=== PATIENT | male | born 1950 | race Caucasian/White ===

== ENCOUNTER → 2020-11-15 02:39 | Outpatient (CLI) | payer MEDICARE, SELFPAY ==
[2020-11-15 19:42] LABS: SARS-CoV-2 RNA PCR Negative
== END ==
PROVIDERS: PCP Internal Medicine; Visit Provider Internal Medicine Gastroenterology
DX: Z01.812 Encounter for preprocedural laboratory examination (principal); Z20.822 Contact with and (suspected) exposure to COVID-19
CPT/HCPCS: C9803; U0003; U0005

== ENCOUNTER 2020-11-18 01:07 | Day surgery (SDC) | payer MEDICARE, SELFPAY ==
[2020-11-09 10:29] VITALS: BMI 19.6
[2020-11-18 06:46] VITALS: BP 237/102; PULSE 68; RESP 20; TEMP 36.2; O2SAT 100
[2020-11-18] MEDS: LACTATED RINGERS 1,000 ML 150 ML IV CONT (06:56)
[2020-11-18 07:03] VITALS: BP 202/101
--- NOTE | 2020-11-18 07:29 | PM.HPGS ---
History of Present Illness History of Present Illness Consent: Risks, benefits, and alternatives have been discussed and questions answered. Patient agrees to proceed with procedure. Chief complaint: melena Narrative: Hank Montes is a 70 year old male referred for colon cancer screening. It has been 10 years since his last colonoscopy. Review of Systems Review of Systems: All systems reviewed & are unremarkable except as noted in HPI and below PMFSH Family History Family History Mother Hypertension Sibling Patient's sister is in good health Patient's brother is in good health Father Family history of cardiovascular disease Other Screening PSA (prostate specific antigen) Social History Social History Smoking packs per day: 1 Smoking cigarettes per day: 20.0 Smoking status: Former smoker Smoking end date: 08/06/90 Alcohol intake: former Alcohol use details: RARE OCCASSION Substance use: never Substance use type: does not use Living arrangements: alone Spiritual care concerns: No Meds Home Medications and Allergies Home Medications Medication Instructions Recorded Confirmed Type sildenafil 100 mg tablet 100 mg PO DAILY PRN #18 tablet 09/09/19 11/18/20 Rx atenolol 100 mg tablet 100 mg PO DAILY #90 tablet 08/30/20 11/18/20 Rx lisinopril 40 mg tablet 40 mg PO DAILY #90 tablet 08/30/20 11/18/20 Rx clonidine HCl 0.1 mg tablet 0.1 mg PO TID #270 tablet 10/04/20 11/18/20 Rx vardenafil 20 mg tablet 20 mg PO DAILY #7 tablet 10/04/20 11/18/20 Rx levothyroxine 125 mcg tablet 125 mcg PO DAILY #90 tablet 10/05/20 11/18/20 Rx Allergies Allergy/AdvReac Type Severity Reaction Status Date / Time Penicillins Allergy Unknown Rash Verified 11/18/20 06:44 Sulfa (Sulfonamide Allergy Unknown Rash Verified 11/18/20 06:44 Antibiotics) Vital Signs Vital Signs - 24 hr 11/18/20 06:46 11/18/20 07:03 Temperature 36.2 C L Pulse Rate 68 Respiratory Rate 20 Blood Pressure 237/102 H 202/101 H Pulse Oximetry 100 Exam Const: General: alert Orientation/consciousness: patient oriented x3 Resp: Auscultation: clear to auscultation bilaterally Cardio: Rhythm: regular rhythm GI: GI Palp: Yes Soft to palpation and No Tenderness to palpation present (GI) Neuro: General: patient oriented x3 Assessment and Plan Assessment and plan (1) Colon cancer screening: Code(s): Z12.11 - Encounter for screening for malignant neoplasm of colon Status: Acute Assessment and Plan: Colonoscopy with possible biopsy or polypectomy or cautery or injection of substances.
--- NOTE | 2020-11-18 07:55 | WPDANESEPPF ---
Anes - Initial Pre Proc Eval Procedure: Operation Date: 11/18/20 08:00 Proposed Procedures p Colonoscopy - Taco Colmenares MD Date/Time: 11/18/20 07:55 Surgeon: Taco Colmenares MD Pre Op Diagnosis: melena Patient Data Age: 70 Gender: M Height: 5 ft 11 in Weight: 58.4 kg Last Vital Signs Temp 97.1 F L 11/18/20 06:46 Pulse 68 11/18/20 06:46 Resp 20 11/18/20 06:46 BP 202/101 H 11/18/20 07:03 Pulse Ox 100 11/18/20 06:46 Allergies Allergy/AdvReac Type Severity Reaction Status Date / Time Penicillins Allergy Unknown Rash Verified 11/18/20 06:44 Sulfa (Sulfonamide Allergy Unknown Rash Verified 11/18/20 06:44 Antibiotics) Home Medications Medication Instructions Recorded Confirmed Type sildenafil 100 mg tablet 100 mg PO DAILY PRN #18 tablet 09/09/19 11/18/20 Rx atenolol 100 mg tablet 100 mg PO DAILY #90 tablet 08/30/20 11/18/20 Rx lisinopril 40 mg tablet 40 mg PO DAILY #90 tablet 08/30/20 11/18/20 Rx clonidine HCl 0.1 mg tablet 0.1 mg PO TID #270 tablet 10/04/20 11/18/20 Rx vardenafil 20 mg tablet 20 mg PO DAILY #7 tablet 10/04/20 11/18/20 Rx levothyroxine 125 mcg tablet 125 mcg PO DAILY #90 tablet 10/05/20 11/18/20 Rx Patient hx anesthesia problems: none Family hx anesthesia problems: none PMFSH Past Medical History Medical History (Updated 11/18/20 @ 07:55 by Eldon Zepeda MD) Essential (primary) hypertension H/O prostate cancer Hypothyroidism (acquired) Family History Family History Mother Hypertension Sibling Patient's sister is in good health Patient's brother is in good health Father Family history of cardiovascular disease Other Screening PSA (prostate specific antigen) Social History Social History Smoking packs per day: 1 Smoking cigarettes per day: 20.0 Smoking status: Former smoker Smoking end date: 08/06/90 Alcohol intake: former Alcohol use details: RARE OCCASSION Substance use: never Substance use type: does not use Living arrangements: alone Spiritual care concerns: No Anes - Eval Final PreProcedure Day of Procedure 11/18/20 07:55 Patient weight: normal Heart: regular rate and rhythm Lungs: clear to auscultation Airway: Mallampati scale class II Neurological: alert and oriented Last oral intake: >/= 8 hours ASA classification: III Emergent: no Anesthetic plan: proceed Anesthesia type and monitoring: general GIVS and standard monitoring Informed Consent: The patient's anesthetic plan and its attendant risks and benefits were discussed with the patient/family/POA. Questions were solicited and answers provided to the satisfaction of the patient/family/POA.
[2020-11-18 08:20] VITALS: BP 98/67; PULSE 57; RESP 17; O2SAT 99
[2020-11-18 08:30] VITALS: BP 113/68; PULSE 54; RESP 16; O2SAT 98
[2020-11-18 08:40] VITALS: BP 169/94; PULSE 57; RESP 17; O2SAT 100
== END 2020-11-18 08:50 | disposition home or self-care (01) ==
PROVIDERS: PCP Internal Medicine; Visit Provider Internal Medicine Gastroenterology
PROC: 0DJD8ZZ Inspection of Lower Intestinal Tract, Via Natural or Artificial Opening Endoscopic (ICD-10-PCS; CPT 45378; principal; 2020-11-18 08:00)
DX: Z12.11 Encounter for screening for malignant neoplasm of colon (principal); K62.1 Rectal polyp; E03.9 Hypothyroidism, unspecified; I10 Essential (primary) hypertension; Z85.46 Personal history of malignant neoplasm of prostate; Z87.891 Personal history of nicotine dependence
CPT/HCPCS: 45380; 88305; C9803; J2704; J7120; U0003; U0005

== ENCOUNTER 2022-06-09 16:34 | Inpatient (IN) | payer MEDICARE, SELFPAY ==
[2022-06-09] VITALS (31 sets, daily range): BP systolic 119–211; BP diastolic 55–137; PULSE 62–113; RESP 13–26; TEMP 36.2–38.1; O2SAT 90–100
--- NOTE | ~2022-06-09 | XR_ITS ---
XR chest ET placement DATE: 06/09/2022 17:00 INDICATION: ET tube placement TECHNIQUE: Portable AP chest on 06/2022 at 1656 hours COMPARISON: None FINDINGS: ET tube is approximately 2.6 cm above kale in satisfactory position. NG tube is noted pas sing into the stomach. No central lines are noted. Severe bilateral pulmonary patchy consolidation throughout both lungs, most prominent centrally. The findings suggest pulmonary edema or extensive bilateral pneumonia. Kade B-lines are noted, suggesti ng pulmonary interstitial edema. Heart size is not optimally evaluated on AP projection because of medication. There is thoracic aorti c arch calcification. Minimal if any pleural effusion is evident. No pneumothorax. There is mild apic al capping, primarily on the right. Osteopenia. IMPRESSION: ET tube in satisfactory position. NG tube in stomach Severe bilateral pulmonary infiltrate, particularly prominent centrally, suggesting pulmonary edema. Pneumonia is not excluded. Reviewed, dictated and finalized at [facility] Reviewed, dictated and finalized at [facility]. IMPRESSION: ET tube in satisfactory position. NG tube in stomach Severe bilateral pulmonary infiltrate, particularly prominent centrally, sugges ting pulmonary edema. Pneumonia is not excluded.
--- NOTE | ~2022-06-09 | XR_ITS ---
XR abdomen NG/feed tube insert DATE: 06/09/2022 17:00 INDICATION: Orogastric tube placement TECHNIQUE: Supine AP view COMPARISON: None FINDINGS: Orogastric tube extends 10 cm distal to the diaphragmatic hiatus into the upper body of the stomach. ET tube appears in satisfactory position. Diffuse severe bilateral patchy consolidating pulmonary infiltrates, most prominent centrally and Ker lexy B-lines, suggesting extensive pulmonary edema. Pneumonia or aspiration are not excluded. IMPRESSION: NG tube in stomach Reviewed, dictated and finalized at [facility]. Reviewed, dictated and finalized at [facility]. IMPRESSION: NG tube in stomach
--- NOTE | 2022-06-09 16:41 | PC.NURSE ---
1635 - Stemi [facility]/H 1636- [facility] [place] 1637 - Lizeth 1640 - [facility]
--- NOTE | 2022-06-09 16:49 | ECG_ITS ---
Measurements Intervals [place] Rate: 114 P: RI: 0 QRS: 6 QRSD: 90 T: 91 QT: 316 QTc: 436 Interpretive Statements SINUS TACHYCARDIA ANTERIOR ST ELEVATION MYOCARDIAL INJURY- ACUTE BASELINE WANDER- I, II, III, AVR, AVL, AVF, V1-V6 ABNORMAL ECG NO PREVIOUS ECG AVAILABLE FOR COMPARISON Electronically Signed On 06-09-2022 21:44:14 CDT by Raz Roy D.O.
--- NOTE | 2022-06-09 16:49 | PC.NURSE ---
PT. HAS BILAT. 18 g INTIATED BY EMS 20 g l FOREARM. 1650 PT. ng TUBE PLACED AT 59@ TEETH 1650 NITROPASTE PLACED ON L CHEST 1659 PT. GIVEN 180 MG BIRLENTA GIVEN VIA NG
[2022-06-09 16:57] LABS: Basophils Absolute Auto 0.2 K/mm3 (0.0-0.1); Basophils Percent Auto 1.2 % (0.2-1.2); Eosinophils Absolute Auto 0.2 K/mm3 (0-0.3); Hematocrit 55.5 % (42.0-52.0); Hemoglobin 17.5 g/dL (14.0-18.0); Immature Granulocyte Absolute 0.11 K/mm3 (0.00-0.031); Immature Granulocyte Percent A 0.6 % (0-0.5); Lymphocytes Absolute Auto 2.57 K/mm3 (0.9-3.2); Lymphocytes Percent Auto 14.3 % (18.3-44.2); Mean Corpuscular HGB Conc 31.5 g/dl (32-36); Mean Corpuscular Hemoglobin 29.3 pg (26-34); Mean Platelet Volume 9.5 fl (7.4-10.4); Monocytes Percent Auto 5.7 % (2.6-8.5); Neutrophils Absolute Auto 13.8 K/mm3 (1.3-6.7); Neutrophils Percent Auto 77.2 % (45.5-73.1); Platelet Count Result 330 k/mm3 (150-375); Red Blood Count 5.97 M/mm3 (4.6-6.20); Red Cell Distribution Width 13.8 % (11.5-14.5); White Blood Count 17.9 K/mm3 (4.5-10.0)
--- NOTE | 2022-06-09 17:01 | ED.SOB ---
HPI - SOB/Dyspnea General Chief Complaint: Shortness of Breath/Dyspnea Stated Complaint: STEMI Time Seen by Provider: 06/09/22 16:44 History of Present Illness HPI Narrative: HPI limited due to acuity of disease. This is a 71-year-old male with reported past medical history of hypertension, brought in by EMS for respiratory distress. EMS reports they were called for shortness of breath with productive sputum. On arrival the patient was hypoxic placed on supplemental oxygen. In route the patient became diaphoretic with worsening sats and was intubated. EMS reported patient's blood pressures were in the 200s systolic with heart rate in the 80s. EKG in the field was concerning for ST elevation in V3 and V4. Patient was given aspirin in route. Related Data Allergies Allergy/AdvReac Type Severity Reaction Status Date / Time Penicillins Allergy Unknown Rash Verified 12/01/21 09:55 Sulfa (Sulfonamide Allergy Unknown Rash Verified 12/01/21 09:55 Antibiotics) Review of Systems Review of Systems: Review of systems limited due to patient intubated. ations, or edema. RESPIRATORY: cough and dyspnea. [facility] Past Medical History Medical History Essential (primary) hypertension H/O prostate cancer Hypothyroidism (acquired) Family History Family History Mother Hypertension Sibling Patient's sister is in good health Patient's brother is in good health Father Family history of cardiovascular disease Other Screening PSA (prostate specific antigen) Social History Social History Smoking packs per day: 1 Smoking cigarettes per day: 20.0 Smoking end date: 08/06/90 Alcohol intake: former Alcohol use details: RARE OCCASSION Substance use: never Substance use type: does not use Spiritual care concerns: No Exam Narrative: GENERAL: Intubated HEAD: Normocephalic, atraumatic. EYES: PERRLA and EOMI. ENT: ET tube in place 24 at the teeth, pink frothy sputum noted coming from the tube NECK: JVD CHEST: Bilateral rales ventilated with bag valve HEART: Regular rate and rhythm. No murmur heard. Normal peripheral pulses. ABDOMEN: Soft, nondistended, normal active bowel sounds. EXTREMITIES: Normal range of motion. No edema. SKIN: Warm, dry, no rash. NEURO: Chemically sedated Course Course Emergency Course: 16:45 -EKG concerning for anterior STEMI with flash pulmonary edema. Discussed patient with dog groomer, Dr. Lay who accepts patient to the Plastic Surgeon. MDM - SOB/Dyspnea MDM Narrative Medical decision making narrative: Plan: STEMI activation, EKG, sedation, blood pressure control, admit to Plastic Surgeon Differential Diagnosis Differential diagnosis: Likely other (STEMI, flash pulmonary edema, hypertensive emergency, metabolic abnormality, other) Lab Data Result diagrams: 06/09/22 16:52 06/09/22 16:52 Labs: Lab Results 06/09/22 06/09/22 06/09/22 Range/Units 16:52 16:52 16:52 WBC 17.9 H (4.5-10.0) K/mm3 RBC 5.97 (4.6-6.20) M/mm3 Hgb 17.5 (14.0-18.0) g/dL Hct 55.5 H (42.0-52.0) % MCV 93.0 (80-100) fl MCH 29.3 (26-34) pg MCHC 31.5 L (32-36) g/dl RDW 13.8 (11.5-14.5) % Plt Count 330 (150-375) k/mm3 MPV 9.5 (7.4-10.4) fl Immature Gran % (Auto) 0.6 H (0-0.5) % Neut % (Auto) 77.2 H (45.5-73.1) % Lymph % (Auto) 14.3 L (18.3-44.2) % [place] % (Auto) 5.7 (2.6-8.5) % Eos % (Auto) 1.0 (0-4.4) % Baso % (Auto) 1.2 (0.2-1.2) % Lymph # (Auto) 2.57 (0.9-3.2) K/mm3 [place] # (Auto) 1.0 H (0.1-0.6) K/mm3 Eos # (Auto) 0.2 (0-0.3) K/mm3 Baso # (Auto) 0.2 H (0.0-0.1) K/mm3 Abs Immat Gran (auto) 0.11 H (0.00-0.031) K/mm3 Absolute Neuts (auto) 13.8 H (1.3-6.7) K/mm3 Absolute Nucleated RBC 0.0 (0.0-0
[2022-06-09] MEDS: fentaNYL CITRATE INJ (*CRX) 100 MCG/2 ML VIAL IV PUSH (17:03)
[2022-06-09] MEDS: MIDAZOLAM HCL (*CRX) 2 MG/2 ML VIAL 4 MG IV PUSH (17:03)
--- NOTE | 2022-06-09 17:04 | PC.NURSE ---
1700 PT GIVEN 40 MG LASIX IVP VORB
[2022-06-09 17:09] LABS: INR 1.1; Prothrombin Time 13.7 Seconds (11.1-14.7)
[2022-06-09 17:10] LABS: Alanine Aminotransferase 45 U/L (6-50); Albumin Level 4.5 g/dL (3.5-5.1); Alkaline Phosphatase 80 U/L (38-126); Anion Gap 15 mmol/L (8-16); Aspartate Amino Transferase 55 U/L (17-59); Bilirubin,Total 1.2 mg/dL (0.2-1.3); Blood Urea Nitrogen 37 mg/dL (9-20); Calcium 8.5 mg/dL (8.4-10.2); Carbon Dioxide 18 mmol/L (22-30); Chloride 101 mmol/L (98-107); Cholesterol 201 mg/dL (0-200); Estimated Glomerular Filt Rate 46; Glucose 136 mg/dL (65-110); HDL Direct 48 mg/dL; Partial Thromboplastin Time 21.3 SECONDS (22.3-36.8); Potassium 3.9 mmol/L (3.4-5.0); Sodium 134 mmol/L (137-145); Triglycerides 119 mg/dL (<150)
[2022-06-09 17:18] LABS: LDL Cholesterol Direct 119 mg/dL
[2022-06-09 17:28] LABS: Troponin I 0.052 ng/mL (0.000-0.034)
--- NOTE | 2022-06-09 18:05 | WPDHPUPDATE1 ---
History and Physical Update Update Date/Time: date of service:06/09/22 18:05 History and Physical has been reviewed, including an updated exam of the patient. There are NO changes in the patient's condition. Risks, benefits, and alternatives have been discussed and questions answered. Patient agrees to proceed with procedure.
--- NOTE | 2022-06-09 18:07 | PM.IMHP ---
H&P: HPI History of Present Illness Date/Time: Date of service:06/09/22 18:07 Chief Complaint: This is a 71-year-old man unknown to me prior to this emergency. He apparently has a history of hypertension and hypothyroidism in with presented to the hospital by ambulance with severe acute shortness of breath, respiratory extremis and severe pulmonary edema. He was intubated in the ambulance on route to the emergency room. Upon arrival his ECG shows sinus tachycardia with anterior ST elevation. STEMI was declared and we were summoned to bring him emergently to the phlebotomy lab assistant. Obviously he is intubated and on ventilator support and incapable of providing the any direct history. The ED physician did not indicate that he was having any chest pain. No previous cardiac history according to best information I have Review of Systems Review of Systems: ROS unobtainable: Yes unobtainable due to endotracheal tube PMFSH Past Medical History Medical History Essential (primary) hypertension H/O prostate cancer Hypothyroidism (acquired) Family History Family History Mother Hypertension Sibling Patient's sister is in good health Patient's brother is in good health Father Family history of cardiovascular disease Other Screening PSA (prostate specific antigen) Social History Social History Smoking packs per day: 1 Smoking cigarettes per day: 20.0 Smoking end date: 08/06/90 Alcohol intake: former Alcohol use details: RARE OCCASSION Substance use: never Substance use type: does not use Spiritual care concerns: No Meds Home Medications and Allergies Home Medications Medication Instructions Recorded Confirmed Type lisinopril 40 mg tablet 40 mg PO DAILY #90 tabs 08/29/21 12/01/21 Rx fluticasone propionate 50 2 spray intranasal DAILY #16 grams 10/17/21 12/01/21 Rx mcg/actuation nasal spray,suspension atenolol 100 mg tablet 100 mg PO DAILY #90 tabs 12/01/21 12/01/21 Rx clonidine HCl 0.1 mg tablet 0.1 mg PO TID #270 tabs 12/01/21 12/01/21 Rx levothyroxine 125 mcg tablet 125 mcg PO DAILY #90 tabs 03/20/22 Rx Allergies Allergy/AdvReac Type Severity Reaction Status Date / Time Penicillins Allergy Unknown Rash Verified 12/01/21 09:55 Sulfa (Sulfonamide Allergy Unknown Rash Verified 12/01/21 09:55 Antibiotics) Vital Signs Vital Signs - 24 hr 06/09/22 17:09 06/09/22 17:09 06/09/22 16:32 Temperature Pulse Rate 83 113 H Respiratory Rate 23 H 19 Blood Pressure 197/108 H 211/137 H Pulse Oximetry 90 91 98 Oxygen Delivery Bag Valve Mask 06/09/22 16:40 06/09/22 16:45 06/09/22 16:50 Temperature 36.2 C L Pulse Rate 104 H 88 89 Respiratory Rate 13 20 15 Blood Pressure 202/133 H 160/103 H 196/112 H Pulse Oximetry 92 95 95 Oxygen Delivery 06/09/22 16:55 06/09/22 17:00 Temperature 36.7 C 37.1 C Pulse Rate 84 82 Respiratory Rate 24 H 23 H Blood Pressure 187/109 H 197/108 H Pulse Oximetry 93 91 Oxygen Delivery Exam Const: Other: thin elderly man intubated sedated in the phlebotomy lab assistant being prepared for emergency angiography HENMT: Mouth: Yes moist mucous membranes Eyes: Sclera: sclerae normal Neck: Neck: supple Resp: Other: coarse rhonchi in both lung field Cardio: Rate: regular rate Rhythm: regular rhythm Other: S4 is evident no audible cardiac murmur GI: GI Palp: Yes Soft to palpation Auscultation: normal bowel sounds Skin: General skin exam: normal color Neuro: Other: sedated on ventilator Extrem: Other: no edema, adequate perfusion H&P: Results Labs Labs: Short CBC 06/09/22 Range/Units 16:52 WBC 17.9 H (4.5-10.0) K/mm3 Hgb 17.5 (14.0-18.0) g/dL Hct 55.5 H (42.0-52.0) % Plt Count 330 (150-375) k/mm3 [facility] 06/09/22 16:52 Sodium
--- NOTE | 2022-06-09 18:12 | WPDCARDPROC ---
Cardiac Cath Procedure Note Date of procedure:: 06/09/22 Performing physician:: Wilber Stanley MD Indication:: acute pulmonary edema with ST-elevation Brief clinical history:: this is a 71-year-old man being brought for emergent angiography he presented to the emergency room with severe shortness of breath the AH because of respiratory extremis was intubated on route to the hospital in the ambulance. He has no previous cardiac history he is hypertensive and following arrival in the emergency room his ECG shows some anterior ST segment elevation. Procedure Procedure performed:: Emergency coronary angiography left ventriculography placement of intra-aortic balloon pump Sedation/Medication given:: propofol 100 mg Access site:: right femoral artery Estimated blood loss:: 50 cc Procedure note:: patient was brought to the cardiac catheterization lab in the emergency setting described above the femoral triangles were prepped and draped in the normal fashion. Anesthesia was provided with 1% lidocaine locally. The right femoral artery was punctured using modified Seldinger technique and a 6 [place] vascular sheath was placed. After this I used a 5 [place] FL4 catheter to engage and inject the left coronary artery in multiple projections. Following this a 5 [place] JR4 catheter was used to engage and inject the right coronary artery in 3 projections. Following this the cineangiograms were reviewed. A 5 [place] angled pigtail catheter was used to document left-sided hemodynamics and to inject the left ventriculogram in the SCOTT projection. Lastly the patient had any intracardiac balloon pump placed exchanged the 6 [place] sheath for the 8 [place] balloon pump sheath over a guidewire and balloon pump was placed under fluoroscopic visualization into the descending thoracic aorta and one-to-one counterpulsation was initiated. The patient received 7000 of heparin bolus and received a 100 mg both bolus of propofol in the manager cardiac cath as the procedure was concluded because of agitation. He was taken to the ICU for post emergency catheterization management and plans are being made to attempt transfer for cardiothoracic surgery consultation for myocardial revascularization. Findings:: Hemodynamics: Central aortic pressure is 186 over 106 left ventricle 196 over 18 end-diastolic pressure 36. No gradient was seen across the aortic valve upon pullback. Left ventricle: The LV is modestly enlarged the mid to apical anterior wall is stunned and nearly akinetic to remainder of the LV contracts well the global ejection fraction is 40% by visual estimation the left main coronary artery is medium in caliber there is a eccentric stenosis of about 70% in the mid left main. The left anterior descending is a medium caliber artery extending down to the apex. The LAD has a critical 95% stenosis at the origin of the major relatively large diagonal branch. There was LISETTE 3 flow in the LAD and into the diagonal. Circumflex is a medium caliber artery giving rise to a 1st OM branch that takes off very high as a ramus intermedius. This large 1st OM has a 99% proximal stenosis. The remainder of the circumflex has mild diffuse disease. The right coronary artery is very large caliber dominant to the posterior circulation there are no significant lesions in the trunk of the right coronary artery. The proximal segment of the RPDA has a 70-80% stenosis. It is a large caliber vessel distal to that the PL branches have no significant disease. Conclusion:: 1. Acute ischemically mediated pulmonary edema due to ischemia in the distribution of the left anterior descending with high-grade stenosis as described above 2. patient has at least moderate mid left main disease, very high-grade stenosis in large OM/ramus intermedius and significant stenosis of the RPDA. 3. Ischemic LV systolic dysfunction with the high-grade LAD lesion being the culprit 4.
[2022-06-09] MEDS: FENTANYL 2,500MCG/NS250ML(*CRX 2,500 MCG/250 ML BAG IV CONT (18:28)
[2022-06-09] MEDS: MIDAZOLAM 100MG/NS 100ML(*CRX) 100 MG/100 ML BAG IV CONT (18:30)
[2022-06-09] MEDS: HEPARIN SOD/D5W 100 UNITS/ML 25,000 UNITS/250 ML BAG 8 UNITS IV CONT (18:35)
[2022-06-09] MEDS: SODIUM CHLORIDE 0.9% IV 1,000 ML 125 ML IV CONT (18:36)
--- NOTE | 2022-06-09 18:44 | ADMGEN ---
This patient, Hank Montes, was admitted to Intensive Care Unit-2 at 1825. Patient/family oriented to hospital policies and general routines including ID bracelet, bed and alarms, visiting hours, pain management, procedures, bathroom and other care routines, personal items, smoking policy, room service/diet, and visiting hours. Information on how to activate the Rapid Response Team has been discussed. Patient/Family are encouraged to report perceived risks to care and to ask questions if they do not understand what they are told or what they should do.
[2022-06-09] MEDS: PROPOFOL IV EMULSION 100 ML 2.07 MG IV CONT (19:18)
[2022-06-09 19:43] LABS: SARS-CoV-2 RNA PCR Negative
[2022-06-09] MEDS: METOPROLOL TARTRATE 25 MG TABLET PO (19:50)
[2022-06-09] MEDS: lisinopriL 20 MG TABLET PO (19:50)
[2022-06-09 20:26] LABS: Basophils Absolute Auto 0.1 K/mm3 (0.0-0.1); Basophils Percent Auto 0.3 % (0.2-1.2); Eosinophils Percent Auto 0.1 % (0-4.4); Hematocrit 47.9 % (42.0-52.0); Hemoglobin 16.2 g/dL (14.0-18.0); Immature Granulocyte Absolute 0.06 K/mm3 (0.00-0.031); Immature Granulocyte Percent A 0.4 % (0-0.5); Lymphocytes Percent Auto 7.5 % (18.3-44.2); Mean Corpuscular HGB Conc 33.8 g/dl (32-36); Mean Corpuscular Hemoglobin 29.5 pg (26-34); Mean Corpuscular Volume 87.1 fl (80-100); Mean Platelet Volume 9.9 fl (7.4-10.4); Monocytes Absolute Auto 0.9 K/mm3 (0.1-0.6); Monocytes Percent Auto 5.7 % (2.6-8.5); Neutrophils Absolute Auto 13.8 K/mm3 (1.3-6.7); Platelet Count Result 254 k/mm3 (150-375); Red Cell Distribution Width 13.7 % (11.5-14.5); White Blood Count 16.1 K/mm3 (4.5-10.0)
[2022-06-09 20:37] LABS: INR 1.2; Prothrombin Time 14.8 Seconds (11.1-14.7)
[2022-06-09 20:40] LABS: Partial Thromboplastin Time 117.9 SECONDS (22.3-36.8)
[2022-06-10] VITALS: PULSE 62
--- NOTE | 2022-06-10 00:26 | PC.NURSE ---
0026-This RN left with EMS to transfer patient on balloon pump to [facility] CV[facility] bed 1. Report called to Connie OCHOA. Family updated on transfer questions answered.
--- NOTE | 2022-06-28 12:26 | PM.TDS ---
Transfer Discharge Sum: Prov Provider Date of admission: 06/09/22 16:57 Primary care physician: eTo Ferrera DO Admitting clinician: Wilber Stanley MD Attending physician on admission: Wilber Stanley Consults: 06/09/22 Consult to Physician Routine Comment: Consulting Provider: Chris Mckeon teller supervisor/MD group to consult: icu vocational school teacher Reason for consultation: icu admission Has provider been notified: Yes Attending physician on discharge: Wilber Stanley Discharging clinician: Wilber Stanley Anticipated date of transfer: 06/09/22 Receiving physician/facility: [facility] DS: Admitting Diagnosis Discharge Date 06/10/22 Admitting Diagnosis acute coronary since DS: Discharge Diagnosis Discharge Diagnosis Plan acute coronary syndrome Transfer Discharge Sum: Med Medications Active and Home Medications: Home Medications lisinopril 40 mg tablet 40 mg PO DAILY #90 tabs 08/29/21 [Rx Confirmed 06/09/22] fluticasone propionate 50 mcg/actuation nasal spray,suspension 2 spray intranasal DAILY #16 grams 10/17/21 [Rx Confirmed 06/09/22] atenolol 100 mg tablet 100 mg PO DAILY #90 tabs 12/01/21 [Rx Confirmed 06/09/22] clonidine HCl 0.1 mg tablet 0.1 mg PO TID #270 tabs 12/01/21 [Rx Confirmed 06/09/22] levothyroxine 125 mcg tablet 125 mcg PO DAILY #90 tabs 03/20/22 [Rx Confirmed 06/09/22] Transfer Discharge Sum: Hosp Hospital Course Hospital course: Hank Montes is a 71 year old male admitted to the hospital with chest pain indicative of myocardial ischemia. Patient was brought for emergent cardiac catheterization demonstrating critical three-vessel coronary artery disease. The patient's anatomy was indicating the need for surgical myocardial revascularization because of his instability in intra-aortic balloon pump was placed and then he was transferred by ambulance to [facility] in anticipation of cardiothoracic surgery consultation and surgical myocardial revascularization. Time Spent with Patient Time attestation: Total time spent providing and/or coordinating transfer services: Total time spent: Greater than 30 minutes Exam Const: General: in distress Nutritional Appearance: average body habitus HENMT: Head: normal to inspection Mouth: Yes moist mucous membranes Teeth and gingiva: dentition normal Eyes: Sclera: sclerae normal Pupils: Equal, round and reactive pupils present Neck: Neck: JVD Thyroid: thyroid normal Carotids: normal carotid upstroke Resp: Effort & Inspection: normal respiratory effort Auscultation: clear to auscultation bilaterally Cardio: Jugular venous distension: no JVD Palpation: normal PMI Rate: regular rate Rhythm: regular rhythm Other: No murmur no gallop no rub GI: Inspection: normal to inspection Auscultation: normal bowel sounds Skin: General skin exam: normal color Neuro: General: oriented to person and patient oriented x3 Extrem: General: normal to inspection
== END 2022-06-10 00:26 | disposition short-term general hospital (02) | DRG 270 ==
LOC: ANHED 17:13 → ANHICU 17:53
PROVIDERS: Admitting Provider Specialist; Emergency Provider Preventive Medicine Aerospace Medicine; PCP Family Medicine; Visit Provider Specialist
PROC: 4A023N7 Measurement of Cardiac Sampling and Pressure, Left Heart, Percutaneous Approach (ICD-10-PCS; CPT 93452; principal; 2022-06-09 16:45)
PROC: 5A02210 Assistance with Cardiac Output using Balloon Pump, Continuous (ICD-10-PCS; 2022-06-09 16:45)
DX: I21.3 ST elevation (STEMI) myocardial infarction of unspecified site (principal); J81.0 Acute pulmonary edema; I16.1 Hypertensive emergency; I10 Essential (primary) hypertension; I25.10 Atherosclerotic heart disease of native coronary artery without angina pectoris; E03.9 Hypothyroidism, unspecified; Z20.822 Contact with and (suspected) exposure to COVID-19; Z79.899 Other long term (current) drug therapy; Z88.0 Allergy status to penicillin; Z88.2 Allergy status to sulfonamides; Z85.46 Personal history of malignant neoplasm of prostate; Z87.891 Personal history of nicotine dependence
CPT/HCPCS: 33967; 36415; 51702; 80053; 80061; 84484; 85025; 85610; 85730; 86850; 86900; 86901; 93005; 93458; 94002; 99285; A9270; C1887; J1644; J1940; J2250; J2704; J3010; J7030; J7040; U0003; U0005

== ENCOUNTER 2022-07-09 19:53 | Observation (INO) | payer MEDICARE, SELFPAY ==
--- NOTE | ~2022-07-09 | US_ITS ---
EXAMINATION: US renal BI DATE: 07/10/2022 14:41 INDICATION: Acute kidney injury TECHNIQUE: Multiple grayscale and Doppler ultrasound images of the kidneys were obtained. COMPARISON: None. FINDINGS: The right kidney measures 12.4 x 6.2 x 4.8 cm and contains a 1.6 cm cyst. The left kidney m easures 11.6 x 5.4 x 5.5 cm. The kidneys demonstrate increased parenchymal echogenicity. There is no hydronephrosis. The bladder is normal. IMPRESSION: 1. Medical renal disease. Reviewed, dictated and finalized at location A. ENGER SCREENER IMPRESSION: 1. Medical renal disease.
--- NOTE | ~2022-07-09 | XR_ITS ---
EXAMINATION: XR chest 1V portable Exam Date/Time: 07/09/2022 20:15 BUSINESS AREA MANAGER HISTORY: shortness of breath, BY PASS SURGERY, HTN Comparison: 06/09/2022. RESULT: Lines, tubes, and devices: Intact sternotomy wires. Mediastinal vascular clips. Abandoned epicardial pacing wire. Lungs and pleura: Linear opacity in the right lung base represent atelectasis or scar. Left basilar airspace opacity. Moderate blunting of the left lateral costophrenic angle. Cardiomediastinal silhouette: Stable. Other: No acute osseous or upper abdominal finding. IMPRESSION: Left basilar atelectasis/consolidation. Moderate left pleural effusion. Reviewed, dictated and finalized at location K. NESS AREA MANAGER
--- NOTE | ~2022-07-09 | US_ITS ---
EXAMINATION: US thoracentesis DATE: 07/10/2022 12:55 INDICATION: Left pleural effusion TECHNIQUE: The procedure and its risks and benefits were discussed with the patient. Potential risks discussed included bleeding, infection, and pneumothorax. The patient understood the risks and agreed to proceed. The skin was prepped and draped in sterile fashion. 1% lidocaine was used for local anes thesia. Under ultrasound guidance, a 5 Fr catheter with trochar was advanced into the moderate-sized left pleural effusion. Fluid was aspirated. The catheter was removed, and a dressing was applied. The re were no immediate complications. FINDINGS: Ultrasound images demonstrate a large sized left pleural effusion and the catheter within the fluid. IMPRESSION: 1. Successful ultrasound-guided thoracentesis yielding 1000 mL of reddish fluid. Reviewed, dictated and finalized at location A. VICE PRESIDENT IMPRESSION: 1. Successful ultrasound-guided thoracentesis yielding 1000 mL of reddish flui d.
--- NOTE | ~2022-07-09 | CT_ITS ---
EXAMINATION: CT diagnostic chest wo con DATE: 07/09/2022 23:16 INDICATION: Shortness of breath. Pleural effusion. Status post coronary bypass graft surgery. Hyperte nsion. TECHNIQUE: Computed tomography (CT) of the chest was performed without intravenous contrast. Automate d exposure control and iterative reconstruction technique were employed. Exam dose: 205.28 mGy-cm to margaret exam DLP. COMPARISON: 07/09/2022 portable AP chest FINDINGS: There is a moderately large left pleural effusion with compressive atelectasis/infiltrate o f the left lower lobe. No obstructing left endobronchial lesion is evident. There is minimal bilateral basilar middle lobe and dependent posterior right lower lobe atelectasis a nd/or infiltrate. No right pleural effusion. Status post sternotomy and coronary bypass graft surgery. Heart size is normal. No pericardial effusi on. Aortic, great vessel and coronary artery calcifications. Ascending aorta measures 3.7 cm diameter, po sterior aortic arch 3.2 cm diameter. Blood pool appears relatively low-density. Recommend clinical co rrelation for possible anemia. No hilar or mediastinal mass lesion or lymphadenopathy. Multiple hepatic cysts. Hyperdense approximately 1 cm upper pole right renal cyst. Severe degenerative disease of the lower cervical spine. There is degenerative change of the thoracic and lumbar spine. No suspicious osteolytic or osteoblastic lesions are noted. IMPRESSION: Large left pleural effusion Left lower lobe atelectasis/infiltrate Minimal atelectasis of the middle and right lower lobe Suspected anemia Status post coronary bypass graft surgery Mild aortic aneurysm Hepatic cysts and right renal cyst Reviewed, dictated and finalized at Location A. Reviewed, dictated and finalized at location B. ER STRIPPER
--- NOTE | ~2022-07-09 | XR_ITS ---
EXAMINATION: [id number] DATE: 07/10/2022 12:53 INDICATION: Status post left thoracentesis TECHNIQUE: frontal view of the chest was obtained. COMPARISON: Chest radiograph dated 07/09/2022 FINDINGS: Interval decrease in size of a now small left pleural effusion. There has however been no significant corresponding increased aeration of the left lung with new compensatory elevation of the left hemidi aphragm. Right lung remains clear with no airspace opacities, pulmonary edema or pleural effusion. No pneumothorax. Heart size is within normal limits for AP technique. Median sternotomy wires and media stinal surgical clips are seen, likely from prior coronary artery bypass grafting. IMPRESSION: 1. No pneumothorax and decreased now small left pleural effusion post left thoracentesis. 2. Left basilar opacities likely related to persistent partial left lower lobe collapse with no signi ficant change in volume loss in the left lung despite the thoracentesis which results in compensatory elevation of the left hemidiaphragm. Underlying malignancy or pneumonia not excludable. Reviewed, dictated and finalized at location A. ANNEALER IMPRESSION: 1. No pneumothorax and decreased now small left pleural effusion post left thor acentesis. 2. Left basilar opacities likely related to persistent partial left lower lobe collapse with no significant change in volume loss in the left lung despite the thoracentesis which results in compensatory elevation of the left hemidiaphrag m. Underlying malignancy or pneumonia not excludable.
[2022-07-09 19:49] VITALS: BP 160/78; PULSE 63; RESP 15; TEMP 36.7; O2SAT 98
[2022-07-09 20:04] VITALS: BP 133/72; PULSE 62; RESP 20
--- NOTE | 2022-07-09 20:04 | ECG_ITS ---
Measurements Intervals [place] Rate: 63 P: 21 FL: 177 QRS: -29 QRSD: 95 T: 140 QT: 423 QTc: 433 Interpretive Statements SINUS RHYTHM POSSIBLE LEFT ATRIAL ENLARGEMENT [-0.1mV P WAVE IN V1/V2] BORDERLINE LEFT AXIS DEVIATION [QRS AXIS < -20] ST DEVIATION AND MODERATE T-WAVE ABNORMALITY, CONSIDER LATERAL ISCHEMIA [-0.1+ mV T WAVE IN I/aVL/V5/V6] COMPARED TO ECG 06/09/2022 16:35:47 SINUS RHYTHM NOW PRESENT Electronically Signed On 07-10-2022 11:15:23 TOOL MAINTENANCE WORKER by Freddy Lira M.D.
--- NOTE | 2022-07-09 20:08 | ED.GENADULT ---
HPI - General Adult General Chief complaint: Shortness of Breath/Dyspnea Stated complaint: sob, tightness on right side Time Seen by Provider: 07/09/22 19:57 History of Present Illness HPI narrative: Patient 71-year-old gentleman who presents the emergency department with chief complaint of shortness of breath patient reports that approximately 1 month ago he had a coronary artery bypass graft done at [facility] after being admitted to our facility for a acute ST elevation OK and hypertensive crisis. Patient reports has been doing okay was discharged in the hospital approximately 1 week ago patient states that throughout the day he has noticed it has been getting a little bit more short of breath and is noticed the right side of his chest feels as though he is not getting enough air. Patient reports that he has had some peripheral edema that has gotten a little bit worse patient reports his blood pressures been doing much better since he was in the hospital. Patient reports he had no chest pain with this. Related Data Home Medications Medication Instructions Recorded Confirmed amiodarone 200 mg tablet mg 07/09/22 Allergies Allergy/AdvReac Type Severity Reaction Status Date / Time Penicillins Allergy Unknown Rash Verified 07/09/22 20:35 Sulfa (Sulfonamide Allergy Unknown Rash Verified 07/09/22 20:35 Antibiotics) Review of Systems Review of Systems: EKG sinus rhythm no ST elevation or ST depression [facility] Past Medical History Medical History Essential (primary) hypertension H/O prostate cancer Hypothyroidism (acquired) Family History Family History Mother Hypertension Sibling Patient's sister is in good health Patient's brother is in good health Father Family history of cardiovascular disease Other Screening PSA (prostate specific antigen) Social History Social History Smoking packs per day: 1 Smoking cigarettes per day: 20.0 Smoking status: Unknown if ever smoked Smoking end date: 08/06/90 Alcohol intake: unknown Alcohol use details: RARE OCCASSION Substance use: unknown Substance use type: unknown Spiritual care concerns: No Course Vital Signs Vital signs: Vital Signs Temperature 36.7 C 07/09/22 19:49 Pulse Rate 63 07/09/22 19:49 Respiratory Rate 15 07/09/22 19:49 Blood Pressure 160/78 H 07/09/22 19:49 Pulse Oximetry 98 07/09/22 19:49 Temperature 36.7 C 07/09/22 19:49 Pulse Rate 59 L 07/09/22 20:56 Respiratory Rate 20 07/09/22 20:56 Blood Pressure 133/72 07/09/22 20:04 Pulse Oximetry 98 07/09/22 19:49 Oxygen Delivery Room Air 07/09/22 20:01 Medical Decision Making Vital Signs Vital Signs: Vital Signs Temperature 36.7 C 07/09/22 19:49 Pulse Rate 63 07/09/22 19:49 Respiratory Rate 15 07/09/22 19:49 Blood Pressure 160/78 H 07/09/22 19:49 Pulse Oximetry 98 07/09/22 19:49 Temperature 36.7 C 07/09/22 19:49 Pulse Rate 59 L 07/09/22 20:56 Respiratory Rate 20 07/09/22 20:56 Blood Pressure 133/72 07/09/22 20:04 Pulse Oximetry 98 07/09/22 19:49 Oxygen Delivery Room Air 07/09/22 20:01 Lab Data 07/09/22 20:12 07/09/22 20:12 Labs: Lab Results 07/09/22 07/09/22 07/09/22 Range/Units 20:12 20:12 20:12 WBC 7.2 (4.5-10.0) K/mm3 RBC 3.24 L (4.6-6.20) M/mm3 Hgb 8.9 L D (14.0-18.0) g/dL Hct 28.2 L (42.0-52.0) % MCV 87.0 (80-100) fl MCH 27.5 (26-34) pg MCHC 31.6 L (32-36) g/dl RDW 13.6 (11.5-14.5) % Plt Count 263 (150-375) k/mm3 MPV 9.0 (7.4-10.4) fl Immature Gran % (Auto) 0.3 (0-0.5) % Neut % (Auto) 64.8 (45.5-73.1) % Lymph % (Auto) 16.7 L (18.3-44.2) % [place] % (Auto) 9.3 H (2.6-8.5) % Eos % (Auto) 7.9 H (0-4.
[2022-07-09 20:26] LABS: Basophils Absolute Auto 0.1 K/mm3 (0.0-0.1); Eosinophils Absolute Auto 0.6 K/mm3 (0-0.3); Eosinophils Percent Auto 7.9 % (0-4.4); Hematocrit 28.2 % (42.0-52.0); Hemoglobin 8.9 g/dL (14.0-18.0); Immature Granulocyte Absolute 0.02 K/mm3 (0.00-0.031); Immature Granulocyte Percent A 0.3 % (0-0.5); Lymphocytes Percent Auto 16.7 % (18.3-44.2); Mean Corpuscular HGB Conc 31.6 g/dl (32-36); Mean Corpuscular Hemoglobin 27.5 pg (26-34); Monocytes Absolute Auto 0.7 K/mm3 (0.1-0.6); Monocytes Percent Auto 9.3 % (2.6-8.5); Neutrophils Absolute Auto 4.7 K/mm3 (1.3-6.7); Neutrophils Percent Auto 64.8 % (45.5-73.1); Platelet Count Result 263 k/mm3 (150-375); Red Blood Count 3.24 M/mm3 (4.6-6.20); Red Cell Distribution Width 13.6 % (11.5-14.5); White Blood Count 7.2 K/mm3 (4.5-10.0)
[2022-07-09 20:37] LABS: INR 1.2; Prothrombin Time 14.9 Seconds (11.1-14.7)
[2022-07-09 20:38] LABS: Alanine Aminotransferase 28 U/L (6-50); Albumin Level 3.8 g/dL (3.5-5.1); Alkaline Phosphatase 96 U/L (38-126); Anion Gap 7 mmol/L (8-16); Aspartate Amino Transferase 42 U/L (17-59); Bilirubin,Total 0.4 mg/dL (0.2-1.3); Blood Urea Nitrogen 33 mg/dL (9-20); Calcium 8.3 mg/dL (8.4-10.2); Carbon Dioxide 30 mmol/L (22-30); Chloride 100 mmol/L (98-107); Estimated CRCL calculation 21 ml/min; Estimated Glomerular Filt Rate 24; Glucose 117 mg/dL (65-110); Lactic Acid Reflex 0.8 mmol/L (0.7-2.0); Magnesium 2.2 mg/dL (1.6-2.3); Partial Thromboplastin Time 30.4 SECONDS (22.3-36.8); Potassium 3.1 mmol/L (3.4-5.0); Sodium 137 mmol/L (137-145)
[2022-07-09] MEDS: ALBUTEROL SULFATE NEB 2.5 MG/3 ML INH 5 MG INHALATION (20:39)
[2022-07-09] MEDS: IPRATROPIUM BR 0.02% INH SOLN 0.5 MG/2.5 ML VIAL INHALATION (20:40)
[2022-07-09 20:43] VITALS: PULSE 60; RESP 22
[2022-07-09 20:51] LABS: NT Pro B Type Natriuretic Pept 2250 pg/mL (5-100); Troponin I 0.022 ng/mL (0.000-0.034)
[2022-07-09 20:56] VITALS: PULSE 59; RESP 20
[2022-07-09 20:57] LABS: Procalcitonin 0.1 ng/mL
[2022-07-09 21:00] LABS: Influenza A QL RT-PCR Negative (Negative); Influenza B QL RT-PCR Negative (Negative); SARS-CoV-2 RNA PCR Negative
--- NOTE | 2022-07-09 22:06 | PM.IMHP ---
H&P: HPI History of Present Illness Date/Time: 07/09/22 22:06 Chief Complaint: shortness of breath Narrative: This is a 71-year-old male with past medical history significant for coronary artery disease status post bypass grafting 2 weeks ago, atrial fibrillation, emphysema, hypothyroidism, hypertension, dyslipidemia. Patient presents to the emergency room due to shortness of breath and dry cough denies any fevers, rigors, chills, nausea, vomiting, abdominal pain, diarrhea, chest pain, dizziness, lightheadedness, syncope, near syncope. preliminary workup was significant for chest x-ray with left lower lobe pleural effusion. a CT high-resolution of the chest showed consolidation. A creatinine was 2.5. Patient has been admitted for further evaluation management and treatment. Review of Systems Review of Systems: Shortness of breath, cough. Constitutional: Constitutional: Denies chills, Denies fatigue, Denies fever(s), Denies malaise, Denies night sweats, Denies poor appetite and Denies weakness Eyes: Eyes: Denies change in vision ENT: Denies dysphagia, Denies vertigo, Denies dizziness and Denies odynophagia Cardiovascular: Cardiovascular: Denies chest pain, Denies syncope, Reports leg edema, Denies lightheadedness, Denies radiating jaw, neck or arm pain and Denies palpitations Respiratory: Respiratory: Reports cough and Reports dyspnea Gastrointestinal: Gastrointestinal: Denies abdominal pain, Denies dyspepsia, Denies heartburn, Denies diarrhea, Denies nausea and Denies vomiting Genitourinary: Genitourinary: Denies dysuria Musculoskeletal: Musculoskeletal: Reports no additional musculoskeletal complaints and Reports as per HPI Integumentary/Breasts: Skin/Breast: Reports system reviewed and no additional complaints, except as docu, Reports as per HPI and Denies rash Neurologic: Denies focal weakness and Denies Sensory deficit (Neuro) Psychiatric: Psychiatric: Reports no additional psychiatric complaints and Reports as per HPI Endocrine: Endocrine: Denies cold intolerance, Denies flushing, Denies heat intolerance, Denies polyphagia, Denies polydipsia and Denies palpitations Hematologic/Lymphatic: Hematologic/Lymphatic: Reports no additional hematologic/lymphatic complaints and Reports as per HPI Allergic/Immunologic: Allergic/Immunologic: Reports no additional allergic/immunologic complaints and Reports as per HPI [facility] Past Medical History Medical History Essential (primary) hypertension H/O prostate cancer Hypothyroidism (acquired) Family History Family History Mother Hypertension Sibling Patient's sister is in good health Patient's brother is in good health Father Family history of cardiovascular disease Other Screening PSA (prostate specific antigen) Social History Social History Smoking packs per day: 1 Smoking cigarettes per day: 20.0 Smoking status: Former smoker Smoking end date: 08/06/90 Alcohol intake: never Alcohol use details: RARE OCCASSION Substance use: current Substance use type: does not use Lack of Transportation: No Lack of Food: Never True Current Housing: I Have Housing Concerned About Future Housing: No Difficulty Paying Gas/Electric Bills: No Difficulty Paying for Meds: No Currently Unemployed: No Education: Bachelor's Degree Difficulty w/ Childcare or Family Care: No Spiritual care concerns: No Meds Home Medications and Allergies Home Medications Medication Instructions Recorded Confirmed Type fluticasone propionate 50 2 spray intranasal DAILY #16 grams 10/17/21 06/09/22 Rx mcg/actuation nasal spray,suspension clonidine HCl 0.1 mg tablet 0.1 mg PO TID #270 tabs 12/01/21 06/09/22 Rx levothyroxine 125 mcg tablet 125 mcg PO DAILY #90 tabs 03/20/22 06/09/22 R
[2022-07-09 23:05] LABS: Appearance Urine Clear (Clear); Bilirubin Urine Negative (Negative); Blood Urine 2+ (Negative); Color Urine Yellow (Yellow); Glucose Urine UA Negative (Negative); Ketones Urine Negative (Negative); Leukocyte Esterase Ur Negative LEU/UL (Negative); Nitrate Urine Negative (Negative); Protein Urine 2+ mg/dL (Negative); Specific Grav Ur 1.015 (1.001-1.035); Urobilinogen Urine 0.2 mg/dL (<2.0)
[2022-07-09 23:10] LABS: Mucus Urine Rare /lpf; RBC Urine 0-2 /hpf (0-2); Squamous Epithelial Cell Urine Rare /hpf (Few); WBC Urine 0-3 /hpf
[2022-07-09 23:11] LABS: Add Urine Microscopic? YES
[2022-07-09 23:30] VITALS: BP 156/61; PULSE 65; RESP 18; TEMP 36.6; O2SAT 95; BMI 20.8
[2022-07-09 23:32] VITALS: PULSE 65
--- NOTE | 2022-07-09 23:34 | ADMGEN ---
This patient, Hank Montes, was admitted to IMU Room 205-01. Patient/family oriented to hospital policies and general routines including ID bracelet, bed and alarms, visiting hours, pain management, procedures, bathroom and other care routines, personal items, smoking policy, room service/diet, and visiting hours. Information on how to activate the Rapid Response Team has been discussed. Patient/Family are encouraged to report perceived risks to care and to ask questions if they do not understand what they are told or what they should do.
[2022-07-10] VITALS (27 sets, daily range): BP systolic 110–159; BP diastolic 59–73; PULSE 20–65; RESP 14–20; TEMP 36.5–36.9; O2SAT 95–100
[2022-07-10 00:01] LABS: Troponin I 0.029 ng/mL (0.000-0.034)
[2022-07-10] MEDS: IPRATROPIUM BR 0.02% INH SOLN 0.5 MG/2.5 ML VIAL INHALATION ×3 (02:41→22:34)
[2022-07-10] MEDS: ALBUTEROL SULFATE NEB 2.5 MG/3 ML INH INHALATION ×3 (02:41→22:34)
--- NOTE | 2022-07-10 06:00 | ECHO_ITS ---
Patient Info Name: Hank Montes Age: 71 years : 1950 Gender: Male Ht: 71 in Wt: 149 lbs BSA: 1.83 m2 HR: 58 bpm BP: 152 / 72 mmHg Heart Rhythm: Sinus Rhythm Technical Quality: Fair Exam Date: 07/10/2022 7:49 AM Exam Location: [facility] Pulmonary Patient Status: Outpatient Admit Date: 07/09/2022 Staff Ordering Physician: Ben Bearden MD Public Works Director: Stefania Correa RDCS Attending Provider: Claudio Grey MD Referring Physician: Monisha PALENCIA; Exam Type: CA echo doppler color flow Study Info Indications - elevated bnp, pleural effusion R06.00 - Dyspnea, unspecified Complete two-dimensional, color flow and Doppler transthoracic echocardiogram is performed. Summary 1. Complete two-dimensional, color flow and Doppler transthoracic echocardiogram is performed. 2. Left ventricular systolic function is normal, estimated at 50-55%. 3. There is mildly increased left ventricular wall thickness. 4. Left ventricular septal wall motion is abnormal with septal motion related to a post-operative state (patient with known history of CABG).. 5. The left ventricular diastolic function is grade I diastolic dysfunction. 6. Right ventricular systolic function is normal. 7. There is mild aortic valve calcification. 8. There is mild aortic valve regurgitation. 9. There is moderate mitral valve regurgitation. 10. There is mild tricuspid valve regurgitation. 11. The aortic root size at the sinus of Valsalva is dilated. 12. Dilated inferior vena cava with <50% collapse upon inspiration consistent with elevated right atrial pressure, 15 mmHg. 13. There is a large left pleural effusion. Left Ventricle Left ventricular chamber dimension is normal. Left ventricular systolic function is normal, estimated at 50-55%. There is mildly increased left ventricular wall thickness. Left ventricular septal wall motion is abnormal with septal motion related to a post-operative state (patient with known history of CABG).. The left ventricular diastolic function is grade I diastolic dysfunction. Right Ventricle Right ventricular chamber dimension is normal. Right ventricular systolic function is normal. Left Atria Left atrial chamber dimension is normal. Right Atria Right atrial chamber dimension is normal. Atrial Septum Intact interatrial septum visualized by color flow imaging. Aortic Valve The aortic valve is probable trileaflet. There is no aortic valve stenosis. There is mild aortic valve regurgitation. There is mild aortic valve calcification. Pulmonic Valve The pulmonic valve is not well visualized. Mitral Valve The mitral valve has thickened leaflets. There is no mitral valve stenosis. There is moderate mitral valve regurgitation. Tricuspid Valve The tricuspid valve leaflets are normal. There is mild tricuspid valve regurgitation. Pericardium/Pleural There is a large left pleural effusion. There is no pericardial effusion. Inferior Vena Cava Dilated inferior vena cava with <50% collapse upon inspiration consistent with elevated right atrial pressure, 15 mmHg. Aorta The aortic root size at the sinus of Valsalva is dilated. Left Ventricular Outflow Tract Name Value Normal LVOT 2D
--- NOTE | 2022-07-10 08:33 | PM.IMPN ---
Progress Note: A&P Assessment and Plan (1) Pleural effusion on left: Code(s): J90 - Pleural effusion, not elsewhere classified Status: Acute Assessment and Plan: CT high-resolution show consolidation thoracentesis ultrasound-guided in the morning pleural fluid for analysis (2) Acute dyspnea: Code(s): R06.00 - Dyspnea, unspecified Status: Acute Assessment and Plan: likely secondary to moderate-sized pleural effusion supportive care diagnostic and therapeutic thoracentesis (3) Essential (primary) hypertension: Code(s): I10 - Essential (primary) hypertension Status: Acute Assessment and Plan: resume home meds (4) Status post coronary artery bypass graft: Code(s): Z95.1 - Presence of aortocoronary bypass graft Status: Acute Assessment and Plan: resume home meds continue to monitor (5) Left lower lobe pneumonia: Code(s): J18.9 - Pneumonia, unspecified organism Status: Acute Assessment and Plan: cultures in progress patient started on vancomycin cefepime and Zithromax Plan Shortness of status post CABG month ago after acute ST-elevation and hypertensive crisis facility. Discharge 1 week ago LIZABETH creatinine up to 2.6. Baseline creatinine 1.4 CKD stage 3. Creatinine slightly better today. Renal ultrasound with medical renal disease. Creatinine at discharge was 1.8 Left pleural effusion with underlying consolidation/atelectasis. WBC count is normal. Lactate is normal procalcitonin came back at 0.1 flu and COVID swab negative plan for thoracentesis today. Will await pleural fluid analysis. BNP is elevated. At 2250. upon review of medical records a chest x-ray on 06/22/2022 showed left pleural fluid and small right pleural fluid. CT chest done on 06/21/2022 showed left-sided pleural effusion with compressive atelectasis of the left lower lobe subtle ground-glass opacity adjusted the atelectasis within the left lower lobe uncertain to be secondary to underlying infectious process. Small stable right pleural effusion with compressive atelectasis of the right lower lobe. Hypokalemia replace and monitor Anemia 8.9. Will review hemoglobin at discharge. remains stable today hemoglobin at discharge was 8.3 Hypertension Coronary artery disease currently on aspirin and Plavix. Coreg rosuvastatin History of prostate cancer Hypothyroidism DVT prophylaxis: Heparin subQ after thoracentesis Code status full code Subjective Date/time seen: 07/10/22 08:33 Interval history: feels better. Denies any chest pain. Shortness of breath on exertion. His leg has been swollen. Has mild cough. No fever chills. Review of Systems Review of Systems: All systems reviewed & are unremarkable except as noted in HPI and below Exam Narrative: GENERAL: The patient is well developed, not in acute distress HEENT: Nonicteric sclerae, PERRLA, EOMI. Oropharynx clear. Moist mucous membranes. Conjunctivae appear well perfused. CHEST: Chest wall is nontender. HEART: Regular rate and rhythm without murmur, rubs, or gallops LUNGS: depressed breath sounds on left side, otherwise clear to auscultation bilaterally. no respiratory distress ABDOMEN: Soft, positive bowel sounds, non-tender, no organomegaly. SKIN: No rash, no excessive bruising, petechiae, or purpura. NEUROLOGIC: Cranial nerves II-XII intact, alert and oriented x 3, no gross motor deficits EXTREMITIES: Bilateral lower extremity pitting edema, no cyanosis or clubbing Objective Data Vital Signs Vital Signs: Vital Signs - 24 hr 07/09/22 19:49 07/09/22 20:01 07/09/22 20:04 Temperature 98.1 F Pulse Rate 63 62 Respiratory Rate 15 20 Blood Pressure 160/78 H 133/72 Pulse Oximetry 98 Oxygen Delivery Room Air 07/09/22 20:43 07/09/22 20:56 07/09/22 23:30 Temperature 97.8 F Pulse Rate 60 59 L 65 Respiratory Rate 22 H 20 18 Blood Pressure 156/61 H Pulse Oximetry 95
[2022-07-10 09:01] LABS: Basophils Absolute Auto 0.1 K/mm3 (0.0-0.1); Eosinophils Absolute Auto 0.5 K/mm3 (0-0.3); Eosinophils Percent Auto 7.8 % (0-4.4); Hematocrit 27.3 % (42.0-52.0); Hemoglobin 8.6 g/dL (14.0-18.0); Immature Granulocyte Absolute 0.02 K/mm3 (0.00-0.031); Immature Granulocyte Percent A 0.3 % (0-0.5); Lymphocytes Absolute Auto 1.07 K/mm3 (0.9-3.2); Lymphocytes Percent Auto 18.5 % (18.3-44.2); Mean Corpuscular HGB Conc 31.5 g/dl (32-36); Mean Corpuscular Hemoglobin 26.9 pg (26-34); Mean Corpuscular Volume 85.3 fl (80-100); Mean Platelet Volume 9.2 fl (7.4-10.4); Monocytes Absolute Auto 0.6 K/mm3 (0.1-0.6); Monocytes Percent Auto 10.7 % (2.6-8.5); Neutrophils Absolute Auto 3.6 K/mm3 (1.3-6.7); Neutrophils Percent Auto 61.7 % (45.5-73.1); Platelet Count Result 242 k/mm3 (150-375); Red Cell Distribution Width 13.7 % (11.5-14.5); White Blood Count 5.8 K/mm3 (4.5-10.0)
[2022-07-10 09:43] LABS: Alanine Aminotransferase 25 U/L (6-50); Albumin Level 3.3 g/dL (3.5-5.1); Alkaline Phosphatase 88 U/L (38-126); Anion Gap 7 mmol/L (8-16); Aspartate Amino Transferase 29 U/L (17-59); Bilirubin,Total 0.4 mg/dL (0.2-1.3); Blood Urea Nitrogen 27 mg/dL (9-20); Carbon Dioxide 27 mmol/L (22-30); Chloride 102 mmol/L (98-107); Estimated CRCL calculation 26 ml/min; Estimated Glomerular Filt Rate 28; Glucose 93 mg/dL (65-110); Lactate Dehydrogenase 222 U/L (120-246); Magnesium 2.2 mg/dL (1.6-2.3); Potassium 2.8 mmol/L (3.4-5.0); Sodium 136 mmol/L (137-145)
[2022-07-10] MEDS: POTASSIUM CHLORIDE 10 MEQ TABLET.ER PO (10:54)
[2022-07-10] MEDS: LEVOTHYROXINE SODIUM 125 MCG TABLET PO (10:54)
[2022-07-10] MEDS: cloNIDine HCL 0.1 MG TABLET PO ×3 (10:54→18:29)
[2022-07-10] MEDS: amLODIPine BESYLATE 5 MG TABLET PO (10:54)
[2022-07-10] MEDS: AMIODARONE HCL 200 MG TABLET PO ×2 (10:55→18:28)
[2022-07-10] MEDS: ASPIRIN 81 MG ENTERIC TABLET PO (10:55)
[2022-07-10] MEDS: FUROSEMIDE 40 MG TABLET PO (10:55)
[2022-07-10] MEDS: carvediloL 12.5 MG TABLET PO ×2 (10:55→21:01)
[2022-07-10] MEDS: CLOPIDOGREL BISULFATE 75 MG TABLET PO (10:55)
[2022-07-10] MEDS: FLUTICASONE PROPIONATE 0.05% NA SPR 16 GM BTL (*BKC) 2 SPRAY NASAL (10:55)
[2022-07-10] MEDS: POTASSIUM CHLORIDE 20 MEQ TABLET 40 MEQ PO (11:00)
[2022-07-10 14:21] LABS: Color Pleural Fluid Red (Colorless); Pleural fluid source Pleural fluid
[2022-07-10 14:22] LABS: Appearance Pleural Fluid Turbid (Clear)
[2022-07-10 14:23] LABS: Lymphocytes Pleural Fluid 88 %; Macrophages Pleural Fluid 2 %; Monocytes Pleural Fluid 4 %; Neutrophils Pleural Fluid 6 % (0-25)
[2022-07-10] MEDS: DOCUSATE SODIUM 100 MG CAPSULE PO (18:32)
[2022-07-10] MEDS: ROSUVASTATIN 10 MG TABLET 20 MG PO (21:01)
[2022-07-10] MEDS: HEPARIN SODIUM 5,000 UNITS/ML VIAL 5000 UNITS SUB-Q (21:01)
[2022-07-11] VITALS (18 sets, daily range): BP systolic 99–132; BP diastolic 53–67; PULSE 54–67; RESP 16–20; TEMP 36.4–37.1; O2SAT 97–100
--- NOTE | 2022-07-11 04:53 | PCRCNOTE ---
Patient wanted to sleep overnight, 0200 updraft treatment was not given. Treatment to resume at 0800.
[2022-07-11 05:15] LABS: Alanine Aminotransferase 20 U/L (6-50); Albumin Level 2.9 g/dL (3.5-5.1); Alkaline Phosphatase 75 U/L (38-126); Anion Gap 5 mmol/L (8-16); Aspartate Amino Transferase 24 U/L (17-59); Bilirubin,Total 0.5 mg/dL (0.2-1.3); Blood Urea Nitrogen 26 mg/dL (9-20); Calcium 7.9 mg/dL (8.4-10.2); Carbon Dioxide 28 mmol/L (22-30); Chloride 99 mmol/L (98-107); Estimated CRCL calculation 27 ml/min; Estimated Glomerular Filt Rate 30; Glucose 96 mg/dL (65-110); Magnesium 2.1 mg/dL (1.6-2.3); Potassium 3.2 mmol/L (3.4-5.0); Sodium 132 mmol/L (137-145)
[2022-07-11 05:30] LABS: Basophils Absolute Auto 0.1 K/mm3 (0.0-0.1); Eosinophils Absolute Auto 0.3 K/mm3 (0-0.3); Eosinophils Percent Auto 4.3 % (0-4.4); Hematocrit 27.6 % (42.0-52.0); Hemoglobin 8.6 g/dL (14.0-18.0); Immature Granulocyte Absolute 0.02 K/mm3 (0.00-0.031); Immature Granulocyte Percent A 0.3 % (0-0.5); Lymphocytes Absolute Auto 1.23 K/mm3 (0.9-3.2); Lymphocytes Percent Auto 19.5 % (18.3-44.2); Mean Corpuscular HGB Conc 31.2 g/dl (32-36); Mean Corpuscular Hemoglobin 27.2 pg (26-34); Mean Corpuscular Volume 87.3 fl (80-100); Mean Platelet Volume 9.8 fl (7.4-10.4); Monocytes Absolute Auto 0.8 K/mm3 (0.1-0.6); Monocytes Percent Auto 12.8 % (2.6-8.5); Neutrophils Absolute Auto 3.9 K/mm3 (1.3-6.7); Neutrophils Percent Auto 62.1 % (45.5-73.1); Platelet Count Result 240 k/mm3 (150-375); Red Blood Count 3.16 M/mm3 (4.6-6.20); Red Cell Distribution Width 13.9 % (11.5-14.5); White Blood Count 6.3 K/mm3 (4.5-10.0)
[2022-07-11] MEDS: LEVOTHYROXINE SODIUM 125 MCG TABLET PO (05:44)
[2022-07-11] MEDS: IPRATROPIUM BR 0.02% INH SOLN 0.5 MG/2.5 ML VIAL INHALATION ×3 (08:54→21:20)
[2022-07-11] MEDS: ALBUTEROL SULFATE NEB 2.5 MG/3 ML INH INHALATION ×3 (08:54→21:20)
[2022-07-11] MEDS: FLUTICASONE PROPIONATE 0.05% NA SPR 16 GM BTL (*BKC) 2 SPRAY NASAL (09:25)
[2022-07-11] MEDS: POTASSIUM CHLORIDE 20 MEQ TABLET 40 MEQ PO (09:27)
[2022-07-11] MEDS: POTASSIUM CHLORIDE 10 MEQ TABLET.ER PO (09:27)
[2022-07-11] MEDS: CLOPIDOGREL BISULFATE 75 MG TABLET PO (09:28)
[2022-07-11] MEDS: FUROSEMIDE INJ 40 MG/4 ML VIAL IV PUSH (09:28)
[2022-07-11] MEDS: carvediloL 12.5 MG TABLET PO ×2 (09:28→20:58)
[2022-07-11] MEDS: ASPIRIN 81 MG ENTERIC TABLET PO (09:28)
[2022-07-11] MEDS: AMIODARONE HCL 200 MG TABLET PO ×2 (09:29→17:26)
[2022-07-11] MEDS: cloNIDine HCL 0.1 MG TABLET PO ×2 (09:30→17:27)
[2022-07-11] MEDS: HEPARIN SODIUM 5,000 UNITS/ML VIAL 5000 UNITS SUB-Q ×2 (09:34→20:57)
[2022-07-11] MEDS: amLODIPine BESYLATE 5 MG TABLET PO (09:43)
[2022-07-11] MEDS: DOCUSATE SODIUM 100 MG CAPSULE PO (14:33)
--- NOTE | 2022-07-11 14:37 | PM.IMPN ---
Progress Note: A&P Assessment and Plan (1) Pleural effusion on left: Code(s): J90 - Pleural effusion, not elsewhere classified Status: Acute Assessment and Plan: CT high-resolution show consolidation thoracentesis ultrasound-guided which is ngative for infection. pleural fluid analysis pending. (2) Acute dyspnea: Code(s): R06.00 - Dyspnea, unspecified Status: Acute Assessment and Plan: likely secondary to moderate-sized pleural effusion supportive care diagnostic and therapeutic thoracentesis performed 07/10/2022: await finalization of pleural fluid analysis (3) Essential (primary) hypertension: Code(s): I10 - Essential (primary) hypertension Status: Acute Assessment and Plan: resume home meds (4) Status post coronary artery bypass graft: Code(s): Z95.1 - Presence of aortocoronary bypass graft Status: Acute Assessment and Plan: resume home meds continue to monitor fu with CTS as already scheduled. (5) Left lower lobe pneumonia: Code(s): J18.9 - Pneumonia, unspecified organism Status: Acute Assessment and Plan: cultures in progress patient started on vancomycin cefepime and Zithromax Plan # Shortness of status post CABG month ago after acute ST-elevation and hypertensive crisis facility. Discharged 2 weeks ago # LIZABETH creatinine up to 2.6. Baseline creatinine 1.4 CKD stage 3. Creatinine slightly better today. Renal ultrasound with medical renal disease. Creatinine at discharge was 1.8. currenlty stable. monitor renal function with stable renal function. # Left pleural effusion with underlying consolidation/atelectasis. WBC count is normal. Lactate is normal procalcitonin came back at 0.1 flu and COVID swab negative. BNP is elevated. At 2250. upon review of medical records a chest x-ray on 06/22/2022 showed left pleural fluid and small right pleural fluid. CT chest done on 06/21/2022 showed left-sided pleural effusion with compressive atelectasis of the left lower lobe subtle ground-glass opacity adjusted the atelectasis within the left lower lobe uncertain to be secondary to underlying infectious process. Small stable right pleural effusion with compressive atelectasis of the right lower lobe. status post left thoracentesis: clear fluid removed. await pleural fluid analysis. negative for infection so far. continue antibiotics. start iv lasix. monitor renal function. # Hypokalemia replace and monitor # Anemia 8.9. Will review hemoglobin at discharge. remains stable today hemoglobin at discharge was 8.3 # Hypertension # Coronary artery disease currently on aspirin and Plavix. Coreg rosuvastatin # History of prostate cancer # Hypothyroidism # DVT prophylaxis: Heparin subQ after thoracentesis # Code status full code PT/OT to see. labs in am. if stable, may home with diuretics and fu with CTS ad cardioloogy as previoulsy scheduled Subjective Date/time seen: 07/11/22 14:37 Interval history: feels well. no new complaints. leg swelling has improved. breathing has improved. no cough. no fever, chills. Review of Systems Review of Systems: All systems reviewed & are unremarkable except as noted in HPI and below Exam Narrative: GENERAL: The patient is well developed, not in acute distress HEENT: Nonicteric sclerae, PERRLA, EOMI. Oropharynx clear. Moist mucous membranes. Conjunctivae appear well perfused. CHEST: Chest wall is nontender. HEART: Regular rate and rhythm without murmur, rubs, or gallops LUNGS: depressed breath sounds on left side, otherwise clear to auscultation bilaterally. no respiratory distress ABDOMEN: Soft, positive bowel sounds, non-tender, no organomegaly. SKIN: No rash, no excessive bruising, petechiae, or purpura. NEUROLOGIC: Cranial nerves II-XII intact, alert and oriented x 3, no gross motor deficits EXTREMITIES: Bilateral lower extremity pitting edema 1+ improved today, no cyanosis or cl
[2022-07-11] MEDS: ROSUVASTATIN 10 MG TABLET 20 MG PO (20:58)
[2022-07-11] MEDS: MELATONIN 3 MG TABLET PO (20:58)
--- NOTE | 2022-07-11 22:42 | PC.NURSE ---
This patient, Hank Montes, was transferred to [330-1 ] on 07/11/22 at 2242. Personal belongings sent with patient. Report given to [Jolly liang ]. Appropriate documentation sent with patient.
[2022-07-12] VITALS (7 sets, daily range): BP systolic 146–153; BP diastolic 66–75; PULSE 53–63; RESP 16–18; TEMP 36.3–36.7; O2SAT 97–100
[2022-07-12] MEDS: LEVOTHYROXINE SODIUM 125 MCG TABLET PO (05:46)
[2022-07-12 06:59] LABS: Basophils Absolute Auto 0.1 K/mm3 (0.0-0.1); Basophils Percent Auto 1.3 % (0.2-1.2); Eosinophils Absolute Auto 0.5 K/mm3 (0-0.3); Hematocrit 26.2 % (42.0-52.0); Hemoglobin 8.3 g/dL (14.0-18.0); Immature Granulocyte Absolute 0.01 K/mm3 (0.00-0.031); Immature Granulocyte Percent A 0.2 % (0-0.5); Lymphocytes Absolute Auto 1.15 K/mm3 (0.9-3.2); Lymphocytes Percent Auto 21.6 % (18.3-44.2); Mean Corpuscular HGB Conc 31.7 g/dl (32-36); Mean Corpuscular Hemoglobin 27.6 pg (26-34); Mean Platelet Volume 9.6 fl (7.4-10.4); Monocytes Absolute Auto 0.7 K/mm3 (0.1-0.6); Monocytes Percent Auto 13.1 % (2.6-8.5); Neutrophils Absolute Auto 2.9 K/mm3 (1.3-6.7); Neutrophils Percent Auto 54.8 % (45.5-73.1); Platelet Count Result 207 k/mm3 (150-375); Red Blood Count 3.01 M/mm3 (4.6-6.20); White Blood Count 5.3 K/mm3 (4.5-10.0)
[2022-07-12 07:12] LABS: Alanine Aminotransferase 23 U/L (6-50); Albumin Level 3.1 g/dL (3.5-5.1); Alkaline Phosphatase 77 U/L (38-126); Anion Gap 7 mmol/L (8-16); Aspartate Amino Transferase 26 U/L (17-59); Bilirubin,Total 0.5 mg/dL (0.2-1.3); Blood Urea Nitrogen 24 mg/dL (9-20); Calcium 7.7 mg/dL (8.4-10.2); Carbon Dioxide 27 mmol/L (22-30); Chloride 99 mmol/L (98-107); Estimated CRCL calculation 27 ml/min; Estimated Glomerular Filt Rate 30; Glucose 89 mg/dL (65-110); Magnesium 2.1 mg/dL (1.6-2.3); Potassium 3.1 mmol/L (3.4-5.0); Sodium 133 mmol/L (137-145)
[2022-07-12] MEDS: FLUTICASONE PROPIONATE 0.05% NA SPR 16 GM BTL (*BKC) 2 SPRAY NASAL (08:15)
[2022-07-12] MEDS: amLODIPine BESYLATE 5 MG TABLET PO (08:18)
[2022-07-12] MEDS: AMIODARONE HCL 200 MG TABLET PO (08:18)
[2022-07-12] MEDS: ASPIRIN 81 MG ENTERIC TABLET PO (08:18)
[2022-07-12] MEDS: cloNIDine HCL 0.1 MG TABLET PO ×2 (08:20→12:12)
[2022-07-12] MEDS: CLOPIDOGREL BISULFATE 75 MG TABLET PO (08:20)
[2022-07-12] MEDS: POTASSIUM CHLORIDE 10 MEQ TABLET.ER PO (08:20)
[2022-07-12] MEDS: FUROSEMIDE INJ 40 MG/4 ML VIAL IV PUSH (08:22)
[2022-07-12] MEDS: HEPARIN SODIUM 5,000 UNITS/ML VIAL 5000 UNITS SUB-Q (08:29)
[2022-07-12] MEDS: DOCUSATE SODIUM 100 MG CAPSULE PO (08:29)
[2022-07-12] MEDS: carvediloL 12.5 MG TABLET PO (09:01)
[2022-07-12] MEDS: ALBUTEROL SULFATE NEB 2.5 MG/3 ML INH INHALATION ×2 (09:44→14:25)
[2022-07-12] MEDS: IPRATROPIUM BR 0.02% INH SOLN 0.5 MG/2.5 ML VIAL INHALATION ×2 (09:44→14:25)
--- NOTE | 2022-07-12 12:35 | PM.IMPN ---
Progress Note: A&P Assessment and Plan (1) Pleural effusion on left: Code(s): J90 - Pleural effusion, not elsewhere classified Status: Acute Assessment and Plan: Left pleural effusion with underlying consolidation/atelectasis.? Upon review of medical records a chest x-ray on 06/22/2022 showed left pleural fluid and small right pleural fluid.? CT chest done on 06/21/2022 showed left-sided pleural effusion with compressive atelectasis of the left lower lobe subtle ground-glass opacity adjusted the atelectasis within the left lower lobe uncertain to be secondary to underlying infectious process.? Small stable right pleural effusion with compressive atelectasis of the right lower lobe. status post left thoracentesis: clear fluid removed. await pleural fluid analysis. negative for infection so far. continue antibiotics. (2) Acute dyspnea: Code(s): R06.00 - Dyspnea, unspecified Status: Acute Assessment and Plan: likely secondary to moderate-sized pleural effusion supportive care diagnostic and therapeutic thoracentesis performed 07/10/2022: await finalization of pleural fluid analysis (3) Essential (primary) hypertension: Code(s): I10 - Essential (primary) hypertension Status: Acute Assessment and Plan: resume home meds (4) Status post coronary artery bypass graft: Code(s): Z95.1 - Presence of aortocoronary bypass graft Status: Acute Assessment and Plan: resume home meds continue to monitor fu with CTS as already scheduled. (5) Left lower lobe pneumonia: Code(s): J18.9 - Pneumonia, unspecified organism Status: Acute Assessment and Plan: cultures in progress patient started on vancomycin cefepime and Zithromax blc cx NGTD (6) Acute kidney injury: Code(s): N17.9 - Acute kidney failure, unspecified Status: Acute Assessment and Plan: LIZABETH creatinine up to 2.6.? Baseline creatinine 1.4 CKD stage 3.? Creatinine slightly better today.? Renal ultrasound with medical renal disease.? Creatinine at discharge was 1.8. currenlty stable. monitor renal function with stable renal function. (7) Hypokalemia: Code(s): E87.6 - Hypokalemia Status: Acute Assessment and Plan: Replace and recheck (8) Coronary artery disease: Code(s): I25.10 - Atherosclerotic heart disease of [place] coronary artery without angina pectoris Status: Acute Assessment and Plan: Shortness of status post CABG month ago after acute ST-elevation and hypertensive crisis facility.? Discharged 2 weeks ago (9) Hypothyroidism (acquired): Code(s): E03.9 - Hypothyroidism, unspecified Status: Acute (10) Anemia: Code(s): D64.9 - Anemia, unspecified Status: Acute Assessment and Plan: Chronic, stable, appears to be at baseline Plan Discharge soon, follow-up PT/OT DVT prophylaxis with SCDs GI prophylaxis not indicated Code status full code Subjective Date/time seen: 07/12/22 12:35 Interval history: No overnight events noted. No chest pain or shortness of breath. No nausea, vomiting or diarrhea. No fevers or chills. Stable on room air Review of Systems Review of Systems: 12 point review of systems was assessed and was negative except as noted in the HPI Exam Narrative: General: No acute distress, alert and oriented per baseline HEENT: Atraumatic, normocephalic, mucous membranes moist CV: Regular rate and rhythm, S1, S2 Lungs: Clear to auscultation bilaterally, no rales or crackles noted, no wheezes, good air entry Abdomen: Soft, nontender, nondistended Extremities: Normal to inspection Skin: No rashes noted, no lesions or wounds seen Psych: Euthymic, normal affect Objective Data Vital Signs Vital Signs: Vital Signs - 24 hr 07/11/22 13:09 07/11/22 14:47 07/11/22 15:18 Temperature 98.7 F Pulse Rate 54 L 65 Respiratory Rate 16 20 Blood Pressure 99/53 L
--- NOTE | 2022-07-12 15:06 | PM.DS ---
DS: Admitting Diagnosis Discharge Date July 12, 2022 Admitting Diagnosis Shortness of breath DS: Discharge Diagnosis Discharge Diagnosis (1) Pleural effusion on left: Code(s): J90 - Pleural effusion, not elsewhere classified Status: Acute Assessment and Plan: Left pleural effusion with underlying consolidation/atelectasis.? Upon review of medical records a chest x-ray on 06/22/2022 showed left pleural fluid and small right pleural fluid.? CT chest done on 06/21/2022 showed left-sided pleural effusion with compressive atelectasis of the left lower lobe subtle ground-glass opacity adjusted the atelectasis within the left lower lobe uncertain to be secondary to underlying infectious process.? Small stable right pleural effusion with compressive atelectasis of the right lower lobe. status post left thoracentesis: clear fluid removed. await pleural fluid analysis. negative for infection so far. continue antibiotics. (2) Acute dyspnea: Code(s): R06.00 - Dyspnea, unspecified Status: Acute Assessment and Plan: likely secondary to moderate-sized pleural effusion supportive care diagnostic and therapeutic thoracentesis performed 07/10/2022: await finalization of pleural fluid analysis (3) Essential (primary) hypertension: Code(s): I10 - Essential (primary) hypertension Status: Acute Assessment and Plan: resume home meds (4) Status post coronary artery bypass graft: Code(s): Z95.1 - Presence of aortocoronary bypass graft Status: Acute Assessment and Plan: resume home meds continue to monitor fu with CTS as already scheduled. (5) Left lower lobe pneumonia: Code(s): J18.9 - Pneumonia, unspecified organism Status: Acute Assessment and Plan: cultures in progress patient started on vancomycin cefepime and Zithromax [facility] [place] cx NGTD (6) Acute kidney injury: Code(s): N17.9 - Acute kidney failure, unspecified Status: Acute Assessment and Plan: LIZABETH creatinine up to 2.6.? Baseline creatinine 1.4 CKD stage 3.? Creatinine slightly better today.? Renal ultrasound with medical renal disease.? Creatinine at discharge was 1.8. currenlty stable. monitor renal function with stable renal function. (7) Hypokalemia: Code(s): E87.6 - Hypokalemia Status: Acute Assessment and Plan: Replace and recheck (8) Coronary artery disease: Code(s): I25.10 - Atherosclerotic heart disease of [place] coronary artery without angina pectoris Status: Acute Assessment and Plan: Shortness of status post CABG month ago after acute ST-elevation and hypertensive crisis facility.? Discharged 2 weeks ago (9) Hypothyroidism (acquired): Code(s): E03.9 - Hypothyroidism, unspecified Status: Acute (10) Anemia: Code(s): D64.9 - Anemia, unspecified Status: Acute Assessment and Plan: Chronic, stable, appears to be at baseline Plan Discharge soon, follow-up PT/OT DVT prophylaxis with SCDs GI prophylaxis not indicated Code status full code DS: Summary Hospital Course Hospital Course: 71-year-old male presented to the ER with shortness of breath and cough found to have pleural effusion and consolidation as well as acute kidney injury with a creatinine of 2.5. A thoracentesis for diagnostic and therapeutic purposes was ordered, cytology was pending at discharge. Pleural culture and Gram stain were negative. Patient was started on vancomycin, cefepime and azithromycin for suspected underlying pneumonia. An echo was ordered showing an EF of 50-55% with grade 1 diastolic dysfunction and no significant valvular abnormalities. Flu and COVID were negative. CT chest showed pleural effusion with compressive atelectasis concerning for infectious process versus malignancy. Creatinine slowly improved. Patient was noted to have anemia with a stable hemoglobin between 8 and 9. Renal ultrasound done showin
[2022-07-14 06:22] LABS: Total Protein Pleural Fluid 3.7 g/dL
== END 2022-07-12 16:20 | disposition home health service (06) ==
LOC: ANHED 22:20 → ANHIMU 07-10 07:39 → ANH3MEDSUR 07-12 10:17 → ANHIMU 07-13 10:43
PROVIDERS: Admitting Provider Internal Medicine; Emergency Provider Emergency Medicine; PCP Family Medicine; Visit Provider Internal Medicine
DX: J90 Pleural effusion, not elsewhere classified (principal); R06.00 Dyspnea, unspecified; I12.9 Hypertensive chronic kidney disease with stage 1 through stage 4 chronic kidney disease, or unspecified chronic kidney disease; N18.30 Chronic kidney disease, stage 3 unspecified; N17.9 Acute kidney failure, unspecified; I25.10 Atherosclerotic heart disease of native coronary artery without angina pectoris; Z95.1 Presence of aortocoronary bypass graft; J18.9 Pneumonia, unspecified organism; J43.9 Emphysema, unspecified; I80.3 Phlebitis and thrombophlebitis of lower extremities, unspecified; I71.9 Aortic aneurysm of unspecified site, without rupture; N28.1 Cyst of kidney, acquired; K76.89 Other specified diseases of liver; Z20.822 Contact with and (suspected) exposure to COVID-19; E78.5 Hyperlipidemia, unspecified; I48.91 Unspecified atrial fibrillation; R94.4 Abnormal results of kidney function studies; I25.2 Old myocardial infarction; R60.0 Localized edema; R94.31 Abnormal electrocardiogram [ECG] [EKG]; E87.6 Hypokalemia; E03.9 Hypothyroidism, unspecified; Z87.891 Personal history of nicotine dependence; Z79.1 Long term (current) use of non-steroidal anti-inflammatories (NSAID); Z79.02 Long term (current) use of antithrombotics/antiplatelets; Z79.82 Long term (current) use of aspirin; Z79.899 Other long term (current) drug therapy; Z82.49 Family history of ischemic heart disease and other diseases of the circulatory system; Z85.46 Personal history of malignant neoplasm of prostate
CPT/HCPCS: 32555; 36415; 71045; 71250; 76775; 80053; 81001; 82945; 83605; 83615; 83735; 83880; 84145; 84157; 84484; 85025; 85610; 85730; 87015; 87040; 87070; 87075; 87081; 87102; 87116; 87205; 87206; 87502; 88108; 88184; 88305; 89051; 93005; 93306; 94640; 96365; 96366; 96368; 96372; 96375; 96376; 97161; 99285; A9270; G0378; J0456; J0692; J1644; J1940; J3370; U0003; U0005

== ENCOUNTER 2022-07-16 17:24 | Emergency (ER) | payer MEDICARE, SELFPAY ==
[2022-07-16] VITALS (9 sets, daily range): BP systolic 121–143; BP diastolic 65–69; PULSE 54–67; RESP 15–22; TEMP 36.8; O2SAT 95–100
--- NOTE | ~2022-07-16 | XR_ITS ---
EXAMINATION: XR chest 2V Exam Date/Time: 07/16/2022 18:10 MARKET INVESTIGATOR HISTORY: sob, recent cabg Comparison: 07/09/2022, CT chest 07/09/2022. RESULT: Lines, tubes, and devices: Intact sternotomy wires. Mediastinal surgical clips. Lungs and pleura: Moderate left costophrenic angle blunting. Left basilar opacities. Left basilar sc ar. Cardiomediastinal silhouette: Stable. Other: No acute osseous or upper abdominal finding. IMPRESSION: Moderate left pleural effusion with adjacent compressive atelectasis. Infection is not excluded. Reviewed, dictated and finalized at location K. ET INVESTIGATOR
--- NOTE | 2022-07-16 17:44 | ECG_ITS ---
Measurements Intervals [place] Rate: 55 P: -3 VA: 167 QRS: -33 QRSD: 101 T: 128 QT: 433 QTc: 417 Interpretive Statements SINUS BRADYCARDIA LEFT AXIS DEVIATION [QRS AXIS < -30] NONSPECIFIC ST & T-WAVE ABNORMALITY COMPARED TO ECG 07/09/2022 19:59:53 NO SIGNIFICANT CHANGE Electronically Signed On 07-17-2022 6:20:14 SWEEPER CLEANER INDUSTRIAL by Wilber Stanley M.D.
--- NOTE | 2022-07-16 17:45 | ED.SOB ---
HPI - SOB/Dyspnea General Chief Complaint: Shortness of Breath/Dyspnea Stated Complaint: trouble breathing Time Seen by Provider: 07/16/22 17:37 History of Present Illness HPI Narrative: Patient is a 71-year-old male with a history of recent STEMI status post CABG 1 month ago, A. fib, hypertension, hypothyroidism, hyperlipidemia presenting with shortness of breath. Patient states that he was discharged several days ago after being admitted for a left-sided pleural effusion that was drained. States that he was doing well until today when he became more short of breath and states that it feels like the right side of his chest is tight. He denies any chest pain or lightheadedness. No cough or, nasal congestion, fevers or chills, sore throat. No abdominal pain, nausea or vomiting, diarrhea, dysuria. States that he has had ongoing leg swelling since being discharged but it has not gotten worse. States he has been compliant with all of his medications including his Lasix. Related Data Home Medications Medication Instructions Recorded Confirmed amiodarone 200 mg tablet 200 mg PO BID 07/09/22 07/10/22 acetaminophen 650 mg tablet 650 mg PO Q6H PRN Mild Pain (Scale 07/10/22 07/10/22 Score 1-4) amlodipine 5 mg tablet 5 mg PO DAILY 07/10/22 07/10/22 aspirin 81 mg tablet,delayed 81 mg PO DAILY 07/10/22 07/10/22 release carvedilol 12.5 mg tablet 12.5 mg PO BID 07/10/22 07/10/22 clopidogrel 75 mg tablet 75 mg PO DAILY 07/10/22 07/10/22 docusate sodium 100 mg capsule 100 mg PO BID PRN Constipation 07/10/22 07/10/22 furosemide 40 mg tablet 40 mg PO DAILY 07/10/22 07/10/22 oxycodone 5 mg tablet 5 mg PO Q4H PRN Moderate Pain 07/10/22 07/10/22 (Scale Score 5-6) potassium chloride 10 mEq 10 meq PO DAILY 07/10/22 07/10/22 tablet,extended release rosuvastatin 20 mg tablet 20 mg PO QHS 07/10/22 07/10/22 Allergies Allergy/AdvReac Type Severity Reaction Status Date / Time Penicillins Allergy Unknown Rash Verified 07/16/22 17:41 Sulfa (Sulfonamide Allergy Unknown Rash Verified 07/16/22 17:41 Antibiotics) Review of Systems Review of Systems: All systems reviewed & are unremarkable except as noted in HPI and below PMFSH Past Medical History Medical History Anemia Coronary artery disease Essential (primary) hypertension H/O prostate cancer Hypothyroidism (acquired) Family History Family History Mother Hypertension Sibling Patient's sister is in good health Patient's brother is in good health Father Family history of cardiovascular disease Other Screening PSA (prostate specific antigen) Social History Social History Smoking packs per day: 1 Smoking cigarettes per day: 20.0 Smoking status: Former smoker Smoking end date: 08/06/90 Alcohol intake: never Alcohol use details: RARE OCCASSION Substance use: current Substance use type: does not use Lack of Transportation: No Lack of Food: Never True Current Housing: I Have Housing Concerned About Future Housing: No Difficulty Paying Gas/Electric Bills: No Difficulty Paying for Meds: No Currently Unemployed: No Education: Bachelor's Degree Difficulty w/ Childcare or Family Care: No Spiritual care concerns: No Exam Narrative: GENERAL: Well-appearing, well-nourished, and in no acute distress. HEAD: Normocephalic, atraumatic. EYES: PERRLA and EOMI. ENT: Nares clear, no rhinorrhea or epistaxis. Mucous membranes moist. NECK: Supple. CHEST: Clear to auscultation. No respiratory distress. HEART: Regular rate and rhythm. No murmur heard. Normal peripheral pulses. ABDOMEN: Soft, nontender, nondistended, normal active bowel sounds. EXTREMITIES: Normal range of motion. No edema. SKIN: Well-healing incisions midline chest and left anterior forearm NEURO: No focal defi
[2022-07-16 18:10] LABS: Basophils Absolute Auto 0.1 K/mm3 (0.0-0.1); Basophils Percent Auto 2.3 % (0.2-1.2); Eosinophils Absolute Auto 0.3 K/mm3 (0-0.3); Eosinophils Percent Auto 7.1 % (0-4.4); Hematocrit 28.4 % (42.0-52.0); Hemoglobin 8.8 g/dL (14.0-18.0); Immature Granulocyte Absolute 0.03 K/mm3 (0.00-0.031); Immature Granulocyte Percent A 0.9 % (0-0.5); Lymphocytes Absolute Auto 1.22 K/mm3 (0.9-3.2); Lymphocytes Percent Auto 34.7 % (18.3-44.2); Mean Corpuscular Hemoglobin 27.2 pg (26-34); Mean Corpuscular Volume 87.7 fl (80-100); Mean Platelet Volume 9.4 fl (7.4-10.4); Monocytes Absolute Auto 0.7 K/mm3 (0.1-0.6); Monocytes Percent Auto 18.5 % (2.6-8.5); Neutrophils Absolute Auto 1.3 K/mm3 (1.3-6.7); Neutrophils Percent Auto 36.5 % (45.5-73.1); Platelet Count Result 259 k/mm3 (150-375); Red Blood Count 3.24 M/mm3 (4.6-6.20); Red Cell Distribution Width 13.9 % (11.5-14.5); White Blood Count 3.5 K/mm3 (4.5-10.0)
[2022-07-16 18:20] LABS: Alanine Aminotransferase 32 U/L (6-50); Albumin Level 3.7 g/dL (3.5-5.1); Alkaline Phosphatase 82 U/L (38-126); Anion Gap 8 mmol/L (8-16); Aspartate Amino Transferase 38 U/L (17-59); Bilirubin,Total 0.4 mg/dL (0.2-1.3); Blood Urea Nitrogen 33 mg/dL (9-20); Calcium 8.3 mg/dL (8.4-10.2); Carbon Dioxide 28 mmol/L (22-30); Chloride 96 mmol/L (98-107); Estimated CRCL calculation 24 ml/min; Estimated Glomerular Filt Rate 26; Glucose 102 mg/dL (65-110); Potassium 3.5 mmol/L (3.4-5.0); Sodium 132 mmol/L (137-145)
[2022-07-16 18:22] LABS: INR 1.1; Prothrombin Time 13.9 Seconds (11.1-14.7)
[2022-07-16 18:23] LABS: Partial Thromboplastin Time 27.6 SECONDS (22.3-36.8)
[2022-07-16 18:32] LABS: NT Pro B Type Natriuretic Pept 2760 pg/mL (5-100); Troponin I 0.013 ng/mL (0.000-0.034)
[2022-07-16 18:46] LABS: Influenza A QL RT-PCR Negative (Negative); Influenza B QL RT-PCR Negative (Negative); SARS-CoV-2 RNA PCR Negative
[2022-07-16 21:32] LABS: Troponin I < 0.012 ng/mL (0.000-0.034)
== END 2022-07-16 22:06 | disposition home or self-care (01) ==
PROVIDERS: Emergency Provider Emergency Medicine; PCP Family Medicine
DX: J90 Pleural effusion, not elsewhere classified (principal); I48.91 Unspecified atrial fibrillation; E03.9 Hypothyroidism, unspecified; E78.5 Hyperlipidemia, unspecified; I25.2 Old myocardial infarction; I10 Essential (primary) hypertension; I25.10 Atherosclerotic heart disease of native coronary artery without angina pectoris; Z95.1 Presence of aortocoronary bypass graft; Z87.891 Personal history of nicotine dependence; Z20.822 Contact with and (suspected) exposure to COVID-19
CPT/HCPCS: 36415; 71046; 80053; 83880; 84484; 85025; 85610; 85730; 87636; 93005; 99284

== ENCOUNTER 2022-07-18 10:28 | Outpatient (CLI) | payer MEDICARE, SELFPAY ==
[2022-07-18 12:01] LABS: Anion Gap 7 mmol/L (8-16); Blood Urea Nitrogen 30 mg/dL (9-20); Calcium 8.2 mg/dL (8.4-10.2); Carbon Dioxide 29 mmol/L (22-30); Chloride 99 mmol/L (98-107); Estimated Glomerular Filt Rate 27; Glucose 84 mg/dL (65-110); Potassium 3.7 mmol/L (3.4-5.0); Sodium 135 mmol/L (137-145)
== END 2022-07-18 10:29 | disposition home or self-care (01) ==
LOC: ANHLAB 10:30
PROVIDERS: PCP Family Medicine; Visit Provider Student in an Organized Health Care Education/Training Program
DX: N17.9 Acute kidney failure, unspecified (principal); E87.6 Hypokalemia; E87.1 Hypo-osmolality and hyponatremia
CPT/HCPCS: 36415; 80048

== ENCOUNTER 2022-09-01 10:48 | Outpatient (CLI) | payer MEDICARE, SELFPAY ==
--- NOTE | ~2022-09-01 | XR_ITS ---
Clinical Indication: Shortness of breath PA and lateral views of the chest: Comparison: 07/16/2022 Findings: Linear left basilar scarring noted. The lungs are otherwise clear, without evidence of foca l consolidation or pleural effusion. Cardiomediastinal silhouette is stable, status post CABG. Bones and soft tissues are unremarkable. Impression: Linear left basilar scarring, otherwise clear lungs. Status post CABG. Reviewed, dictated and finalized at location M. PHONE SALES AGENT Impression: Linear left basilar scarring, otherwise clear lungs. Status post CABG.
== END 2022-09-01 10:49 | disposition home or self-care (01) ==
PROVIDERS: PCP Family Medicine; Visit Provider Internal Medicine Pulmonary Disease
DX: J90 Pleural effusion, not elsewhere classified (principal); J98.4 Other disorders of lung; Z95.1 Presence of aortocoronary bypass graft
CPT/HCPCS: 71046

== ENCOUNTER 2022-12-12 09:15 | Outpatient (CLI) | payer MEDICARE, SELFPAY ==
[2022-12-12 14:03] LABS: Basophils Absolute Auto 0.1 K/mm3 (0.0-0.1); Basophils Percent Auto 1.5 % (0.2-1.2); Eosinophils Absolute Auto 0.2 K/mm3 (0-0.3); Eosinophils Percent Auto 3.3 % (0-4.4); Hematocrit 37.3 % (42.0-52.0); Hemoglobin 11.8 g/dL (14.0-18.0); Immature Granulocyte Absolute 0.01 K/mm3 (0.00-0.031); Immature Granulocyte Percent A 0.2 % (0-0.5); Lymphocytes Absolute Auto 1.39 K/mm3 (0.9-3.2); Lymphocytes Percent Auto 20.9 % (18.3-44.2); Mean Corpuscular HGB Conc 31.6 g/dl (32-36); Mean Corpuscular Volume 82.3 fl (80-100); Monocytes Absolute Auto 0.6 K/mm3 (0.1-0.6); Monocytes Percent Auto 8.6 % (2.6-8.5); Neutrophils Absolute Auto 4.4 K/mm3 (1.3-6.7); Neutrophils Percent Auto 65.5 % (45.5-73.1); Platelet Count Result 232 k/mm3 (150-375); Red Blood Count 4.53 M/mm3 (4.6-6.20); Red Cell Distribution Width 18.1 % (11.5-14.5); White Blood Count 6.6 K/mm3 (4.5-10.0)
[2022-12-12 14:12] LABS: Alanine Aminotransferase 27 U/L (6-50); Albumin Level 4.5 g/dL (3.5-5.1); Alkaline Phosphatase 78 U/L (38-126); Anion Gap 4 mmol/L (8-16); Aspartate Amino Transferase 98 U/L (17-59); Bilirubin,Total 0.9 mg/dL (0.2-1.3); Blood Urea Nitrogen 24 mg/dL (9-20); Calcium 9.3 mg/dL (8.4-10.2); Carbon Dioxide 35 mmol/L (22-30); Chloride 100 mmol/L (98-107); Cholesterol 78 mg/dL (0-200); Estimated Glomerular Filt Rate 50; Glucose 89 mg/dL (65-110); HDL Direct 35 mg/dL; Sodium 139 mmol/L (137-145); Triglycerides 52 mg/dL (<150)
[2022-12-12 14:40] LABS: Prostate Specific Antigen < 0.1 ng/mL (< OR = 4.0)
[2022-12-12 19:48] LABS: Thyroid Stimulating Hormone Reflex 0.417 uIU/mL (0.465-4.68)
[2022-12-12 21:19] LABS: LDL Cholesterol Direct < 30 mg/dL
[2022-12-12 21:45] LABS: Free T4 Free Thyroxine Reflex 2.48 ng/dL (0.78-2.19)
== END 2022-12-12 09:16 | disposition home or self-care (01) ==
LOC: ANHGOSHLAB 09:16
PROVIDERS: PCP Family Medicine; Visit Provider Family Medicine
DX: R53.83 Other fatigue (principal); Z13.228 Encounter for screening for other metabolic disorders; Z13.220 Encounter for screening for lipoid disorders; Z12.5 Encounter for screening for malignant neoplasm of prostate; E03.9 Hypothyroidism, unspecified
CPT/HCPCS: 36415; 80053; 80061; 84153; 84439; 84443; 85025; G0103

== ENCOUNTER 2023-01-23 10:29 | Outpatient (CLI) | payer MEDICARE, SELFPAY ==
[2023-01-23 18:24] LABS: Thyroid Stimulating Hormone Reflex 0.488 uIU/mL (0.465-4.68)
== END 2023-01-23 10:30 | disposition home or self-care (01) ==
LOC: ANHGOSHLAB 10:31
PROVIDERS: PCP Family Medicine; Visit Provider Family Medicine
DX: E03.9 Hypothyroidism, unspecified (principal)
CPT/HCPCS: 36415; 84443

== ENCOUNTER 2023-12-17 08:02 | Outpatient (CLI) | payer MEDICARE, SELFPAY ==
[2023-12-17 14:10] LABS: Basophils Absolute Auto 0.1 K/mm3 (0.0-0.1); Basophils Percent Auto 0.7 % (0.2-1.2); Eosinophils Absolute Auto 0.2 K/mm3 (0-0.3); Eosinophils Percent Auto 1.6 % (0-4.4); Hematocrit 40.1 % (42.0-52.0); Hemoglobin 12.6 g/dL (14.0-18.0); Immature Granulocyte Absolute 0.03 K/mm3 (0.00-0.031); Immature Granulocyte Percent A 0.3 % (0-0.5); Lymphocytes Absolute Auto 1.52 K/mm3 (0.9-3.2); Lymphocytes Percent Auto 14.2 % (18.3-44.2); Mean Corpuscular HGB Conc 31.4 g/dl (32-36); Mean Corpuscular Hemoglobin 26.5 pg (26-34); Mean Corpuscular Volume 84.2 fl (80-100); Mean Platelet Volume 9.6 fl (7.4-10.4); Monocytes Absolute Auto 0.9 K/mm3 (0.1-0.6); Monocytes Percent Auto 8.4 % (2.6-8.5); Neutrophils Percent Auto 74.8 % (45.5-73.1); Platelet Count Result 353 k/mm3 (150-375); Red Blood Count 4.76 M/mm3 (4.6-6.20); Red Cell Distribution Width 13.9 % (11.5-14.5); White Blood Count 10.7 K/mm3 (4.5-10.0)
[2023-12-17 14:33] LABS: Alanine Aminotransferase 34 U/L (6-50); Albumin Level 4.3 g/dL (3.5-5.1); Alkaline Phosphatase 81 U/L (38-126); Anion Gap 8 mmol/L (4-12); Aspartate Amino Transferase 127 U/L (17-59); Bilirubin,Total 0.8 mg/dL (0.2-1.3); Blood Urea Nitrogen 25 mg/dL (9-20); Calcium 9.8 mg/dL (8.4-10.2); Carbon Dioxide 31 mmol/L (22-30); Chloride 99 mmol/L (98-107); Cholesterol 81 mg/dL (0-200); Estimated Glomerular Filt Rate 59; Glucose 81 mg/dL (65-110); HDL Direct 37 mg/dL; Potassium 4.5 mmol/L (3.4-5.0); Sodium 138 mmol/L (137-145); Triglycerides 42 mg/dL (<150)
[2023-12-17 14:44] LABS: LDL Cholesterol Direct 37 mg/dL
[2023-12-17 15:00] LABS: Prostate Specific Antigen < 0.1 ng/mL (< OR = 4.0)
== END 2023-12-17 08:03 | disposition home or self-care (01) ==
PROVIDERS: PCP Family Medicine; Visit Provider Family Medicine
DX: R53.83 Other fatigue (principal); Z12.5 Encounter for screening for malignant neoplasm of prostate; E03.9 Hypothyroidism, unspecified; Z13.220 Encounter for screening for lipoid disorders; Z95.1 Presence of aortocoronary bypass graft; Z13.29 Encounter for screening for other suspected endocrine disorder; Z13.228 Encounter for screening for other metabolic disorders
CPT/HCPCS: 36415; 80053; 80061; 84153; 84443; 85025; G0103

== ENCOUNTER 2025-04-13 16:18 | Emergency (ER) | payer MEDICARE, SELFPAY ==
[2025-04-13] VITALS (12 sets, daily range): BP systolic 163–267; BP diastolic 69–126; PULSE 58–85; RESP 12–22; TEMP 37.2; O2SAT 88–100
--- NOTE | ~2025-04-13 | XR_ITS ---
Examination: XR chest 1V portable Clinical History: CHEST TUBE PLACEMENT Comparison: 2 hours prior Technique: Portable AP Findings: ET tube, NG tube, right chest tube. Heart size normal. Large right pleural effusion persists with significant associated airspace opacity. No pneumothorax identified. Right rib fractures 4 and 5. IMPRESSION: 1. ET tube, NG tube, right chest tube placed. 2. No cardiopulmonary change. Reviewed, dictated and finalized at location R.
--- NOTE | ~2025-04-13 | XR_ITS ---
EXAMINATION: XR chest port-a-cath/central, 04/14/2025 3:24 CDT HISTORY: central line placement COMPARISON: No comparisons available. Technique: Single view. Findings: Large right basilar infiltrate and effusion. No pneumothorax. Heart is normal size. Mediastinal and hilar contours are within normal limits. Bony thorax no acute abnormality. ET tube 3 cm above the kale, nasogastric tube below the diaphragm, right central line is seen. Impression: Central line placement detailed above. Right-sided probable pneumonia. Reviewed, dictated and finalized at location A. Impression: Central line placement detailed above. Right-sided probable pneumonia.
--- NOTE | ~2025-04-13 | CT_ITS ---
CT HEAD NON-CONTRAST Clinical History: fall Comparison: None Technique: Unenhanced axial images skull base to vertex Coronal, sagittal reformats CT images acquired with automatic exposure control for dose reduction DLP: 681 mGy-cm Findings: Left parietal encephalomalacia. White matter changes, typically chronic microvascular ischemic disease. Sulci, ventricles: Unremarkable. No intracerebral hemorrhage. No evidence acute territorial infarct. No mass effect, midline shift. Bony calvarium intact. Visualized paranasal sinuses: Clear. Mastoid air cells: Clear. IMPRESSION: 1. No acute intracranial findings. Reviewed, dictated and finalized at location R.
--- NOTE | ~2025-04-13 | CT_ITS ---
Hank Montes EXAMINATION: CT abdomen pelvis w con COMPARISON: Comparison 04/13/2025. HISTORY: fall TECHNIQUE: Axial images were obtained through the abdomen, pelvis post administration of IV contrast. Oral contrast was also administered. Coronal reconstruction images were obtained from the axial views. CT scan performed using dose optimization techniques including the following automated exposure control; adjustment of mA and/or kV; use of iterative reconstruction technique. Automatic exposure control was used to reduce radiation dose. Permanent radiation dose record is archived to PACS. FINDINGS: CT abdomen: LUNG BASES: The lung bases demonstrate chronic changes with a large area of abnormal density in the right lower lobe incompletely evaluated. There is a small right basilar infiltrate identified. LIVER: Multiple simple and complex appearing liver cysts the largest right lobe liver 2 x 2 centimeters. Portal vein patent. No intrahepatic biliary duct dilatation. SPLEEN: Mild atrophy of the spleen.. KIDNEYS: Right Kidney: Right kidney multiple simple appearing renal cysts the largest midpole 2 x 2 centimeters. Left Kidney: Left kidney there is a solid-appearing lesion within the midpole anteriorly measuring 2.3 x 2.4 cm. Left kidney there is a large amount of abnormal density in the perinephric space concerning for perinephric hemorrhage. ADRENAL GLANDS: Unremarkable. PANCREAS: Unremarkable. GALLBLADDER/BILIARY: Gallbladder contracted. STOMACH AND ESOPHAGUS: Visualized stomach and esophagus within normal limits. BOWEL/MESENTERY: No colitis or diverticulitis. Appendix not clearly identified. Mesentery is normal. ADENOPATHY/RETROPERITONEUM: No lymphadenopathy. AORTA/VASCULATURE: Atherosclerotic changes of the aorta. FREE FLUID OR FREE AIR: Minimal free fluid in the pelvis.. CT pelvis: SOLID ORGANS/REPRODUCTIVE: Post prostatectomy. BLADDER: Within normal limits. OSSEOUS STRUCTURES: No acute osseous abnormality.No suspicious lesions. OVERLYING SOFT TISSUES: Unremarkable. IMPRESSION: 1. Left-sided perinephric hemorrhage which is increased slightly in size compared to the previous study. Left renal mass redemonstrated concerning for neoplasm. 2. Abnormal density in the right lower lobe concerning for hemothorax incompletely evaluated. Chest CT is recommended Reviewed, dictated and finalized at location A. IMPRESSION: 1. Left-sided perinephric hemorrhage which is increased slightly in size compar ed to the previous study. Left renal mass redemonstrated concerning for neoplas m. 2. Abnormal density in the right lower lobe concerning for hemothorax incomplet juan evaluated. Chest CT is recommended
--- NOTE | ~2025-04-13 | CT_ITS ---
CTA CHEST ABDOMEN PELVIS CLINICAL HISTORY: fall, hemothorax . COMPARISON: CT abdomen and pelvis one day prior Chest x-ray same day TECHNIQUE: Helical CT performed from thoracic inlet to symphysis pubis 100 mL Omnipaque 350 Coronal, sagittal reformats. Multiplanar MIPS CT images acquired with automatic exposure control for dose reduction DLP: 562 mGy-cm FINDINGS: CHEST- Thoracic Aorta: No dissection. No aneurysm. Pulmonary arteries: Normal caliber. Lungs/Pleura: Large right hemothorax enlarging, with significant lobar volume loss and atelectasis. Heart: Unremarkable. Tracheobronchial tree: Patent. Nodes: No enlarged nodes. Bones: Fractures right ribs 2-6. Soft tissues: Unremarkable. ABDOMEN/PELVIS- CTA Abdominal aorta: No aneurysm or dissection. Atherosclerotic disease. Common iliac arteries: Patent. External iliac arteries: Patent. Hypogastric arteries: Patent. CFAs: Patent. Proximal visualized SFAs and profundas: Patent. Celiac: Patent. SMA: Patent. ARTI: Patent. Renal arteries: Patent. NON-CTA Liver: Multiple cysts. Gallbladder: Unremarkable. Spleen: Unremarkable. Pancreas: Unremarkable. Adrenal glands: Unremarkable. Kidneys: Right kidney- No hydronephrosis. No renal stones. Cysts. Left kidney- No hydronephrosis. No renal stones. Cysts. Anterior interpolar heterogeneous lesion. Extensive perinephric hemorrhage as before. No active extravasation noted. Filling defects distal ureter likely clot. Distal esophagus/stomach: Unremarkable. Small bowel loops: Normal caliber and wall thickness. Colon: Normal caliber and wall thickness. Normal RLQ appendix. Nodes: No enlarged nodes. Peritoneum: No ascites. No free air. Urinary bladder: Vizcarra catheter. Prostate: Removed. Bones: No acute bony abnormality. Soft tissues: Unremarkable. IMPRESSION: CHEST- 1. Large hemothorax right lung. Enlarging. Consider CTA chest PE protocol. 2. Right lung atelectasis, airspace disease, and/or contusion. 3. Fractures right ribs 2-6. ABDOMEN/PELVIS- 1. No evidence of active bleed. 2. Large perinephric hemorrhage as before. 3. Left renal mass as before, malignancy not excluded. Reviewed, dictated and finalized at location R.
--- NOTE | ~2025-04-13 | CT_ITS ---
EXAMINATION: CT abdomen pelvis w con DATE: 04/13/2025 20:15 INDICATION: Abdomen pain and dysuria TECHNIQUE: Computed tomography (CT) of the abdomen and pelvis was performed without intravenous contrast. The dose-length product was 328.51 mGy-cm. Automated exposure control and iterative reconstruction technique were employed. COMPARISON: None. FINDINGS: There is dependent atelectasis. Heart size normal. No significant pleural or pericardial effusion.Fatty infiltration of the liver. There are multiple liver cysts. There is left perinephric fluid. There is a left renal mass measuring 2.5 cm, consistent with renal cell carcinoma. The perinephric fluid may represent hemorrhage. Nonobstructive bowel pattern. There is mild diffuse subcutaneous edema. No significant vascular abnormality. There is osteoarthritis of the hips. There is extensive surgical changes in the pelvis, possibly from prior hysterectomy. The spleen, pancreas, adrenal glands are unremarkable. There is a right renal cysts. Moderate lower thoracic and lumbar spondylosis. IMPRESSION: 1. Left renal mass measuring 2.5 cm, consistent with renal cell carcinoma. Moderate left perinephric fluid is present which may represent hemorrhage. Reviewed, dictated and finalized at location O. IMPRESSION: 1. Left renal mass measuring 2.5 cm, consistent with renal cell carcinoma. Mode rate left perinephric fluid is present which may represent hemorrhage.
--- NOTE | ~2025-04-13 | XR_ITS ---
Examination: XR chest 1V portable Clinical History: CPR INITIATED Comparison: X-rays 09/01/2022 Technique: Portable AP Findings: Heart size normal. Large right pleural effusion with significant associated atelectasis. Fractures right ribs 4 and 5. IMPRESSION: 1. Large right pleural effusion with significant associated atelectasis and/or airspace disease. 2. Fractures right ribs 4 and 5. Reviewed, dictated and finalized at location R.
--- NOTE | ~2025-04-13 | XR_ITS ---
EXAMINATION: XR abdomen/kub 1V DATE: 04/14/2025 01:36 INDICATION: Lower chest imaging TECHNIQUE: A single portable AP supine image of the abdomen was obtained. COMPARISON: CT abdomen and pelvis 04/13/2025 FINDINGS: Lines and leads project over the abdomen and pelvis which limits evaluation. Contrast is noted within the kidneys, pelvicalyceal systems and ureters. Clips project over the pelvis. Small amount of air and stool in nondilated large bowel. IMPRESSION: 1. Nonspecific abdomen as detailed above. If continued concern, consider a short-term follow-up study or additional imaging for further assessment Reviewed, dictated and finalized at location Q. IMPRESSION: 1. Nonspecific abdomen as detailed above. If continued concern, consider a short-term follow-up study or additional imagi ng for further assessment
--- OUTSIDE RECORDS SUMMARY | 2025-04-13 16:20 | XMS_ITS | Clinical Summary ---
Author Organization [facility] Address [address] [place] [address] Care Team Providers Care Dental Biller Name Role Phone Rock Matthew MD Unavailable [phone] Wilber Stanley MD Unavailable [phone] Teo Ferrera DO Primary Care Provider [phone] Allergies Active Allergy Reactions Criticality Noted Date Comments Penicillins Sulfa (Sulfonamide Antibiotics) Medications levothyroxine sodium (TIROSINT) 112 mcg capsuleIndication s:hypothyroidism Take 125 mcg by mouth daily 03/20/2022 Active clopidogreL (PLAVIX) 75 mg tabletIndications :Myocardial Reinfarction Prevention Take 1 tablet (75 mg total) by mouth daily 30 tablet 1 06/22/2022 08/05/20 25 Active aspirin 81 mg enteric coated tablet TAKE 1 TABLET BY MOUTH EVERY DAY 30 tablet 1 11/20/2022 Active rosuvastatin (CRESTOR) 20 mg tablet TAKE 1 TABLET(20 MG) BY MOUTH EVERY NIGHT 90 tablet 3 01/08/2024 Active olmesartan (BENICAR) 40 mg tablet Take 1 tablet (40 mg total) by mouth daily 04/14/2024 Active atenoloL-chlortha lidone (TENORETIC) 100-25 mg per tablet Take 1 tablet by mouth daily 05/05/2024 Active cloNIDine (CATAPRES) 0.1 mg tablet TAKE 1 TABLET(0.1 MG) BY MOUTH THREE TIMES DAILY 90 tablet 01/01/2025 Active Active Problems Problem Noted Date Diagnosed Date Primary hypertension 08/05/2024 Hx of CABG 08/10/2022 STEMI (ST elevation myocardial infarction) 06/10 Coronary artery disease of n ative heart with stable angina pectoris 06/09/2022 Overview (06/12/2022): Added automatically from request for surgery [id number] Rupture of anterior cruciate ligament of knee Osteoarthritis of knee 06/11/2014 Immunizations Immunization Administration Dates Next Due Influenza, Quad, Adjuvantated, Intramuscular 07/2021 Influenza, Quadrivalent, Hig h Dose, Preservative Free, Intrr 05/17/2022,05/04/2020 Influenza, Trivalent, Adjuvanted, Intramuscular 05/15/2018 Influenza, Trivalent, High D ose, Split, Preservative Free, Intramuscular 06/09/2019,06/19/2017 Pneumococcal Conjugate PCV 13 04/29/2019 Surgical History Surgery Date Site/Laterality Comments CORONARY ARTERY BYPASS GRAFT Family History Medical History Relation Name Comments Hypertension Father Family history of hypertension - (Added by TW Conv) Arthritis Mother Family history of arthritis - (Added by TW Conv) Hypertension Mother Family history of hypertension - (Added by TW Conv) Relation Name Status Comments Father Mother Social History Tobacco Use Types Packs/Day Years Used Date Smoking Tobacco: Former Smokeless Tobacco: Never Tobacco Cessation:Counseling Given: Not Answered PHQ-2 Answer Date Recorded PHQ-2 Total Score (If total score is 3 or more points, staff should administer the PHQ-9) 3 06/10/2022 Sex and Gender Information Value Date Recorded Sex Assigned at Not on file Legal 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 Gender Identity Not on file Sexual Orientation Not on file Obstetrics History Last Filed Vital Signs Vital Sign Reading Time Taken Comments Blood Pressure 170/100 08/05/2024 1:12 PM LOAN INSPECTOR Pulse 65 08/05/2024 1:12 PM LOAN INSPECTOR Temperature 36.7 C (98 F) 07/04/2022 1:30 PM LOAN INSPECTOR Respiratory Rate 14 10/26/2022 11:00 AM CDT Oxygen Saturation 99% 08/05/2024 1:12 PM LOAN INSPECTOR Inhaled Oxygen Concentration - - Weight 62.6 kg (138 lb) 08/05/2024 1:12 PM LOAN INSPECTOR Height 177.8 cm (5' 10) 08/05/2024 1:12 PM LOAN INSPECTOR Body Mass Index 19.8 08/05/2024 1:12 PM LOAN INSPECTOR Plan of Treatment Health Maintenance Due Date Last Done Comments Colon Cancer Screening-Colonoscopy 1950 Hepatitis C Screening 1950 DTaP/Tdap/Td Vaccine (1 - Tdap) 1961 Hepatitis B Screening 1968 Zoster Vaccine (1 of 2) 2000 Abdominal Aortic Aneurysm (A AA) Screen 2015 Well Visit 65+ 2015 Pneumococcal vaccine 65+ (2 of 2 - PPSV23, PCV20, or PCV21) 06/24/2019 04/29/2019 Depression Screening 06/09/2023 06/09/2022 Fall Risk Assessment 06/22/2023 06/22/2022 Covid-19 Vaccine (2023-2 5 season) 2024 05/04/2022, 11/25/2021, 05/23/2021, Additional history exists Influenza Vaccine (#1) 2025 , 05/17/2021, 05/04/2020, Additional history exists Insurance [facility] MEDICARE ADVANTAGE [facility] MEDICARE ADVANTAGE [facility] HMO REF Member Subscriber Plan / Payer (Ef fective 2022-Present) Name:Hank Montes Relation to Subscriber:Self Name:Hank Montes Payer ID:[id number] (NAIC) Type:[facility] MEDICARE Address: [place] [id number] MEDICARE ADVANTAGE [facility] HMO REF Advance Directives For more information, please contact: [phone] * Full Code (Latest Code Status on File) Date Activated Date Inactivated Comments 06/10/2022 2:25 AM 06/22/2022 9:08 PM Care Teams Dental Biller Relationship Specialty Start Date End Date Teo Ferrera DO [address] [place] [id number] PCP - General Family Medicine 10/26/22 Rock Matthew MD Surgeon Cardiothoracic Surgery 06/22/22 Wilber Stanley MD [address] [place] [address] [phone] Consulting Physician Cardiology 06/22/22
[2025-04-13 17:36] LABS: Hematocrit 38.4 % (42.0-52.0); Hemoglobin 13.1 g/dL (14.0-18.0); Immature Granulocyte Percent A 0.4 % (0-0.5); Lymphocytes Absolute Auto 1.38 K/mm3 (0.9-3.2); Mean Corpuscular HGB Conc 34.1 g/dl (32-36); Mean Corpuscular Hemoglobin 29.4 pg (26-34); Mean Corpuscular Volume 86.1 fl (80-100); Nucleated Red Blood Cells Absolute Auto 0.000 K/mm3 (0.0-0.012); Nucleated Red Blood Cells Perc 0.0 % (0.0-0.2); Platelet Count Result 230 k/mm3 (150-375); Red Blood Count 4.46 M/mm3 (4.6-6.20); White Blood Count 13.9 K/mm3 (4.5-10.0)
[2025-04-13 17:42] LABS: Add Urine Microscopic? YES; Appearance Urine Clear (Clear); Glucose Urine UA Negative (Negative); Leukocyte Esterase Ur Negative LEU/UL (Negative); Nitrate Urine Negative (Negative); Non Pathogenic Casts 0-2; Specific Grav Ur 1.010 (1.001-1.035)
[2025-04-13 17:47] LABS: Alanine Aminotransferase 46 U/L (6-50); Albumin Level 4.8 g/dL (3.5-5.1); Alkaline Phosphatase 84 U/L (38-126); Anion Gap 11 mmol/L (4-12); Aspartate Amino Transferase 59 U/L (17-59); Bilirubin,Total 1.9 mg/dL (0.2-1.3); Blood Urea Nitrogen 22 mg/dL (9-20); Calcium 9.0 mg/dL (8.4-10.2); Carbon Dioxide 26 mmol/L (22-30); Chloride 84 mmol/L (98-107); Estimated CRCL calculation 39 ml/min; Estimated Glomerular Filt Rate 53; Glucose 98 mg/dL (65-110); Lipase 302 U/L (23-300); Sodium 121 mmol/L (137-145); Total Protein 7.6 g/dL (6.3-8.2)
--- OUTSIDE RECORDS SUMMARY | 2025-04-13 17:51 | XMS_ITS | Clinical Summary ---
Author Organization [facility] Address [address] [place] [address] Care Team Providers Care Medical Genetics Director Name Role Phone Rock Matthew MD Unavailable [phone] Wilber Stanley MD Unavailable [phone] Teo Ferrera DO Primary Care Provider [phone] Allergies Active Allergy Reactions Criticality Noted Date [...] (06/12/2022): Added automatically from request for surgery [id number] Rupture of anterior cruciate ligament of knee [...] on file Legal Sex Male 2:30 AM [employer] Gender Identity Not on file Sexual Orientation Not on file Obstetrics History Last Filed Vital Signs Vital Sign Reading Time Taken Comments Blood Pressure 170/100 08/05/2024 1:12 PM [employer] Pulse 65 08/05/2024 1:12 PM [employer] Temperature 36.7 C (98 F) 07/04/2022 1:30 PM [employer] Respiratory Rate 14 10/26/2022 11:00 AM CDT Oxygen Saturation 99% 08/05/2024 1:12 PM [employer] Inhaled Oxygen Concentration - - Weight 62.6 kg (138 lb) 08/05/2024 1:12 PM [employer] Height 177.8 cm (5' 10) 08/05/2024 1:12 PM [employer] Body Mass Index 19.8 08/05/2024 1:12 PM [employer] Plan of Treatment Health Maintenance Due Date [...] , 05/17/2021, 05/04/2020, Additional history exists Insurance [facility] MEDICARE ADVANTAGE [facility] MEDICARE ADVANTAGE [facility] H[facility] REF Member Subscriber Plan / Payer (Ef fective 2022-Present) Name:Hank Montes Relation to Subscriber:Self Name:Hank Montes Payer ID:[id number] (NAIC) Type:[facility] MEDICARE Address: [place] [id number] MEDICARE ADVANTAGE [facility] H[facility] REF Advance Directives For more information, please contact: [phone] * Full Code (Latest Code Status on File) Date Activated Date Inactivated Comments 06/10/2022 2:25 AM 06/22/2022 9:08 PM Care Teams Medical Genetics Director Relationship Specialty Start Date End Date Teo Ferrera DO [address] [place] [id number] PCP - General Family Medicine 10/26/22 Rock Matthew MD Surgeon Cardiothoracic Surgery 06/22/22 Wilber Stanley MD [address] [place] [address] [phone] Consulting Physician Cardiology 06/22/22
[2025-04-13 17:54] LABS: Potassium 3.7 mmol/L (3.4-5.0)
--- NOTE | 2025-04-13 18:10 | ED.ABDPAIN ---
HPI - Abdominal Pain General Chief Complaint: Abdominal Pain <LEVAR Genao Last Filed: 04/14/25 18:39> Stated Complaint: abd pain, N/V <LEVAR Genao Last Filed: 04/14/25 18:39> Time Seen by Provider: 04/13/25 17:18 <LEVAR Genao Last Filed: 04/14/25 18:39> Source: patient <LEVAR Genao Last Filed: 04/14/25 18:39> Mode of arrival: ambulatory <LEVAR Genao Last Filed: 04/14/25 18:39> Limitations: no limitations <LEVAR Genao Last Filed: 04/14/25 18:39> History of Present Illness HPI narrative: This is a 74 year old male that presents to the ER for abdominal pain. Reports associated nausea, vomiting, dysuria, hematuria. Ongoing since this morning. Reports he has been having blood in the urine intermittently for a couple of months. Is scheduled to see urology and have a CT scan of his abdomen soon. Denies fevers, chest pain, shortness of breath. <LEVAR Genao Last Filed: 04/14/25 18:39> Related Data Home Medications: Home Medications ?Medication ?Instructions ?Recorded ?Confirmed ?Last Taken ?Type aspirin 81 mg tablet,delayed 81 mg PO DAILY 07/10/22 03/13/25 Unknown History release vardenafil 20 mg tablet 20 mg PO DAILY PRN 10/27/24 03/13/25 Unknown History <LEVAR Genao Last Filed: 04/14/25 18:39> Allergies/Adverse Reactions: Allergies Allergy/AdvReac Type Severity Reaction Status Date / Time Penicillins Allergy Unknown Rash Verified 04/13/25 17:25 Sulfa (Sulfonamide Allergy Unknown Rash Verified 04/13/25 17:25 Antibiotics) <LEVAR Genao Last Filed: 04/14/25 18:39> Review of Systems Review of Systems: All systems reviewed & are unremarkable except as noted in HPI and below <LEVAR Genao Last Filed: 04/14/25 18:39> [facility] Past Medical History Medical History: Medical History (Updated 04/14/25 @ 03:40 by Rissa Acosta PA-C) H/O prostate cancer ST elevation [place] (STEMI) Anemia Coronary artery disease Essential (primary) hypertension Hypothyroidism (acquired) <Rissa Acosta PA-C - Last Filed: 04/14/25 18:39> Surgical History Surgical History: Surgical History Status post coronary artery bypass graft <Rissa Acosta PA-C - Last Filed: 04/14/25 18:39> Family History Family History: Family History Mother Hypertension Sibling Patient's sister is in good health Patient's brother is in good health Father Family history of cardiovascular disease Other Screening PSA (prostate specific antigen) <Rissa Acosta PA-C - Last Filed: 04/14/25 18:39> Social History Social History: Social History (Updated 03/13/25 @ 09:47 by Layla Pearce MA) Smoking packs per day: 1 Smoking cigarettes per day: 20.0 Smoking status: Former smoker Smoking end date: 08/06/90 Alcohol intake: unknown Alcohol use details: RARE OCCASSION Substance use: never Substance use type: does not use Do You Feel Safe in your Home?: Yes Lack of Transportation: No Lack of Food: Never True Current Housing: I Have Housing Concerned About Future Housing: No Difficulty Paying Gas/Electric Bills: No Difficulty Paying for Meds: No Currently Unemployed: No Education: Bachelor's Degree Difficulty w/ Childcare or Family Care: No Living arrangements: alone Spiritual care concerns: No <Rissa Acosta PA-C - Last Filed: 04/14/25 18:39> Exam Narrative: GENERAL: Uncomfortable, well-nourished, and in no acute distress. HEAD: Normocephalic, atraumatic. EYES: EOMI. ENT: Nares clear, no rhinorrhea or epistaxis. Mucous membranes moist. Oropharynx without tonsillar hypertrophy exudate or other lesions. CHEST: Clear to auscultation. No respiratory distress. No wheezes rales or rhonchi HEART: Regular rate and rhythm. No murmur heard. Normal peripheral pulses. ABDOMEN: Soft, nontender, nondistended, normal active bowel sounds. EXTREMITIES: Normal range of motion. No edema. SKIN: Warm, dry, no rash. NEURO: No focal deficits. Alert and oriented x3. PSYCH: Normal mood and affect <Rissa Acosta PA-C - Last Filed: 04/14/25 18:39> Procedures Central Line Placement Right IJ: Central Line Date: 04/14/25 <Nick Elaine MD - Last Filed: 04/14/25 04:31> Performed Emergently - Given emergent patient condition, temporal constraints may have precluded informed consent.: Yes <Nick Elaine MD - Last Filed: 04/14/25 04:31> Time Out Performed: Yes <Nick Elaine MD - Last Filed: 04/14/25 04:31> Patient Placed on Monitor/Pulse Ox: Yes <Nick Elaine MD - Last Filed: 04/14/25 04:31> Max. Sterile Barrier Technique: Caps and large sterile sheet <Nick Elaine MD - Last Filed: 04/14/25 04:31> Central Line Prep: 2% chlorhexidine scrub and sterile drapes applied <Nick Elaine MD - Last Filed: 04/14/25 04:31> Technique: US-Guided <Nick Elaine MD - Last Filed: 04/14/25 04:31> Ultrasound Used for Placement: Yes <Nick Elaine MD - Last Filed: 04/14/25 04:31> Central Line Lumen Inserted: triple <Nick Elaine MD - Last Filed: 04/14/25 04:31> Post Procedure: sutured in place, good blood return, all ports aspirated, flushed, capped and sterile dressing applied <Nick Elaine MD - Last Filed: 04/14/25 04:31> Post Procedure X-Ray: tip of catheter in good position <Nick Elaine MD - Last Filed: 04/14/25 04:31> Patient Tolerated Procedure: well <Nick Elaine MD - Last Filed: 04/14/25 04:31> Complications: none <Nick Elaine MD - Last Filed: 04/14/25 04:31> Chest Tube Chest Tube 1: Chest Tube Date: 04/14/25 <Nick Elaine MD - Last Filed: 04/14/25 04:31> Chest Tube Location: mid axillary line <Nick Elaine MD - Last Filed: 04/14/25 04:31> Tube Type: quik thal <Nick Elaine MD - Last Filed: 04/14/25 04:31> Size of Tube (cm): 20 <Nick Elaine MD - Last Filed: 04/14/25 04:31> Chest Tube Prep: Yes betadine prep and sterile drapes applied <Nick Elaine MD - Last Filed: 04/14/25 04:31> Incision Made With: #11 blade <Nick Elaine MD - Last Filed: 04/14/25 04:31> Procedure: seldinger technique <Nick Elaine MD - Last Filed: 04/14/25 04:31> Post Procedure: sutured to skin, sterile dressing applied and connected to Pluero Vac <Nick Elaine MD - Last Filed: 04/14/25 04:31> Tube Drainage: blood <Nick Elaine MD - Last Filed: 04/14/25 04:31> Amount of initial drainage (mL): 1,000 <Nick Elaine MD - Last Filed: 04/14/25 04:31> Post Procedure CXR?: Yes <Nick Elaine MD - Last Filed: 04/14/25 04:31> Post Procedure: post CXR reviewed and placement appropriate <Nick Elaine MD - Last Filed: 04/14/25 04:31> Patient Tolerated Procedure: Yes <Nick Elaine MD - Last Filed: 04/14/25 04:31> Intubation Intubation #1: Intubation Date: 04/14/25 <Nick Elaine MD - Last Filed: 04/14/25 04:31> Time out performed: Yes <Nick Elaine MD - Last Filed: 04/14/25 04:31> sedative: Etomidate <Nick Elaine MD - Last Filed: 04/14/25 04:31> Mg Given: 20 <Nick Elaine MD - Last Filed: 04/14/25 04:31> paralytic: Rocuronium <Nick Elaine MD - Last Filed: 04/14/25 04:31> Mg Given: 100 <Nick Elaine MD - Last Filed: 04/14/25 04:31> Laryngoscope: Florina <Nick Elaine MD - Last Filed: 04/14/25 04:31> Tube Size (cm): 7.5 <Nick Elaine MD - Last Filed: 04/14/25 04:31> Method of Intubation: orotracheal <Nick Elaine MD - Last Filed: 04/14/25 04:31> Number of Attempts: 1 <MD Iker Gomez Last Filed: 04/14/25 04:31> Tube Secured Depth (cm): 25 <Nick Elaine MD - Last Filed: 04/14/25 04:31> Tube Secured Location: lips <MD Iker Gomez Last Filed: 04/14/25 04:31> Tube Placement Confirmation: visualized tube passing through cords, no breath sounds over epigastrium and confirmation by capnometry <Nick Elaine MD - Last Filed: 04/14/25 04:31> Patient Tolerated Procedure: well <Nick Elaine MD - Last Filed: 04/14/25 04:31> Intubation Complications: none <MD Iker Gomez Last Filed: 04/14/25 04:31> Course Consultations Consultation #1: Interventional cardiology was consulted. 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 <Rissa Acosta PA-C - Last Filed: 04/14/25 18:39> Date: 04/13/25 <Rissa Acosta PA-C - Last Filed: 04/14/25 18:39> Consultation #2: Spoke with [facility] Dr. Carroll who accepts patient as transfer for higher level of care <Rissa Acosta PA-C - Last Filed: 04/14/25 18:39> Date: 04/14/25 <Rissa Acosta PA-C - Last Filed: 04/14/25 18:39> Vital Signs Vital signs: Vital Signs Temperature 98.9 F 04/13/25 16:27 Pulse Rate 61 04/13/25 16:27 Respiratory Rate 17 04/13/25 16:27 Blood Pressure 216/86 H 04/13/25 16:27 Pulse Oximetry 100 04/13/25 16:27 Oxygen Delivery Room Air 04/13/25 16:27 Temperature 94.8 F L 04/14/25 04:34 Pulse Rate 88 04/14/25 04:34 Respiratory Rate 16 04/14/25 04:34 Blood Pressure 87/64 L 04/14/25 04:34 Pulse Oximetry 97 04/14/25 04:34 Oxygen Delivery Mechanical Ventilation 04/14/25 01:41 Oxygen Flow Rate 2 04/13/25 23:21 Fraction of Inspired Oxygen 60 04/14/25 01:25 <Rissa Acosta PA-C - Last Filed: 04/14/25 18:39> Vital Signs Temperature 98.9 F 04/13/25 16:27 Pulse Rate 61 04/13/25 16:27 Respiratory Rate 17 04/13/25 16:27 Blood Pressure 216/86 H 04/13/25 16:27 Pulse Oximetry 100 04/13/25 16:27 Oxygen Delivery Room Air 04/13/25 16:27 Temperature 94.8 F L 04/14/25 04:34 Pulse Rate 88 04/14/25 04:34 Respiratory Rate 16 04/14/25 04:34 Blood Pressure 87/64 L 04/14/25 04:34 Pulse Oximetry 97 04/14/25 04:34 Oxygen Delivery Mechanical Ventilation 04/14/25 01:41 Oxygen Flow Rate 2 04/13/25 23:21 Fraction of Inspired Oxygen 60 04/14/25 01:25 <Nick Elaine MD - Last Filed: 04/14/25 04:31> MDM - Abdominal Pain MDM Narrative Medical decision making narrative: Patient presents to the emergency department for abdominal pain, nausea and vomiting. Patient is afebrile. Hypertensive upon arrival, although patient was in pain and had not taken his blood pressure medication today. He was given his home blood pressure medication once nausea was under control with improvement. CBC with leukocytosis to 13.9. Hemoglobin of 13.1. Metabolic panel with kidney function that appears around baseline, hyponatremia noted. Patient was lightly hydrated in the ER. Sodium was slightly lower than previous blood work. Urine without evidence of infection, does show red blood cells. CT abdomen and pelvis shows findings concerning for a left renal cell mass. Moderate left perinephric fluid which may represent hemorrhage. EKG without any acute ST changes, baseline troponin negative. Patient then sustained a fall while trying to get up and use the restroom. He reported not seeing his nurse button, although it was in his bed. He was seated on the floor at the bottom of the bed. He did not report any certain injury, but a CT brain was ordered and repeat CT abdomen pelvis was obtained to rule out any injuries/change in the bleeding around his kidney. Awaiting CT scan results patient was found in his room unresponsive. Pulse was thready. CPR was started. Patient did have a strong pulse after about 2 minutes of CPR. Patient was intubated. Repeat EKG showing signs of a STEMI. Interventional cardiology was consulted. 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 Repeat CT abdomen and pelvis showing slight increase in size of perinephric hematoma as well as new moderate size fluid collection in the right pleural space concerning for hemothorax. CTA chest/abdomen/pelvis obtained for further evaluation. Showing large right hemothorax causing severe compressive atelectasis of the right lung. Fractures of the right 3rd and 5th ribs. Endotracheal tube and feeding tube in position. No pulmonary embolism. Left perinephric hematoma fairly similar to previous study. Chest tube placed by Dr. Elaine. 2 units packed RBCs given. He is also on Levophed, central line was placed. Spoke with [facility] Dr. Carroll who accepts patient as transfer for higher level of care <Rissa Acosta PA-C - Last Filed: 04/14/25 18:39> Differential Diagnosis Differential diagnosis: Likely abdominal pain, calculus of kidney, gastroenteritis and other (renal cell carcinoma, pyelonephritis) <Rissa Acosta PA-C - Last Filed: 04/14/25 18:39> Lab Data Attestation: I reviewed the patient's lab results. <Rissa Acosta PA-C - Last Filed: 04/14/25 18:39> Result diagrams: 04/13/25 21:24 04/13/25 17:27 <Rissa Acosta PA-C - Last Filed: 04/14/25 18:39> Labs: Lab Results 04/13/25 04/13/25 Range/Units 17:27 21:24 WBC 13.9 H (4.5-10.0) K/mm3 RBC 4.46 L (4.6-6.20) M/mm3 Hgb 13.1 L 14.2 (14.0-18.0) g/dL Hct 38.4 L 41.5 L (42.0-52.0) % MCV 86.1 (80-100) fl MCH 29.4 (26-34) pg MCHC 34.1 (32-36) g/dl RDW 13.8 (11.5-14.5) % Plt Count 230 (150-375) k/mm3 MPV 9.5 (7.4-10.4) fl Immature Gran % (Auto) 0.4 (0-0.5) % Neut % (Auto) 80.6 H (45.5-73.1) % Lymph % (Auto) 9.9 L (18.3-44.2) % [place] % (Auto) 8.1 (2.6-8.5) % Eos % (Auto) 0.4 (0-4.4) % Baso % (Auto) 0.6 (0.2-1.2) % Lymph # (Auto) 1.38 (0.9-3.2) K/mm3 [place] # (Auto) 1.1 H (0.1-0.6) K/mm3 Eos # (Auto) 0.1 (0-0.3) K/mm3 Baso # (Auto) 0.1 (0.0-0.1) K/mm3 Abs Immat Gran (auto) 0.06 H (0.00-0.031) K/mm3 Absolute Neuts (auto) 11.2 H (1.3-6.7) K/mm3 Absolute Nucleated RBC 0.000 (0.0-0.012) K/mm3 Nucleated RBC % 0.0 (0.0-0.2) % Sodium 121 L (137-145) mmol/L Potassium 3.7 (3.4-5.0) mmol/L Chloride 84 L (98-107) mmol/L Carbon Dioxide 26 (22-30) mmol/L Anion Gap 11 (4-12) mmol/L BUN 22 H (9-20) mg/dL Creatinine 1.32 H (0.7-1.3) mg/dL Estim Creat Clear Calc 39 ml/min Estimated GFR 53 L (59 - ) Glucose 98 (65-110) mg/dL Calcium 9.0 (8.4-10.2) mg/dL Total Bilirubin 1.9 H (0.2-1.3) mg/dL AST 59 (17-59) U/L ALT 46 (6-50) U/L Alkaline Phosphatase 84 (38-126) U/L Troponin I < 0.012 (0.000-0.034) ng/mL Total Protein 7.6 (6.3-8.2) g/dL Albumin 4.8 (3.5-5.1) g/dL Lipase 302 H (23-300) U/L Urine Color Yellow (Yellow) Urine Appearance Clear (Clear) Urine pH 7.5 (5.0-9.0) Ur Specific [place] 1.010 (1.001-1.035) Urine Protein 1+ H (Negative) mg/dL Urine Glucose (UA) Negative (Negative) mg/dL Urine Ketones Trace H (Negative) mg/dL Ur Blood (Man) 2+ H (Negative) Urine Nitrate Negative (Negative) Urine Bilirubin Negative (Negative) Urine Urobilinogen 0.2 (<2.0) mg/dL Leukocyte Esterase Rfl Negative (Negative) RAMIREZ/UL Urine RBC >100 H (0-2) /hpf Urine WBC 0-5 (0-3) /hpf Ur Squamous Epith Cells None seen (Few) /hpf Urine Bacteria None seen /hpf Urine Casts 0-2 Blood Type A Positive Antibody Screen Negative Crossmatch See Detail <Rissa Acosta PA-C - Last Filed: 04/14/25 18:39> Lab Results 04/13/25 04/13/25 Range/Units 17:27 21:24 WBC 13.9 H (4.5-10.0) K/mm3 RBC 4.46 L (4.6-6.20) M/mm3 Hgb 13.1 L 14.2 (14.0-18.0) g/dL Hct 38.4 L 41.5 L (42.0-52.0) % MCV 86.1 (80-100) fl MCH 29.4 (26-34) pg MCHC 34.1 (32-36) g/dl RDW 13.8 (11.5-14.5) % Plt Count 230 (150-375) k/mm3 MPV 9.5 (7.4-10.4) fl Immature Gran % (Auto) 0.4 (0-0.5) % Neut % (Auto) 80.6 H (45.5-73.1) % Lymph % (Auto) 9.9 L (18.3-44.2) % [place] % (Auto) 8.1 (2.6-8.5) % Eos % (Auto) 0.4 (0-4.4) % Baso % (Auto) 0.6 (0.2-1.2) % Lymph # (Auto) 1.38 (0.9-3.2) K/mm3 [place] # (Auto) 1.1 H (0.1-0.6) K/mm3 Eos # (Auto) 0.1 (0-0.3) K/mm3 Baso # (Auto) 0.1 (0.0-0.1) K/mm3 Abs Immat Gran (auto) 0.06 H (0.00-0.031) K/mm3 Absolute Neuts (auto) 11.2 H (1.3-6.7) K/mm3 Absolute Nucleated RBC 0.000 (0.0-0.012) K/mm3 Nucleated RBC % 0.0 (0.0-0.2) % Sodium 121 L (137-145) mmol/L Potassium 3.7 (3.4-5.0) mmol/L Chloride 84 L (98-107) mmol/L Carbon Dioxide 26 (22-30) mmol/L Anion Gap 11 (4-12) mmol/L BUN 22 H (9-20) mg/dL Creatinine 1.32 H (0.7-1.3) mg/dL Estim Creat Clear Calc 39 ml/min Estimated GFR 53 L (59 - ) Glucose 98 (65-110) mg/dL Calcium 9.0 (8.4-10.2) mg/dL Total Bilirubin 1.9 H (0.2-1.3) mg/dL AST 59 (17-59) U/L ALT 46 (6-50) U/L Alkaline Phosphatase 84 (38-126) U/L Troponin I < 0.012 (0.000-0.034) ng/mL Total Protein 7.6 (6.3-8.2) g/dL Albumin 4.8 (3.5-5.1) g/dL Lipase 302 H (23-300) U/L Urine Color Yellow (Yellow) Urine Appearance Clear (Clear) Urine pH 7.5 (5.0-9.0) Ur Specific [place] 1.010 (1.001-1.035) Urine Protein 1+ H (Negative) mg/dL Urine Glucose (UA) Negative (Negative) mg/dL Urine Ketones Trace H (Negative) mg/dL Ur Blood (Man) 2+ H (Negative) Urine Nitrate Negative (Negative) Urine Bilirubin Negative (Negative) Urine Urobilinogen 0.2 (<2.0) mg/dL Leukocyte Esterase Rfl Negative (Negative) RAMIREZ/UL Urine RBC >100 H (0-2) /hpf Urine WBC 0-5 (0-3) /hpf Ur Squamous Epith Cells None seen (Few) /hpf Urine Bacteria None seen /hpf Urine Casts 0-2 Blood Type A Positive Antibody Screen Negative Crossmatch See Detail <Nick Elaine MD - Last Filed: 04/14/25 04:31> Imaging Data Radiologist's impression: ITS Impressions Head CT 04/14/25 06:36 IMPRESSION: 1. No acute intracranial findings. Abdomen/Pelvis CT 04/14/25 08:36 IMPRESSION: 1. Left-sided perinephric hemorrhage which is increased slightly in size compared to the previous study. Left renal mass redemonstrated concerning for neoplasm. 2. Abnormal density in the right lower lobe concerning for hemothorax incompletely evaluated. Chest CT is recommended Abdomen X-Ray 04/14/25 09:17 IMPRESSION: 1. Nonspecific abdomen as detailed above. If continued concern, consider a short-term follow-up study or additional imaging for further assessment Chest X-Ray 04/14/25 09:18 Impression: Central line placement detailed above. Right-sided probable pneumonia. Chest/Abdomen/Pelvis CTA 04/14/25 09:32 IMPRESSION: CHEST- 1. Large hemothorax right lung. Enlarging. Consider CTA chest PE protocol. 2. Right lung atelectasis, airspace disease, and/or contusion. 3. Fractures right ribs 2-6. ABDOMEN/PELVIS- 1. No evidence of active bleed. 2. Large perinephric hemorrhage as before. 3. Left renal mass as before, malignancy not excluded. CT brain: No acute intracranial pathology CT abdomen/pelvis: 2.5 cm left renal mass consistent with neoplasm is re-identified. Moderate left perinephric hematoma shows slight increased since the previous exam. New moderate-sized fluid collection in the right pleural space concerning for hemothorax. Chest x-ray: Acute fractures of the right 3rd and 4th ribs. Large right effusion causing compressive atelectasis and volume loss of the right lung KUB: Feeding tube in the tip of the stomach CTA chest/abdomen/pelvis: Large right hemothorax causing severe compressive atelectasis of the right lung. Fractures of the right 3rd and 5th ribs. No pneumothorax. Endotracheal tube and feeding tube position. No pulmonary embolism. Left perinephric hematoma is fairly similar to previous study. <Rissa Acosta PA-C - Last Filed: 04/14/25 18:39> ITS Impressions Head CT 04/14/25 06:36 IMPRESSION: 1. No acute intracranial findings. Abdomen/Pelvis CT 04/14/25 08:36 IMPRESSION: 1. Left-sided perinephric hemorrhage which is increased slightly in size compared to the previous study. Left renal mass redemonstrated concerning for neoplasm. 2. Abnormal density in the right lower lobe concerning for hemothorax incompletely evaluated. Chest CT is recommended Abdomen X-Ray 04/14/25 09:17 IMPRESSION: 1. Nonspecific abdomen as detailed above. If continued concern, consider a short-term follow-up study or additional imaging for further assessment Chest X-Ray 04/14/25 09:18 Impression: Central line placement detailed above. Right-sided probable pneumonia. Chest/Abdomen/Pelvis CTA 04/14/25 09:32 IMPRESSION: CHEST- 1. Large hemothorax right lung. Enlarging. Consider CTA chest PE protocol. 2. Right lung atelectasis, airspace disease, and/or contusion. 3. Fractures right ribs 2-6. ABDOMEN/PELVIS- 1. No evidence of active bleed. 2. Large perinephric hemorrhage as before. 3. Left renal mass as before, malignancy not excluded. <Nick Elaine MD - Last Filed: 04/14/25 04:31> ECG Data EKG #1: ECG completion date: 04/13/25 <Rissa Acosta PA-C - Last Filed: 04/14/25 18:39> normal rate, sinus rhythm, no ST changes and normal QT <Rissa Acosta PA-C - Last Filed: 04/14/25 18:39> EKG #2: ECG completion date: 04/14/25 <Rissa Acosta PA-C - Last Filed: 04/14/25 18:39> normal rate, sinus rhythm, ST depression (V2-V5) and ST elevation (II, III, aVf) <Rissa Acosta PA-C - Last Filed: 04/14/25 18:39> Critical Care Time Critical Care Time Critical Care Time: Yes <Rissa Acosta PA-C - Last Filed: 04/14/25 18:39> Total Critical Care Time: 90 <Rissa Acosta PA-C - Last Filed: 04/14/25 18:39> Discharge Plan Discharge Clinical Impression: Renal hemorrhage, left, Hemothorax on right, Hyponatremia Renal cell carcinoma Qualifiers: Laterality: left Qualified Code(s): C64.2 - Malignant neoplasm of left kidney, except renal pelvis Fracture of rib Qualifiers: Encounter type: initial encounter Rib fracture type: multiple ribs Fracture type: closed Laterality: right Qualified Code(s): S22.41XA - Multiple fractures of ribs, right side, initial encounter for closed fracture <Rissa Acosta PA-C - Last Filed: 04/14/25 18:39> Patient Disposition: Acute Care Hospital <Rissa Acosta PA-C - Last Filed: 04/14/25 18:39> Condition: Critical <Rissa Acosta PA-C - Last Filed: 04/14/25 18:39> Instructions: Antibiotic Form <Rissa Acosta PA-C - Last Filed: 04/14/25 18:39> Patient Language: [place] <Rissa Acosta PA-C - Last Filed: 04/14/25 18:39> Prescriptions: No Action vardenafil 20 mg tablet 20 mg PO DAILY PRN clonidine HCl 0.1 mg tablet 0.1 mg PO TID Qty: 270 3RF atenolol 100 mg tablet 100 mg PO DAILY Qty: 90 3RF clopidogrel 75 mg tablet 75 mg PO DAILY Qty: 90 3RF rosuvastatin 20 mg tablet 20 mg PO QHS Qty: 90 3RF olmesartan 40 mg tablet 40 mg PO DAILY Qty: 90 3RF aspirin 81 mg tablet,delayed release (DR/EC) 81 mg PO DAILY fluticasone propionate 50 mcg/actuation spray,suspension 2 spray intranasal DAILY Qty: 16 2RF Rx Instructions: administer into each nostril levothyroxine [Synthroid] 100 mcg tablet 100 mcg PO DAILY Qty: 90 0RF <Rissa Acosta PA-C - Last Filed: 04/14/25 18:39> Follow-up/Referrals: Erica De León, TAILINGS WORKER [Primary Care Provider, Family Practice] <Rissa Acosta PA-C - Last Filed: 04/14/25 18:39>
[2025-04-13] MEDS: SODIUM CHLORIDE 0.9% IV 500 ML 999 ML IV CONT (18:51)
[2025-04-13] MEDS: MORPHINE SULFATE (*CRX) 4 MG/ML INJ IV PUSH (18:52)
[2025-04-13] MEDS: ONDANSETRON INJ 4 MG/2 ML VIAL IV PUSH (18:52)
[2025-04-13] MEDS: HYDROmorphone HCL INJ (*CRX) 1 MG/ML SYR 0.5 MG IV PUSH (19:15)
[2025-04-13] MEDS: METOCLOPRAMIDE HCL INJ 10 MG/2 ML VIAL IV PUSH (19:30)
[2025-04-13] MEDS: HYDROmorphone HCL INJ (*CRX) 1 MG/ML SYR IV PUSH (20:46)
[2025-04-13 21:04] LABS: Troponin I < 0.012 ng/mL (0.000-0.034)
--- NOTE | 2025-04-13 21:16 | ECG_ITS ---
Test Date: 2025-04-13 21:16:16 Measurements Intervals [place] Rate: 73 P: 58 MT: 171 QRS: -35 QRSD: 93 T: 68 QT: 398 QTc: 440 Interpretive Statements SINUS RHYTHM LEFT ATRIAL ENLARGEMENT [-0.15mV P WAVE IN V1/V2] MARKED LEFT AXIS DEVIATION [QRS AXIS < -30] ABNORMAL ECG No previous ECG available for comparison Electronically Signed On 04-15-2025 15:27:51 CDT by Wilber Stanley M.D.
[2025-04-13 21:29] LABS: Hematocrit 41.5 % (42.0-52.0); Hemoglobin 14.2 g/dL (14.0-18.0)
--- NOTE | 2025-04-13 23:55 | PC.NURSE ---
Refer to incident report for fall details
[2025-04-14] VITALS (21 sets, daily range): BP systolic 62–122; BP diastolic 48–80; PULSE 81–118; RESP 12–24; TEMP 34.6–34.9; O2SAT 93–100
--- NOTE | 2025-04-14 00:58 | ECG_ITS ---
Test Date: 2025-04-14 00:58:30 Measurements Intervals [place] Rate: 57 P: 0 DE: 0 QRS: 71 QRSD: 113 T: 83 QT: 375 QTc: 365 Interpretive Statements SINUS RHYTHM WITH COMPLETE HEART BLOCK ACUTE INFERIOR WALL MYOCARDIAL INFARCTION ABNORMAL ECG Compared to ECG 04/13/2025 21:16:[address] SEGMENT ELEVATION MD IS NOW DEMONSTRATED ATRIAL-SENSED VENTRICULAR-PACED COMPLEXESWELL ATRIAL-SENSED VENTRICULAR-PACED COMPLEXESCOMPLETE HEART BLOCK Electronically Signed On 04-15-2025 15:32:18 CDT by Wilber Stanley M.D.
[2025-04-14] MEDS: NOREPINEPHRINE 8 MG/D5W 250 ML 8 MG/250 ML BAG 9.38 MG IV CONT (01:13)
--- NOTE | 2025-04-14 01:13 | ECG_ITS ---
Test Date: 2025-04-14 01:13:49 Measurements Intervals [place] Rate: 114 P: 87 W[place]: 188 QRS: 76 QRSD: 101 T: 86 QT: 327 QTc: 451 Interpretive Statements SINUS TACHYCARDIA LEFT ATRIAL ENLARGEMENT [-0.15mV P WAVE IN V1/V2] ACUTE INFERIOR WALL MYOCARDIAL INFARCTION ABNORMAL ECG Compared to ECG 04/14/2025 00:58:30 COMPLETE HEART BLOCK HAS RESOLVED, ACUTE INFERIOR CURRENT OF INJURY IS STILL DEMONSTRATED Electronically Signed On 04-15-2025 15:33:04 CDT by Wilber Stanley M.D.
[2025-04-14] MEDS: HYDROmorphone HCL INJ (*CRX) 1 MG/ML SYR IV PUSH (01:19)
[2025-04-14] MEDS: MIDAZOLAM 100MG/NS 100ML(*CRX) 100 MG/100 ML BAG IV CONT (01:38)
[2025-04-14] MEDS: FENTANYL 2,500MCG/NS250ML(*CRX 2,500 MCG/250 ML BAG 10 MCG IV CONT (01:38)
[2025-04-14] MEDS: ETOMIDATE 20 MG/10 ML AMPUL IV PUSH (02:29)
[2025-04-14] MEDS: ROCURONIUM BROMIDE 50 MG/5 ML VIAL 100 MG IV PUSH (02:29)
[2025-04-14] MEDS: MIDAZOLAM HCL (*CRX) 2 MG/2 ML VIAL 10 MG IV PUSH (02:32)
--- NOTE | 2025-04-14 02:36 | PC.NURSE ---
0054 - This fiction and nonfiction prose writer entered pt room to find pt unresponsive with thready pulse. CPR initiated. EDP Dr. Elaine and LUIS Kwok at bedside. 0056 - pulse check at 2 mins of CPR - pulse present. Repeat EKG performed which read acute VA. 1000mL NS bolus initiated per VOR[facility] Dr. Elaine. 0058 - bedside xray and US performed. R hemothorax present. 0109 - Pt intubated with 20mg IVP etomidate and 100mg IVP Rocuronium. 0110 - Pt successfully intubated by EDP Dr. Elaine. Confirmed with bilateral breath sounds, positive color change, and xray. 26 @ lip. 0113 - norepinephrine started at 5mcg/min per [facility] Dr. Elaine. OG tube placed 65 @ lip confirmed with chest xray.
[2025-04-14] MEDS: SODIUM CHLORIDE 0.9% IV 250 ML 30 ML IV CONT (03:22)
--- NOTE | 2025-04-14 04:30 | PCRCNOTE ---
Patient arrived to ED Coded with ROSC, easy BVM with 15 L/min; 0111: intubated with 7.5 ETT @ 26 to Lip and secured; CXR and Ultrasound suggestive of Hemothorax, good ETT position, no BS's on Right side 0125: placed on ventilator with settings RR: 16, Vt: 400, PEEP: +5, FIO2: 60%; Ppress: 18, Ve: 6.6, Vt: 437; moved to ED-2 0150: transported on vent to CT and back to ED-2 with no issue; Right side chest tube placed 0405: transitioned to Air Transport vent for transfer
--- NOTE | 2025-04-14 04:40 | PC.NURSE ---
Ralph, contact of patient, notified of patient belongings that did not get transferred with patient. Belonging bag labeled with patient sticker and secured in locked belonging area in ED.
== END 2025-04-14 04:36 | disposition short-term general hospital (02) ==
PROVIDERS: Emergency Provider Physician Assistant; PCP Nurse Practitioner Family
DX: N28.89 Other specified disorders of kidney and ureter (principal); I21.3 ST elevation (STEMI) myocardial infarction of unspecified site; C64.2 Malignant neoplasm of left kidney, except renal pelvis; S27.1XXA Traumatic hemothorax, initial encounter; M96.A3 Multiple fractures of ribs associated with chest compression and cardiopulmonary resuscitation; E87.1 Hypo-osmolality and hyponatremia; I25.10 Atherosclerotic heart disease of native coronary artery without angina pectoris; I25.2 Old myocardial infarction; E03.9 Hypothyroidism, unspecified; D64.9 Anemia, unspecified; Z95.1 Presence of aortocoronary bypass graft; Z85.46 Personal history of malignant neoplasm of prostate; Z87.891 Personal history of nicotine dependence; R94.31 Abnormal electrocardiogram [ECG] [EKG]; R00.0 Tachycardia, unspecified; I44.2 Atrioventricular block, complete; W06.XXXA Fall from bed, initial encounter
CPT/HCPCS: 31500; 32551; 36415; 36430; 36556; 51702; 70450; 71045; 71275; 74018; 74174; 74177; 80053; 81001; 83690; 84484; 85014; 85018; 85025; 86850; 86900; 86901; 86920; 92950; 93005; 94002; 96361; 96365; 96375; 96376; 99291; A9270; C1751; J0168; J1171; J1200; J2250; J2270; J2405; J2765; J3010; J7030; J7040; J7050; P9016; Q9967

== ENCOUNTER 2025-04-23 02:26 | Emergency (ER) | payer MEDICARE, SELFPAY ==
--- NOTE | ~2025-04-23 | CT_ITS ---
EXAMINATION: CT abdomen pelvis w con DATE: 04/23/2025 03:37 INDICATION: Constipation. TECHNIQUE: Computed tomography (CT) of the abdomen and pelvis was performed with 100 mL Omnipaque 350 intravenous contrast. Automated exposure control and iterative reconstruction technique were employed. The dose-length product was 203.03 mGy-cm. COMPARISON: CT abdomen and pelvis 04/14/25, 04/13/2025 FINDINGS: The visualized portions of the lung bases demonstrate mild atelectasis. There is a small loculated right pleural effusion. The heart size is normal. There are coronary artery calcifications. No pericardial effusion. There are cysts in the liver measuring up to 19 mm . There is contrast in the gallbladder, which is normal in size. The spleen, pancreas, and adrenal glands are normal. There are cysts in the kidneys measuring up to 13 mm on the right. There is a suprasellar 3 mm in 5 mm calcifications in the left kidney are likely parenchymal. There is a 2.3 cm enhancing mass in left kidney. There are no dilated loops of bowel. The appendix is normal. There is a small hematoma superficial to right common femoral artery. There are no pathologically enlarged lymph nodes. There is no free intraperitoneal fluid. There are changes of pelvic lymph node dissection. There are changes of coronary embolization and right posterior chest wall. There is gas in right lateral chest wall. Again seen are f ractures of right 10th and 11th ribs. There is mild chronic anterior wedging of multiple vertebral bodies. There is moderate lumbar spondylosis. IMPRESSION: 1. Small loculated right pleural effusion. 2. Subacute fractures of right 10th and 11th ribs. 3. 2.3 cm enhancing left kidney mass, consistent with renal cell carcinoma. 4. Small hematoma superficial to the right common femoral artery. Reviewed, dictated and finalized at location E.
[2025-04-23 02:24] VITALS: BP 213/96; PULSE 82; RESP 18; TEMP 36.8; O2SAT 100
[2025-04-23 02:30] VITALS: BP 213/96; PULSE 77; PULSE 82; RESP 20; TEMP 36.8; O2SAT 96
--- NOTE | 2025-04-23 02:32 | ED_ITS ---
HPI - General Adult General Chief complaint: Abdominal Pain <Kimberlyn Cotto MD - Last Filed: 04/23/25 08:11> Stated complaint: CONSTIPATED <Kimberlyn Cotto MD - Last Filed: 04/23/25 08:11> Time Seen by Provider: 04/23/25 02:29 <Kimberlyn Cotto MD - Last Filed: 04/23/25 08:11> Source: patient <Kimberlyn Cotto MD - Last Filed: 04/23/25 08:11> Mode of arrival: EMS <Kmiberlyn Cotto MD - Last Filed: 04/23/25 08:11> Limitations: no limitations <Kimberlyn Cotto MD - Last Filed: 04/23/25 08:11> History of Present Illness HPI narrative: Patient presents with report of being constipated. He states his last bowel movement was 2 days ago. Was released from [place] [facility] this week although cannot recall which date. Was reported initially that he was there for heart issues.Patient does not know if he is on anticoagulation. He resides at home. EMS had reported an initial blood pressure of 206/94. He has a history of hypertension but states he has been taking his medications. He states he is passing a little bit of flatus. Denies any abdominal pain. No nausea, vomiting, fevers, or chills. He denies being chronically on opiate/narcotic medications though states he might have received a few while in the hospital. He did try taking a suppository. He has been eating and drinking okay but denies having an appetite currently. He reports that he was caught off guard by the pain that he was experiencing while at [facility] from the constipation and that they tried a suppository which produced some loose stool but otherwise he did not feel was effective. When he was discharged, he went home and took Colace. < Kimberlyn Cotto MD - Last Filed: 04/23/25 08:11> Related Data Home medications: Home Medications ?Medication ?Instructions ?Recorded ?Confirmed ?Last Taken ?Type aspirin 81 mg tablet,delayed 81 mg PO DAILY 07/10/22 0 03/13/25 Unknown History release vardenafil 20 mg tablet 20 mg PO DAILY PRN 10/27/24 03/13/25 Unknown History <Kimberlyn Cotto MD - Last Filed: 04/23/25 08:11> Allergies/adverse reactions: Allergies Allergy/AdvReac Type Severity Reaction Status Date / Time Penicillins Allergy Unknown Rash Verified 04/13/25 17:25 Sulfa (Sulfonamide Allergy Unknown Rash Verified 04/13/25 17:25 Antibiotics) <Kimberlyn Cotto MD - Last Filed: 04/23/25 08:11> [facility] Past Medical History Medical History: Medical History (Updated 04/23/25 @ 08:02 by Kimberlyn Cotto MD) Traumatic hemothorax 04/13/25 H/O prostate cancer ST elevation DE (STEMI) Anemia Coronary artery disease Essential (primary) hypertension Hypothyroidism (acquired) <Kimberlyn Cotto MD - Last Filed: 04/23/25 08:11> Surgical History Surgical History: Surgical History Hx of chest tube placement 04/14/25 Status post coronary artery bypass graft <Kimberlyn Cotto MD - Last Filed: 04/23/25 08:11> Family History Family History: Family History Mother Hypertension Sibling Patient's sister is in good health Patient's brother is in good health Father Family history of cardiovascular disease Other Screening PSA (prostate specific antigen) <Kimberlyn Cotto MD - Last Filed: 04/23/25 08:11> Social History Social History: Social History Smoking packs per day: 1 Smoking cigarettes per day: 20.0 Smoking status: Former smoker Smoking end date: 08/06/90 Alcohol intake: unknown Alcohol use details: RARE OCCASSION Substance use: never Substance use type: does not use Do You Feel Safe in your Home?: Yes Lack of Transportation: No Lack of Food: Never True Current Housing: I Have Housing Concerned About Future Housing: No Difficulty Paying Gas/Electric Bills: No Difficulty Paying for Meds: No Currently Unemployed: No Education: Bachelor's Degree Difficulty w/ Childcare or Family Care: No Living arrangements: alone Spiritual care concerns: No <Kimberlyn Cotto MD - Last Filed: 04/23/25 08:11> Exam 2 Narrative: GENERAL: Well-appearing, well-nourished, and in no acute distress. HEAD: Normocephalic, atraumatic. EYES: Non injected, non icteric ENT: Nares clear, no rhinorrhea or epistaxis. Gross auditory acuity intact. NECK: Supple. No meningismus. CHEST: Speaking in full sentences. No respiratory distress. Well healing scar from chest tube incision, no drainage, induration, purulent discharge, cellulitic changes , not fully healed but no marked wound dehiscenc HEART: Regular rate and rhythm. . ABDOMEN: Soft, nondistended. No rigidity or guarding. Not peritoneal. No palpable masses. EXTREMITIES: Normal range of motion. No lower extremity edema. SKIN: Warm, dry. Ecchymosis along right lower back, not appreciated on the left. NEURO: No focal deficits. Alert and oriented. Answering questions. Following commands. Normal speech without aphasia or dysarthria. PSYCH: Congruentl mood and affect. <Kimberlyn Cotto MD - Last Filed: 04/23/25 08:11> Course Reevaluation(s) Reevaluation #1: patient care was signed out to me with disposition as disposition pending transport but patient did have a the over read his x-ray that was different than the overnight read. This CT does show evidence of a right inguinal hematoma and possible loculated small effusion. No active extravasation was noted. Patient denies any chest pain or shortness breath. Patient's primary complaint is with his bowels. Patient does have soft nontender abdomen. Patient does have a hematoma of the right groin which he states has been decreasing in size. patient states he does have follow-up with his nurse practitioner. Patient is very concerned about getting back into his home since he is currently locked out of it. Patient denies any pain complaints and patient is eager to be discharged home. Patient was encouraged of close follow-up with his physicians regarding his CT findings. <Juan Arroyo MD - Last Filed: 04/23/25 12:42> Vital Signs Vital signs: Vital Signs Temperature 98.2 F 04/23/25 02:24 Pulse Rate 82 04/23/25 02:24 Respiratory Rate 18 04/23/25 02:24 Blood Pressure 213/96 H 04/23/25 02:24 Pulse Oximetry 100 04/23/25 02:24 Oxygen Delivery Room Air 04/23/25 02:24 Temperature 98.2 F 04/23/25 02:30 Pulse Rate 78 04/23/25 07:01 Respiratory Rate 20 04/23/25 07:01 Blood Pressure 182/87 H 04/23/25 07:01 Pulse Oximetry 99 04/23/25 07:01 Oxygen Delivery Room Air 04/23/25 02:24 <Kimberlyn Cotto MD - Last Filed: 04/23/25 08:11> Vital Signs Temperature 98.2 F 04/23/25 02:24 Pulse Rate 82 04/23/25 02:24 Respiratory Rate 18 04/23/25 02:24 Blood Pressure 213/96 H 04/23/25 02:24 Pulse Oximetry 100 04/23/25 02:24 Oxygen Delivery Room Air 04/23/25 02:24 Temperature 98.2 F 04/23/25 02:30 Pulse Rate 78 04/23/25 07:01 Respiratory Rate 20 04/23/25 07:01 Blood Pressure 182/87 H 04/23/25 07:01 Pulse Oximetry 99 04/23/25 07:01 Oxygen Delivery Room Air 04/23/25 02:24 <Juan Arroyo MD - Last Filed: 04/23/25 12:42> Medical Decision Making MDM Narrative Medical decision making narrative: Patient presents with concern for constipated. LBM days ago. In the emergency department he is afebrile with vital signs notable for hypertension. He has a leukocytosis, normocytic anemia, and thrombocytosis. On his most recent labs he had had a leukocytosis. The anemia at represents a significant drop from the most recent hemoglobin obtained however it does appear in line with where he had chronically been before. Patient's creatinine is markedly improved from previous , even per review of historical values. Hyponatremia is actually also improved from previous. He has hypokalemia. Repletion ordered. Mildly elevated AST, ALT, and Tbili. Lactic acid normal. Magnesium normal. Lipase only mildly elevated, not to a degree to suggest acute pancreatitis. Patient had initially denied abdominal pain. He is now reporting abdominal pain approximately 4:00 a.m. according to the nurse. 2 mg morphine ordered. Patient reassessed at 5:50; feeling better. Otherwise stable for discharge home with bowel regimen. Discussed this with patient after he was given suppository and Miralax. He is now stating he doesn't understand why he is being discharged. Discussed the medicines again. To be given a dose of Bentyl and discharged with Rx for the same. === Informed that patient believes he locked himself out of his house. Care coordination working with police. --- While finishing note, radiologist at [place] with interpretation as below. I called these findings to personal fitness trainer ED physician to follow up on given the discrepancy. <Kimberlyn Cotto MD - Last Filed: 04/23/25 08:11> Differential Diagnosis Differential Diagnosis: constipation, bowel obstruction; slowed transit; preoccupation with bowel movements; considered opiate effect <Kimberlyn Cotto MD - Last Filed: 04/23/25 08:11> Medical Records Medical records reviewed: Yes I reviewed the external patient's medical records. <Kimberlyn Cotto MD - Last Filed: 04/23/25 08:11> Medical records narrative: Reviewed patient's most recent emergency department visit in which he had presented for the same though while in the emergency department had sustained a fall resulting in a hemo thorax and had brief cardiac arrest requiring CPR. Chest tube had been placed and this was the reason for transfer to [place]. < Kimberlyn Cotto MD - Last Filed: 04/23/25 08:11> Vital Signs Vital Signs: Vital Signs Temperature 98.2 F 04/23/25 02:24 Pulse Rate 82 04/23/25 02:24 Respiratory Rate 18 04/23/25 02:24 Blood Pressure 213/96 H 04/23/25 02:24 Pulse Oximetry 100 04/23/25 02:24 Oxygen Delivery Room Air 04/23/25 02:24 Temperature 98.2 F 04/23/25 02:30 Pulse Rate 78 04/23/25 07:01 Respiratory Rate 20 04/23/25 07:01 Blood Pressure 182/87 H 04/23/25 07:01 Pulse Oximetry 99 04/23/25 07:01 Oxygen Delivery Room Air 04/23/25 02:24 <Kimberlyn Cotto MD - Last Filed: 04/23/25 08:11> Vital Signs Temperature 98.2 F 04/23/25 02:24 Pulse Rate 82 04/23/25 02:24 Respiratory Rate 18 04/23/25 02:24 Blood Pressure 213/96 H 04/23/25 02:24 Pulse Oximetry 100 04/23/25 02:24 Oxygen Delivery Room Air 04/23/25 02:24 Temperature 98.2 F 04/23/25 02:30 Pulse Rate 78 04/23/25 07:01 Respiratory Rate 20 04/23/25 07:01 Blood Pressure 182/87 H 04/23/25 07:01 Pulse Oximetry 99 04/23/25 07:01 Oxygen Delivery Room Air 04/23/25 02:24 <Juan Arroyo MD - Last Filed: 04/23/25 12:42> Lab Data Lab results reviewed: Yes I reviewed the patient's lab results. <Kimberlyn Cotto MD - Last Filed: 04/23/25 08:11> Result diagrams: 04/23/25 02:52 04/23/25 02:52 <Kimberlyn Cotto MD - Last Filed: 04/23/25 08:11> Labs: Lab Results 04/23/25 04/23/25 Range/Units 02:52 03:01 WBC 12.3 H (4.5-10.0) K/mm3 RBC 3.29 L (4.6-6.20) M/mm3 Hgb 9.5 L D (14.0-18.0) g/dL Hct 29.7 L (42.0-52.0) % MCV 90.3 (80-100) fl MCH 28.9 (26-34) pg MCHC 32.0 (32-36) g/dl RDW 15.2 H (11.5-14.5) % Plt Count 446 H D (150-375) k/mm3 MPV 9.0 (7.4-10.4) fl Immature Gran % (Auto) 0.8 H (0-0.5) % Neut % (Auto) 74.8 H (45.5-73.1) % Lymph % (Auto) 11.8 L (18.3-44.2) % [place] % (Auto) 10.9 H (2.6-8.5) % Eos % (Auto) 1.2 (0-4.4) % Baso % (Auto) 0.5 (0.2-1.2) % Lymph # (Auto) 1.46 (0.9-3.2) K/mm3 [place] # (Auto) 1.3 H (0.1-0.6) K/mm3 Eos # (Auto) 0.2 (0-0.3) K/mm3 Baso # (Auto) 0.1 (0.0-0.1) K/mm3 Abs Immat Gran (auto) 0.10 H (0.00-0.031) K/mm3 Absolute Neuts (auto) 9.2 H (1.3-6.7) K/mm3 Absolute Nucleated RBC 0.000 (0.0-0.012) K/mm3 Nucleated RBC % 0.0 (0.0-0.2) % Sodium 132 L (137-145) mmol/L Potassium 3.2 L (3.4-5.0) mmol/L Chloride 98 (98-107) mmol/L Carbon Dioxide 27 (22-30) mmol/L Anion Gap 7 (4-12) mmol/L BUN 27 H (9-20) mg/dL Creatinine 1.24 (0.7-1.3) mg/dL Estim Creat Clear Calc 38 ml/min Estimated GFR 57 L (59 - ) Glucose 101 (65-110) mg/dL Lactic Acid 1.0 (0.7-2.0) mmol/L Calcium 9.0 (8.4-10.2) mg/dL Magnesium 2.1 (1.6-2.3) mg/dL Total Bilirubin 1.5 H (0.2-1.3) mg/dL AST 68 H (17-59) U/L ALT 52 H (6-50) U/L Alkaline Phosphatase 97 (38-126) U/L Total Protein 6.8 (6.3-8.2) g/dL Albumin 4.0 (3.5-5.1) g/dL Lipase 496 H (23-300) U/L Urine Color Yellow (Yellow) Urine Appearance Clear (Clear) Urine pH 7.0 (5.0-9.0) Ur Specific [place] 1.011 (1.001-1.035) Urine Protein Trace (Negative) mg/dL Urine Glucose (UA) Negative (Negative) mg/dL Urine Ketones Trace H (Negative) mg/dL Ur Blood (Man) Trace (Negative) Urine Nitrate Negative (Negative) Urine Bilirubin Negative (Negative) Urine Urobilinogen 1.0 (<2.0) mg/dL Leukocyte Esterase Rfl Negative (Negative) RAMIREZ/UL Urine RBC 3-5 H (0-2) /hpf Urine WBC 0-5 (0-3) /hpf Ur Squamous Epith Cells None seen (Few) /hpf Urine Bacteria None seen /hpf Urine Casts 0-2 <Kimberlyn Cotto MD - Last Filed: 04/23/25 08:11> Lab Results 04/23/25 04/23/25 Range/Units 02:52 03:01 WBC 12.3 H (4.5-10.0) K/mm3 RBC 3.29 L (4.6-6.20) M/mm3 Hgb 9.5 L D (14.0-18.0) g/dL Hct 29.7 L (42.0-52.0) % MCV 90.3 (80-100) fl MCH 28.9 (26-34) pg MCHC 32.0 (32-36) g/dl RDW 15.2 H (11.5-14.5) % Plt Count 446 H D (150-375) k/mm3 MPV 9.0 (7.4-10.4) fl Immature Gran % (Auto) 0.8 H (0-0.5) % Neut % (Auto) 74.8 H (45.5-73.1) % Lymph % (Auto) 11.8 L (18.3-44.2) % [place] % (Auto) 10.9 H (2.6-8.5) % Eos % (Auto) 1.2 (0-4.4) % Baso % (Auto) 0.5 (0.2-1.2) % Lymph # (Auto) 1.46 (0.9-3.2) K/mm3 [place] # (Auto) 1.3 H (0.1-0.6) K/mm3 Eos # (Auto) 0.2 (0-0.3) K/mm3 Baso # (Auto) 0.1 (0.0-0.1) K/mm3 Abs Immat Gran (auto) 0.10 H (0.00-0.031) K/mm3 Absolute Neuts (auto) 9.2 H (1.3-6.7) K/mm3 Absolute Nucleated RBC 0.000 (0.0-0.012) K/mm3 Nucleated RBC % 0.0 (0.0-0.2) % Sodium 132 L (137-145) mmol/L Potassium 3.2 L (3.4-5.0) mmol/L Chloride 98 (98-107) mmol/L Carbon Dioxide 27 (22-30) mmol/L Anion Gap 7 (4-12) mmol/L BUN 27 H (9-20) mg/dL Creatinine 1.24 (0.7-1.3) mg/dL Estim Creat Clear Calc 38 ml/min Estimated GFR 57 L (59 - ) Glucose 101 (65-110) mg/dL Lactic Acid 1.0 (0.7-2.0) mmol/L Calcium 9.0 (8.4-10.2) mg/dL Magnesium 2.1 (1.6-2.3) mg/dL Total Bilirubin 1.5 H (0.2-1.3) mg/dL AST 68 H (17-59) U/L ALT 52 H (6-50) U/L Alkaline Phosphatase 97 (38-126) U/L Total Protein 6.8 (6.3-8.2) g/dL Albumin 4.0 (3.5-5.1) g/dL Lipase 496 H (23-300) U/L Urine Color Yellow (Yellow) Urine Appearance Clear (Clear) Urine pH 7.0 (5.0-9.0) Ur Specific [place] 1.011 (1.001-1.035) Urine Protein Trace (Negative) mg/dL Urine Glucose (UA) Negative (Negative) mg/dL Urine Ketones Trace H (Negative) mg/dL Ur Blood (Man) Trace (Negative) Urine Nitrate Negative (Negative) Urine Bilirubin Negative (Negative) Urine Urobilinogen 1.0 (<2.0) mg/dL Leukocyte Esterase Rfl Negative (Negative) RAMIREZ/UL Urine RBC 3-5 H (0-2) /hpf Urine WBC 0-5 (0-3) /hpf Ur Squamous Epith Cells None seen (Few) /hpf Urine Bacteria None seen /hpf Urine Casts 0-2 <Juan Arroyo MD - Last Filed: 04/23/25 12:42> Imaging Data Attestation: I personally reviewed and interpreted this imaging study as follows: < Kimberlyn Cotto MD - Last Filed: 04/23/25 08:11> My impression: Patient does has significant stool burden in the right hemipelvis. Lingering hemothorax on the right. <Kimberlyn Cotto MD - Last Filed: 04/23/25 08:11> Radiologist's impression: CT abd & pelvis w/ contrast Stat Rad: There is transit of ingested contrast throughout the small and large intestine. No intestinal, biliary or urinary obstruction. No free air or free fluid. Incidental findings: Interval embolization of 9-11th posterior intercostal arteries and decreased size of heterogenous intermediate density right hemothorax. No active extravasation is appreciated. == Impressions Abdomen/Pelvis CT 04/23/25 07:51 IMPRESSION: 1. Small loculated right pleural effusion. 2. Subacute fractures of right 10th and 11th ribs. 3. 2.3 cm enhancing left kidney mass, consistent with renal cell carcinoma. 4. Small hematoma superficial to the right common femoral artery. <Kimberlyn Cotto MD - Last Filed: 04/23/25 08:11> ECG Data EKG #1: Attestation: I personally reviewed and interpreted this ECG as follows: < Kimberlyn Cotto MD - Last Filed: 04/23/25 08:11> ECG completion date: 04/23/25 <Kimberlyn Cotto MD - Last Filed: 04/23/25 08:11> ECG completion time: 02:29 <Kimberlyn Cotto MD - Last Filed: 04/23/25 08:11> Interpretation: Normal sinus rhythm at a rate of 79 beats per minute. [place] interval 189. QRS 89. QT/QTC 387/421. Good R-wave progression across the precordial leads. No T-wave inversion. <Kimberlyn Cotto MD - Last Filed: 04/23/25 08:11> Discharge Plan Discharge Clinical Impression: Infrequent bowel movements, Leukocytosis, Anemia, Thrombocytosis, Hyponatremia, Hypokalemia, Elevated AST (SGOT), ALT (SGPT) level raised <Kimberlyn Cotto MD - Last Filed: 04/23/25 08:11> Patient Disposition: Home <Kimberlyn Cotto MD - Last Filed: 04/23/25 08:11> Condition: Stable <Kimberlyn Cotto MD - Last Filed: 04/23/25 08:11> Instructions: Antibiotic Form, Constipation (ED), High Fiber Diet (ED), Hyponatremia (ED), Hypokalemia (ED), Anemia (ED), Transaminitis (ED) <Kimberlyn Cotto MD - Last Filed: 04/23/25 08:11> Additional Instructions: You can continue to use the Colace , suppository. Can supplement with the prescribed laxative. Follow up with your primary care provider. Return to the Emergency Department immediately if the pain worsens, develops fever, persistent and uncontrolled vomiting, or for any new symptoms or concerns. Maintain your hydration by drinking plenty of water and work to incorporate more fiber into your diet. <Kimberlyn Cotto MD - Last Filed: 04/23/25 08:11> Patient Language: Albanian <Kimberlyn Cotto MD - Last Filed: 04/23/25 08:11> Prescriptions: New magnesium citrate Solution 150 ml PO DAILY PRN (Reason: constipation) Qty: 296 0RF dicyclomine 10 mg capsule 10 mg PO BID PRN (Reason: abdominal pain) Qty: 10 0RF No Action vardenafil 20 mg tablet 20 mg PO DAILY PRN clonidine HCl 0.1 mg tablet 0.1 mg PO TID Qty: 270 3RF atenolol 100 mg tablet 100 mg PO DAILY Qty: 90 3RF clopidogrel 75 mg tablet 75 mg PO DAILY Qty: 90 3RF rosuvastatin 20 mg tablet 20 mg PO QHS Qty: 90 3RF olmesartan 40 mg tablet 40 mg PO DAILY Qty: 90 3RF aspirin 81 mg tablet,delayed release (DR/EC) 81 mg PO DAILY fluticasone propionate 50 mcg/actuation spray,suspension 2 spray intranasal DAILY Qty: 16 2RF Rx Instructions: administer into each nostril levothyroxine [Synthroid] 100 mcg tablet 100 mcg PO DAILY Qty: 90 0RF <Kimberlyn Cotto MD - Last Filed: 04/23/25 08:11> Follow-up/Referrals: Erica De León APRN [Primary Care Provider, [facility]] <Kimberlyn Cotto MD - Last Filed: 04/23/25 08:11> Time of Disposition: 06:49 <Kimberlyn Cotto MD - Last Filed: 04/23/25 08:11> 06:49 <Juan Arroyo MD - Last Filed: 04/23/25 12:42>
--- NOTE | 2025-04-23 02:41 | ECG_ITS ---
Test Date: 2025-04-23 02:29:21 Measurements Intervals [place] Rate: 79 P: 81 GA: 189 QRS: -9 QRSD: 89 T: 79 QT: 387 QTc: 444 Interpretive Statements SINUS RHYTHM POSSIBLE LEFT ATRIAL ENLARGEMENT [-0.1mV P WAVE IN V1/V2] NONSPECIFIC ST ABNORMALITY ABNORMAL ECG Electronically Signed On 04-23-2025 08:00:15 CDT by Curly Rico M.D.
[2025-04-23 02:57] LABS: Hematocrit 29.7 % (42.0-52.0); Hemoglobin 9.5 g/dL (14.0-18.0); Immature Granulocyte Percent A 0.8 % (0-0.5); Lymphocytes Absolute Auto 1.46 K/mm3 (0.9-3.2); Mean Corpuscular HGB Conc 32.0 g/dl (32-36); Mean Corpuscular Hemoglobin 28.9 pg (26-34); Mean Corpuscular Volume 90.3 fl (80-100); Nucleated Red Blood Cells Absolute Auto 0.000 K/mm3 (0.0-0.012); Nucleated Red Blood Cells Perc 0.0 % (0.0-0.2); Platelet Count Result 446 k/mm3 (150-375); Red Blood Count 3.29 M/mm3 (4.6-6.20); White Blood Count 12.3 K/mm3 (4.5-10.0)
[2025-04-23 03:10] LABS: Alanine Aminotransferase 52 U/L (6-50); Albumin Level 4.0 g/dL (3.5-5.1); Alkaline Phosphatase 97 U/L (38-126); Anion Gap 7 mmol/L (4-12); Aspartate Amino Transferase 68 U/L (17-59); Bilirubin,Total 1.5 mg/dL (0.2-1.3); Blood Urea Nitrogen 27 mg/dL (9-20); Calcium 9.0 mg/dL (8.4-10.2); Carbon Dioxide 27 mmol/L (22-30); Chloride 98 mmol/L (98-107); Estimated CRCL calculation 38 ml/min; Estimated Glomerular Filt Rate 57; Glucose 101 mg/dL (65-110); Magnesium 2.1 mg/dL (1.6-2.3); Potassium 3.2 mmol/L (3.4-5.0); Sodium 132 mmol/L (137-145); Total Protein 6.8 g/dL (6.3-8.2)
[2025-04-23 03:12] LABS: Add Urine Microscopic? YES; Appearance Urine Clear (Clear); Glucose Urine UA Negative (Negative); Leukocyte Esterase Ur Negative LEU/UL (Negative); Nitrate Urine Negative (Negative); Non Pathogenic Casts 0-2; Specific Grav Ur 1.011 (1.001-1.035)
[2025-04-23 03:30] LABS: Lipase 496 U/L (23-300)
[2025-04-23] MEDS: MORPHINE SULFATE (*CRX) 2 MG/ML INJ IV PUSH (04:08)
[2025-04-23 04:42] VITALS: BP 187/87; PULSE 78; RESP 20; O2SAT 99
[2025-04-23] MEDS: BISACODYL 10 MG SUPPOSITORY RECTAL (06:00)
[2025-04-23 07:01] VITALS: BP 182/87; PULSE 78; RESP 20; O2SAT 99
[2025-04-23] MEDS: DICYCLOMINE HCL INJ 20 MG/2 ML VIAL IM (07:29)
== END 2025-04-23 08:30 | disposition home or self-care (01) ==
PROVIDERS: Emergency Provider Student in an Organized Health Care Education/Training Program; PCP Nurse Practitioner Family
DX: K59.00 Constipation, unspecified (principal); D72.829 Elevated white blood cell count, unspecified; D64.9 Anemia, unspecified; D75.839 Thrombocytosis, unspecified; E87.1 Hypo-osmolality and hyponatremia; E87.6 Hypokalemia; R74.01 Elevation of levels of liver transaminase levels; I10 Essential (primary) hypertension; I25.2 Old myocardial infarction; I25.10 Atherosclerotic heart disease of native coronary artery without angina pectoris; E03.9 Hypothyroidism, unspecified; Z95.1 Presence of aortocoronary bypass graft; Z87.891 Personal history of nicotine dependence; R94.31 Abnormal electrocardiogram [ECG] [EKG]; N28.89 Other specified disorders of kidney and ureter; J90 Pleural effusion, not elsewhere classified
CPT/HCPCS: 36415; 74177; 80053; 81001; 83605; 83690; 83735; 85025; 93005; 96374; 99284; A9270; J0500; J2270; Q9967

== ENCOUNTER → 2025-04-30 10:36 | Outpatient (CLI) | payer MEDICARE, SELFPAY ==
--- NOTE | ~2025-04-30 | XR_ITS ---
Examination: XR chest 2V Clinical History: S22.41XA - Multiple fractures of ribs, right side follow up Comparison: X-ray 04/14/2025 Technique: PA and Lateral Findings: Cardiomediastinal silhouette normal size and configuration. Large right pleural effusion persists. Right rib fractures as before. IMPRESSION: 1. Large right hemothorax persists. 2. Consider consultation for drainage to mitigate risk for fibrothorax. Reviewed, dictated and finalized at location R.
== END ==
PROVIDERS: PCP Nurse Practitioner Family; Visit Provider Nurse Practitioner Family
DX: S22.41XA Multiple fractures of ribs, right side, initial encounter for closed fracture (principal); X58.XXXA Exposure to other specified factors, initial encounter; J94.2 Hemothorax
CPT/HCPCS: 71046

== ENCOUNTER 2025-05-07 05:30 | Outpatient (CLI) | payer MEDICARE, SELFPAY ==
--- NOTE | 2025-05-06 13:27 | PC.NURSE ---
[facility] has started construction of its new state of the art ER which will open Spring 2026. With this, we anticipate parking may be a challenge for some our surgical patients and families. Parking spaces are limited but are available for all Surgical, obstetrics, and ER patients sharing this lot. If you arrive and find you are having a hard time finding a parking space, please note that we understand the challenges, please drive around the hospital and park near Hospital Entrance 1. When you enter this entrance, you can ask a volunteer to direct or take you back to the surgical waiting area to check in. We appreciate everyone?s understanding of these expected challenges while we build for your future. Report to the outpatient green pavilion on date __05/07/25___ at time 11 AM for procedure Time: _1 PM___ YOU MAY BE MONITORED AT HOSPITAL FOR UP TO 4 HOURS AFTER YOUR PROCEDURE. A visitor will be allowed to accompany the patient into the hospital. You and your visitor will be asked to self-screen and do not enter if you have any COVID symptoms. A mask is OPTIONAL within the hospital. Patients are to have no food or drink 6 hours prior to procedure time Driving will be restricted after the procedure, you must have a person to drive you home. Labs will be drawn in preop area and once reviewed, you will be taken to radiology area for procedure. When the procedure is completed, you will be taken to outpatient where you will be monitored for several hours. You may have one visitor in this area. Other than holding anti-coagulants, patient may take other medication(s) as scheduled. Prior to your appointment date patients are instructed to hold anti-coagulants after discussing with ordering provider to stop. If unable to discontinue anti-coagulants please notify radiologist. ? No aspirin or warfarin (Coumadin) for 7 days prior to the procedure. ? No clopidogrel (Plavix), ticagrelor (Brilinta), prasugrel (Effient) or dabigatran (Pradaxa) for 5 days prior to the procedure. ? No rivaroxaban (Xarelto), apixaban (Eliquis), dipyridamole (Aggrenox or Persantine) or cilostazol (Pletal) for 2 days prior to the procedure. Medications to discontinue per physician: ASPIRIN 7 DAYS PRE OP LAST DOSE 04/29/25 PLAVIX 5 DAYS PRE OP_LAST DOSE05/01/25 Date to take last dose: Please leave all valuables, including medications, at home the day of procedure. The hospital will not accept responsibility for valuables. Wear comfortable, loose fitting clothing.? Follow any additional instructions given to you from ordering provider. Telephone instructions given to _PATIENT and asked if any additional questions and then verbalized understanding. Patient advised to call scheduling provider office or registration scheduling [phone] if any additional questions.
[2025-05-06 13:31] VITALS: BMI 19.3
--- NOTE | ~2025-05-07 | US_ITS ---
EXAMINATION: US thoracentesis DATE: 05/07/2025 13:50 INDICATION: Right hemothorax TECHNIQUE: The procedure and its risks and benefits were discussed with the patient. Potential risks discussed included bleeding, infection, and pneumothorax. The patient understood the risks and agreed to proceed. The skin was prepped and draped in sterile fashion. 1% lidocaine was used for local anes thesia. Under ultrasound guidance, a 5 Fr catheter with trochar was advanced into the right pleural effusion. Fluid was aspirated. The catheter was removed, and a dressing was applied. There were no immediate complications. FINDINGS: Ultrasound images demonstrate a complex right pleural effusion and the catheter within the fluid. IMPRESSION: 1. Successful ultrasound-guided thoracentesis yielding 450 mL of cloudy dark maroon-colored fluid. Reviewed, dictated and finalized at location A. IMPRESSION: 1. Successful ultrasound-guided thoracentesis yielding 450 mL of cloudy dark m aroon-colored fluid.
--- NOTE | ~2025-05-07 | XR_ITS ---
Examination: [id number] Clinical History: POST THORA RT Comparison: 04/30/2025 Technique: Portable AP Findings: Heart size normal. Right pleural effusion decreased in size. No pneumothorax identified. Right rib fractures as before. IMPRESSION: 1. No pneumothorax identified. 2. Right pleural effusion, with loculations, persists. Reviewed, dictated and finalized at location R.
--- OUTSIDE RECORDS SUMMARY | 2025-05-07 05:34 | XMS_ITS | Encounter Summary ---
Author Organization [facility] Address [address] [place] [address] Phone Care Team Providers Care Social Worker Delinquency Prevention Name Role Phone Rock Matthew MD Unavailable [phone] Wilber Stanley MD Unavailable [phone] Teo Ferrera DO Primary Care Provider [phone] Encounter Details Date Type Department Care Team (Late st Contact Info) Description 04/22/2025 Telephone [facility] [address] [facility] Advanced Medicine 6th [place] [address] [place] [address] Remedios Puentes PA [address] [place] [address] Social History Tobacco Use Types Packs/Day Years Used Date Smoking Tobacco: Former Smokeless Tobacco: Never PHQ-2 Answer Date Recorded PHQ-2 Total Score (If total score is 3 or more points, staff should administer the PHQ-9) 3 06/10/2022 Sex and Gender Information Value Date Recorded Sex Assigned at Not on file Legal Sex Male 2:30 AM [employer] Gender Identity Not on file Sexual Orientation Not on file documented as of this encounter Miscellaneous Notes * Telephone Encounter - Jessi Aldana RMA - 04/22/2025 1:19 PM CDT Called and spoke with patient regarding his hospital follow up with CT prior Patient is wanting to complete the scan at [facility], called and spoke with [facility] and they are not scheduling patients at the moment and they have no timeline on when they will be scheduling patients Called patient and informed him that [place] is not scheduling patients at this time, patient stated that he was discharged and felt confused about what he needed to do Patient was informed that I would let him rest today and he will receive a call tomorrow to discussthe hospital follow up Scheduling the patient with [facility] * Telephone Encounter - Jessi Aldana RMA - 04/22/2025 1:18 PM CDT ----- Message from Wilber Gallegos MD sent at 04/20/2025 1:28 PM CDT ----- Regardin wk [facility] Please schedule a follow-up appointment for Hank Montes (: 1950) to be seen by Nurse Practitioner in 4-[address] scan of the brain without contrast. 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 Their disposition is yet to be determined. Thank you Wilber Gallegos MD documented in this encounter Plan of Treatment Not on file documented as of this encounter Visit Diagnoses Not on filedocumented in this encounter Care Teams Social Worker Delinquency Prevention Relationship Specialty Start Date End Date Teo Ferrera DO [address] [address] PCP - General Family Medicine 10/26/22 Rock Matthew MD Surgeon Cardiothoracic Surgery 06/22/22 Wilber Stanley MD [address] [address] Consulting Physician Cardiology 06/22/22 documented as of this encounter
[2025-05-07 11:00] VITALS: BP 166/87; PULSE 68; RESP 16; TEMP 36.9; O2SAT 100
[2025-05-07 11:57] LABS: Platelet Count Result 344 k/mm3 (150-375)
[2025-05-07 12:12] LABS: INR 1.0; Prothrombin Time 13.5 Seconds (11.1-14.7)
[2025-05-07 13:38] VITALS: BP 180/93; PULSE 68; RESP 16; O2SAT 100
[2025-05-07 13:53] VITALS: BP 149/76; PULSE 62; RESP 16; O2SAT 100
[2025-05-07 14:08] VITALS: BP 159/82; PULSE 65; RESP 14; O2SAT 100
[2025-05-07 14:23] VITALS: BP 163/75; PULSE 62; RESP 16; O2SAT 100
[2025-05-07 14:53] VITALS: BP 165/76; PULSE 62; RESP 16; O2SAT 100
--- NOTE | 2025-05-07 15:14 | SUR.PHASEII ---
PER DR LEROY PATIENT IS OKAY FOR DISCHARGE.
== END 2025-05-07 15:16 | disposition home or self-care (01) ==
PROVIDERS: PCP Nurse Practitioner Family; Visit Provider Radiology Diagnostic Radiology
DX: Z01.818 Encounter for other preprocedural examination (principal); J94.2 Hemothorax
CPT/HCPCS: 32555; 36415; 85049; 85610

== ENCOUNTER 2025-05-29 09:37 | Outpatient (CLI) | payer MEDICARE, SELFPAY ==
--- NOTE | ~2025-05-29 | CT_ITS ---
CT abdomen pelvis wo/w con INDICATION: Gross hematuria COMPARISON: None. TECHNIQUE: Axial images of the abdomen and pelvis were obtained following without and with infusion of 100 mL Isovue 300. Dose optimization technique was utilized. FINDINGS: Small loculated right pleural effusion is noted. The liver parenchyma is unremarkable. Hepatic cysts are noted measuring up to 1.7 cm. The gallbladder is unremarkable. The pancreas and spleen are normal in appearance. The adrenal glands are symmetric in size. The kidneys demonstrate symmetric uptake and excretion of contrast. No cystic mass is evident. There is a 2.5 cm solid mass within the left kidney suggestive of a renal cell carcinoma. There is no hydronephrosis. Evaluation of the stomach and bowel loops are limited due to lack of oral contrast. 19 The bladder and rectum are normal. No free intraperitoneal fluid or air is evident. There is no significant retroperitoneal lymphadenopathy. The aorta, visceral vessels and renal arteries demonstrate normal caliber and patency. The lower thoracic and lumbar vertebrae are in normal alignment. IMPRESSION: 2.5 cm mass in the left kidney concerning for renal cell carcinoma. Surgical consult is recommended. All CT scans at this facility are performed using low dose modulation techniques as appropriate to perform exam including the following: automated exposure control; adjustment of the mA and/or kV according to patient size (this includes techniques or standardized protocols for targeted exams where does is matched to indication/reason for exam; i.e. extremities or head); use of iterative reconstruction technique). Reviewed, dictated and finalized at location S. IMPRESSION: 2.5 cm mass in the left kidney concerning for renal cell carcinoma. Surgical co nsult is recommended. All CT scans at this facility are performed using low dose modulation techniqu es as appropriate to perform exam including the following: automated exposure c ontrol; adjustment of the mA and/or kV according to patient size (this includes techniques or standardized protocols for targeted exams where does is matched to indication/reason for exam; i.e. extremities or head); use of iterative rukhsana nstruction technique).
--- OUTSIDE RECORDS SUMMARY | 2025-05-29 09:53 | XMS_ITS | Clinical Summary ---
Author Organization [facility] Address [address] [place] [id number] Care Team Providers Care Semiconductor Equipment Technician Name Role Phone Rock Matthew MD Unavailable [phone] Wilber Stanley MD Unavailable [phone] Teo Ferrera DO Primary Care Provider [phone] Allergies Active Allergy Reactions Criticality Noted Date Comments Penicillins Sulfa (Sulfonamide Antibiotics) Medications levothyroxine sodium (TIROSINT) 112 mcg capsuleIndication s:hypothyroidism Take 125 mcg by mouth daily 2 Active clopidogreL (PLAVIX) 75 mg tabletIndications :Myocardial Reinfarction Prevention Take 1 tablet (75 mg total) by mouth daily 30 tablet 1 2 08/05/20 25 Active aspirin 81 mg enteric coated tablet TAKE 1 TABLET BY MOUTH EVERY DAY 30 tablet 1 3 Active rosuvastatin (CRESTOR) 20 mg tablet TAKE 1 TABLET(20 MG) BY MOUTH EVERY NIGHT 90 tablet 3 4 Active cloNIDine (CATAPRES) 0.1 mg tablet TAKE 1 TABLET(0.1 MG) BY MOUTH THREE TIMES DAILY 90 tablet 5 Active acetaminophen (TYLENOL) 325 mg tablet Take 2 tablets (650 mg total) by mouth every 6 (six) hours 30 tablet 5 Active amLODIPine (NORVASC) 5 mg tablet Take 1 tablet (5 mg total) by mouth daily 30 tablet 11 5 04/22/20 26 Active carvediloL (COREG) 25 mg tablet Take 1 tablet (25 mg total) by mouth 2 (two) times a day with meals 60 tablet 11 5 04/21/20 26 Active tamsulosin (FLOMAX) 0.4 mg extended release capsule Take 1 capsule (0.4 mg total) by mouth daily with dinner 30 capsule 5 Active senna-docusate (PERICOLACE) 8.6-50 mg Take 1 tablet by mouth 2 (two) times a day 60 tablet 5 Active polyethylene glycol (MIRALAX) 17 gram/dose bulk powderIndications :constipation Take 17 g by mouth daily 510 g 5 Active oxyCODONE (ROXICODONE) 5 mg immediate release tabletIndications :Pain Take 1 tablet (5 mg total) by mouth every 4 (four) hours as needed for pain 10 tablet 5 Active methocarbamoL (ROBAXIN) 500 mg tablet Take 1 tablet (500 mg total) by mouth 3 (three) times a day 90 tablet 5 05/21/20 25 Active Problems Problem Noted Date Diagnosed Date Discharge planning issues 04/20/2025 Assessment & Plan (04/21/2025 8:46 AM CDT): - PT/OT recommending IPR, haven't seen him in several days. - Pt is walking around the halls without issue and adamantly does not want to go to [facility] 04/20 MRI Urogram 04/21 Patient is medically stable for discharge, SW/CM updated. Discharge pending to home Gross hematuria 04/16/2025 Intracranial hemorrhage 04/15/2025 Assessment & Plan (04/21/2025 8:55 AM CDT): #L SDH #SAH - NSGY consult: Q4 Cameron Plunkett x7d (04/14-04/21), SBP <160, MAP <110 - Ok for DVT ppx Follow up with Neurosurgery in 3 weeks with a repeat head CT, No DAPT for 4 weeks ~ 05/14, Cameron completed 04/21, please call [phone] to schedule an appointment Hemothorax on right 04/14/2025 Assessment & Plan (04/21/2025 12:57 PM CDT): S/p Rt pigtail at OSH S/p 32Fr CT, bedside irrigation 04/14 Chest tube placed in ED ([facility]), CTA with coil embolization of 9- 11th rib arteries 04/15 CT (placed at OSH)- removed 04/16: CT chest with persistent hemothorax, evening s/p tPA via CT, did not tolerate well due to pain, but improvement on CXR 04/18: CT placed on water seal @ 930, plan for CXR at 1330. Will obtain CXR again tomorrow prior to pulling the tube. 04/19: CXR stable. Radiology read as pneumothorax but based on CT scan, hematoma is in this same position, likely pushing the pleura away from the chest wall. CT pulled @ 0930, plan for post-pull CXR followed by a CXR tomorrow morning. 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 PLAN: Follow up with Urology outpatient Dr. Dobbs or renal cell carcinoma in 3 months please call [phone] Multiple fractures of ribs, bilateral, init for clos fx 04/14/2025 Assessment & Plan (04/21/2025 8:56 AM CDT): #Rt 5-11 rib fx #L 1-5 rib fx Pulm hygiene, pain control, IS Pain recommendations Follow up in ACCS clinic 04/30 at 1pm, please arrive at 12 to obtain a CXR prior to appointment Primary hypertension 08/05/2024 Assessment & Plan (04/20/2025 3:40 AM CDT): - Consider starting Losartan in place of home Olmesartan Hx of CABG 08/10/2022 STEMI (ST elevation myocardial infarction) 06/10 Assessment & Plan (04/20/2025 1:26 PM CDT): - Trops downtrended, TTE EF 68%, Grade 1 diastolic dysfunction - Cardiology c/s - Will need repeat LHC when able to receive DAPT again (4 weeks per NSGY) - Increase Carvedilol PLAN: Follow up with Cardiology for a left heart cath, per neurosurgery the patient can not receive DAPT for 4 weeks ~05/14 Coronary artery disease of n ative heart with stable angina pectoris 06/09/2022 Overview (06/12/2022): Added automatically from request for surgery [id number] Rupture of anterior cruciate ligament of knee Osteoarthritis of knee 06/11/2014 Encounters Date Type Department Care Team Description 04/22/2025 Telephone [facility] Medicine Neurosurgery [address] 6th [place] [address] [place] [address] Remedios Puentes PA 04/15/2025 9:25 AM CDT Ancillary Procedure [facility] Medicine Vascular Lab IP [address] [place] [address] 04/14/2025 8:08 AM CDT Anesthesia Event [facility] [address] [place] [address] Justino Mejia MD 04/14/2025 4:42 AM CDT - 04/21/2025 2:10 PM CDT Hospital Encounter [facility] [address] [place] [address] HolthEmili ochoa MD Kranker, MD Hakan Dyer, Marcell Thrasher III, MD Hemothorax on right (Primary Dx); Left renal mass; Hypotension, unspecified hypotension type; Hypothermia, initial encounter; Closed fracture of multiple ribs of right side, initial encounter; Tricuspid valve disorder; Hx of CABG; Coronary artery disease of [place] artery of [place] heart with stable angina pectoris; Multiple fractures of ribs, bilateral, init for clos fx; Renal mass; ST elevation myocardial infarction involving left anterior descending (LAD) coronary artery (HCC); Intracranial hemorrhage (HCC); Acute pain due to trauma [G89.11]; Closed fracture of multiple ribs of both sides, initial encounter [S22.43XA]; Painful respiration [R07.1] Discharge Disposition: Discharge to home or self care 04/14/2025 Orders Only [facility] [address] [place] [address] Lucia Sawyer RN from Last 3 Months Immunizations Immunization Administration Dates Next Due Influenza, Quad, Adjuvantated, Intramuscular 07/2021 Influenza, Quadrivalent, Hig h Dose, Preservative Free, Intrr 05/17/2022,05/04/2020 Influenza, Trivalent, Adjuvanted, Intramuscular 05/15/2018 Influenza, Trivalent, High D ose, Split, Preservative Free, Intramuscular 06/09/2019,06/19/2017 Pneumococcal Conjugate PCV 13 04/29/2019 Tdap 04/14/2025 Surgical History Surgery Date Site/Laterality Comments CORONARY ARTERY BYPASS GRAFT EMBOLIZATION VASCULAR EXTRAV ASATION ARTERIAL VENOUS OR LYMPHATIC 04/14/2025 N/A Family History Medical History Relation Name Comments [...] on file Legal Sex 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 Gender Identity Not on file Sexual Orientation Not on file Obstetrics History Last Filed Vital Signs Vital Sign Reading Time Taken Comments Blood Pressure 148/80 04/21/2025 5:00 AM CDT Pulse 70 04/21/2025 8:05 AM CDT Temperature 36.9 C (98.5 F) 04/21/2025 5:00 AM CDT Respiratory Rate 16 04/21/2025 5:00 AM CDT Oxygen Saturation 100% 04/21/2025 5:00 AM CDT Inhaled Oxygen Concentration - - Weight 62.6 kg (138 lb 0.1 oz) 04/18/2025 4:54 P M CDT Height 177.8 cm (5' 10) 04/18/2025 4:54 PM CDT Body Mass Index 19.8 04/18/2025 4:54 PM CDT Plan of Treatment Health Maintenance Due Date Last Done Comments Colon Cancer Screening-Colonoscopy 1950 Hepatitis C Screening 1950 Hepatitis B Screening 1968 Zoster Vaccine (1 of 2) 2000 Well Visit 65+ 2015 Pneumococcal vaccine 65+ (2 of 2 - PPSV23, PCV20, or PCV21) 06/24/2019 04/29/2019 Depression Screening 06/09/2023 06/09/2022 Covid-19 Vaccine (6 - 2024-2 6 season) 2025 05/04/2022, 11/25/2021, 05/23/2021, Additional history exists Influenza Vaccine (#1) 2025 , 05/17/2021, 05/04/2020, Additional history exists Fall Risk Assessment 04/21/2026 04/21/2025 DTaP/Tdap/Td Vaccine (2 - Td or Tdap) 04/14/2035 04/14/2025 Abdominal Aortic Aneurysm (A AA) Screen Completed 04/14/2025 Medical Devices Implanted Type Area Timber Treating Tank Operator Device Identifier Shelf Expiration Date Model / Serial / Lot SFOX Coil Embolization Coated Pushable Ann [id number] Chitimacha [id number] - [id number] Implanted:Qty: 1 on 04/14/2025 at [facility] SFOX 07/01/2029 [id number] / / [id number] Digital Marketing Intelligence Scientific Nguyễn Coil Emolization Coated Detachable Embold [id number] Chitimacha Tungsten [id number] - [id number] Implanted:Qty: 1 on 04/14/2025 by Barrett Luke MD PhD at [facility] [employer] Nguyễn 01/19/2028 [id number] / / [id number] TerJobber Nguyễn Angio-Seal Vip 6fr Closere Device [id number] - [id number] Implanted:Qty: 1 on 04/14/2025 by Barrett Luke MD PhD at [facility] in[employer] 09/29/2025 [id number] / / [id number] SFOX Coil Embolization Coated Pushable Ann [id number] Chitimacha [id number] - [id number] Implanted:Qty: 1 on 04/14/2025 at [facility] SFOX 10/13/2026 [id number] / / [id number] SFOX Coil Embolization Coated Pushable Ann [id number] Chitimacha [id number] - [id number] Implanted:Qty: 1 on 04/14/2025 by Barrett Luke MD PhD at [facility] SFOX 10/13/2026 [id number] / / [id number] SFOX Coil Embolization Coated Pushable Ann [id number] Chitimacha [id number] - [id number] Implanted:Qty: 1 on 04/14/2025 by Barrett Luke MD PhD at [facility] SFOX 02/02/2030 [id number] / / [id number] SFOX Coil Embolization Coated Pushable Ann [id number] Chitimacha [id number] - [id number] Implanted:Qty: 1 on 04/14/2025 by Barrett Luke MD PhD at [facility] SFOX 10/13/2026 [id number] / / [id number] BearTail Coil Emolization Coated Detachable Embold [id number] [place]itimacha Tungsten [id number] - [id number] Implanted:Qty: 1 on 04/14/2025 by Barrett Luke MD PhD at [facility] [employer] Nguyễn 02/13/2028 [id number] / / [id number] BearTail Coil Emolization Coated Detachable Embold [id number] Chitimacha Tungsten [id number] - [id number] Implanted:Qty: 1 on 04/14/2025 by Barrett Luke MD PhD at [facility] [employer] Nguyễn 02/13/2028 [id number] / / [id number] SFOX Coil Embolization Coated Pushable Ann [id number] Chitimacha [id number] - [id number] Implanted:Qty: 1 on 04/14/2025 by Barrett Luke MD PhD at [facility] SFOX 10/13/2026 [id number] / / [id number] SFOX Coil Embolization Coated Pushable Ann [id number] Chitimacha [id number] - [id number] Implanted:Qty: 1 on 04/14/2025 by Barrett Luke MD PhD at [facility] SFOX 10/13/2026 [id number] / / [id number] Procedures Procedure Name Priority Date/Time Associated Diagnosis Comments XR CHEST PA LATERAL 2 VIEWS Timed 04/20/2025 2:58 PM CDT XR ABDOMEN AP 1 VIEW IP Routine 04/20/2025 7:03 AM CDT MRI ABDOMEN KIDNEY W WO CONTRAST IP Routine 04/20/2025 2:57 AM CDT EGFR Routine 04/19/2025 9:32 PM CDT BASIC METABOLIC PANEL Routine 04/19/2025 9:32 PM CDT CBC WITHOUT DIFFERENTIAL Routine 025 9:32 PM CDT PHOSPHORUS Routine 04/19/2025 9:32 PM CDT MAGNESIUM Routine 04/19/2025 9:32 PM CDT XR CHEST 1 VIEW Timed 04/19/2025 10:51 AM CDT EGFR Routine 04/18/2025 11:29 PM CDT COMPREHENSIVE METABOLIC PANEL Routine 04/18/2025 11:29 PM CDT CBC WITHOUT DIFFERENTIAL Routine 025 11:29 PM CDT PHOSPHORUS Routine 04/18/2025 11:29 PM CDT MAGNESIUM Routine 04/18/2025 11:29 PM CDT XR CHEST PA LATERAL 2 VIEWS Timed 04/18/2025 2:34 PM CDT XR CHEST 1 VIEW IP Routine 04/17/2025 6:39 PM CDT EGFR Routine 04/17/2025 4:22 PM CDT MAGNESIUM Routine 04/17/2025 4:22 PM CDT TYPE AND SCREEN Timed 04/17/2025 4:22 PM CDT COMPREHENSIVE METABOLIC PANEL Routine 04/17/2025 4:22 PM CDT CBC WITHOUT DIFFERENTIAL Routine 025 4:22 PM CDT POCT GLUCOSE DEVICE Routine 04/17/2025 7 :07 AM CDT XR CHEST 1 VIEW Timed 04/17/2025 2:25 AM CDT CRITICAL CARE Routine 04/16/2025 11:59 PM CDT Hemothorax on right Painful respiration [R07.1] XR CHEST 1 VIEW ED Urgent/IP Urgent 04/16/2025 10:05 PM CDT EGFR Timed 04/16/2025 9:02 PM CDT MAGNESIUM Timed 04/16/2025 9:02 PM CDT PHOSPHORUS Timed 04/16/2025 9:02 PM CDT CBC WITHOUT DIFFERENTIAL Timed 025 9:02 PM CDT COMPREHENSIVE METABOLIC PANEL Timed 04/16/2025 9:02 PM CDT XR CHEST 1 VIEW IP Routine 04/16/2025 6:[address] CHEST W CONTRAST IP Routine 04/16/2025 2 :37 PM CDT CBC WITHOUT DIFFERENTIAL Timed 025 1:31 PM CDT POCT GLUCOSE DEVICE Routine 04/16/2025 11:28 AM CDT CRITICAL CARE Routine 04/16/2025 10:31 AM CDT Hemothorax on right Closed fracture of multiple ribs of right side, initial encounter Tricuspid valve disorder Hx of CABG Coronary artery disease of [place] artery of [place] heart with stable angina pectoris Multiple fractures of ribs, bilateral, init for clos fx Renal mass Intracranial hemorrhage (HCC) EGFR Timed 04/16/2025 8:37 AM CDT COMPREHENSIVE METABOLIC PANEL Timed 04/16/2025 8:37 AM CDT POCT GLUCOSE DEVICE Routine 04/16/2025 7 :28 AM CDT CRITICAL CARE Routine 04/16/2025 6:30 AM CDT Intracranial hemorrhage (HCC) DIFFERENTIAL AUTO Timed 04/16/2025 4:1 1 AM CDT CBC WITH AUTO DIFFERENTIAL Timed 04/16/2025 4:11 AM CDT POCT GLUCOSE DEVICE Routine 04/16/2025 3 :52 AM CDT POCT GLUCOSE DEVICE Routine 04/16/2025 12:10 AM CDT TRANSFUSE RED BLOOD CELLS Timed 04/16/2025 12:01 AM CDT CRITICAL CARE Routine 04/15/2025 11:59 PM CDT Multiple fractures of ribs, bilateral, init for clos fx PREPARE RBC Timed 04/15/2025 11:04 PM CDT COMPREHENSIVE METABOLIC PANEL Routine 04/15/2025 7:56 PM CDT EGFR Routine 04/15/2025 7:56 PM CDT DIFFERENTIAL AUTO Timed 04/15/2025 7:5 6 PM CDT CBC WITH AUTO DIFFERENTIAL Timed 04/15/2025 7:56 PM CDT PHOSPHORUS Routine 04/15/2025 7:56 PM CDT MAGNESIUM Routine 04/15/2025 7:56 PM CDT POCT GLUCOSE DEVICE Routine 04/15/2025 7 :51 PM CDT XR CHEST 1 VIEW IP Routine 04/15/2025 6:27 PM CDT POCT GLUCOSE DEVICE Routine 04/15/2025 5 :05 PM CDT EGFR Timed 04/15/2025 3:01 PM CDT COMPREHENSIVE METABOLIC PANEL Timed 04/15/2025 3:01 PM CDT CBC WITHOUT DIFFERENTIAL STAT 025 3:01 PM CDT US VEIN DUPLEX LOWER EXTREMITY BILATERAL COMPLETE IP Routine 04/15/2025 12:13 PM CDT POCT GLUCOSE DEVICE Routine 04/15/2025 11:46 AM CDT CRITICAL CARE Routine 04/15/2025 10:22 AM CDT Hemothorax on right Left renal mass Closed fracture of multiple ribs of right side, initial encounter Tricuspid valve disorder Hx of CABG Coronary artery disease of [place] artery of [place] heart with stable angina pectoris Multiple fractures of ribs, bilateral, init for clos fx Renal mass ST elevation myocardial infarction involving left anterior descending (LAD) coronary artery (HCC) TRANSTHORACIC ECHO (TTE) COMPLETE W DOPPLER/CF W CONTRAST STAT 04/15/2025 10:06 AM CDT POCT GLUCOSE DEVICE Routine 04/15/2025 7 :46 AM CDT EGFR Timed 04/15/2025 5:44 AM CDT TROPONIN I HIGH-SENSITIVITY 6-HOUR Timed 04/15/2025 5:44 AM CDT BASIC METABOLIC PANEL Timed 04/15/2025 5:44 AM CDT TROPONIN I HIGH-SENSITIVITY 4-HOUR Timed 04/15/2025 4:00 AM CDT EXTUBATION Routine 04/15/2025 3:59 AM CDT POCT GLUCOSE DEVICE Routine 04/15/2025 3 :58 AM CDT TROPONIN I HIGH-SENSITIVITY 2-HOUR Timed 04/15/2025 1:58 AM CDT EGFR Timed 04/15/2025 12:04 AM CDT BASIC METABOLIC PANEL Timed 04/15/2025 12:04 AM CDT TROPONIN I HIGH-SENSITIVITY SERIES (BASELINE, 2HR, 4HR, 6HR) Routine 04/15/2025 12:04 AM CDT POCT GLUCOSE DEVICE Routine 04/14/2025 11:56 PM CDT POCT GLUCOSE DEVICE Routine 04/14/2025 11:08 PM CDT CRITICAL CARE Routine 04/14/2025 11:00 PM CDT Hemothorax on right POCT GLUCOSE DEVICE Routine 04/14/2025 10:03 PM CDT POCT GLUCOSE DEVICE Routine 04/14/2025 9 :10 PM CDT XR ABDOMEN AP 1 VIEW ED Urgent/IP Urgent 04/14/2025 8:51 PM CDT COMPREHENSIVE METABOLIC PANEL Routine 04/14/2025 8:14 PM CDT EGFR Routine 04/14/2025 8:14 PM CDT DIFFERENTIAL AUTO Routine 04/14/2025 8:1 4 PM CDT PHOSPHORUS Routine 04/14/2025 8:14 PM CDT MAGNESIUM Routine 04/14/2025 8:14 PM CDT CBC WITH AUTO DIFFERENTIAL Routine 04/14/2025 8:14 PM CDT POCT GLUCOSE DEVICE Routine 04/14/2025 8 :04 PM CDT POCT GLUCOSE DEVICE Routine 04/14/2025 8 :03 PM CDT CTA HEAD NECK W WO CONTRAST Timed 04/14/2025 7:57 PM CDT CRITICAL CARE Routine 04/14/2025 5:15 PM CDT Hemothorax on right Left renal mass Closed fracture of multiple ribs of right side, initial encounter Hx of CABG Coronary artery disease of [place] artery of [place] heart with stable angina pectoris Multiple fractures of ribs, bilateral, init for clos fx Renal mass POCT GLUCOSE DEVICE Routine 04/14/2025 4 :44 PM CDT EGFR Timed 04/14/2025 4:39 PM CDT OSMOLALITY, BLOOD Timed 04/14/2025 4:3 9 PM CDT VERIFY NOW CLOPIDOGREL Routine 4:39 PM CDT VERIFY NOW ASPIRIN Routine 04/14/2025 4: 39 PM CDT BASIC METABOLIC PANEL Timed 04/14/2025 4:39 PM CDT LACTATE, WHOLE BLOOD STAT 04/14/2025 4:39 PM CDT POCT GLUCOSE DEVICE Routine 04/14/2025 3 :27 PM CDT POCT GLUCOSE DEVICE Routine 04/14/2025 3 :12 PM CDT XR CHEST 1 VIEW ED Urgent/IP Urgent 04/14/2025 2:[address] HEAD AND CERVICAL SPINE WO CONTRAST ED Urgent/IP Urgent 04/14/2025 1:10 PM CDT POCT GLUCOSE DEVICE Routine 04/14/2025 12:05 PM CDT TRIGLYCERIDES STAT 04/14/2025 11:58 AM CDT EGFR STAT 04/14/2025 11:58 AM CDT DIFFERENTIAL AUTO STAT 04/14/2025 11:58 AM CDT CBC WITH AUTO DIFFERENTIAL STAT 04/14/2025 11:58 AM CDT COMPREHENSIVE METABOLIC PANEL STAT 04/14/2025 11:58 AM CDT TROPONIN I HIGH-SENSITIVITY 6-HOUR Timed 04/14/2025 11:58 AM CDT EMBOLIZATION VASCULAR EXTRAVASATION ARTERIAL VENOUS OR LYMPHATIC IP Routine 04/14/2025 10:55 AM CDT POC BLOOD GAS AND CHEMISTRIES, ARTERIAL Routine 04/14/2025 10:27 AM CDT TRANSFUSE PLATELETS Timed 04/14/2025 8 :47 AM CDT TRANSFUSE PLATELETS Timed 04/14/2025 8 :35 AM CDT POC BLOOD GAS AND CHEMISTRIES, ARTERIAL Routine 04/14/2025 8:26 AM CDT RI ARTL CATHJ/CANNULJ MNTR/TRANSFUSION SPX PRQ Routine 04/14/2025 7:50 AM CDT PREPARE PLATELETS STAT 04/14/2025 7:4 7 AM CDT FENTANYL CONFIRMATION, MS URINE Routine 04/14/2025 7:31 AM CDT BENZODIAZEPINE CONFIRMATION BY MS Routine 04/14/2025 7:31 AM CDT TROPONIN I HIGH-SENSITIVITY 2-HOUR Timed 04/14/2025 7:31 AM CDT DRUGS OF ABUSE SCREEN, URINE WITH REFLEX CONFIRMATION Routine 04/14/2025 7:31 AM CDT PREPARE PLASMA Routine 04/14/2025 6:42 AM CDT PREPARE RBC Routine 04/14/2025 6:42 AM CDT CHEST TUBE INSERTION Routine 04/14/2025 6:33 AM CDT Hemothorax on right CTA CHEST ABDOMEN PELVIS ED Urgent/IP Urgent 04/14/2025 6:30 AM CDT RI CRITICAL CARE ILL/INJURED PATIENT INIT 30-74 MIN Routine 04/14/2025 6:25 AM CDT URINALYSIS, MICROSCOPIC ONLY STAT 04/14/2025 6:01 AM CDT URINE CULTURE STAT 04/14/2025 6:01 AM CDT URINALYSIS AND REFLEX TO MICROSCOPIC AND CULTURE STAT 04/14/2025 6:01 AM CDT XR CHEST 1 VIEW ED 04/14/2025 5:55 AM CDT POC BLOOD GAS AND CHEMISTRIES, ARTERIAL Routine 04/14/2025 5:53 AM CDT CRITICAL RESULT CALLBACK CARDIO CHEM STAT 04/14/2025 5:53 AM CDT TROPONIN I HIGH-SENSITIVITY SERIES (BASELINE, 2HR, 4HR, 6HR) STAT 04/14/2025 5:53 AM CDT B CHECK SAMPLE STAT 04/14/2025 5:53 AM CDT POCUS CARDIAC 04/14/2025 5:03 AM CDT POCUS FAST 04/14/2025 5:02 AM CDT XR CHEST 1 VIEW ED 04/14/2025 5:02 AM CDT POC BLOOD GAS AND CHEMISTRIES, VENOUS Routine 04/14/2025 4:58 AM CDT THROMBOELASTOMETRY PANEL - INTRINSIC Routine 04/14/2025 4:48 AM CDT THROMBOELASTOMETRY PANEL - HEPARIN Routine 04/14/2025 4:48 AM CDT THROMBOELASTOMETRY PANEL - EXTRINSIC Routine 04/14/2025 4:48 AM CDT THROMBOELASTOMETRY PANEL - FIBRINOGEN Routine 04/14/2025 4:48 AM CDT DIFFERENTIAL AUTO Routine 04/14/2025 4:4 8 AM CDT THROMBOELASTOMETRY PANEL Routine 025 4:48 AM CDT PROTIME-INR Routine 04/14/2025 4:48 AM CDT APTT Routine 04/14/2025 4:48 AM CDT ETHANOL Routine 04/14/2025 4:48 AM CDT CBC WITH AUTO DIFFERENTIAL Routine 04/14/2025 4:48 AM CDT TYPE AND SCREEN Timed 04/14/2025 4:48 AM CDT from Last 3 Months Results * XR Chest PA Lateral 2 Views (04/20/2025 2:58 PM CDT) Anatomical Region Laterality Modality Body, Chest N/A Computed Radiogr aphy 04/20/2025 3:13 PM CDT Impressions 04/20/2025 3:13 PM CDT Median sternotomy wires are aligned and intact. Moderate size loculated right pleural effusion again seen. No pneumothorax is seen on the current study. Tiny left basilar pleural effusion again noted. Embolization coils again seen. Heart size remains within normal limits. Electronically signed by: Wilber Inman M.D. Narrative 04/20/2025 3:13 PM CDT EXAMINATION: 2 view chest radiograph Procedure Note Wilber Inman MD - 04/20/2025 EXAMINATION: 2 view chest radiograph IMPRESSION: Median sternotomy wires are aligned and intact. Moderate size loculated right pleural effusion again seen. No pneumothorax is seen on the current study. Tiny left basilar pleural effusion again noted. Embolization coils again seen. Heart size remains within normal limits. Electronically signed by: Wilber Inman M.D. us Kayleigh Herrera MD IMG XR PROCEDURES Nicolette l Result * XR Abdomen Ap 1 Vw (04/20/2025 7:03 AM CDT) Anatomical Region Laterality Modality Body, Abdomen N/A Computed Radiogr aphy 04/20/2025 9:48 AM CDT Impressions 04/20/2025 11:43 AM CDT Partially imaged median sternotomy wires and embolization coils projecting over right lower hemithorax. Interval removal of an endogastric tube. There are surgical clips throughout the pelvis. There is contrast material throughout the colon. Normal bowel gas pattern. Partially imaged bilateral moderate hip osteoarthritis. Dictated by: Dori Marshall M.D. The radiology attending physician has personally reviewed this study, and had reviewed and/or edited this written report and agrees with it. Electronically signed by: Sarah Aquino M.D. Narrative 04/20/2025 11:43 AM CDT EXAMINATION: Abdomen, one view. HISTORY: 74-year-old, status post cardiac arrest. Abdominal pain. COMPARISON: 04/14/2025. Procedure Note Sarah Aquino MD - 04/20/2025 EXAMINATION: Abdomen, one view. HISTORY: 74-year-old, status post cardiac arrest. Abdominal pain. COMPARISON: 04/14/2025. IMPRESSION: Partially imaged median sternotomy wires and embolization coils projecting over right lower hemithorax. Interval removal of an endogastric tube. There are surgical clips throughout the pelvis. There is contrast material throughout the colon. Normal bowel gas pattern. Partially imaged bilateral moderate hip osteoarthritis. Dictated by: Dori Marshall M.D. The radiology attending physician has personally reviewed this study, and had reviewed and/or edited this written report and agrees with it. Electronically signed by: Sarah Aquino M.D. us Kayleigh Herrera MD IMG XR PROCEDURES Nicolette l Result * MRI Abdomen Kidney W WO Contrast (04/20/2025 2:57 AM CDT) Anatomical Region Laterality Modality Body N/A Magnetic Resonan ce 04/20/2025 8:17 AM CDT Impressions 04/20/2025 1:59 PM CDT 1. 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 2. Multiple right-sided rib fractures with large right subpleural hematoma and bilateral pleural effusions better evaluated on prior CT. Dictated by: Mireille Santana MD The radiology attending physician has personally reviewed this study, and had reviewed and/or edited this written report and agrees with it. Electronically signed by: Dusty Cartwright M.D. Narrative 04/20/2025 1:59 PM CDT EXAMINATION: MAGNETIC RESONANCE IMAGING OF THE ABDOMEN WITH AND WITHOUT CONTRAST HISTORY: 74-year-old man with left renal mass. TECHNIQUE: Magnetic resonance imaging of the abdomen was performed prior to and following the administration of intravenous contrast. Protocol: Kidney Contrast: Dotarem (gadoterate) 12 mL COMPARISON: CTA chest abdomen pelvis dated 12/12/2024 FINDINGS: Liver and Bile Ducts: No significant fat or iron deposition. Noncirrhotic liver morphology. Scattered hepatic cysts. No suspicious hepatic lesion. Gallbladder: Sludge within the gallbladder. Pancreas: Normal Spleen: Normal Adrenals: Normal Kidneys: There is a 2.7 x 2.2 cm T2 isointense intensely enhancing mass with microscopic fat and without macroscopic fat in the lower pole of the left kidney (CCLS 5). There are bilateral renal cysts, some of which are hemorrhagic/proteinaceous. No hydronephrosis. Other Findings: Partially imaged large right subpleural hematoma. Small bilateral pleural effusions with small volume blood products layering on the right. Partially imaged changes of median sternotomy. Small volume abdominal free fluid. Imaged bowel loops are normal in caliber without evidence of obstruction. Mild abdominal aortic ectasia. Multiple right-sided rib fractures better evaluated on prior CT. Procedure Note Dusty Cartwright MD - 04/20/2025 EXAMINATION: MAGNETIC RESONANCE IMAGING OF THE ABDOMEN WITH AND WITHOUT CONTRAST HISTORY: 74-year-old man with left renal mass. TECHNIQUE: Magnetic resonance imaging of the abdomen was performed prior to and following the administration of intravenous contrast. Protocol: Kidney Contrast: Dotarem (gadoterate) 12 mL COMPARISON: CTA chest abdomen pelvis dated 12/12/2024 FINDINGS: Liver and Bile Ducts: No significant fat or iron deposition. Noncirrhotic liver morphology. Scattered hepatic cysts. No suspicious hepatic lesion. Gallbladder: Sludge within the gallbladder. Pancreas: Normal Spleen: Normal Adrenals: Normal Kidneys: There is a 2.7 x 2.2 cm T2 isointense intensely enhancing mass with microscopic fat and without macroscopic fat in the lower pole of the left kidney (CCLS 5). There are bilateral renal cysts, some of which are hemorrhagic/proteinaceous. No hydronephrosis. Other Findings: Partially imaged large right subpleural hematoma. Small bilateral pleural effusions with small volume blood products layering on the right. Partially imaged changes of median sternotomy. Small volume abdominal free fluid. Imaged bowel loops are normal in caliber without evidence of obstruction. Mild abdominal aortic ectasia. Multiple right-sided rib fractures better evaluated on prior CT. IMPRESSION: 1. 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 2. Multiple right-sided rib fractures with large right subpleural hematoma and bilateral pleural effusions better evaluated on prior CT. Dictated by: Mireille Santana MD The radiology attending physician has personally reviewed this study, and had reviewed and/or edited this written report and agrees with it. Electronically signed by: Dusty Cartwright M.D. Kayleigh Herrera MD IMG MRI PROCEDURES Fin al Result * eGFR (04/19/2025 9:32 PM CDT) eGFR 60 >=60 mL/min/1. 73 m2 Comment: Interpretive Data Reference Interval Normal >/= 90 mL/min/1.73m2 Mildly decreased* 60 - 89 mL/min/1.73m2 Mildly to moderately decreased 45 - 59 mL/min/1.73m2 Moderately to severely decreased 30 - 44 mL/min/1.73m2 Severely decreased 15 - 29 mL/min/1.73m2 Kidney Failure < 15 mL/min/1.73m2 *Relative to young adult level Estimated glomerular filtration rate is determined by the 2020 CKD-EPI equation recommended by the National Kidney Foundation (A Unifying Approach to GFR Estimation: Recommendations of the NKF-ASK Task Force on Reassessing the Inclusion of Race in Diagnosing Kidney Disease, NICHOLASSJosias 2020). The CKD-EPI equation should not be used for patients with unstable renal function and has not been validated in children and those over 70. Current interpretive data was last reviewed 2021. Blood 04/19/2025 9:32 PM CDT 04/19/2025 9:52 PM CDT Kayleigh Herrera MD LAB BLOOD ORDERABLES F inal Result Performing Organization Address City/[facility]/ZIP Co de Phone Number [facility] [place] [address] * (ABNORMAL) CBC without differential (04/19/2025 9:32 PM CDT) WBC 10.81(H) 3.80 - 9.90 K/cumm Hgb 8.7(L) 13.0 - 17.5 g/dL [facility] Hct 25.3(L) 38.9 - 50.3 % [facility] Plt 215 150 - 400 K/cumm [facility] MPV 10.1 9.1 - 12.3 fL [facility] RBC 2.92(L) 4.30 - 5.80 M/cumm [facility] MCV 86.6 81.3 - 96.4 fL [facility] MCH 29.8 27.1 - 33.3 pg [facility] MCHC 34.4 32.3 - 35.7 g/dL [facility] RDW CV 14.7 11.1 - 14.9 % [facility] RDW SD 45.9 35.7 - 48.1 fL [facility] NRBC abs 0.00 0.00 - 0.01 K/cumm [facility] Blood 04/19/2025 9:32 PM CDT 04/19/2025 9:52 PM CDT Kayleigh Herrera MD LAB BLOOD ORDERABLES F inal Result Performing Organization Address City/[facility]/ZIP Co de Phone Number [facility] [place] [address] * (ABNORMAL) Phosphorus (04/19/2025 9:32 PM CDT) [facility] Phosphorus, pl 2.2(L) 2.3 - 4.5 mg/dL Blood 04/19/2025 9:32 PM CDT 04/19/2025 9:52 PM CDT us Yes Juana العلي ADVANCED QUALITY ENGINEER LAB BLOOD ORDERABLES Final Result Performing Organization Address City/[facility]/ZIP Co de Phone Number [facility] [place] [address] * Magnesium (04/19/2025 9:32 PM CDT) [facility] Magnesium 2.0 1.4 - 2.5 mg/dL Blood 04/19/2025 9:32 PM CDT 04/19/2025 9:52 PM CDT us Yes Juana العلي ADVANCED QUALITY ENGINEER LAB BLOOD ORDERABLES Final Result Performing Organization Address City/[facility]/[place] Co de Phone Number [facility] [place] [address] * Basic metabolic panel (04/19/2025 9:32 PM CDT) [facility] Sodium 136 135 - 145 mmol/L Potassium, pl 3.8 3.3 - 4.9 mmol/L [facility] Chloride 101 97 - 110 mmol/L [facility] CO2 26 22 - 32 mmol/L [facility] Anion gap 9 2 - 15 mmol/L [facility] BUN 24 6 - 25 mg/dL [facility] Creatinine 1.26 0.80 - 1.30 mg/dL [facility] Glucose 92 70 - 199 mg/dL [facility] Comment: Interpretive Data Fasting glucose >/= 126 mg/dl is diagnostic for diabetes. Fasting is defined as no caloric intake for at least 8 hours. Fasting glucose between 100 mg/dl to 125 mg/dl is diagnostic of prediabetes. In a patient with classic symptoms of hyperglycemia or hyperglycemic crisis, a random glucose >/= 200 mg/dl is diagnostic for diabetes. In the absence of unequivocal hyperglycemia, results should be confirmed by repeat testing. The classification and Diagnosis of Diabetes Diabetes Care 2021; 46: S19-S40. Current interpretive data was last revised 2022. Calcium 8.6 8.5 - 10.3 mg/dL [facility] Blood 04/19/2025 9:32 PM CDT 04/19/2025 9:52 PM CDT us Kayleigh Herrera MD LAB BLOOD ORDERABLES F inal Result [facility] [place] [address] * XR Chest 1 View (04/19/2025 10:51 AM CDT) Anatomical Region Laterality Modality Body, Chest N/A Digital Radiogra phy 04/19/2025 12:4 6 PM CDT Impressions 04/19/2025 12:46 PM CDT Comparison 04/18/2025 2:20 PM. Median sternotomy wires are aligned and intact. Moderate size loculated right pleural effusion again seen. Small right apical pneumothorax seen, decreased. Tiny left basilar pleural effusion again noted. No left pneumothorax seen. Embolization coils again seen. Heart size remains within normal limits. Electronically signed by: Joseph Mercedes M.D. Narrative 04/19/2025 12:46 PM CDT EXAMINATION: 1 view chest radiograph Procedure Note Joseph Mercedes MD - 04/19/2025 EXAMINATION: 1 view chest radiograph IMPRESSION: Comparison 04/18/2025 2:20 PM. Median sternotomy wires are aligned and intact. Moderate size loculated right pleural effusion again seen. Small right apical pneumothorax seen, decreased. Tiny left basilar pleural effusion again noted. No left pneumothorax seen. Embolization coils again seen. Heart size remains within normal limits. Electronically signed by: Joseph Mercedes M.D. us Kayleigh Herrera MD IMG XR PROCEDURES Nicolette l Result * eGFR (04/18/2025 11:29 PM CDT) eGFR 61 >=60 mL/min/1. 73 m2 Comment: Interpretive Data Reference Interval Normal >/= 90 mL/min/1.73m2 Mildly decreased* 60 - 89 mL/min/1.73m2 Mildly to moderately decreased 45 - 59 mL/min/1.73m2 Moderately to severely decreased 30 - 44 mL/min/1.73m2 Severely decreased 15 - 29 mL/min/1.73m2 Kidney Failure < 15 mL/min/1.73m2 *Relative to young adult level Estimated glomerular filtration rate is determined by the 2020 CKD-EPI equation recommended by the National Kidney Foundation (A Unifying Approach to GFR Estimation: Recommendations of the NKF-ASK Task Force on Reassessing the Inclusion of Race in Diagnosing Kidney Disease, JASN 2020). The CKD-EPI equation should not be used for patients with unstable renal function and has not been validated in children and those over 70. Current interpretive data was last reviewed 2021. Blood 04/18/2025 11:2 9 PM CDT 04/19/2025 12:37 AM CDT us Irene Santana NP LAB BLOOD ORDERABLES Final Re sult [facility] Department [place] [address] * (ABNORMAL) CBC without differential (04/18/2025 11:29 PM CDT) Pathologist [facility] WBC 11.16(H) 3.80 - 9.90 K/cumm Hgb 7.9(L) 13.0 - 17.5 g/dL [facility] Hct 23.6(L) 38.9 - 50.3 % [facility] Plt 157 150 - 400 K/cumm [facility] MPV 9.9 9.1 - 12.3 fL [facility] RBC 2.70(L) 4.30 - 5.80 M/cumm [facility] MCV 87.4 81.3 - 96.4 fL [facility] MCH 29.3 27.1 - 33.3 pg [facility] MCHC 33.5 32.3 - 35.7 g/dL [facility] RDW CV 14.8 11.1 - 14.9 % [facility] RDW SD 47.0 35.7 - 48.1 fL [facility] NRBC abs 0.00 0.00 - 0.01 K/cumm [facility] Blood 04/18/2025 11:2 9 PM CDT 04/19/2025 12:38 AM CDT us Kayleigh Herrera MD LAB BLOOD ORDERABLES F inal Result Performing Organization Address City/[facility]/ZIP Co de Phone Number [facility] Department [place] [address] * (ABNORMAL) Phosphorus (04/18/2025 11:29 PM CDT) Pathologist [facility] Phosphorus, pl 2.0(L) 2.3 - 4.5 mg/dL Blood 04/18/2025 11:2 9 PM CDT 04/19/2025 12:37 AM CDT us Yesh Juana العلي NP LAB BLOOD ORDERABLES Final Result [facility] Department [place] [address] * Magnesium (04/18/2025 11:29 PM CDT) Pathologist [facility] Magnesium 2.2 1.4 - 2.5 mg/dL Blood 04/18/2025 11:2 9 PM CDT 04/19/2025 12:37 AM CDT us Yesh Ledyjessie العلي ADVANCED QUALITY ENGINEER LAB BLOOD ORDERABLES Final Result [facility] [place] [address] * (ABNORMAL) Comprehensive metabolic panel (04/18/2025 11:29 PM CDT) Sodium 134(L) 135 - 145 mmol/L Potassium, pl 3.7 3.3 - 4.9 mmol/L [facility] Chloride 100 97 - 110 mmol/L [facility] CO2 25 22 - 32 mmol/L [facility] Anion gap 9 2 - 15 mmol/L [facility] BUN 26(H) 6 - 25 mg/dL [facility] Creatinine 1.24 0.80 - 1.30 mg/dL [facility] Glucose 97 70 - 199 mg/dL [facility] Comment: Interpretive Data Fasting glucose >/= 126 mg/dl is diagnostic for diabetes. Fasting is defined as no caloric intake for at least 8 hours. Fasting glucose between 100 mg/dl to 125 mg/dl is diagnostic of prediabetes. In a patient with classic symptoms of hyperglycemia or hyperglycemic crisis, a random glucose >/= 200 mg/dl is diagnostic for diabetes. In the absence of unequivocal hyperglycemia, results should be confirmed by repeat testing. The classification and Diagnosis of Diabetes Diabetes Care 2021; 46: S19-S40. Current interpretive data was last revised 2022. Calcium 8.2(L) 8.5 - 10.3 mg/dL [facility] Bilirubin, total 0.8 0.1 - 1.2 mg/dL [facility] Protein, pl 5.8(L) 6.5 - 8.5 g/dL [facility] Albumin 3.2(L) 3.5 - 5.0 g/dL [facility] Alk phos 67 40 - 130 Units/L [facility] ALT 57(H) 7 - 55 Units/L [facility] AST 80(H) 10 - 50 Units/L [facility] Blood 04/18/2025 11:2 9 PM CDT 04/19/2025 12:37 AM CDT us Irene ImerNey Santana ADVANCED QUALITY ENGINEER LAB BLOOD ORDERABLES Final Re sult [facility] [place] [address] * XR Chest PA Lateral 2 Views (04/18/2025 2:34 PM CDT) Anatomical Region Laterality Modality Body, Chest N/A Computed Radiogr aphy 04/18/2025 5:07 PM CDT Impressions 04/18/2025 5:07 PM CDT Comparison made to 04/17/2025 Similar position of median sternotomy wires, right chest tube, and right chest embolization coils. Right chest wall gas. Right rib fractures. Similar cardiomediastinal silhouette. Similar right lung opacities, compatible with small pleural effusion/hemothorax and atelectasis, better appreciated on the CT. Although difficult to identify due to overlying ribs and the hemothorax/atelectasis; the suspected right apical pneumothorax is similar size accounting for differences in patient position. Electronically signed by: Scott Brar M.D. Narrative 04/18/2025 5:07 PM CDT EXAMINATION: 2 view chest radiograph Procedure Note Scott Brar MD - 04/18/2025 EXAMINATION: 2 view chest radiograph IMPRESSION: Comparison made to 04/17/2025 Similar position of median sternotomy wires, right chest tube, and right chest embolization coils. Right chest wall gas. Right rib fractures. Similar cardiomediastinal silhouette. Similar right lung opacities, compatible with small pleural effusion/hemothorax and atelectasis, better appreciated on the CT. Although difficult to identify due to overlying ribs and the hemothorax/atelectasis; the suspected right apical pneumothorax is similar size accounting for differences in patient position. Electronically signed by: Scott Brar M.D. us Kayleigh Herrera MD IMG XR PROCEDURES Nicolette l Result * XR Chest 1 View (04/17/2025 6:39 PM CDT) Anatomical Region Laterality Modality Body, Chest N/A Digital Radiogra phy 04/18/2025 8:54 AM CDT Impressions 04/18/2025 10:20 AM CDT Comparison is made to 04/17/2025 at 2:15 AM. Mediastinal wires are noted. Embolization coils project over the right medial hemithorax. Right thoracostomy tube in place. There is a persistent small right apical pneumothorax. No left pneumothorax. Small layering right pleural effusion. The heart and mediastinal contours are stable. Dictated by: Gomez Daly MD The radiology attending physician has personally reviewed this study, and had reviewed and/or edited this written report and agrees with it. Electronically signed by: Christiano Duque M.D. Narrative 04/18/2025 10:20 AM CDT EXAMINATION: 1 view chest radiograph Procedure Note Christiano Duque MD - 04/18/2025 EXAMINATION: 1 view chest radiograph IMPRESSION: Comparison is made to 04/17/2025 at 2:15 AM. Mediastinal wires are noted. Embolization coils project over the right medial hemithorax. Right thoracostomy tube in place. There is a persistent small right apical pneumothorax. No left pneumothorax. Small layering right pleural effusion. The heart and mediastinal contours are stable. Dictated by: Gomez Daly MD The radiology attending physician has personally reviewed this study, and had reviewed and/or edited this written report and agrees with it. Electronically signed by: Christiano Duque M.D. Kayleigh Herrera MD IMG XR PROCEDURES Nicolette l Result * (ABNORMAL) eGFR (04/17/2025 4:22 PM CDT) eGFR 49(L) >=60 mL/min/1. 73 m2 Comment: Interpretive Data Reference Interval Normal >/= 90 mL/min/1.73m2 Mildly decreased* 60 - 89 mL/min/1.73m2 Mildly to moderately decreased 45 - 59 mL/min/1.73m2 Moderately to severely decreased 30 - 44 mL/min/1.73m2 Severely decreased 15 - 29 mL/min/1.73m2 Kidney Failure < 15 mL/min/1.73m2 *Relative to young adult level Estimated glomerular filtration rate is determined by the 2020 CKD-EPI equation recommended by the National Kidney Foundation (A Unifying Approach to GFR Estimation: Recommendations of the NKF-ASK Task Force on Reassessing the Inclusion of Race in Diagnosing Kidney Disease, JASN 2020). The CKD-EPI equation should not be used for patients with unstable renal function and has not been validated in children and those over 70. Current interpretive data was last reviewed 2021. Blood 04/17/2025 4:22 PM CDT 04/17/2025 5:06 PM CDT us Irene Santana NP LAB BLOOD ORDERABLES Final Re sult [facility] [place] [address] * (ABNORMAL) CBC without differential (04/17/2025 4:22 PM CDT) WBC 15.15(H) 3.80 - 9.90 K/cumm Hgb 8.6(L) 13.0 - 17.5 g/dL [facility] Hct 24.7(L) 38.9 - 50.3 % [facility] Plt 146(L) 150 - 400 K/cumm [facility] MPV 10.6 9.1 - 12.3 fL [facility] RBC 2.87(L) 4.30 - 5.80 M/cumm [facility] MCV 86.1 81.3 - 96.4 fL [facility] MCH 30.0 27.1 - 33.3 pg [facility] MCHC 34.8 32.3 - 35.7 g/dL [facility] RDW CV 15.0(H) 11.1 - 14.9 % [facility] RDW SD 46.8 35.7 - 48.1 fL [facility] NRBC abs 0.00 0.00 - 0.01 K/cumm [facility] Blood 04/17/2025 4:22 PM CDT 04/17/2025 4:44 PM CDT Kayleigh Herrera MD LAB BLOOD ORDERABLES F inal Result Performing Organization Address [facility] de Phone Number [facility] [place] [address] * Type and screen (04/17/2025 4:22 PM CDT) Pathologist [facility] ABO Rh A Positive Owen, indirect Negative [facility] Blood 04/17/2025 4:22 PM CDT 04/17/2025 4:48 PM CDT Narrative [facility] - 04/17/2025 5:54 PM CDT Has the patient had Daratumumab or Isatuximab in the past 6 months?->Unknown Justino Mejia MD LAB BLOOD BANK TEST ORDE RABLES Final Result Performing Organization Address [facility]/[place] Co de Phone Number [facility] [place] [address] * Magnesium (04/17/2025 4:22 PM CDT) [facility] Magnesium 2.5 1.4 - 2.5 mg/dL Blood 04/17/2025 4:22 PM CDT 04/17/2025 4:36 PM CDT Kayleigh Herrera MD LAB BLOOD ORDERABLES F inal Result Performing Organization Address [facility]/[place] [address] * (ABNORMAL) Comprehensive metabolic panel (04/17/2025 4:22 PM CDT) [facility] Sodium 134(L) 135 - 145 mmol/L Potassium, pl 4.7 3.3 - 4.9 mmol/L [facility] Comment:Hemolyzed; Potassium value may be falsely elevated by as much as 0.6-1.0 mmol/L. Suggest redraw and reanalysis. Chloride 101 97 - 110 mmol/L [facility] CO2 26 22 - 32 mmol/L [facility] Anion gap 7 2 - 15 mmol/L [facility] BUN 36(H) 6 - 25 mg/dL [facility] Creatinine 1.50(H) 0.80 - 1.30 mg/dL [facility] Glucose 93 70 - 199 mg/dL [facility] Comment: Interpretive Data Fasting glucose >/= 126 mg/dl is diagnostic for diabetes. Fasting is defined as no caloric intake for at least 8 hours. Fasting glucose between 100 mg/dl to 125 mg/dl is diagnostic of prediabetes. In a patient with classic symptoms of hyperglycemia or hyperglycemic crisis, a random glucose >/= 200 mg/dl is diagnostic for diabetes. In the absence of unequivocal hyperglycemia, results should be confirmed by repeat testing. The classification and Diagnosis of Diabetes Diabetes Care 202; 46: S19-S40. Current interpretive data was last revised 2022. Calcium 8.9 8.5 - 10.3 mg/dL [facility] Bilirubin, total 0.8 0.1 - 1.2 mg/dL [facility] Protein, pl 6.4(L) 6.5 - 8.5 g/dL [facility] Albumin 3.4(L) 3.5 - 5.0 g/dL [facility] Alk phos 80 40 - 130 Units/L [facility] ALT 68(H) 7 - 55 Units/L [facility] AST 175(H) 10 - 50 Units/L [facility] Comment:Hemolyzed; result ma y be falsely elevated Blood 04/17/2025 4:22 PM CDT 04/17/2025 4:36 PM CDT us Irene Santana ADVANCED QUALITY ENGINEER LAB BLOOD ORDERABLES Final Re sult [facility] [place] [address] * POCT glucose (04/17/2025 7:07 AM CDT) Glucose, POC 86 70 - 199 mg/dL Blood 04/17/2025 7:07 AM CDT 04/17/2025 7:07 AM CDT us Kayleigh Herrera MD LAB POCT ORDERABLES - DEVICE Final Result Performing Organization Address City/State/[place] Phone Number [facility] [place] [address] * XR Chest 1 View (04/17/2025 2:25 AM CDT) Anatomical Region Laterality Modality Body, Chest N/A Computed Radiogr aphy 04/17/2025 10:0 6 AM CDT Impressions 04/17/2025 11:37 AM CDT There are 3 studies measured for interpretation. Study dated 04/16/2025 at 5:13 PM. IMPRESSION: Interval removal of right internal jugular central venous catheter. Stable positioning of median sternotomy wires. Stable positioning of right-sided thoracostomy tube. Embolization coils projecting over the medial right hemithorax. Moderate hemopneumothorax, decreased from prior and better evaluated on CT dated 04/16/2025. No pneumothorax or pulmonary edema. Stable heart size. Study dated 04/16/2025 at 10:03 PM. IMPRESSION: Interval increase in right hemopneumothorax. Study dated 04/17/2025. IMPRESSION: Interval decrease in blood component of hemopneumothorax, small residual right apical pneumothorax. Dictated by: Dino Hutchison M.D. The radiology attending physician has personally reviewed this study, and had reviewed and/or edited this written report and agrees with it. Electronically signed by: Joseph Mercedes M.D. Narrative 04/17/2025 11:37 AM CDT EXAMINATION: 1 view chest radiograph, 1 view chest radiograph, 1 view chest radiograph Procedure Note Joseph Mercedes MD - 04/17/2025 EXAMINATION: 1 view chest radiograph, 1 view chest radiograph, 1 view chest radiograph IMPRESSION: There are 3 studies measured for interpretation. Study dated 04/16/2025 at 5:13 PM. IMPRESSION: Interval removal of right internal jugular central venous catheter. Stable positioning of median sternotomy wires. Stable positioning of right-sided thoracostomy tube. Embolization coils projecting over the medial right hemithorax. Moderate hemopneumothorax, decreased from prior and better evaluated on CT dated 04/16/2025. No pneumothorax or pulmonary edema. Stable heart size. Study dated 04/16/2025 at 10:03 PM. IMPRESSION: Interval increase in right hemopneumothorax. Study dated 04/17/2025. IMPRESSION: Interval decrease in blood component of hemopneumothorax, small residual right apical pneumothorax. Dictated by: Dino Hutchison M.D. The radiology attending physician has personally reviewed this study, and had reviewed and/or edited this written report and agrees with it. Electronically signed by: Joseph Mercedes M.D. Kaylegih Herrera MD IMG XR PROCEDURES Nicolette l Result * Critical Care (04/16/2025 11:59 PM CDT) Narrative Russell Velazco MD - 04/16/2025 11:59 PM CDT Russell Velazco MD 04/19/2025 1:31 PM Critical Care Performed by: Russell Velazco MD Authorized by: Russell Velazco MD CRITICAL CARE: Team: SICU RED Shift: PM Level of Billing: Critical Care My time spent with this patient was 31 minutes: Critical Provider Statement: I have seen and examined the patient on this day of service. I have reviewed and confirmed the history, physical exam, laboratory and radiologic data as documented in the signed ICU note. I have reviewed and discussed my treatment plan with the ICU team and other medical/datastage consultant staff, making frequent assessments and decisions regarding this patient's complex medical care. Critical Care time was exclusive of time spent performing separately billed procedures, treating other patients, and teaching. This time was in addition to and separate from critical care provided by other practitioners in my group on this day of service. Critical Care was necessary to treat or prevent imminent or life-threatening deterioration of the following conditions: Acute pain/acute postoperative pain Hemo/pneumothorax This time was spent by me doing the following: Serial bedside patient exams Acute pain control Active and frequent reassessment of respiratory status and oxygen requirements and Incentive spirometry, pulmonary toilet Thoracostomy tube management I spent time reviewing and interpreting data from bedside monitors, laboratory results, and imaging, I spent time documenting in the medical record and I spent time discussing the management of this critically ill patient with consultants and the medical staff us Russell Velazco MD IN CLINIC/BEDSIDE ORDERABLES Fin al Result * XR Chest 1 View (04/16/2025 10:05 PM CDT) Anatomical Region Laterality Modality Body, Chest N/A Digital Radiogra phy 04/17/2025 10:0 6 AM CDT Impressions 04/17/2025 11:37 AM CDT There are 3 studies measured for interpretation. Study dated 04/16/2025 at 5:13 PM. IMPRESSION: Interval removal of right internal jugular central venous catheter. Stable positioning of median sternotomy wires. Stable positioning of right-sided thoracostomy tube. Embolization coils projecting over the medial right hemithorax. Moderate hemopneumothorax, decreased from prior and better evaluated on CT dated 04/16/2025. No pneumothorax or pulmonary edema. Stable heart size. Study dated 04/16/2025 at 10:03 PM. IMPRESSION: Interval increase in right hemopneumothorax. Study dated 04/17/2025. IMPRESSION: Interval decrease in blood component of hemopneumothorax, small residual right apical pneumothorax. Dictated by: Dino Hutchison M.D. The radiology attending physician has personally reviewed this study, and had reviewed and/or edited this written report and agrees with it. Electronically signed by: Joseph Mercedes M.D. Narrative 04/17/2025 11:37 AM CDT EXAMINATION: 1 view chest radiograph, 1 view chest radiograph, 1 view chest radiograph Procedure Note Joseph Mercedes MD - 04/17/2025 EXAMINATION: 1 view chest radiograph, 1 view chest radiograph, 1 view chest radiograph IMPRESSION: There are 3 studies measured for interpretation. Study dated 04/16/2025 at 5:13 PM. IMPRESSION: Interval removal of right internal jugular central venous catheter. Stable positioning of median sternotomy wires. Stable positioning of right-sided thoracostomy tube. Embolization coils projecting over the medial right hemithorax. Moderate hemopneumothorax, decreased from prior and better evaluated on CT dated 04/16/2025. No pneumothorax or pulmonary edema. Stable heart size. Study dated 04/16/2025 at 10:03 PM. IMPRESSION: Interval increase in right hemopneumothorax. Study dated 04/17/2025. IMPRESSION: Interval decrease in blood component of hemopneumothorax, small residual right apical pneumothorax. Dictated by: Dino Hutchison M.D. The radiology attending physician has personally reviewed this study, and had reviewed and/or edited this written report and agrees with it. Electronically signed by: Joseph Mercedes M.D. Kayleigh Herrera MD IMG XR PROCEDURES Nicolette l Result * (ABNORMAL) eGFR (04/16/2025 9:02 PM CDT) eGFR 38(L) >=60 mL/min/1. 73 m2 Comment: Interpretive Data Reference Interval Normal >/= 90 mL/min/1.73m2 Mildly decreased* 60 - 89 mL/min/1.73m2 Mildly to moderately decreased 45 - 59 mL/min/1.73m2 Moderately to severely decreased 30 - 44 mL/min/1.73m2 Severely decreased 15 - 29 mL/min/1.73m2 Kidney Failure < 15 mL/min/1.73m2 *Relative to young adult level Estimated glomerular filtration rate is determined by the 2020 CKD-EPI equation recommended by the National Kidney [employer] (A Unifying Approach to GFR Estimation: Recommendations of the NKF-ASK Task Force on Reassessing the Inclusion of Race in Diagnosing Kidney Disease, JASN 202). The CKD-EPI equation should not be used for patients with unstable renal function and has not been validated in children and those over 70. Current interpretive data was last reviewed 2021. Blood 04/16/2025 9:02 PM CDT 04/16/2025 10:07 PM CDT Kayleigh Herrera MD LAB BLOOD ORDERABLES F inal Result Performing Organization Address [facility]/ZIP Co de Phone Number [facility] [place] [address] * (ABNORMAL) CBC without differential (04/16/2025 9:02 PM CDT) WBC 12.90(H) 3.80 - 9.90 K/cumm Hgb 8.3(L) 13.0 - 17.5 g/dL [facility] Hct 23.8(L) 38.9 - 50.3 % [facility] Plt 104(L) 150 - 400 K/cumm [facility] MPV 10.4 9.1 - 12.3 fL [facility] RBC 2.79(L) 4.30 - 5.80 M/cumm [facility] MCV 85.3 81.3 - 96.4 fL [facility] MCH 29.7 27.1 - 33.3 pg [facility] MCHC 34.9 32.3 - 35.7 g/dL [facility] RDW CV 15.1(H) 11.1 - 14.9 % [facility] RDW SD 46.9 35.7 - 48.1 fL [facility] NRBC abs 0.00 0.00 - 0.01 K/cumm [facility] Blood 04/16/2025 9:02 PM CDT 04/16/2025 9:56 PM CDT Priscilla Tucker NP LAB BLOOD ORDERABLES Fin al Result [facility] [place] [address] * Phosphorus (04/16/2025 9:02 PM CDT) Phosphorus, pl 2.8 2.3 - 4.5 mg/dL Blood 04/16/2025 9:02 PM CDT 04/16/2025 10:07 PM CDT Kayleigh Herrera MD LAB BLOOD ORDERABLES F inal Result Performing Organization Address City/[facility]/ZIP Co de Phone Number [facility] [place] [address] * Magnesium (04/16/2025 9:02 PM CDT) Pathologist [facility] Magnesium 2.5 1.4 - 2.5 mg/dL Blood 04/16/2025 9:02 PM CDT 04/16/2025 10:07 PM CDT Kayleigh Herrera MD LAB BLOOD ORDERABLES F inal Result Performing Organization Address [facility] de Phone Number [facility] [place] [address] * (ABNORMAL) Comprehensive metabolic panel (04/16/2025 9:02 PM CDT) Pathologist [facility] Sodium 135 135 - 145 mmol/L Potassium, pl 4.1 3.3 - 4.9 mmol/L [facility] Chloride 102 97 - 110 mmol/L [facility] CO2 27 22 - 32 mmol/L [facility] Anion gap 6 2 - 15 mmol/L [facility] BUN 37(H) 6 - 25 mg/dL [facility] Creatinine 1.86(H) 0.80 - 1.30 mg/dL [facility] Glucose 112 70 - 199 mg/dL [facility] Comment: Interpretive Data Fasting glucose >/= 126 mg/dl is diagnostic for diabetes. Fasting is defined as no caloric intake for at least 8 hours. Fasting glucose between 100 mg/dl to 125 mg/dl is diagnostic of prediabetes. In a patient with classic symptoms of hyperglycemia or hyperglycemic crisis, a random glucose >/= 200 mg/dl is diagnostic for diabetes. In the absence of unequivocal hyperglycemia, results should be confirmed by repeat testing. The classification and Diagnosis of Diabetes Diabetes Care 2021; 46: S19-S40. Current interpretive data was last revised 2022. Calcium 8.5 8.5 - 10.3 mg/dL [facility] Bilirubin, total 0.7 0.1 - 1.2 mg/dL [facility] Protein, pl 5.6(L) 6.5 - 8.5 g/dL [facility] Albumin 3.2(L) 3.5 - 5.0 g/dL [facility] Alk phos 62 40 - 130 Units/L [facility] ALT 67(H) 7 - 55 Units/L [facility] AST 183(H) 10 - 50 Units/L [facility] Blood 04/16/2025 9:02 PM CDT 04/16/2025 10:07 PM CDT us Kayleigh Herrera MD LAB BLOOD ORDERABLES F inal Result [facility] [place] [address] * XR Chest 1 View (04/16/2025 6:43 PM CDT) Anatomical Region Laterality Modality Body, Chest N/A Digital Radiogra phy 04/17/2025 10:0 6 AM CDT Impressions 04/17/2025 11:37 AM CDT There are 3 studies measured for interpretation. Study dated 04/16/2025 at 5:13 PM. IMPRESSION: Interval removal of right internal jugular central venous catheter. Stable positioning of median sternotomy wires. Stable positioning of right-sided thoracostomy tube. Embolization coils projecting over the medial right hemithorax. Moderate hemopneumothorax, decreased from prior and better evaluated on CT dated 04/16/2025. No pneumothorax or pulmonary edema. Stable heart size. Study dated 04/16/2025 at 10:03 PM. IMPRESSION: Interval increase in right hemopneumothorax. Study dated 04/17/2025. IMPRESSION: Interval decrease in blood component of hemopneumothorax, small residual right apical pneumothorax. Dictated by: Dino Hutchison M.D. The radiology attending physician has personally reviewed this study, and had reviewed and/or edited this written report and agrees with it. Electronically signed by: Joseph Mercedes M.D. Narrative 04/17/2025 11:37 AM CDT EXAMINATION: 1 view chest radiograph, 1 view chest radiograph, 1 view chest radiograph Procedure Note Joseph Mercedes MD - 04/17/2025 EXAMINATION: 1 view chest radiograph, 1 view chest radiograph, 1 view chest radiograph IMPRESSION: There are 3 studies measured for interpretation. Study dated 04/16/2025 at 5:13 PM. IMPRESSION: Interval removal of right internal jugular central venous catheter. Stable positioning of median sternotomy wires. Stable positioning of right-sided thoracostomy tube. Embolization coils projecting over the medial right hemithorax. Moderate hemopneumothorax, decreased from prior and better evaluated on CT dated 04/16/2025. No pneumothorax or pulmonary edema. Stable heart size. Study dated 04/16/2025 at 10:03 PM. IMPRESSION: Interval increase in right hemopneumothorax. Study dated 04/17/2025. IMPRESSION: Interval decrease in blood component of hemopneumothorax, small residual right apical pneumothorax. Dictated by: Dino Hutchison M.D. The radiology attending physician has personally reviewed this study, and had reviewed and/or edited this written report and agrees with it. Electronically signed by: Joseph Mercedes M.D. us Kayleigh Herrera MD IMG XR PROCEDURES Nicolette l Result * CT Chest W Contrast (04/16/2025 2:37 PM CDT) Anatomical Region Laterality Modality Body N/A Computed Tomogra phy 04/16/2025 3:10 PM CDT Impressions 04/16/2025 3:10 PM CDT 1. Interval changes of coil embolization of the right 9th through 11th intercostal arteries, with slight interval decrease in size of moderate-sized loculated right subpleural hematoma and persistent small right hemopneumothorax. Electronically signed by: Paul Draper MD PHD Narrative 04/16/2025 3:10 PM CDT EXAMINATION: Computed tomography of the chest with intravenous contrast HISTORY: Right hemothorax status post right 9th-11th intercostal artery embolization 04/14/2025. TECHNIQUE: Transaxial computed tomographic images of the chest were obtained with intravenous contrast according to the standard protocol after the administration of 69 mL Opti-Ray 350 intravenous contrast. COMPARISON: 04/14/2025 FINDINGS: Interval changes of coil embolization of the right 9th through 11th intercostal arteries. There is a moderate-sized loculated right subpleural hematoma with a right chest tube in place and slight interval decrease in size of the apical component relative to the prior. Unchanged small right hemopneumothorax. Combination of atelectasis and aspiration in the right lung base with debris in the trachea and right sided bronchi with mucous plugging in the right lower lobe. There is a small left pleural effusion with mild left basilar atelectasis. Right internal jugular central venous catheter terminates at the superior cavoatrial junction. Heart is normal in size. There are coronary artery calcifications. No pericardial effusion. 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 No thoracic lymphadenopathy. Images of the upper abdomen demonstrate scattered hepatic cysts. Again seen are right fifth through eleventh rib fractures and left second through fifth rib fractures with mild displacement of the left second rib fracture. Procedure Note Paul Draper MD PhD - 04/16/2025 EXAMINATION: Computed tomography of the chest with intravenous contrast HISTORY: Right hemothorax status post right 9th-11th intercostal artery embolization 04/14/2025. TECHNIQUE: Transaxial computed tomographic images of the chest were obtained with intravenous contrast according to the standard protocol after the administration of 69 mL Opti-Ray 350 intravenous contrast. COMPARISON: 04/14/2025 FINDINGS: Interval changes of coil embolization of the right 9th through 11th intercostal arteries. There is a moderate-sized loculated right subpleural hematoma with a right chest tube in place and slight interval decrease in size of the apical component relative to the prior. Unchanged small right hemopneumothorax. Combination of atelectasis and aspiration in the right lung base with debris in the trachea and right sided bronchi with mucous plugging in the right lower lobe. There is a small left pleural effusion with mild left basilar atelectasis. Right internal jugular central venous catheter terminates at the superior cavoatrial junction. Heart is normal in size. There are coronary artery calcifications. No pericardial effusion. 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 No thoracic lymphadenopathy. Images of the upper abdomen demonstrate scattered hepatic cysts. Again seen are right fifth through eleventh rib fractures and left second through fifth rib fractures with mild displacement of the left second rib fracture. IMPRESSION: 1. Interval changes of coil embolization of the right 9th through 11th intercostal arteries, with slight interval decrease in size of moderate-sized loculated right subpleural hematoma and persistent small right hemopneumothorax. Electronically signed by: Paul Draper MD PHD us Priscilla Tucker NP IMG CT PROCEDURES Final Result * (ABNORMAL) CBC without differential (04/16/2025 1:31 PM CDT) WBC 14.61(H) 3.80 - 9.90 K/cumm Hgb 8.6(L) 13.0 - 17.5 g/dL [facility] Hct 24.2(L) 38.9 - 50.3 % [facility] Plt 104(L) 150 - 400 K/cumm [facility] MPV 10.6 9.1 - 12.3 fL [facility] RBC 2.88(L) 4.30 - 5.80 M/cumm [facility] MCV 84.0 81.3 - 96.4 fL [facility] MCH 29.9 27.1 - 33.3 pg [facility] MCHC 35.5 32.3 - 35.7 g/dL [facility] RDW CV 14.9 11.1 - 14.9 % [facility] RDW SD 45.8 35.7 - 48.1 fL [facility] NRBC abs 0.00 0.00 - 0.01 K/cumm [facility] Blood 04/16/2025 1:31 PM CDT 04/16/2025 1:41 PM CDT us Priscilla Tucker NP LAB BLOOD ORDERABLES Fin al Result [facility] [place] [address] * POCT glucose (04/16/2025 11:28 AM CDT) Glucose, POC 104 70 - 199 mg/dL Blood 04/16/2025 11:2 8 AM CDT 04/16/2025 11:28 AM CDT Kayleigh Herrera MD LAB POCT ORDERABLES - DEVICE Final Result [facility] [place] [address] * Critical Care (04/16/2025 10:31 AM CDT) Narrative Daxa Ramirez MD - 04/16/2025 10:31 AM CDT Daxa Ramirez MD 04/16/2025 6:02 PM Critical Care Performed by: Daxa Ramirez MD Authorized by: Daxa Ramirez MD CRITICAL CARE: Team: SICU RED Shift: AM Level of Billing: Critical Care My time spent with this patient was 90 minutes: Critical Provider Statement: I have seen and examined the patient on this day of service. I have reviewed and confirmed the history, physical exam, laboratory and radiologic data as documented in the signed ICU note. I have reviewed and discussed my treatment plan with the ICU team and other medical/datastage consultant staff, making frequent assessments and decisions regarding this patient's complex medical care. Critical Care time was exclusive of time spent performing separately billed procedures, treating other patients, and teaching. This time was in addition to and separate from critical care provided by other practitioners in my group on this day of service. Critical Care was necessary to treat or prevent imminent or life-threatening deterioration of the following conditions: Acute pain/acute postoperative pain, Acute intracranial hemorrhage and Seizure Acute kidney injury and Hypo- or Hyperglycemia Hemo/pneumothorax and Traumatic brain injury This time was spent by me doing the following: Serial laboratory checks, Serial bedside patient exams and Obtaining peripheral venous access or blood draws Acute pain control Active and frequent reassessment of respiratory status and oxygen requirements and Incentive spirometry, pulmonary toilet Active and frequent monitoring of intake/output and volumen status and Glycemic control I spent time reviewing and interpreting data from bedside monitors, laboratory results, and imaging, I spent time discussing the management of this critically ill patient with consultants and the medical staff and I spent time documenting in the medical record us Daxa Ramirez MD IN CLINIC/BEDSIDE ORDERABLE S Edited Result - Final * (ABNORMAL) eGFR (04/16/2025 8:37 AM CDT) eGFR 28(L) >=60 mL/min/1. 73 m2 Comment: Interpretive Data Reference Interval Normal >/= 90 mL/min/1.73m2 Mildly decreased* 60 - 89 mL/min/1.73m2 Mildly to moderately decreased 45 - 59 mL/min/1.73m2 Moderately to severely decreased 30 - 44 mL/min/1.73m2 Severely decreased 15 - 29 mL/min/1.73m2 Kidney Failure < 15 mL/min/1.73m2 *Relative to young adult level Estimated glomerular filtration rate is determined by the 2020 CKD-EPI equation recommended by the National Kidney Foundation (A Unifying Approach to GFR Estimation: Recommendations of the NKF-ASK Task Force on Reassessing the Inclusion of Race in Diagnosing Kidney Disease, JASN 2020). The CKD-EPI equation should not be used for patients with unstable renal function and has not been validated in children and those over 70. Current interpretive data was last reviewed 2021. Blood 04/16/2025 8:37 AM CDT 04/16/2025 10:05 AM CDT us Kayleigh Herrera MD LAB BLOOD ORDERABLES F inal Result [facility] [place] [address] * (ABNORMAL) Comprehensive metabolic panel (04/16/2025 8:37 AM CDT) Sodium 137 135 - 145 mmol/L Potassium, pl 3.9 3.3 - 4.9 mmol/L [facility] Chloride 102 97 - 110 mmol/L [facility] CO2 25 22 - 32 mmol/L [facility] Anion gap 10 2 - 15 mmol/L [facility] BUN 38(H) 6 - 25 mg/dL [facility] Creatinine 2.38(H) 0.80 - 1.30 mg/dL [facility] Glucose 90 70 - 199 mg/dL [facility] Comment: Interpretive Data Fasting glucose >/= 126 mg/dl is diagnostic for diabetes. Fasting is defined as no caloric intake for at least 8 hours. Fasting glucose between 100 mg/dl to 125 mg/dl is diagnostic of prediabetes. In a patient with classic symptoms of hyperglycemia or hyperglycemic crisis, a random glucose >/= 200 mg/dl is diagnostic for diabetes. In the absence of unequivocal hyperglycemia, results should be confirmed by repeat testing. The classification and Diagnosis of Diabetes Diabetes Care 202; 46: S19-S40. Current interpretive data was last revised 2022. Calcium 8.4(L) 8.5 - 10.3 mg/dL [facility] Bilirubin, total 0.7 0.1 - 1.2 mg/dL [facility] Protein, pl 5.5(L) 6.5 - 8.5 g/dL [facility] Albumin 3.2(L) 3.5 - 5.0 g/dL [facility] Alk phos 66 40 - 130 Units/L [facility] ALT 73(H) 7 - 55 Units/L [facility] AST 212(H) 10 - 50 Units/L [facility] Blood 04/16/2025 8:37 AM CDT 04/16/2025 10:05 AM CDT us Kayleigh Herrera MD LAB BLOOD ORDERABLES F inal Result [facility] [place] [address] * POCT glucose (04/16/2025 7:28 AM CDT) [facility] Signature Glucose, POC 72 70 - 199 mg/dL Blood 04/16/2025 7:28 AM CDT 04/16/2025 7:28 AM CDT Kayleigh Herrera MD LAB POCT ORDERABLES - DEVICE Final Result [facility] [place] [address] * Critical Care (04/16/2025 6:30 AM CDT) Narrative Daxa Ramirez MD - 04/16/2025 6:30 AM CDT Daxa Ramirez MD 04/16/2025 6:09 PM Critical Care Performed by: Priscilla Tucker NP Authorized by: Priscilla Tucker NP CRITICAL CARE: Team: SICU RED Shift: AM Level of Billing: Critical Care My time spent with this patient was 100 minutes: Critical Provider Statement: I have seen and examined the patient on this day of service. I have reviewed and confirmed the history, physical exam, laboratory and radiologic data as documented in the signed ICU note. I have reviewed and discussed my treatment plan with the ICU team and other medical/datastage consultant staff, making frequent assessments and decisions regarding this patient's complex medical care. Critical Care time was exclusive of time spent performing separately billed procedures, treating other patients, and teaching. This time was in addition to and separate from critical care provided by other practitioners in my group on this day of service. Critical Care was necessary to treat or prevent imminent or life-threatening deterioration of the following conditions: I spent time reviewing and interpreting data from bedside monitors, laboratory results, and imaging, I spent time discussing the management of this critically ill patient with consultants and the medical staff and I spent time documenting in the medical record us Priscilla Tucker NP IN CLINIC/BEDSIDE ORDERA BLES Final Result * (ABNORMAL) Differential, auto (04/16/2025 4:11 AM CDT) Neutrophil abs 10.40(H) 1.50 - 6.50 K/cumm Imm gran abs 0.06 0.00 - 0.10 K/cumm [facility] Lymphocyte abs 0.89 0.80 - 3.30 K/cumm [facility] Monocyte abs 1.35(H) 0.20 - 0.80 K/cumm [facility] Eosinophil abs 0.02 0.00 - 0.50 K/cumm [facility] Basophil abs 0.05 0.00 - 0.10 K/cumm [facility] Neutrophil pct 81.3 % [facility] Comment: Interpretive Data Percent cell count reference ranges are not reported, since discordance with absolute values may lead to misinterpretation of CBC data. Current Interpretive Data was last revised on 2017. Imm gran pct 0.5 % [facility] Comment: Interpretive Data Percent cell count reference ranges are not reported, since discordance with absolute values may lead to misinterpretation of CBC data. Current Interpretive Data was last revised on 2017. Lymphocyte pct 7.0 % [facility] Comment: Interpretive Data Percent cell count reference ranges are not reported, since discordance with absolute values may lead to misinterpretation of CBC data. Current Interpretive Data was last revised on 2017. Monocyte pct 10.6 % [facility] Comment: Interpretive Data Percent cell count reference ranges are not reported, since discordance with absolute values may lead to misinterpretation of CBC data. Current Interpretive Data was last revised on 2017. Eosinophil pct 0.2 % [facility] Comment: Interpretive Data Percent cell count reference ranges are not reported, since discordance with absolute values may lead to misinterpretation of CBC data. Current Interpretive Data was last revised on 2017. Basophil pct 0.4 % [facility] Comment: Interpretive Data Percent cell count reference ranges are not reported, since discordance with absolute values may lead to misinterpretation of CBC data. Current Interpretive Data was last revised on 2017. Blood 04/16/2025 4:11 AM CDT 04/16/2025 5:21 AM CDT us Kayleigh Herrera MD LAB BLOOD ORDERABLES F inal Result [facility] [place] [address] * (ABNORMAL) CBC with auto differential (04/16/2025 4:11 AM CDT) WBC 12.77(H) 3.80 - 9.90 K/cumm Hgb 8.6(L) 13.0 - 17.5 g/dL [facility] Hct 25.0(L) 38.9 - 50.3 % [facility] Plt 97(L) 150 - 400 K/cumm [facility] MPV 10.9 9.1 - 12.3 fL [facility] RBC 2.96(L) 4.30 - 5.80 M/cumm [facility] MCV 84.5 81.3 - 96.4 fL [facility] MCH 29.1 27.1 - 33.3 pg [facility] MCHC 34.4 32.3 - 35.7 g/dL [facility] RDW CV 15.0(H) 11.1 - 14.9 % [facility] RDW SD 46.4 35.7 - 48.1 fL [facility] NRBC abs 0.00 0.00 - 0.01 K/cumm [facility] Blood 04/16/2025 4:11 AM CDT 04/16/2025 5:21 AM CDT Kayleigh Herrera MD LAB BLOOD ORDERABLES F inal Result Performing Organization Address [facility] Co de Phone Number [facility] [place] [address] * POCT glucose (04/16/2025 3:52 AM CDT) Glucose, POC 89 70 - 199 mg/dL Blood 04/16/2025 3:52 AM CDT 04/16/2025 3:52 AM CDT Kayleigh Herrera MD LAB POCT ORDERABLES - DEVICE Final Result Performing Organization Address [facility] Co de Phone Number [facility] [place] [address] * Transfuse RBC (04/16/2025 2:13 AM CDT) Blood Kayleigh Herrera MD BLOOD TRANSFUSION ORDE RABLES Final Result Performing Organization Address City/[facility] Co de Phone Number [facility] Department [place] [address] * POCT glucose (04/16/2025 12:10 AM CDT) Glucose, POC 122 70 - 199 mg/dL Blood 04/16/2025 12:1 0 AM CDT 04/16/2025 12:10 AM CDT Kayleigh Herrera MD LAB POCT ORDERABLES - DEVICE Final Result Performing Organization Address City/[facility] Co de Phone Number [facility] [place] [address] * Critical Care (04/15/2025 11:59 PM CDT) Narrative Russell Velazco MD - 04/15/2025 11:59 PM CDT Russell Velazco MD 04/16/2025 3:03 AM Critical Care Performed by: Russell Velazco MD Authorized by: Russell Velazco MD CRITICAL CARE: Team: SICU RED Shift: PM Level of Billing: Critical Care My time spent with this patient was 31 minutes: Critical Provider Statement: I have seen and examined the patient on this day of service. I have reviewed and confirmed the history, physical exam, laboratory and radiologic data as documented in the signed ICU note. I have reviewed and discussed my treatment plan with the ICU team and other medical/datastage consultant staff, making frequent assessments and decisions regarding this patient's complex medical care. Critical Care time was exclusive of time spent performing separately billed procedures, treating other patients, and teaching. This time was in addition to and separate from critical care provided by other practitioners in my group on this day of service. Critical Care was necessary to treat or prevent imminent or life-threatening deterioration of the following conditions: Acute intracranial hemorrhage Multiple rib fractures and Hemo/pneumothorax This time was spent by me doing the following: Acute pain control Active and frequent reassessment of respiratory status and oxygen requirements and Incentive spirometry, pulmonary toilet Thoracostomy tube management I spent time discussing the management of this critically ill patient with consultants and the medical staff, I spent time documenting in the medical record and I spent time reviewing and interpreting data from bedside monitors, laboratory results, and imaging Russell Velazco MD IN CLINIC/BEDSIDE ORDERABLES Fin al Result * Prepare RBC: 1 Units (04/15/2025 11:04 PM CDT) Product code [id number] Unit Number [id number] [facility] Product Blood Type APOS [facility] Dispense Status PRESUMED TRANSFUSED [facility] Blood 04/15/2025 11:0 4 PM CDT 04/15/2025 11:23 PM CDT Narrative [facility] - 04/16/2025 4:00 PM CDT Are special requirements needed? (All products are leukoreduced and CMV- safe)- >No Date required:-[id number] LRRBC # of [id number] Reasons:-Cardiovascular disease, Hgb <8 g/dL} Kayleigh Herrera MD BLOOD BANK PRODUCT ORD ERABLES Final Result [facility] [place] [address] * (ABNORMAL) eGFR (04/15/2025 7:56 PM CDT) eGFR 22(L) >=60 mL/min/1. 73 m2 Comment: Interpretive Data Reference Interval Normal >/= 90 mL/min/1.73m2 Mildly decreased* 60 - 89 mL/min/1.73m2 Mildly to moderately decreased 45 - 59 mL/min/1.73m2 Moderately to severely decreased 30 - 44 mL/min/1.73m2 Severely decreased 15 - 29 mL/min/1.73m2 Kidney Failure < 15 mL/min/1.73m2 *Relative to young adult level Estimated glomerular filtration rate is determined by the 2020 CKD-EPI equation recommended by the National Kidney Foundation (A Unifying Approach to GFR Estimation: Recommendations of the NKF-ASK Task Force on Reassessing the Inclusion of Race in Diagnosing Kidney Disease, JASN 2020). The CKD-EPI equation should not be used for patients with unstable renal function and has not been validated in children and those over 70. Current interpretive data was last reviewed 2021. Blood 04/15/2025 7:56 PM CDT 04/15/2025 8:52 PM CDT us Kayleigh Herrera MD LAB BLOOD ORDERABLES F inal Result [facility] [place] [address] * (ABNORMAL) Differential, auto (04/15/2025 7:56 PM CDT) Pathologist [facility] Neutrophil abs 12.59(H) 1.50 - 6.50 K/cumm Imm gran abs 0.09 0.00 - 0.10 K/cumm [facility] Lymphocyte abs 0.96 0.80 - 3.30 K/cumm [facility] Monocyte abs 1.44(H) 0.20 - 0.80 K/cumm [facility] Eosinophil abs 0.01 0.00 - 0.50 K/cumm [facility] Basophil abs 0.03 0.00 - 0.10 K/cumm [facility] Neutrophil pct 83.3 % [facility] Comment: Interpretive Data Percent cell count reference ranges are not reported, since discordance with absolute values may lead to misinterpretation of CBC data. Current Interpretive Data was last revised on 2017. Imm gran pct 0.6 % [facility] Comment: Interpretive Data Percent cell count reference ranges are not reported, since discordance with absolute values may lead to misinterpretation of CBC data. Current Interpretive Data was last revised on 2017. Lymphocyte pct 6.3 % [facility] Comment: Interpretive Data Percent cell count reference ranges are not reported, since discordance with absolute values may lead to misinterpretation of CBC data. Current Interpretive Data was last revised on 2017. Monocyte pct 9.5 % [facility] Comment: Interpretive Data Percent cell count reference ranges are not reported, since discordance with absolute values may lead to misinterpretation of CBC data. Current Interpretive Data was last revised on 2017. Eosinophil pct 0.1 % [facility] Comment: Interpretive Data Percent cell count reference ranges are not reported, since discordance with absolute values may lead to misinterpretation of CBC data. Current Interpretive Data was last revised on 2017. Basophil pct 0.2 % [facility] Comment: Interpretive Data Percent cell count reference ranges are not reported, since discordance with absolute values may lead to misinterpretation of CBC data. Current Interpretive Data was last revised on 2017. Blood 04/15/2025 7:56 PM CDT 04/15/2025 8:29 PM CDT Kayleigh Herrera MD LAB BLOOD ORDERABLES F inal Result [facility] [place] [address] * (ABNORMAL) CBC with auto differential (04/15/2025 7:56 PM CDT) WBC 15.12(H) 3.80 - 9.90 K/cumm Hgb 7.0(L) 13.0 - 17.5 g/dL [facility] Hct 20.1(L) 38.9 - 50.3 % [facility] Plt 119(L) 150 - 400 K/cumm [facility] MPV 10.9 9.1 - 12.3 fL [facility] RBC 2.44(L) 4.30 - 5.80 M/cumm [facility] MCV 82.4 81.3 - 96.4 fL [facility] MCH 28.7 27.1 - 33.3 pg [facility] MCHC 34.8 32.3 - 35.7 g/dL [facility] RDW CV 15.9(H) 11.1 - 14.9 % [facility] RDW SD 47.8 35.7 - 48.1 fL [facility] NRBC abs 0.00 0.00 - 0.01 K/cumm [facility] Blood 04/15/2025 7:56 PM CDT 04/15/2025 8:29 PM CDT us Kayleigh Herrera MD LAB BLOOD ORDERABLES F inal Result Performing Organization Address City/[facility] Co de Phone Number [facility] [place] [address] * (ABNORMAL) Phosphorus (04/15/2025 7:56 PM CDT) [facility] Phosphorus, pl 5.4(H) 2.3 - 4.5 mg/dL Blood 04/15/2025 7:56 PM CDT 04/15/2025 8:33 PM CDT us Yesjefferson العلي NP LAB BLOOD ORDERABLES Final Result Performing Organization Address [facility] de Phone Number [facility] [place] [address] * (ABNORMAL) Magnesium (04/15/2025 7:56 PM CDT) [facility] Magnesium 2.9(H) 1.4 - 2.5 mg/dL Blood 04/15/2025 7:56 PM CDT 04/15/2025 8:33 PM CDT [facility] Juana العلي NP LAB BLOOD ORDERABLES Final Result Performing Organization Address [facility] de Phone Number [facility] [place] [address] * (ABNORMAL) Comprehensive metabolic panel (04/15/2025 7:56 PM CDT) Sodium 134(L) 135 - 145 mmol/L Potassium, pl 3.8 3.3 - 4.9 mmol/L [facility] Chloride 99 97 - 110 mmol/L [facility] CO2 23 22 - 32 mmol/L [facility] Anion gap 12 2 - 15 mmol/L [facility] BUN 43(H) 6 - 25 mg/dL [facility] Creatinine 2.86(H) 0.80 - 1.30 mg/dL [facility] Glucose 103 70 - 199 mg/dL [facility] Comment: Interpretive Data Fasting glucose >/= 126 mg/dl is diagnostic for diabetes. Fasting is defined as no caloric intake for at least 8 hours. Fasting glucose between 100 mg/dl to 125 mg/dl is diagnostic of prediabetes. In a patient with classic symptoms of hyperglycemia or hyperglycemic crisis, a random glucose >/= 200 mg/dl is diagnostic for diabetes. In the absence of unequivocal hyperglycemia, results should be confirmed by repeat testing. The classification and Diagnosis of Diabetes Diabetes Care 2021; 46: S19-S40. Current interpretive data was last revised 2022. Calcium 8.3(L) 8.5 - 10.3 mg/dL [facility] Bilirubin, total 0.6 0.1 - 1.2 mg/dL [facility] Protein, pl 5.2(L) 6.5 - 8.5 g/dL [facility] Albumin 3.0(L) 3.5 - 5.0 g/dL [facility] Alk phos 53 40 - 130 Units/L [facility] ALT 81(H) 7 - 55 Units/L [facility] AST 222(H) 10 - 50 Units/L [facility] Blood 04/15/2025 7:56 PM CDT 04/15/2025 8:34 PM CDT us Kayleigh Herrera MD LAB BLOOD ORDERABLES F inal Result [facility] [place] [address] * POCT glucose (04/15/2025 7:51 PM CDT) Glucose, POC 121 70 - 199 mg/dL Blood 04/15/2025 7:51 PM CDT 04/15/2025 7:51 PM CDT us Kayleigh Herrera MD LAB POCT ORDERABLES - DEVICE Final Result [facility] [place] [address] * XR Chest 1 View (04/15/2025 6:27 PM CDT) Anatomical Region Laterality Modality Body, Chest N/A Computed Radiogr aphy 04/15/2025 6:56 PM CDT Impressions 04/15/2025 6:56 PM CDT Comparison 04/14/2025 2:53 PM. Endotracheal tube and feeding tube have been removed. Median sternotomy wires and embolization coils again seen. Single right chest tube remains in place. Right internal jugular central venous catheter again seen with tip overlying the superior vena cava. Moderate size right loculated hemothorax again seen, corresponding to findings on computed tomographic examination on 04/14/2025. Tiny right apical pneumothorax may be present. No left pneumothorax seen. Minimal left base atelectasis seen. No focal consolidation seen. Heart size remains within normal limits. Electronically signed by: Joseph Mercedes M.D. Narrative 04/15/2025 6:56 PM CDT EXAMINATION: 1 view chest radiograph Procedure Note Joseph Mercedes MD - 04/15/2025 EXAMINATION: 1 view chest radiograph IMPRESSION: Comparison 04/14/2025 2:53 PM. Endotracheal tube and feeding tube have been removed. Median sternotomy wires and embolization coils again seen. Single right chest tube remains in place. Right internal jugular central venous catheter again seen with tip overlying the superior vena cava. Moderate size right loculated hemothorax again seen, corresponding to findings on computed tomographic examination on 04/14/2025. Tiny right apical pneumothorax may be present. No left pneumothorax seen. Minimal left base atelectasis seen. No focal consolidation seen. Heart size remains within normal limits. Electronically signed by: Joseph Mercedes M.D. Kayleigh Herrera MD IMG XR PROCEDURES Nicolette l Result * POCT glucose (04/15/2025 5:05 PM CDT) Glucose, POC 121 70 - 199 mg/dL Blood 04/15/2025 5:05 PM CDT 04/15/2025 5:05 PM CDT Kayleigh Herrera MD LAB POCT ORDERABLES - DEVICE Final Result [facility] [place] [address] * (ABNORMAL) eGFR (04/15/2025 3:01 PM CDT) eGFR 23(L) >=60 mL/min/1. 73 m2 Comment: Interpretive Data Reference Interval Normal >/= 90 mL/min/1.73m2 Mildly decreased* 60 - 89 mL/min/1.73m2 Mildly to moderately decreased 45 - 59 mL/min/1.73m2 Moderately to severely decreased 30 - 44 mL/min/1.73m2 Severely decreased 15 - 29 mL/min/1.73m2 Kidney Failure < 15 mL/min/1.73m2 *Relative to young adult level Estimated glomerular filtration rate is determined by the 2020 CKD-EPI equation recommended by the National Kidney Foundation (A Unifying Approach to GFR Estimation: Recommendations of the NKF-ASK Task Force on Reassessing the Inclusion of Race in Diagnosing Kidney Disease, JASN 202). The CKD-EPI equation should not be used for patients with unstable renal function and has not been validated in children and those over 70. Current interpretive data was last reviewed 2021. Blood 04/15/2025 3:01 PM CDT 04/15/2025 3:36 PM CDT Kayleigh Herrera MD LAB BLOOD ORDERABLES F inal Result Performing Organization Address [facility] Co de Phone Number [facility] [place] [address] * (ABNORMAL) CBC without differential (04/15/2025 3:01 PM CDT) Pathologist [facility] WBC 17.29(H) 3.80 - 9.90 K/cumm Hgb 7.8(L) 13.0 - 17.5 g/dL [facility] Hct 22.5(L) 38.9 - 50.3 % [facility] Plt 130(L) 150 - 400 K/cumm [facility] MPV 10.6 9.1 - 12.3 fL [facility] RBC 2.72(L) 4.30 - 5.80 M/cumm [facility] MCV 82.7 81.3 - 96.4 fL [facility] MCH 28.7 27.1 - 33.3 pg [facility] MCHC 34.7 32.3 - 35.7 g/dL [facility] RDW CV 15.8(H) 11.1 - 14.9 % [facility] RDW SD 47.1 35.7 - 48.1 fL [facility] NRBC abs 0.00 0.00 - 0.01 K/cumm [facility] Blood 04/15/2025 3:01 PM CDT 04/15/2025 3:35 PM CDT Kayleigh Herrera MD LAB BLOOD ORDERABLES F inal Result Performing Organization Address [facility]/ZIP Co de Phone Number [facility] [place] [address] * (ABNORMAL) Comprehensive metabolic panel (04/15/2025 3:01 PM CDT) Pathologist [facility] Sodium 129(L) 135 - 145 mmol/L Potassium, pl 3.9 3.3 - 4.9 mmol/L [facility] Chloride 96(L) 97 - 110 mmol/L [facility] CO2 23 22 - 32 mmol/L [facility] Anion gap 10 2 - 15 mmol/L [facility] BUN 39(H) 6 - 25 mg/dL [facility] Creatinine 2.77(H) 0.80 - 1.30 mg/dL [facility] Glucose 109 70 - 199 mg/dL [facility] Comment: Interpretive Data Fasting glucose >/= 126 mg/dl is diagnostic for diabetes. Fasting is defined as no caloric intake for at least 8 hours. Fasting glucose between 100 mg/dl to 125 mg/dl is diagnostic of prediabetes. In a patient with classic symptoms of hyperglycemia or hyperglycemic crisis, a random glucose >/= 200 mg/dl is diagnostic for diabetes. In the absence of unequivocal hyperglycemia, results should be confirmed by repeat testing. The classification and Diagnosis of Diabetes Diabetes Care 2021; 46: S19-S40. Current interpretive data was last revised 2022. Calcium 8.4(L) 8.5 - 10.3 mg/dL [facility] Bilirubin, total 0.7 0.1 - 1.2 mg/dL [facility] Protein, pl 5.4(L) 6.5 - 8.5 g/dL [facility] Albumin 3.1(L) 3.5 - 5.0 g/dL [facility] Alk phos 55 40 - 130 Units/L [facility] ALT 102(H) 7 - 55 Units/L [facility] AST 233(H) 10 - 50 Units/L [facility] Blood 04/15/2025 3:01 PM CDT 04/15/2025 3:36 PM CDT us Kayleigh Herrera MD LAB BLOOD ORDERABLES F inal Result [facility] [place] [address] * US Vein Duplex Lower Extremity Bilateral Complete (04/15/2025 12:13 PM CDT) Anatomical Region Laterality Modality Vascular Bilateral Ultrasound 04/15/2025 10:1 7 AM CDT Narrative 04/15/2025 4:45 PM CDT [facility] - Department of Vascular Surgery, Vascular Laboratory [address] [place] [address] Lower Extremity Venous Ultrasound Report Patient Name: HANK SEGOVIA T : 1950 (74y 8m) Study Date: 04/15/2025 10:17:24 AM Sex: M Tech: Location: [id number] Ref Provider: KAYLEIGH HERRERA Quality: Adequate Order Provider: KAYLEIGH HERRERA PROCEDURES: Vascular Report: Venous Duplex imaging was performed bilaterally in the lower extremities. The common femoral, femoral, popliteal, posterior tibial, peroneal veins were evaluated for patency, spontaneity and phasicity with Doppler, compression and augmentation maneuvers. Great saphenous vein proximal at the junction was evaluated with compression maneuvers. INDICATIONS: leg swelling - FINDINGS: Performing Gaming Host: Jessika Valdes RVT. Bilateral: Venous Doppler signals in the bilateral lower extremity are within normal limits for spontaneity and phasicity and respond normally to augmentation maneuvers. No evidence of deep vein thrombus by duplex, proximal to the calf. Comments: Suboptimal imaging of the right popliteal vein and calf vessels due to patient positioning. Limited imaging of the left common femoral vein/SFJ , PFV and proximal femoral vein due to line and dressing placement. CONCLUSIONS: 1. There is no evidence of acute deep vein thrombosis in the lower extremities bilaterally. Noninvasive venous studies cannot rule out isolated calf vein obstruction. 2. See Comments. HISTORY: [facility] ISO CPR after arrest following fall cb STEMI. - PREVIOUS STUDIES: No previous studies for comparison. DISCLAIMER: The study images and the final report will be retained in the patient chart by the Vascular Laboratory for the legally required time period. This chart constitutes the legal record of any testing performed. ATTESTATION: I have reviewed and interpreted the pertinent images and measurements of this study. I attest to the conclusions in the final report that is provided above. Electronically Signed By: Imtiaz Tillman MD FACS 04/15/2025 4:05:19 PM CDT Procedure Note Imtiaz Tillman MD - 04/15/2025 [facility] - Department of Vascular Surgery,Vascular Laboratory [address] [place] [address] Lower Extremity Venous Ultrasound Report Patient Name: HANK SEGOVIA T : 1950 (74y 8m) Study Date: 04/15/2025 10:17:24 AM Sex: M Tech: Location: [id number] Ref Provider: KAYLEIGH HERRERA Quality: Adequate Order Provider: KAYLEIGH HERRERA PROCEDURES: Vascular Report: Venous Duplex imaging was performed bilaterally in the lower extremities.The common femoral, femoral, popliteal, posterior tibial, peroneal veins wereevaluated for patency, spontaneity and phasicity with Doppler, compression and augmentationmaneuvers. Great saphenous vein proximal at the junction was evaluated with compressionmaneuvers. INDICATIONS: leg swelling - FINDINGS: Performing Gaming Host: Jessika Valdes RVT. Bilateral: Venous Doppler signals in the bilateral lower extremity are within normallimits for spontaneity and phasicity and respond normally to augmentation maneuvers.No evidence of deep vein thrombus by duplex, proximal to the calf. Comments: Suboptimal imaging of the right popliteal vein and calf vessels due topatient positioning. Limited imaging of the left common femoral vein/SFJ , PFV and proximalfemoral vein due to line and dressing placement. CONCLUSIONS: 1. There is no evidence of acute deep vein thrombosis in the lowerextremities bilaterally. Noninvasive venous studies cannot rule out isolated calf veinobstruction. 2. See Comments. HISTORY: [facility] ISO CPR after arrest following fall cb STEMI. - PREVIOUS STUDIES: No previous studies for comparison. DISCLAIMER: The study images and the final report will be retained in the patientchart by the Vascular Laboratory for the legally required time period. This chartconstitutes the legal record of any testing performed. ATTESTATION: I have reviewed and interpreted the pertinent images and measurements ofthis study. I attest to the conclusions in the final report that is provided above. Electronically Signed By: Imtiaz Tillman MD [facility] 04/15/2025 4:05:19 PM CDT Kayleigh Herrera MD [facility] US PROCEDURES Nicolette l Result * POCT glucose (04/15/2025 11:46 AM CDT) [facility] Signature Glucose, POC 117 70 - 199 mg/dL Blood 04/15/2025 11:4 6 AM CDT 04/15/2025 11:46 AM CDT Kayleigh Herrera MD LAB POCT ORDERABLES - DEVICE Final Result [facility] [place] [address] * Critical Care (04/15/2025 10:22 AM CDT) Narrative Daxa Ramirez MD - 04/15/2025 10:22 AM CDT Daxa Ramirez MD 04/15/2025 10:33 AM Critical Care Performed by: Daxa Ramirez MD Authorized by: Daxa Ramirez MD CRITICAL CARE: Team: SICU RED Shift: AM Level of Billing: Critical Care My time spent with this patient was 60 minutes: Critical Provider Statement: I have seen and examined the patient on this day of service. I have reviewed and confirmed the history, physical exam, laboratory and radiologic data as documented in the signed ICU note. I have reviewed and discussed my treatment plan with the ICU team and other medical/datastage consultant staff, making frequent assessments and decisions regarding this patient's complex medical care. Critical Care time was exclusive of time spent performing separately billed procedures, treating other patients, and teaching. This time was in addition to and separate from critical care provided by other practitioners in my group on this day of service. Critical Care was necessary to treat or prevent imminent or life-threatening deterioration of the following conditions: Acute pain/acute postoperative pain and Acute intracranial hemorrhage Acute kidney injury Traumatic brain injury, Multiple rib fractures and Hemo/pneumothorax This time was spent by me doing the following: Serial laboratory checks, Serial bedside patient exams and Obtaining peripheral venous access or blood draws Acute pain control Active and frequent reassessment of respiratory status and oxygen requirements and Incentive spirometry, pulmonary toilet Active and frequent monitoring of intake/output and volumen status and Glycemic control Thoracostomy tube management I spent time reviewing and interpreting data from bedside monitors, laboratory results, and imaging, I spent time discussing the management of this critically ill patient with consultants and the medical staff and I spent time documenting in the medical record us Daxa Ramirez MD IN CLINIC/BEDSIDE ORDERABLE S Final Result * TRANSTHORACIC ECHO (TTE) COMPLETE W DOPPLER/CF W CONTRAST (04/15/2025 10:06 AM CDT) EF Mod BP 68 % CONS SCIMAGE Anatomical Region Laterality Modality Ultrasound 04/15/2025 8:55 AM CDT Narrative 04/15/2025 12:32 PM CDT [facility] [place] [address] Transthoracic Echocardiographic Report Patient Name: HANK SEGOVIA T : 1950 (74y 8m) Sex: M Study Date: 04/15/2025 08:55:54 AM Ht(Inch): 70 Wt(Lb): 138.01 BSA: 1.76 Gaming Host: Mathew Bailey RDCS [facility] Location: [id number] Order Provider: KAYLEIGH HERRERA Heart Rate: 66 BMI: 19.8 BP: 176 / 80 Ref Provider: KAYLEIGH HERRERA PROCEDURES: Echocardiographic Report: Transthoracic complete echo with strain imaging and contrast, 2D, spectral and tissue Doppler, color flow Doppler, M-mode. Contrast: Contrast Enhancement was Employed: Due to suboptimal image quality with inadequate visualization of at least 2 of 16 LV wall segments in any view after initial imaging. Perflutren contrast was administered using the volume necessary to obtain adequate images. 0.9 ml Optison Administered, (2.1 ml wasted). Technically difficult study due to: Poor acoustic windows. Limited visualization of some cardiac structures precludes the ability to obtain complete measurements - INDICATIONS: Post CPR, S/p CABG. CONCLUSIONS: 1. Normal left ventricular size based on volume index. Normal LV wall thickness. Normal left ventricular systolic function. The Ejection Fraction (Bunch's) is measured at 68 %. Grade I diastolic dysfunction (normal LA pressure). The average global longitudinal strain is borderline. Paradoxical interventricular septal motion consistent with prior cardiac or thoracic surgery. 2. There are no regional wall motion abnormalities. 3. Resting Segmental Wall Motion Analysis: Total wall motion score is 1.06. There is hypokinesis of the basal inferior wall. The remaining left ventricular segments demonstrate normal wall motion. 4. Normal right ventricular size. Normal right ventricular systolic function. 5. Mild aortic valve regurgitation. 6. The Estimated RVSP is : 30.0 mmHg. The estimated pulmonary artery systolic pressure is 33.0 mmHg. COMPARISONS: No previous study available for comparison. ATTESTATION: I have personally reviewed and interpreted this study without fellow or resident. DISCLAIMER: The study images and the final report will be retained in the patient chart by the Echo Laboratory for the legally required time period. This chart constitutes the legal record of any testing performed. FINDINGS: Left Ventricle: Normal left ventricular size based on volume index. Normal LV wall thickness. Normal left ventricular systolic function. The Ejection Fraction (Bunch's) is measured at 68 %. Grade I diastolic dysfunction (normal LA pressure). The average global longitudinal strain is borderline. The LV global strain is: -17.7 %. Paradoxical interventricular septal motion consistent with prior cardiac or thoracic surgery. Resting Segmental Wall Motion Analysis: Total wall motion score is 1.06. There is hypokinesis of the basal inferior wall. The remaining left ventricular segments demonstrate normal wall motion. Regional Wall Motion: There are no regional wall motion abnormalities. Right Ventricle: Normal right ventricular size. Normal right ventricular systolic function. Left Atrium: The left atrium is normal in size. Right Atrium: The right atrium is normal in size. Atrial Septum: Normal interatrial septum. Mitral Valve: Normal mitral valve structure. Mild mitral valve regurgitation. No stenosis present. Aortic Valve: Trileaflet aortic valve. Mildly thickened aortic valve leaflets. Mild aortic valve regurgitation. No aortic valve stenosis. The mean transaortic gradient is 4 mmHg. The aortic valve area by the continuity equation (using VTI) is 2.32 cm2. Aortic valve dimensionless index is 0.72. Tricuspid Valve: Normal tricuspid valve structure. Mild tricuspid regurgitation. The Estimated RVSP is : 30.0 mmHg. The estimated pulmonary artery systolic pressure is 33.0 mmHg. No tricuspid valve stenosis. Pulmonic Valve: Normal pulmonic valve structure. No pulmonic regurgitation. No pulmonic valve stenosis present. Pericardium: Normal pericardium without pericardial effusion. Aorta: Normal aortic root size at sinuses of Valsalva. Dilation of the aortic root when indexed. IVC: IVC is normal in size. The IVC was <2.1 cm and collapsibility >50%. (est. RA pressure 0-5 mmHg). PASP: Normal estimated pulmonary artery systolic pressure. Rhythm: Normal Sinus rhythm was seen during the study. MEASUREMENTS: 2D/MM Value Range Doppler Value Range LVIDd 2D 5.13 cm [ 4.20 - 5.80 ] AV Peak Raj 1.3 m/s [ 1.0 - 1.7 ] LVIDs 2D 3.03 cm [ 2.50 - 4.00 ] AV Peak PG 6.76 mmHg IVSd 2D 1.06 cm [ 0.60 - 1.00 ] AV Mean PG 4 mmHg LVPWd 2D 0.88 cm [ 0.60 - 1.00 ] AV VTI 24.3 cm LV Thickness Ratio 1.2 LVOT Peak Raj 0.9 m/s [ 0.7 - 1.1 ] LV FS 2D 41.00 % [ 25.00 - 43.00 ] LVOT Peak PG 3.24 mmHg LV Mass 2D 186.62 g LVOT Mean PG 2 mmHg LV Mass Index 2D 106.13 g/m2 LVOT VTI 17.4 cm RWT 0.34 LVOT Diam 2.03 cm EDV Mod BP 116.19 ml [ 62.00 - 150.00 ] JUAN VTI 2.32 cm2 LV EDV Index 66.08 ml/m2 LVOT/AV VTI 0.72 - Dimensionless index (DVI) ESV Mod BP 37.01 ml [ 21.00 - 61.00 ] MV E Peak Raj 0.6 m/s [ 0.6 - 1.3 ] EF Mod BP 68 % [ 52 - 72 ] MV A Peak Raj 0.7 m/s [ 1.0 - 1.2 ] LV GLS -17.7 % [ -25.0 - -18.0 ] MV E/A 0.8 ratio [ 0.8 - 1.5 ] LA Length 4C 5.00 cm MV Decel Time 322.15 msec [ 104.00 - 258.00 ] RV Base Dimen 2D 3.7 cm [ 2.5 - 4.2 ] Med E` Raj 3.2 cm/sec [ 8.0 - 25.0 ] TAPSE 1.62 cm [ 1.71 - 5.00 ] Lat E` Raj 5.5 cm/sec [ 10.0 - 25.0 ] RA Volume 28.84 ml Average E/E` 13.79 RA Volume Index 16.40 ml/m2 RV S` 11.01 cm/sec AoR Diam 2D 3.73 cm [ 3.10 - 3.70 ] TR Peak Raj 2.8 m/s [ 1.0 - 2.8 ] Ao Root Index 2.12 cm/m2 [ 1.00 - 2.00 ] TR Peak PG 31.4 mmHg PV Peak Raj 1.0 m/s [ 0.4 - 0.8 ] PV Peak PG 4.00 mmHg Electronically Signed By: Nam Grey MD 04/15/2025 12:32:35 PM CDT Wall Motion Analysis - Resting Procedure Note Nam Lopez MD - 04/15/2025 [facility] [place] [address] Transthoracic Echocardiographic Report Patient Name: HANK SEGOVIA T : 1950 (74y 8m) Sex: M Study Date: 04/15/2025 08:55:54 AM Ht(Inch): 70 Wt(Lb): 138.01 BSA: 1.76 Gaming Host: Mathew Bailey RDCS [facility] Location: [id number] Order Provider:KAYLEIGH HERRERA Heart Rate: 66 BMI: 19.8 BP: 176 / 80 Ref Provider: KAYLEIGH HERRERA PROCEDURES: Echocardiographic Report: Transthoracic complete echo with strain imagingand contrast, 2D, spectral and tissue Doppler, color flow Doppler, M-mode. Contrast: Contrast Enhancement was Employed: Due to suboptimal imagequality with inadequate visualization of at least 2 of 16 LV wall segments in any viewafter initial imaging. Perflutren contrast was administered using the volume necessaryto obtain adequate images. 0.9 ml Optison Administered, (2.1 ml wasted). Technically difficult study due to: Poor acoustic windows. Limitedvisualization of some cardiac structures precludes the ability to obtain complete measurements - INDICATIONS: Post CPR, S/p CABG. CONCLUSIONS: 1. Normal left ventricular size based on volume index. Normal LV wallthickness. Normal left ventricular systolic function. The Ejection Fraction (Bunch's) ismeasured at 68 %. Grade I diastolic dysfunction (normal LA pressure). The average globallongitudinal strain is borderline. Paradoxical interventricular septal motionconsistent with prior cardiac or thoracic surgery. 2. There are no regional wall motion abnormalities. 3. Resting Segmental Wall Motion Analysis: Total wall motion score is1.06. There is hypokinesis of the basal inferior wall. The remaining left ventricularsegments demonstrate normal wall motion. 4. Normal right ventricular size. Normal right ventricular systolicfunction. 5. Mild aortic valve regurgitation. 6. The Estimated RVSP is : 30.0 mmHg. The estimated pulmonary arterysystolic pressure is 33.0 mmHg. COMPARISONS: No previous study available for comparison. ATTESTATION: I have personally reviewed and interpreted this study without fellow orresident. DISCLAIMER: The study images and the final report will be retained in the patientchart by the Echo Laboratory for the legally required time period. This chart constitutesthe legal record of any testing performed. FINDINGS: Left Ventricle: Normal left ventricular size based on volume index. NormalLV wall thickness. Normal left ventricular systolic function. The EjectionFraction (Bunch's) is measured at 68 %. Grade I diastolic dysfunction (normal LA pressure).The average global longitudinal strain is borderline. The LV global strain is: -17.7%. Paradoxical interventricular septal motion consistent with prior cardiac or thoracicsurgery. Resting Segmental Wall Motion Analysis: Total wall motion score is 1.06.There is hypokinesis of the basal inferior wall. The remaining left ventricularsegments demonstrate normal wall motion. Regional Wall Motion: There are no regional wall motion abnormalities. Right Ventricle: Normal right ventricular size. Normal right ventricularsystolic function. Left Atrium: The left atrium is normal in size. Right Atrium: The right atrium is normal in size. Atrial Septum: Normal interatrial septum. Mitral Valve: Normal mitral valve structure. Mild mitral valveregurgitation. No stenosis present. Aortic Valve: Trileaflet aortic valve. Mildly thickened aortic valveleaflets. Mild aortic valve regurgitation. No aortic valve stenosis. The mean transaorticgradient is 4 mmHg. The aortic valve area by the continuity equation (using VTI) is 2.32cm2. Aortic valve dimensionless index is 0.72. Tricuspid Valve: Normal tricuspid valve structure. Mild tricuspidregurgitation. The Estimated RVSP is : 30.0 mmHg. The estimated pulmonary artery systolicpressure is 33.0 mmHg. No tricuspid valve stenosis. Pulmonic Valve: Normal pulmonic valve structure. No pulmonicregurgitation. No pulmonic valve stenosis present. Pericardium: Normal pericardium without pericardial effusion. Aorta: Normal aortic root size at sinuses of Valsalva. Dilation of theaortic root when indexed. IVC: IVC is normal in size. The IVC was <2.1 cm and collapsibility >50%.(est. RA pressure 0-5 mmHg). PASP: Normal estimated pulmonary artery systolic pressure. Rhythm: Normal Sinus rhythm was seen during the study. MEASUREMENTS: 2D/MM Value Range DopplerValue Range LVIDd 2D 5.13 cm [ 4.20 - 5.80 ] AV Peak Vel1.3 m/s [ 1.0 - 1.7 ] LVIDs 2D 3.03 cm [ 2.50 - 4.00 ] AV Peak PG6.76 mmHg IVSd 2D 1.06 cm [ 0.60 - 1.00 ] AV Mean PG4 mmHg LVPWd 2D 0.88 cm [ 0.60 - 1.00 ] AV VTI24.3 cm LV Thickness Ratio 1.2 LVOT Peak Vel0.9 m/s [ 0.7 - 1.1 ] LV FS 2D 41.00 % [ 25.00 - 43.00 ] LVOT Peak PG3.24 mmHg LV Mass 2D 186.62 g LVOT Mean PG2 mmHg LV Mass Index 2D 106.13 g/m2 LVOT VTI17.4 cm RWT 0.34 LVOT Diam2.03 cm EDV Mod BP 116.19 ml [ 62.00 - 150.00 ] JUAN VTI2.32 cm2 LV EDV Index 66.08 ml/m2 LVOT/AV VTI0.72 - Dimensionless index (DVI) ESV Mod BP 37.01 ml [ 21.00 - 61.00 ] MV E Peak Vel0.6 m/s [ 0.6 - 1.3 ] EF Mod BP 68 % [ 52 - 72 ] MV A Peak Vel0.7 m/s [ 1.0 - 1.2 ] LV GLS -17.7 % [ -25.0 - -18.0 ] MV E/A0.8 ratio [ 0.8 - 1.5 ] LA Length 4C 5.00 cm MV Decel Xhcm929.15 msec [ 104.00 - 258.00 ] RV Base Dimen 2D 3.7 cm [ 2.5 - 4.2 ] Med E` Vel3.2 cm/sec [ 8.0 - 25.0 ] TAPSE 1.62 cm [ 1.71 - 5.00 ] Lat E` Vel5.5 cm/sec [ 10.0 - 25.0 ] RA Volume 28.84 ml Average E/E`13.79 RA Volume Index 16.40 ml/m2 RV S`11.01 cm/sec AoR Diam 2D 3.73 cm [ 3.10 - 3.70 ] TR Peak Vel2.8 m/s [ 1.0 - 2.8 ] Ao Root Index 2.12 cm/m2 [ 1.00 - 2.00 ] TR Peak PG31.4 mmHg PV Peak Raj 1.0 m/s [ 0.4 - 0.8 ] PV Peak PG 4.00 mmHg Electronically Signed By: Nam Grey MD 04/15/2025 12:32:35 PM CDT Wall Motion Analysis - Resting Kayleigh Herrera MD CV ECHO PROCEDURES Fin al Result * POCT glucose (04/15/2025 7:46 AM CDT) Glucose, POC 88 70 - 199 mg/dL Blood 04/15/2025 7:46 AM CDT 04/15/2025 7:46 AM CDT us Kayleigh Herrera MD LAB POCT ORDERABLES - DEVICE Final Result Performing Organization Address [facility]UST Co de Phone Number [facility] [place] [address] * (ABNORMAL) Troponin I high-sensitivity 6-hour (04/15/2025 5:44 AM CDT) Pathologist [facility] Trop I hs 1,001(C) <=35 ng/L Comment: Previous critical value noted within 48 hours ago. Interpretive Data For further hscTnI resources including the diagnostic algorithm and an aid in interpretation, copy and paste this link: https://bjhlab.testcatalog.org/show/hsTrop-1 Current Interpretive Data last revised 2020. Trop I hs pct delta -32(C) % [facility] Comment:Previous critical va lue noted within 48 hours ago. Trop I hs interp Significa nt(C) [facility] Comment:Previous critical va lue noted within 48 hours ago. Blood 04/15/2025 5:44 AM CDT 04/15/2025 6:37 AM CDT us Daveh Juana العلي NP LAB BLOOD ORDERABLES Final Result Performing Organization Address [facility]/ZIP Co de Phone Number [facility] Department [place] [address] * (ABNORMAL) eGFR (04/15/2025 5:44 AM CDT) Pathologist [facility] eGFR 22(L) >=60 mL/min/1. 73 m2 Comment: Interpretive Data Reference Interval Normal >/= 90 mL/min/1.73m2 Mildly decreased* 60 - 89 mL/min/1.73m2 Mildly to moderately decreased 45 - 59 mL/min/1.73m2 Moderately to severely decreased 30 - 44 mL/min/1.73m2 Severely decreased 15 - 29 mL/min/1.73m2 Kidney Failure < 15 mL/min/1.73m2 *Relative to young adult level Estimated glomerular filtration rate is determined by the 2020 CKD-EPI equation recommended by the National Kidney Foundation (A Unifying Approach to GFR Estimation: Recommendations of the NKF-ASK Task Force on Reassessing the Inclusion of Race in Diagnosing Kidney Disease, JASN 2020). The CKD-EPI equation should not be used for patients with unstable renal function and has not been validated in children and those over 70. Current interpretive data was last reviewed 2021. Blood 04/15/2025 5:44 AM CDT 04/15/2025 6:37 AM CDT Kayleigh Herrera MD LAB BLOOD ORDERABLES F inal Result [facility] [place] [address] * (ABNORMAL) Basic metabolic panel (04/15/2025 5:44 AM CDT) [facility] Sodium 129(L) 135 - 145 mmol/L Potassium, pl 4.0 3.3 - 4.9 mmol/L [facility] Chloride 95(L) 97 - 110 mmol/L [facility] CO2 22 22 - 32 mmol/L [facility] Anion gap 12 2 - 15 mmol/L [facility] BUN 37(H) 6 - 25 mg/dL [facility] Creatinine 2.92(H) 0.80 - 1.30 mg/dL [facility] Glucose 116 70 - 199 mg/dL [facility] Comment: Interpretive Data Fasting glucose >/= 126 mg/dl is diagnostic for diabetes. Fasting is defined as no caloric intake for at least 8 hours. Fasting glucose between 100 mg/dl to 125 mg/dl is diagnostic of prediabetes. In a patient with classic symptoms of hyperglycemia or hyperglycemic crisis, a random glucose >/= 200 mg/dl is diagnostic for diabetes. In the absence of unequivocal hyperglycemia, results should be confirmed by repeat testing. The classification and Diagnosis of Diabetes Diabetes Care 2021; 46: S19-S40. Current interpretive data was last revised 2022. Calcium 8.2(L) 8.5 - 10.3 mg/dL [facility] Blood 04/15/2025 5:44 AM CDT 04/15/2025 6:37 AM CDT us Kayleigh Herrera MD LAB BLOOD ORDERABLES F inal Result Performing Organization Address [facility]/ZIP Co de Phone Number [facility] [place] [address] * (ABNORMAL) Troponin I high-sensitivity 4-hour (04/15/2025 4:00 AM CDT) Trop I hs 1,354(C) <=35 ng/L Comment: Previous critical value noted within 48 hours ago. Interpretive Data For further hscTnI resources including the diagnostic algorithm and an aid in interpretation, copy and paste this link: https://bjhlab.testcatalog.org/show/hsTrop-1 Current Interpretive Data last revised 2020. Trop I hs pct delta -9 % [facility] Comment:Previous critical va lue noted within 48 hours ago. Trop I hs interp Equivocal [facility] Comment:Previous critical va lue noted within 48 hours ago. Blood 04/15/2025 4:00 AM CDT 04/15/2025 5:28 AM CDT us Yesh Juana العلي NP LAB BLOOD ORDERABLES Final Result Performing Organization Address [facility]/ZIP Co de Phone Number [facility] [place] [address] * POCT glucose (04/15/2025 3:58 AM CDT) [facility] Glucose, POC 131 70 - 199 mg/dL Blood 04/15/2025 3:58 AM CDT 04/15/2025 3:58 AM CDT us Kayleigh Herrera MD LAB POCT ORDERABLES - DEVICE Final Result Performing Organization Address [facility]/ZIP Co de Phone Number [facility] [place] [address] * (ABNORMAL) Troponin I high-sensitivity 2-hour (04/15/2025 1:58 AM CDT) [facility] Trop I hs 1,382(C) <=35 ng/L Comment: Previous critical value noted within 48 hours ago. Interpretive Data For further hscTnI resources including the diagnostic algorithm and an aid in interpretation, copy and paste this link: https://bjhlab.testcatalog.org/show/hsTrop-1 Current Interpretive Data last revised 2020. Trop I hs pct delta -7 % [facility] Trop I hs interp Equivocal [facility] Blood 04/15/2025 1:58 AM CDT 04/15/2025 2:30 AM CDT us Iqra العلي NP LAB BLOOD ORDERABLES Final Result Performing Organization Address City/[facility]/ZIP Co de Phone Number [facility] [place] [address] * (ABNORMAL) Troponin I high-sensitivity series (baseline, 2hr, 4hr, 6hr) (04/15/2025 12:04 AM CDT) [facility] Trop I hs 1,480(C) <=35 ng/L Comment: Previous critical value noted within 48 hours ago. Interpretive Data For further hscTnI resources including the diagnostic algorithm and an aid in interpretation, copy and paste this link: https://bjhlab.testcatalog.org/show/[email or web address]-1 Current Interpretive Data last revised 2020. Blood 04/15/2025 12:0 4 AM CDT 04/15/2025 12:20 AM CDT us Iqra العلي NP LAB BLOOD ORDERABLES Final Result Performing Organization Address City/[facility] Co de Phone Number LM [facility] [place] [address] * (ABNORMAL) eGFR (04/15/2025 12:04 AM CDT) eGFR 24(L) >=60 mL/min/1. 73 m2 Comment: Interpretive Data Reference Interval Normal >/= 90 mL/min/1.73m2 Mildly decreased* 60 - 89 mL/min/1.73m2 Mildly to moderately decreased 45 - 59 mL/min/1.73m2 Moderately to severely decreased 30 - 44 mL/min/1.73m2 Severely decreased 15 - 29 mL/min/1.73m2 Kidney Failure < 15 mL/min/1.73m2 *Relative to young adult level Estimated glomerular filtration rate is determined by the 2020 CKD-EPI equation recommended by the National Kidney Foundation (A Unifying Approach to GFR Estimation: Recommendations of the NKF-ASK Task Force on Reassessing the Inclusion of Race in Diagnosing Kidney Disease, JASN 2020). The CKD-EPI equation should not be used for patients with unstable renal function and has not been validated in children and those over 70. Current interpretive data was last reviewed 2021. Blood 04/15/2025 12:0 4 AM CDT 04/15/2025 12:21 AM CDT us Kayleigh Herrera MD LAB BLOOD ORDERABLES F inal Result Performing Organization Address City/[facility]/ZIP Co de Phone Number LM [facility] [place] [address] * (ABNORMAL) Basic metabolic panel (04/15/2025 12:04 AM CDT) Pathologist [facility] Sodium 126(L) 135 - 145 mmol/L Potassium, pl 4.2 3.3 - 4.9 mmol/L [facility] Chloride 95(L) 97 - 110 mmol/L [facility] CO2 19(L) 22 - 32 mmol/L [facility] Anion gap 12 2 - 15 mmol/L [facility] BUN 33(H) 6 - 25 mg/dL [facility] Creatinine 2.74(H) 0.80 - 1.30 mg/dL [facility] Glucose 113 70 - 199 mg/dL [facility] Comment: Interpretive Data Fasting glucose >/= 126 mg/dl is diagnostic for diabetes. Fasting is defined as no caloric intake for at least 8 hours. Fasting glucose between 100 mg/dl to 125 mg/dl is diagnostic of prediabetes. In a patient with classic symptoms of hyperglycemia or hyperglycemic crisis, a random glucose >/= 200 mg/dl is diagnostic for diabetes. In the absence of unequivocal hyperglycemia, results should be confirmed by repeat testing. The classification and Diagnosis of Diabetes Diabetes Care 2021; 46: S19-S40. Current interpretive data was last revised 2022. Calcium 7.9(L) 8.5 - 10.3 mg/dL [facility] Blood 04/15/2025 12:0 4 AM CDT 04/15/2025 12:21 AM CDT Kayleigh Herrera MD LAB BLOOD ORDERABLES F inal Result [facility] [place] [address] * POCT glucose (04/14/2025 11:56 PM CDT) Pathologist [facility] Glucose, POC 123 70 - 199 mg/dL Blood 04/14/2025 11:5 6 PM CDT 04/14/2025 11:56 PM CDT Kayleigh Herrera MD LAB POCT ORDERABLES - DEVICE Final Result Performing Organization Address City/[facility] Co de Phone Number LM P[facility] Jass[facility] Department [place] [address] * POCT glucose (04/14/2025 11:08 PM CDT) Glucose, POC 108 70 - 199 mg/dL Blood 04/14/2025 11:0 8 PM CDT 04/14/2025 11:08 PM CDT Kayleigh Herrera MD LAB POCT ORDERABLES - DEVICE Final Result Performing Organization Address [facility] Co de Phone Number LM PITT Jassi [facility] Department [place] [address] * Critical Care (04/14/2025 11:00 PM CDT) Narrative Jesus Ferrara MD - 04/14/2025 11:00 PM CDT Jesus Ferrara MD 04/15/2025 5:02 AM Critical Care Performed by: Jesus Ferrara MD Authorized by: Jesus Ferrara MD CRITICAL CARE: Team: SICU RED Shift: PM Level of Billing: Critical Care My time spent with this patient was 45 minutes: Critical Provider Statement: I have seen and examined the patient on this day of service. I have reviewed and confirmed the history, physical exam, laboratory and radiologic data as documented in the signed ICU note. I have reviewed and discussed my treatment plan with the ICU team and other medical/datastage consultant staff, making frequent assessments and decisions regarding this patient's complex medical care. Critical Care time was exclusive of time spent performing separately billed procedures, treating other patients, and teaching. This time was in addition to and separate from critical care provided by other practitioners in my group on this day of service. Critical Care was necessary to treat or prevent imminent or life-threatening deterioration of the following conditions: Acute intracranial hemorrhage Acute hypoxic respiratory failure Hemo/pneumothorax and Multiple rib fractures This time was spent by me doing the following: Active titration of continuous sedation, Acute pain control and Anti-epileptic therapy Invasive ventilator management, reassessment, and titration Thoracostomy tube management I spent time reviewing and interpreting data from bedside monitors, laboratory results, and imaging, I spent time discussing the management of this critically ill patient with consultants and the medical staff and I spent time documenting in the medical record Jesus Ferrara MD IN CLINIC/BEDSIDE ORDERABLES Final Result * POCT glucose (04/14/2025 10:03 PM CDT) Glucose, POC 105 70 - 199 mg/dL Blood 04/14/2025 10:0 3 PM CDT 04/14/2025 10:03 PM CDT Kayleigh Herrera MD LAB POCT ORDERABLES - DEVICE Final Result Performing Organization Address [facility] Co de Phone Number [facility] [place] [address] * POCT glucose (04/14/2025 9:10 PM CDT) Glucose, POC 122 70 - 199 mg/dL Blood 04/14/2025 9:10 PM CDT 04/14/2025 9:10 PM CDT Result [facility] Kayleigh Herrera MD LAB POCT ORDERABLES - DEVICE Final Result Performing Organization Address [facility] de Phone Number [facility] [place] [address] * XR Abdomen 1 View AP (04/14/2025 8:51 PM CDT) Anatomical Region Laterality Modality Body, Abdomen N/A Digital Radiogra phy 04/15/2025 8:49 AM CDT Impressions 04/15/2025 9:28 AM CDT Endogastric tube in place with side-port and distal tip in stomach body. Partially imaged median sternotomy wires, coronary artery bypass graft markings and intercostal embolization coils. There is residual contrast through bilateral renal parenchyma and in bilateral renal collecting system likely from recent CT. Paucity of gas in the imaged abdomen. Dictated by: Dori Marshall M.D. The radiology attending physician has personally reviewed this study, and had reviewed and/or edited this written report and agrees with it. Electronically signed by: Wilber Kaminski M.D. Narrative 04/15/2025 9:28 AM CDT EXAMINATION: Abdomen, one view. HISTORY: 74-year-old status post cardiac arrest, check tube placement. COMPARISON: CT 04/24/2025. Procedure Note Wilber Kaminski MD PhD - 04/15/2025 EXAMINATION: Abdomen, one view. HISTORY: 74-year-old status post cardiac arrest, check tube placement. COMPARISON: CT 04/24/2025. IMPRESSION: Endogastric tube in place with side-port and distal tip in stomach body. Partially imaged median sternotomy wires, coronary artery bypass graft markings and intercostal embolization coils. There is residual contrast through bilateral renal parenchyma and in bilateral renal collecting system likely from recent CT. Paucity of gas in the imaged abdomen. Dictated by: Dori Marshall M.D. The radiology attending physician has personally reviewed this study, and had reviewed and/or edited this written report and agrees with it. Electronically signed by: Wilber Kaminski M.D. Kayleigh Herrera MD IMG XR PROCEDURES Nicolette l Result * (ABNORMAL) eGFR (04/14/2025 8:14 PM CDT) eGFR 28(L) >=60 mL/min/1. 73 m2 Comment: Interpretive Data Reference Interval Normal >/= 90 mL/min/1.73m2 Mildly decreased* 60 - 89 mL/min/1.73m2 Mildly to moderately decreased 45 - 59 mL/min/1.73m2 Moderately to severely decreased 30 - 44 mL/min/1.73m2 Severely decreased 15 - 29 mL/min/1.73m2 Kidney Failure < 15 mL/min/1.73m2 *Relative to young adult level Estimated glomerular filtration rate is determined by the 2020 CKD-EPI equation recommended by the National Kidney Foundation (A Unifying Approach to GFR Estimation: Recommendations of the NKF-ASK Task Force on Reassessing the Inclusion of Race in Diagnosing Kidney Disease, JASN 2020). The CKD-EPI equation should not be used for patients with unstable renal function and has not been validated in children and those over 70. Current interpretive data was last reviewed 2021. Blood 04/14/2025 8:14 PM CDT 04/14/2025 8:57 PM CDT us Kayleigh Herrera MD LAB BLOOD ORDERABLES F inal Result [facility] [place] [address] * (ABNORMAL) Differential, auto (04/14/2025 8:14 PM CDT) Neutrophil abs 9.29(H) 1.50 - 6.50 K/cumm Imm gran abs 0.05 0.00 - 0.10 K/cumm [facility] Lymphocyte abs 1.09 0.80 - 3.30 K/cumm [facility] Monocyte abs 1.13(H) 0.20 - 0.80 K/cumm [facility] Eosinophil abs 0.00 0.00 - 0.50 K/cumm [facility] Basophil abs 0.02 0.00 - 0.10 K/cumm [facility] Neutrophil pct 80.2 % [facility] Comment: Interpretive Data Percent cell count reference ranges are not reported, since discordance with absolute values may lead to misinterpretation of CBC data. Current Interpretive Data was last revised on 2017. Imm gran pct 0.4 % [facility] Comment: Interpretive Data Percent cell count reference ranges are not reported, since discordance with absolute values may lead to misinterpretation of CBC data. Current Interpretive Data was last revised on 2017. Lymphocyte pct 9.4 % [facility] Comment: Interpretive Data Percent cell count reference ranges are not reported, since discordance with absolute values may lead to misinterpretation of CBC data. Current Interpretive Data was last revised on 2017. Monocyte pct 9.8 % [facility] Comment: Interpretive Data Percent cell count reference ranges are not reported, since discordance with absolute values may lead to misinterpretation of CBC data. Current Interpretive Data was last revised on 2017. Eosinophil pct 0.0 % [facility] Comment: Interpretive Data Percent cell count reference ranges are not reported, since discordance with absolute values may lead to misinterpretation of CBC data. Current Interpretive Data was last revised on 2017. Basophil pct 0.2 % [facility] Comment: Interpretive Data Percent cell count reference ranges are not reported, since discordance with absolute values may lead to misinterpretation of CBC data. Current Interpretive Data was last revised on 2017. Blood 04/14/2025 8:14 PM CDT 04/14/2025 8:49 PM CDT us Kayleigh Herrera MD LAB BLOOD ORDERABLES F inal Result [facility] [place] [address] * (ABNORMAL) CBC with auto differential (04/14/2025 8:14 PM CDT) WBC 11.58(H) 3.80 - 9.90 K/cumm Hgb 8.5(L) 13.0 - 17.5 g/dL [facility] Hct 23.8(L) 38.9 - 50.3 % [facility] Plt 135(L) 150 - 400 K/cumm [facility] MPV 10.5 9.1 - 12.3 fL [facility] RBC 2.94(L) 4.30 - 5.80 M/cumm [facility] MCV 81.0(L) 81.3 - 96.4 fL [facility] MCH 28.9 27.1 - 33.3 pg [facility] MCHC 35.7 32.3 - 35.7 g/dL [facility] RDW CV 15.0(H) 11.1 - 14.9 % [facility] RDW SD 44.3 35.7 - 48.1 fL [facility] NRBC abs 0.00 0.00 - 0.01 K/cumm [facility] Blood 04/14/2025 8:14 PM CDT 04/14/2025 8:49 PM CDT Kayleigh Herrera MD LAB BLOOD ORDERABLES F inal Result Performing Organization Address City/[facility] Co de Phone Number [facility] [place] [address] * (ABNORMAL) Phosphorus (04/14/2025 8:14 PM CDT) Pathologist [facility] Phosphorus, pl 5.0(H) 2.3 - 4.5 mg/dL Blood 04/14/2025 8:14 PM CDT 04/14/2025 8:51 PM CDT Yes Juana العلي NP LAB BLOOD ORDERABLES Final Result Performing Organization Address [facility] [place] [address] * Magnesium (04/14/2025 8:14 PM CDT) Pathologist [facility] Magnesium 1.9 1.4 - 2.5 mg/dL Blood 04/14/2025 8:14 PM CDT 04/14/2025 8:51 PM CDT Yes Juana العلي [employer] LAB BLOOD ORDERABLES Final Result Performing Organization Address [facility] [place] [address] * (ABNORMAL) Comprehensive metabolic panel (04/14/2025 8:14 PM CDT) Sodium 125(L) 135 - 145 mmol/L Potassium, pl 3.8 3.3 - 4.9 mmol/L [facility] Chloride 95(L) 97 - 110 mmol/L [facility] CO2 21(L) 22 - 32 mmol/L [facility] Anion gap 9 2 - 15 mmol/L [facility] BUN 31(H) 6 - 25 mg/dL [facility] Creatinine 2.40(H) 0.80 - 1.30 mg/dL [facility] Glucose 96 70 - 199 mg/dL [facility] Comment: Interpretive Data Fasting glucose >/= 126 mg/dl is diagnostic for diabetes. Fasting is defined as no caloric intake for at least 8 hours. Fasting glucose between 100 mg/dl to 125 mg/dl is diagnostic of prediabetes. In a patient with classic symptoms of hyperglycemia or hyperglycemic crisis, a random glucose >/= 200 mg/dl is diagnostic for diabetes. In the absence of unequivocal hyperglycemia, results should be confirmed by repeat testing. The classification and Diagnosis of Diabetes Diabetes Care 2021; 46: S19-S40. Current interpretive data was last revised 2022. Calcium 8.0(L) 8.5 - 10.3 mg/dL [facility] Bilirubin, total 0.8 0.1 - 1.2 mg/dL [facility] Protein, pl 4.9(L) 6.5 - 8.5 g/dL [facility] Albumin 2.8(L) 3.5 - 5.0 g/dL [facility] Alk phos 50 40 - 130 Units/L [facility] ALT 131(H) 7 - 55 Units/L [facility] AST 156(H) 10 - 50 Units/L [facility] Blood 04/14/2025 8:14 PM CDT 04/14/2025 8:51 PM CDT us Kayleigh Herrera MD LAB BLOOD ORDERABLES F inal Result [facility] Department [place] [address] * POCT glucose (04/14/2025 8:04 PM CDT) [facility] Glucose, POC 121 70 - 199 mg/dL Blood 04/14/2025 8:04 PM CDT 04/14/2025 8:04 PM CDT Kayleigh Herrera MD LAB POCT ORDERABLES - DEVICE Final Result Performing Organization Address [facility] [employer] de Phone Number [facility] [place] [address] * (ABNORMAL) POCT glucose (04/14/2025 8:03 PM CDT) Glucose, POC 66(L) 70 - 199 mg/dL Blood 04/14/2025 8:03 PM CDT 04/14/2025 8:03 PM CDT Kayleigh Herrera MD LAB POCT ORDERABLES - DEVICE Final Result Performing Organization Address [facility] Phone Number [facility] [place] [address] * CTA Head Neck W WO Contrast (04/14/2025 7:57 PM CDT) Anatomical Region Laterality Modality Head and Neck N/A Computed Tomogra phy 04/14/2025 8:44 PM CDT Impressions 04/15/2025 9:53 AM CDT 1. Stable small volume subarachnoid hemorrhage within the left medial parietal lobe and trace subdural blood products along the falx. 2. Normal CT angiogram of the head and neck. 3. Redemonstrated bilateral rib fractures and large right subpleural hematoma with partially imaged chest tube and small right apical pneumothorax. Dictated by: Katty Ny MD The radiology attending physician has personally reviewed this study, and had reviewed and/or edited this written report and agrees with it. Electronically signed by: Ant Cunningham M.D. Narrative 04/15/2025 9:53 AM CDT EXAMINATION: 1. Computed tomography angiography (CTA) of the head without and with contrast 2. Computed tomography angiography (CTA) of the neck with contrast HISTORY: Trauma, subarachnoid hemorrhage TECHNIQUE: CT of the head was performed with images acquired from skull base to vertex without intravenous contrast. Computed tomographic angiography was obtained from the aortic arch to the vertex following the uneventful administration of intravenous contrast. 3D images of the CTA were generated on a dedicated workstation/cafeteria server. Contrast information: 69 mL Optiray-350 IV COMPARISON: Same day noncontrast head CT at 1:03 PM FINDINGS: HEAD: Stable small volume subarachnoid hemorrhage within the left medial parietal lobe and trace subdural blood products along the falx measuring 3 mm. There is generalized volume loss with periventricular white matter hypoattenuation, likely represent sequela chronic small vessel disease. There is ex vacuo dilatation of the ventricles, stable compared to prior. No mass effect or midline shift is present. The rodríguez-white matter differentiation is normal. The visualized portions of the orbits are normal. The visualized portions of the mastoids are normal. Mild mucosal thickening within the paranasal sinuses. No fractures are identified. NECK: Endotracheal tube tip terminates within the mid thoracic trachea. Partially imaged enteric tube. Partially imaged/pleural hematoma, similar in appearance compared to same day CT of the chest. Partially imaged chest tube. Scattered subcentimeter lymph nodes are seen in the neck. None are pathologically enlarged. The muscles of the neck are normal. Fascial planes are preserved and the deep spaces of the neck are normal. Mildly displaced left first and second rib fractures. Mildly displaced right-sided rib fractures are better evaluated on CT chest abdomen and pelvis. Mild multilevel degenerative joint disease. No evidence of high-grade neural foraminal or canal stenosis. There is at least moderate multilevel neural foraminal narrowing. CTA: The visualized aortic arch appears normal with normal configuration of the great vessels. The innominate artery and both subclavian arteries are normal in course and caliber. The common carotid arteries are normal in course and caliber with normal carotid bifurcations bilaterally. The course and caliber of the internal carotid arteries in the neck are normal. No areas of atherosclerotic narrowing or filling defects are identified. The visualized course and caliber of the internal carotid arteries in the head are normal. No areas of atherosclerotic narrowing or filling defects are identified. The mkselz-yr-Nnkoke is complete. The anterior and middle cerebral arteries are normal. The vertebral arteries are codominant. The basilar artery is normal. The posterior cerebral arteries are normal. There is no aneurysm or vascular malformation identified. Procedure Note Ant Cunningham MD PhD - 04/15/2025 EXAMINATION: 1. Computed tomography angiography (CTA) of the head without and with contrast 2. Computed tomography angiography (CTA) of the neck with contrast HISTORY: Trauma, subarachnoid hemorrhage TECHNIQUE: CT of the head was performed with images acquired from skull base to vertex without intravenous contrast. Computed tomographic angiography was obtained from the aortic arch to the vertex following the uneventful administration of intravenous contrast. 3D images of the CTA were generated on a dedicated workstation/cafeteria server. Contrast information: 69 mL Optiray-350 IV COMPARISON: Same day noncontrast head CT at 1:03 PM FINDINGS: HEAD: Stable small volume subarachnoid hemorrhage within the left medial parietal lobe and trace subdural blood products along the falx measuring 3 mm. There is generalized volume loss with periventricular white matter hypoattenuation, likely represent sequela chronic small vessel disease. There is ex vacuo dilatation of the ventricles, stable compared to prior. No mass effect or midline shift is present. The rodríguez-white matter differentiation is normal. The visualized portions of the orbits are normal. The visualized portions of the mastoids are normal. Mild mucosal thickening within the paranasal sinuses. No fractures are identified. NECK: Endotracheal tube tip terminates within the mid thoracic trachea. Partially imaged enteric tube. Partially imaged/pleural hematoma, similar in appearance compared to same day CT of the chest. Partially imaged chest tube. Scattered subcentimeter lymph nodes are seen in the neck. None are pathologically enlarged. The muscles of the neck are normal. Fascial planes are preserved and the deep spaces of the neck are normal. Mildly displaced left first and second rib fractures. Mildly displaced right-sided rib fractures are better evaluated on CT chest abdomen and pelvis. Mild multilevel degenerative joint disease. No evidence of high-grade neural foraminal or canal stenosis. There is at least moderate multilevel neural foraminal narrowing. CTA: The visualized aortic arch appears normal with normal configuration of the great vessels. The innominate artery and both subclavian arteries are normal in course and caliber. The common carotid arteries are normal in course and caliber with normal carotid bifurcations bilaterally. The course and caliber of the internal carotid arteries in the neck are normal. No areas of atherosclerotic narrowing or filling defects are identified. The visualized course and caliber of the internal carotid arteries in the head are normal. No areas of atherosclerotic narrowing or filling defects are identified. The [id number] is complete. The anterior and middle cerebral arteries are normal. The vertebral arteries are codominant. The basilar artery is normal. The posterior cerebral arteries are normal. There is no aneurysm or vascular malformation identified. IMPRESSION: 1. Stable small volume subarachnoid hemorrhage within the left medial parietal lobe and trace subdural blood products along the falx. 2. Normal CT angiogram of the head and neck. 3. Redemonstrated bilateral rib fractures and large right subpleural hematoma with partially imaged chest tube and small right apical pneumothorax. Dictated by: Katty Ny MD The radiology attending physician has personally reviewed this study, and had reviewed and/or edited this written report and agrees with it. Electronically signed by: Ant Cunningham M.D. Kayleigh Herrera MD IMG CT PROCEDURES Nicolette l Result * Critical Care (04/14/2025 5:15 PM CDT) Narrative Daxa Ramirez MD - 04/14/2025 5:15 PM CDT Daxa Ramirez MD 04/14/2025 5:25 PM Critical Care Performed by: Daxa Ramirez MD Authorized by: Daxa Ramirez MD CRITICAL CARE: Team: SICU RED Shift: AM Level of Billing: Critical Care My time spent with this patient was 90 minutes: Critical Provider Statement: I have seen and examined the patient on this day of service. I have reviewed and confirmed the history, physical exam, laboratory and radiologic data as documented in the signed ICU note. I have reviewed and discussed my treatment plan with the ICU team and other medical/datastage consultant staff, making frequent assessments and decisions regarding this patient's complex medical care. Critical Care time was exclusive of time spent performing separately billed procedures, treating other patients, and teaching. This time was in addition to and separate from critical care provided by other practitioners in my group on this day of service. Critical Care was necessary to treat or prevent imminent or life-threatening deterioration of the following conditions: Acute pain/acute postoperative pain and Encephalopathy/altered mental status Cardiac arrest and [id number] mycardial infarction (Non-STEMI) Acute hypoxic respiratory failure Transaminitis Hypo- or Hyperglycemia and Lactic acidosis Acute blood loss anemia Leukocytosis Traumatic brain injury, Multiple rib fractures and Hemo/pneumothorax This time was spent by me doing the following: Serial laboratory checks, Serial bedside patient exams and Obtaining peripheral venous access or blood draws Acute pain control and Active titration of continuous sedation Initiation/active titration of vasoactive medications Active and frequent reassessment of respiratory status and oxygen requirements, Incentive spirometry, pulmonary toilet and Invasive ventilator management, reassessment, and titration Active and frequent monitoring of intake/output and volumen status and Glycemic control I spent time reviewing and interpreting data from bedside monitors, laboratory results, and imaging, I spent time discussing the management of this critically ill patient with consultants and the medical staff and I spent time documenting in the medical record us Daxa Ramirez MD IN CLINIC/BEDSIDE ORDERABLE S Final Result * POCT glucose (04/14/2025 4:44 PM CDT) Pathologist [facility] Glucose, POC 117 70 - 199 mg/dL Blood 04/14/2025 4:44 PM CDT 04/14/2025 4:44 PM CDT Kayleigh Herrera MD LAB POCT ORDERABLES - DEVICE Final Result [facility] [place] [address] * (ABNORMAL) eGFR (04/14/2025 4:39 PM CDT) eGFR 31(L) >=60 mL/min/1. 73 m2 Comment: Interpretive Data Reference Interval Normal >/= 90 mL/min/1.73m2 Mildly decreased* 60 - 89 mL/min/1.73m2 Mildly to moderately decreased 45 - 59 mL/min/1.73m2 Moderately to severely decreased 30 - 44 mL/min/1.73m2 Severely decreased 15 - 29 mL/min/1.73m2 Kidney Failure < 15 mL/min/1.73m2 *Relative to young adult level Estimated glomerular filtration rate is determined by the 2020 CKD-EPI equation recommended by the National Kidney Foundation (A Unifying Approach to GFR Estimation: Recommendations of the NKF-ASK Task Force on Reassessing the Inclusion of Race in Diagnosing Kidney Disease, JASN 2020). The CKD-EPI equation should not be used for patients with unstable renal function and has not been validated in children and those over 70. Current interpretive data was last reviewed 2021. Blood 04/14/2025 4:39 PM CDT 04/14/2025 4:53 PM CDT Kayleigh Herrera MD LAB BLOOD ORDERABLES F inal Result Performing Organization Address [facility] Co de Phone Number [facility] [place] [address] * VerifyNow clopidogrel (04/14/2025 4:39 PM CDT) [facility] clopidogrel 195 PRU Comment: Interpretive Data Reference interval from adults not taking Plavix is 169-356 PRU. Output is reported in Plavix reaction units (PRU). A lower PRU indicates a more complete inhibition of P2Y12 ADP receptor by drugs such as clopidogrel or prasugrel. There is no consensus regarding a cut-off value for PRU when assessing patients' sensitivity to ADP P2Y12 receptor inhibitors. Clinicians should use this information based on their interpretation of currently available evidence to individualize patient management decisions. Conditions that may produce falsely low PRU results include anemia (Hct <29%) and thrombocytopenia (platelet count <90,000/mcL). Platelet responsiveness to Plavix should not be performed within 48 hours of treatment with GPIIbIIIa inhibitors etifibatide (Integrilin) or tirofiban (Aggrastat) or within 2 weeks of treatment with abciximab (Reopro). Current interpretive data was last revised on 2017. Blood 04/14/2025 4:39 PM CDT 04/14/2025 6:54 PM CDT us Kayleigh Herrera MD LAB BLOOD ORDERABLES F inal Result Performing Organization Address City/[facility]/ZIP Co de Phone Number [facility] [place] [address] * VerifyNow aspirin (04/14/2025 4:39 PM CDT) [facility] VerifyNow aspirin 577 ARU Comment: Interpretive Data Reference interval from adults not taking Aspirin is 577-711 ARU. Results could be affected by anemia (Hct <29%) and thrombocytopenia (platelet count <90,000/mcL), conditions which can reduce in-vitro platelet aggregation and produce lower ARU results independent of aspirin inhibition. Platelet responsiveness to aspirin should not be performed within 48 hours of treatment with GPIIbIIIa inhibitors etifibatide (Integrilin) or tirofiban (Aggrastat) or within 2 weeks of treatment with abciximab (Reopro). Possible causes for an ARU greater than or equal to 550 in patients prescribed aspirin include: recent discontinuation of aspirin; co-ingestion of aspirin and other nonsteroidal medications which compete for cyclo-oxygenase binding; intrinsic resistance to aspirin, as well as unknown factors. Current interpretive data was last revised on 2017. Blood 04/14/2025 4:39 PM CDT 04/14/2025 6:54 PM CDT us Kayleigh Herrera MD LAB BLOOD ORDERABLES F inal Result Performing Organization Address [facility] Co de Phone Number [facility] [place] [address] * Lactate, whole blood (04/14/2025 4:39 PM CDT) [facility] Lactate, bld 1.5 0.7 - 2.0 mmol/L Blood 04/14/2025 4:39 PM CDT 04/14/2025 4:49 PM CDT us Iqra العلي NP LAB BLOOD ORDERABLES Final Result Performing Organization Address [facility] Co de Phone Number LM [facility] [place] [address] * Osmolality, blood (04/14/2025 4:39 PM CDT) Osmo 278 275 - 300 mOsm/kg Blood 04/14/2025 4:39 PM CDT 04/14/2025 4:49 PM CDT Kayleigh Herrera MD LAB BLOOD ORDERABLES F inal Result [facility] [place] [address] * (ABNORMAL) Basic metabolic panel (04/14/2025 4:39 PM CDT) Pathologist [facility] Sodium 126(L) 135 - 145 mmol/L Potassium, pl 4.3 3.3 - 4.9 mmol/L [facility] Chloride 95(L) 97 - 110 mmol/L [facility] CO2 21(L) 22 - 32 mmol/L [facility] Anion gap 10 2 - 15 mmol/L [facility] BUN 29(H) 6 - 25 mg/dL [facility] Creatinine 2.16(H) 0.80 - 1.30 mg/dL [facility] Glucose 97 70 - 199 mg/dL [facility] Comment: Interpretive Data Fasting glucose >/= 126 mg/dl is diagnostic for diabetes. Fasting is defined as no caloric intake for at least 8 hours. Fasting glucose between 100 mg/dl to 125 mg/dl is diagnostic of prediabetes. In a patient with classic symptoms of hyperglycemia or hyperglycemic crisis, a random glucose >/= 200 mg/dl is diagnostic for diabetes. In the absence of unequivocal hyperglycemia, results should be confirmed by repeat testing. The classification and Diagnosis of Diabetes Diabetes Care 202; 46: S19-S40. Current interpretive data was last revised 2022. Calcium 8.5 8.5 - 10.3 mg/dL [facility] Blood 04/14/2025 4:39 PM CDT 04/14/2025 4:49 PM CDT Kayleigh Herrera MD LAB BLOOD ORDERABLES F inal Result Performing Organization Address [facility] Co de Phone Number [facility] [place] [address] * POCT glucose (04/14/2025 3:27 PM CDT) Glucose, POC 77 70 - 199 mg/dL Blood 04/14/2025 3:27 PM CDT 04/14/2025 3:27 PM CDT Kayleigh Herrera MD LAB POCT ORDERABLES - DEVICE Final Result Performing Organization Address [facility] [place] [address] * (ABNORMAL) POCT glucose (04/14/2025 3:12 PM CDT) Glucose, POC 58(L) 70 - 199 mg/dL Comment:Glu2: RN/MD Notified Glucose comment 1 Glu2: RN/MD Notified [facility] Blood 04/14/2025 3:12 PM CDT 04/14/2025 3:12 PM CDT Kayleigh Herrera MD LAB POCT ORDERABLES - DEVICE Final Result Performing Organization Address [facility] de Phone Number [facility] [place] [address] * XR Chest 1 View (04/14/2025 2:44 PM CDT) Anatomical Region Laterality Modality Body, Chest N/A Computed Radiogr aphy 04/14/2025 3:24 PM CDT Impressions 04/14/2025 3:24 PM CDT Median sternotomy wires, mediastinal clips, coronary artery bypass graft marker again seen. Interval placement of several right intercostal embolization coils. Endotracheal tube tip 5 cm above kale. Right internal jugular catheter tip in superior vena cava. Gastric tube sidehole in left upper quadrant with tip below field of view. 2 right thoracostomy tubes still present. Normal heart size and mediastinal contours. Right hemopneumothorax not significantly changed. Left lung remains clear. Renal contrast excretion noted. Electronically signed by: Nhan Quiroz M.D. Narrative 04/14/2025 3:24 PM CDT EXAMINATION: 1 view chest radiograph COMPARISON: 04/14/2025 Procedure Note Nhan Quiroz MD - 04/14/2025 EXAMINATION: 1 view chest radiograph COMPARISON: 04/14/2025 IMPRESSION: Median sternotomy wires, mediastinal clips, coronary artery bypass graft marker again seen. Interval placement of several right intercostal embolization coils. Endotracheal tube tip 5 cm above kale. Right internal jugular catheter tip in superior vena cava. Gastric tube sidehole in left upper quadrant with tip below field of view. 2 right thoracostomy tubes still present. Normal heart size and mediastinal contours. Right hemopneumothorax not significantly changed. Left lung remains clear. Renal contrast excretion noted. Electronically signed by: Nhan Quiroz M.D. us Kayleigh Herrera MD IMG XR PROCEDURES Nicolette l Result * CT Head and Cervical Spine WO Contrast (04/14/2025 1:10 PM CDT) Anatomical Region Laterality Modality Head and Neck N/A Computed Tomogra phy 04/14/2025 2:22 PM CDT Impressions 04/14/2025 2:38 PM CDT 1. Left parafalcine subdural hematoma with small volume subjacent subarachnoid hemorrhage in the left medial parietal lobe. 2. No evidence of acute fracture in the cervical spine. 3. Left first rib fracture. The Critical results were discussed with Dr. Ella López MD by Dr. Alma Stapleton M.D. on 04/14/2025 2:16 PM. Dictated by: Alma Stapleton M.D. The radiology attending physician has personally reviewed this study, and had reviewed and/or edited this written report and agrees with it. Electronically signed by: Nano Wang M.D. Narrative 04/14/2025 2:38 PM CDT EXAMINATION: 1. CT head without contrast 2. CT of the cervical spine without contrast HISTORY: 74-year-old male presenting status post fall complicated by STEMI. TECHNIQUE: CT of the head was performed with images acquired from skull base to vertex without intravenous contrast. CT of the cervical spine was performed according to the standard protocol without intravenous contrast. COMPARISON: None Available. FINDINGS: HEAD: There is a left parafalcine subdural hematoma measuring 3 mm with small volume subjacent subarachnoid hemorrhage within the left medial parietal lobe. No mass effect or midline shift is present. Scattered periventricular white matter hypodensities likely representing chronic small vessel disease. Generalized parenchymal volume loss with ex vacuo dilatation of the ventricles. The rodríguez-white matter differentiation is normal. The visualized portions of the orbits are normal. The visualized portions of the mastoids are normal. Paranasal mucosal thickening with left maxillary mucous retention cyst.. No fractures are identified. An endotracheal tube and nasogastric tube are partially visualized. CERVICAL SPINE: There is a left first rib fracture. There is a calcified retro-odontoid pannus. Severe multilevel degenerative disc disease with severe facet osteoarthritis, most pronounced at C5-C6 and C6-C7. The alignment of the cervical spine is normal. There is no acute fracture. Vertebral bodies are normal in height without compression fractures. The craniocervical junction is normal. Limited views of the skull base appear normal. The sphenoid sinus is well aerated. Procedure Note Nano Wang MD - 04/14/2025 EXAMINATION: 1. CT head without contrast 2. CT of the cervical spine without contrast HISTORY: 74-year-old male presenting status post fall complicated by STEMI. TECHNIQUE: CT of the head was performed with images acquired from skull base to vertex without intravenous contrast. CT of the cervical spine was performed according to the standard protocol without intravenous contrast. COMPARISON: None Available. FINDINGS: HEAD: There is a left parafalcine subdural hematoma measuring 3 mm with small volume subjacent subarachnoid hemorrhage within the left medial parietal lobe. No mass effect or midline shift is present. Scattered periventricular white matter hypodensities likely representing chronic small vessel disease. Generalized parenchymal volume loss with ex vacuo dilatation of the ventricles. The rodríguez-white matter differentiation is normal. The visualized portions of the orbits are normal. The visualized portions of the mastoids are normal. Paranasal mucosal thickening with left maxillary mucous retention cyst.. No fractures are identified. An endotracheal tube and nasogastric tube are partially visualized. CERVICAL SPINE: There is a left first rib fracture. There is a calcified retro-odontoid pannus. Severe multilevel degenerative disc disease with severe facet osteoarthritis, most pronounced at C5-C6 and C6-C7. The alignment of the cervical spine is normal. There is no acute fracture. Vertebral bodies are normal in height without compression fractures. The craniocervical junction is normal. Limited views of the skull base appear normal. The sphenoid sinus is well aerated. IMPRESSION: 1. Left parafalcine subdural hematoma with small volume subjacent subarachnoid hemorrhage in the left medial parietal lobe. 2. No evidence of acute fracture in the cervical spine. 3. Left first rib fracture. The Critical results were discussed with Dr. Ella López MD by Dr. Alma Stapleton M.D. on 04/14/2025 2:16 PM. Dictated by: Alma Stapleton M.D. The radiology attending physician has personally reviewed this study, and had reviewed and/or edited this written report and agrees with it. Electronically signed by: Nano Wang M.D. us Iqra العلي [employer]INEER IMG CT PROCEDURES Final Res ult * POCT glucose (04/14/2025 12:05 PM CDT) Glucose, POC 77 70 - 199 mg/dL Blood 04/14/2025 12:0 5 PM CDT 04/14/2025 12:05 PM CDT us Kayleigh Herrera MD LAB POCT ORDERABLES - DEVICE Final Result [facility] [place] [address] * (ABNORMAL) Troponin I high-sensitivity 6-hour (04/14/2025 11:58 AM CDT) Trop I hs 1,454(C) <=35 ng/L Comment: Previous critical value noted within 48 hours ago. Interpretive Data For further hscTnI resources including the diagnostic algorithm and an aid in interpretation, copy and paste this link: [email or web address].org/[email or web address] Current Interpretive Data last revised 2020. Trop I hs delta See Comment ng/L [facility] Comment:Inappropriate collec tion time to report a delta. Trop I hs pct delta See Comment % [facility] Comment:Inappropriate collec tion time to report a delta. Trop I hs interp See Comment [facility] Comment:Inappropriate collec tion time to report a delta. Blood 04/14/2025 11:5 8 AM CDT 04/14/2025 12:28 PM CDT Chris Spangler MD LAB BLOOD ORDERABLES Final Result [facility] [place] [address] * (ABNORMAL) eGFR (04/14/2025 11:58 AM CDT) eGFR 37(L) >=60 mL/min/1. 73 m2 Comment: Interpretive Data Reference Interval Normal >/= 90 mL/min/1.73m2 Mildly decreased* 60 - 89 mL/min/1.73m2 Mildly to moderately decreased 45 - 59 mL/min/1.73m2 Moderately to severely decreased 30 - 44 mL/min/1.73m2 Severely decreased 15 - 29 mL/min/1.73m2 Kidney Failure < 15 mL/min/1.73m2 *Relative to young adult level Estimated glomerular filtration rate is determined by the 2020 CKD-EPI equation recommended by the National Kidney Foundation (A Unifying Approach to GFR Estimation: Recommendations of the NKF-ASK Task Force on Reassessing the Inclusion of Race in Diagnosing Kidney Disease, JASN 2020). The CKD-EPI equation should not be used for patients with unstable renal function and has not been validated in children and those over 70. Current interpretive data was last reviewed 2021. Blood 04/14/2025 11:5 8 AM CDT 04/14/2025 12:29 PM CDT us Kayleigh Herrera MD LAB BLOOD ORDERABLES F inal Result [facility] [place] [address] * (ABNORMAL) Differential, auto (04/14/2025 11:58 AM CDT) Neutrophil abs 10.86(H) 1.50 - 6.50 K/cumm Imm gran abs 0.06 0.00 - 0.10 K/cumm [facility] Lymphocyte abs 1.09 0.80 - 3.30 K/cumm [facility] Monocyte abs 1.29(H) 0.20 - 0.80 K/cumm [facility] Eosinophil abs 0.00 0.00 - 0.50 K/cumm [facility] Basophil abs 0.02 0.00 - 0.10 K/cumm [facility] Neutrophil pct 81.4 % [facility] Comment: Interpretive Data Percent cell count reference ranges are not reported, since discordance with absolute values may lead to misinterpretation of CBC data. Current Interpretive Data was last revised on 2017. Imm gran pct 0.5 % [facility] Comment: Interpretive Data Percent cell count reference ranges are not reported, since discordance with absolute values may lead to misinterpretation of CBC data. Current Interpretive Data was last revised on 2017. Lymphocyte pct 8.2 % [facility] Comment: Interpretive Data Percent cell count reference ranges are not reported, since discordance with absolute values may lead to misinterpretation of CBC data. Current Interpretive Data was last revised on 2017. Monocyte pct 9.7 % [facility] Comment: Interpretive Data Percent cell count reference ranges are not reported, since discordance with absolute values may lead to misinterpretation of CBC data. Current Interpretive Data was last revised on 2017. Eosinophil pct 0.0 % [facility] Comment: Interpretive Data Percent cell count reference ranges are not reported, since discordance with absolute values may lead to misinterpretation of CBC data. Current Interpretive Data was last revised on 2017. Basophil pct 0.2 % [facility] Comment: Interpretive Data Percent cell count reference ranges are not reported, since discordance with absolute values may lead to misinterpretation of CBC data. Current Interpretive Data was last revised on 2017. Blood 04/14/2025 11:5 8 AM CDT 04/14/2025 12:28 PM CDT us Kayleigh Herrera MD LAB BLOOD ORDERABLES F inal Result [facility] [place] [address] * (ABNORMAL) CBC with auto differential (04/14/2025 11:58 AM CDT) WBC 13.32(H) 3.80 - 9.90 K/cumm Hgb 9.8(L) 13.0 - 17.5 g/dL [facility] Hct 28.1(L) 38.9 - 50.3 % [facility] Plt 153 150 - 400 K/cumm [facility] MPV 10.1 9.1 - 12.3 fL [facility] RBC 3.42(L) 4.30 - 5.80 M/cumm [facility] MCV 82.2 81.3 - 96.4 fL [facility] MCH 28.7 27.1 - 33.3 pg [facility] MCHC 34.9 32.3 - 35.7 g/dL [facility] RDW CV 14.8 11.1 - 14.9 % [facility] RDW SD 44.1 35.7 - 48.1 fL [facility] NRBC abs 0.00 0.00 - 0.01 K/cumm [facility] Blood 04/14/2025 11:5 8 AM CDT 04/14/2025 12:28 PM CDT Kayleigh Herrera MD LAB BLOOD ORDERABLES F inal Result Performing Organization Address [facility] Co de Phone Number [facility] [place] [address] * Triglycerides (04/14/2025 11:58 AM CDT) Triglycerides 50 <=149 mg/dL Comment: Interpretive Data Ages < or = 9 years Acceptable: <75 mg/dL Borderline high: 75-99 mg/dL High: >or= 100 mg/dL Ages 10 to 20 years Acceptable: <90 mg/dL Borderline high: 90-129 mg/dL High: >or= 130 mg/dL Ages > or = 20 years Desirable: <150 mg/dL Borderline high: 150-199 mg/dL High: 200-499 mg/dL Very high: >or= 499 mg/dL Literature References: 1. Expert Panel on Integrated Guidelines for Cardiovascular Health and Risk Reduction in Children and Adolescents. Pediatrics 2011;128:S213 2. NCEP Expert Panel. Circulation 2004;110:227 Current Interpretive Data was last revised on 2018. Blood 04/14/2025 11:5 8 AM CDT 04/14/2025 12:29 PM CDT Kayleigh Herrera MD LAB BLOOD ORDERABLES F inal Result Performing Organization Address [facility] de Phone Number [facility] [place] [address] * (ABNORMAL) Comprehensive metabolic panel (04/14/2025 11:58 AM CDT) Sodium 124(L) 135 - 145 mmol/L Potassium, pl 4.4 3.3 - 4.9 mmol/L [facility] Chloride 94(L) 97 - 110 mmol/L [facility] CO2 20(L) 22 - 32 mmol/L [facility] Anion gap 10 2 - 15 mmol/L [facility] BUN 25 6 - 25 mg/dL [facility] Creatinine 1.90(H) 0.80 - 1.30 mg/dL [facility] Glucose 95 70 - 199 mg/dL [facility] Comment: Interpretive Data Fasting glucose >/= 126 mg/dl is diagnostic for diabetes. Fasting is defined as no caloric intake for at least 8 hours. Fasting glucose between 100 mg/dl to 125 mg/dl is diagnostic of prediabetes. In a patient with classic symptoms of hyperglycemia or hyperglycemic crisis, a random glucose >/= 200 mg/dl is diagnostic for diabetes. In the absence of unequivocal hyperglycemia, results should be confirmed by repeat testing. The classification and Diagnosis of Diabetes Diabetes Care 202; 46: S19-S40. Current interpretive data was last revised 2022. Calcium 8.9 8.5 - 10.3 mg/dL [facility] Bilirubin, total 1.3(H) 0.1 - 1.2 mg/dL [facility] Protein, pl 5.2(L) 6.5 - 8.5 g/dL [facility] Albumin 3.1(L) 3.5 - 5.0 g/dL [facility] Alk phos 55 40 - 130 Units/L [facility] ALT 194(H) 7 - 55 Units/L [facility] AST 190(H) 10 - 50 Units/L [facility] Blood 04/14/2025 11:5 8 AM CDT 04/14/2025 12:23 PM CDT us Kayleigh Herrera MD LAB BLOOD ORDERABLES F inal Result [facility] Department [place] [address] * IR Embo Vasc Extravasation (04/14/2025 10:55 AM CDT) Anatomical Region Laterality Modality Body N/A X-Ray Angiograph y 04/14/2025 4:51 PM CDT Impressions 04/14/2025 4:51 PM CDT Multiple tiny foci of arterial extravasation in the right posterior inferior hemithorax in a pattern correlated well with that seen on CT. The supplying vessels were successfully embolized and there was no further extravasation seen at the end of the procedure. PLAN: Continued clinical monitoring. The overall pattern seen is suggestive of bleeding promoted by anticoagulants/antiplatelet agents. There, if at all possible, recommend holding all coagulation altering meds until there is clear evidence that bleeding has ceased. Electronically signed by: Barrett Luke M.D. Narrative 04/14/2025 4:51 PM CDT EXAMINATION: DIAGNOSTIC ANGIOGRAPHY WITH EMBOLIZATION HISTORY/INDICATION: 74-year-old male who was found down in an outside hospital and underwent 2 rounds of chest compressions before ROSC. He was transferred to the [facility] ER intubated as a level 1 trauma transfer. Evaluation demonstrated right hemothorax with 1500 mils of blood evacuated via right chest tube. CTA showed several small foci of contrast extravasation in the inferior and posterior aspect of the right hemithorax and concern is of bleeding from intercostal vessels which were injured during chest compressions. Of note, patient has a history of myocardial infarction and at one time, was taking Plavix. He is brought to interventional radiology as a level 1 activation. ATTENDING PRESENCE: Barrett Luke M.D., the attending radiologist was present from the beginning to the end of the procedure. SEDATION: This procedure was performed under general anesthetic. The anesthesia team was also monitoring the resuscitation. TECHNIQUE: The risks, benefits and alternatives were discussed and informed consent was obtained. Prior to beginning the procedure, [place] Protocol was performed to confirm the patient's identity and the planned procedure. The fluoroscopy time has been recorded in the electronic medical record. Maximum sterile barriers including cap, mask, hand hygiene, sterile gloves, sterile gown, large sterile drape and 2% chlorhexidine for cutaneous antisepsis were used. After sterile prep, the skin over the right common femoral artery was infiltrated with 1% Lidocaine. The artery was punctured under real time ultrasound guidance. An image of the patent vessel was recorded. A 6 Fr Turkish sheath was placed and connected to a heparinized saline drip. The following arteries were catheterized in sequences: Right T10 intercostal followed by selective catheterization of branches along 9th and 10th ribs. Right T11 intercostal The equipment used for catheterization was 5 Turkish C2 base catheter for the trunk to the 9th and 10th intercostals, 2.4Fr Progreat, GT guidewire which was used to select the branches to the 9th and 10th intercostals. For the right T11 intercostal, a series of catheter were used but eventually a 8Fr Hockey stick guiding catheter was positioned with its tip at the origin of the right T11 intercostal and this vessel cannulated with angled glidewire and 4Fr glidecatheter followed by 2.4Fr Progreat catheter and GT guidewire. The following selective diagnostic angiograms were performed: Right T10 common trunk which supplied the 9th and 10 right intercostals. Right 9th and then 10th intercostals Right T11 intercostal Each of the three targeted vessels (T9, T10, T11 intercostals) were embolized using a gelfoam slurry followed by a series of 2 and 3 mm coils (microNester and Embold). Post-embolization angiography was performed. After completion of embolization, a limited common femoral artery angiogram was performed to confirm satisfactory position of arterial puncture site. Angioseal device was deployed to accomplish successful closure of the arteriotomy. ESTIMATED BLOOD LOSS: Minimal. CONDITION: Stable DISCHARGED TO: 44ICU FINDINGS: Ultrasound image demonstrates a patent right common femoral artery. DIAGNOSTIC: Initial angiogram of the descending thoracic aorta showed minimal flow in the intercostal vessels. No extravasation was seen. Subsequent selective catheterization was largely based on the findings from the CT exam. Effort was focused on selective catheterization of the intercostal vessels running along the inferior margins of the 9th 10th and 11th right ribs. Selective catheterization showing a common trunk for the 9 and 10 intercostal arteries and the subsequent images from selective catheterization showed multiple tiny foci of extravasation which corresponded well with the sites seen on the CT angiogram. Later selective catheterization of the 11th intercostal artery showed no evidence of extravasation but it was elected to proceed with occluding this vessel given the CT findings. THERAPEUTIC: After selective catheterization and embolization of the 9th, 10th and 11th intercostal arteries, there was cessation of flow within the targeted segments and no further extravasation was seen. Limited femoral arteriogram shows the access site above the femoral bifurcation on the right. Procedure Note Barrett Luke MD PhD - 04/14/2025 EXAMINATION: DIAGNOSTIC ANGIOGRAPHY WITH EMBOLIZATION HISTORY/INDICATION: 74-year-old male who was found down in an outside hospital and underwent 2 rounds of chest compressions before ROSC. He was transferred to the [facility] ER intubated as a level 1 trauma transfer. Evaluation demonstrated right hemothorax with 1500 mils of blood evacuated via right chest tube. CTA showed several small foci of contrast extravasation in the inferior and posterior aspect of the right hemithorax and concern is of bleeding from intercostal vessels which were injured during chest compressions. Of note, patient has a history of myocardial infarction and at one time, was taking Plavix. He is brought to interventional radiology as a level 1 activation. ATTENDING PRESENCE: Barrett Luke M.D., the attending radiologist was present from the beginning to the end of the procedure. SEDATION: This procedure was performed under general anesthetic. The anesthesia team was also monitoring the resuscitation. TECHNIQUE: The risks, benefits and alternatives were discussed and informed consent was obtained. Prior to beginning the procedure, [place] Protocol was performed to confirm the patient's identity and the planned procedure. The fluoroscopy time has been recorded in the electronic medical record. Maximum sterile barriers including cap, mask, hand hygiene, sterile gloves, sterile gown, large sterile drape and 2% chlorhexidine for cutaneous antisepsis were used. After sterile prep, the skin over the right common femoral artery was infiltrated with 1% Lidocaine. The artery was punctured under real time ultrasound guidance. An image of the patent vessel was recorded. A 6 Fr Turkish sheath was placed and connected to a heparinized saline drip. The following arteries were catheterized in sequences: Right T10 intercostal followed by selective catheterization of branches along 9th and 10th ribs. Right T11 intercostal The equipment used for catheterization was 5 Turkish C2 base catheter for the trunk to the 9th and 10th intercostals, 2.4Fr Progreat, GT guidewire which was used to select the branches to the 9th and 10th intercostals. For the right T11 intercostal, a series of catheter were used but eventually a 8Fr Hockey stick guiding catheter was positioned with its tip at the origin of the right T11 intercostal and this vessel cannulated with angled glidewire and 4Fr glidecatheter followed by 2.4Fr Progreat catheter and GT guidewire. The following selective diagnostic angiograms were performed: Right T10 common trunk which supplied the 9th and 10 right intercostals. Right 9th and then 10th intercostals Right T11 intercostal Each of the three targeted vessels (T9, T10, T11 intercostals) were embolized using a gelfoam slurry followed by a series of 2 and 3 mm coils (microNester and Embold). Post-embolization angiography was performed. After completion of embolization, a limited common femoral artery angiogram was performed to confirm satisfactory position of arterial puncture site. Angioseal device was deployed to accomplish successful closure of the arteriotomy. ESTIMATED BLOOD LOSS: Minimal. CONDITION: Stable DISCHARGED TO: 44ICU FINDINGS: Ultrasound image demonstrates a patent right common femoral artery. DIAGNOSTIC: Initial angiogram of the descending thoracic aorta showed minimal flow in the intercostal vessels. No extravasation was seen. Subsequent selective catheterization was largely based on the findings from the CT exam. Effort was focused on selective catheterization of the intercostal vessels running along the inferior margins of the 9th 10th and 11th right ribs. Selective catheterization showing a common trunk for the 9 and 10 intercostal arteries and the subsequent images from selective catheterization showed multiple tiny foci of extravasation which corresponded well with the sites seen on the CT angiogram. Later selective catheterization of the 11th intercostal artery showed no evidence of extravasation but it was elected to proceed with occluding this vessel given the CT findings. THERAPEUTIC: After selective catheterization and embolization of the 9th, 10th and 11th intercostal arteries, there was cessation of flow within the targeted segments and no further extravasation was seen. Limited femoral arteriogram shows the access site above the femoral bifurcation on the right. IMPRESSION: Multiple tiny foci of arterial extravasation in the right posterior inferior hemithorax in a pattern correlated well with that seen on CT. The supplying vessels were successfully embolized and there was no further extravasation seen at the end of the procedure. PLAN: Continued clinical monitoring. The overall pattern seen is suggestive of bleeding promoted by anticoagulants/antiplatelet agents. There, if at all possible, recommend holding all coagulation altering meds until there is clear evidence that bleeding has ceased. Electronically signed by: Barrett Luke M.D. us Barrett Luke MD PhD IMG IR PROCEDURES Final R esult * (ABNORMAL) POC Blood Gas and Chemistries, Arterial - (04/14/2025 10:27 AM CDT) pH, Art POC 7.30(L) 7.35 - 7.45 pCO2, Art POC 44 35 - 45 mmHg [facility] pO2, Art POC 240(H) 83 - 108 mmHg [facility] Na, POC 125(L) 135 - 145 mmol/L [facility] K POC 3.8 3.3 - 4.9 mmol/L [facility] Comment: Interpretive Data Not all point of care methods assess for hemolysis. Confirm with instrument and retest K+ if not consistent with clinical signs and symptoms. Current Interpretive Data was last revised on 2023. Cl, POC 98 97 - 110 mmol/L [facility] Ionized Ca, POC 4.29(L) 4.50 - 5.10 mg/dL [facility] Glucose, POC 91 70 - 199 mg/dL [facility] Lactate POC 1.3 0.7 - 2.0 mmol/L [facility] SO2 (fanta) arterial 100(H) 90 - 95 % [facility] Base excess, POC -4.6 mmol/L [facility] HCO3, Art POC 21 20 - 30 mmol/L [facility] Hct, POC 27.0(L) 41.4 - 51.6 % [facility] Total Hb, POC 9.1(L) 13.8 - 17.2 g/dL [facility] Blood 04/14/2025 10:2 7 AM CDT 04/14/2025 10:27 AM CDT Marcell Mcclendon III, MD LAB POCT ORDERA BLES - DEVICE Final Result Performing Organization Address City/[facility]/ZIP Co de Phone Number [facility] Department [employer] [place] [address] * Transfuse platelets (04/14/2025 8:49 AM CDT) Blood us Justino Mejia MD BLOOD TRANSFUSION ORDERA BLES Final Result Performing Organization Address City/[facility]/ZIP Co de Phone Number [facility] [place] [place] [address] * Transfuse platelets (04/14/2025 8:47 AM CDT) Blood us Justino Mejia MD BLOOD TRANSFUSION ORDERA BLES Final Result [facility] [place] [address] * (ABNORMAL) POC Blood Gas and Chemistries, Arterial - (04/14/2025 8:26 AM CDT) pH, Art POC 7.32(L) 7.35 - 7.45 pCO2, Art POC 38 35 - 45 mmHg [facility] pO2, Art POC 490(H) 83 - 108 mmHg [facility] Na, POC 123(L) 135 - 145 mmol/L [facility] K POC 4.1 3.3 - 4.9 mmol/L [facility] Comment: Interpretive Data Not all point of care methods assess for hemolysis. Confirm with instrument and retest K+ if not consistent with clinical signs and symptoms. Current Interpretive Data was last revised on 2023. Cl, POC 96(L) 97 - 110 mmol/L [facility] Ionized Ca, POC 4.86 4.50 - 5.10 mg/dL [facility] Glucose, POC 141 70 - 199 mg/dL [facility] Lactate POC 2.8(H) 0.7 - 2.0 mmol/L [facility] SO2 (fanta) arterial 100(H) 90 - 95 % [facility] Base excess, POC -6.0 mmol/L [facility] HCO3, Art POC 20 20 - 30 mmol/L [facility] Hct, POC 39.0(L) 41.4 - 51.6 % [facility] Total Hb, POC 12.9(L) 13.8 - 17.2 g/dL [facility] Blood 04/14/2025 8:26 AM CDT 04/14/2025 8:26 AM CDT us Marcell Mcclendon III, MD LAB POCT ORDERA BLES - DEVICE Final Result [facility] [place] [address] * RI ARTL CATHJ/CANNULJ MNTR/TRANSFUSION SPX PRQ (04/14/2025 7:50 AM CDT) Narrative Emili Serra MD - 04/14/2025 7:50 AM CDT Emili Serra MD 04/14/2025 7:52 AM Arterial line Date/Time: 04/14/2025 7:50 AM Performed by: Leo Herrera MD Authorized by: Emili Serra MD [place] Protocol: Informed consent: Unable to obtain due to emergent status Indications: Indications: hemodynamic monitoring and multiple ABGs Pre-procedure details: Skin preparation: 2% Chlorhexidine Preparation: Patient was prepped and draped in sterile fashion Sedation: Sedation used: no Anesthesia (see MAR for exact dosages): Anesthesia method: None Procedure details: Location: L femoral Needle gauge: 18 G Placement technique: Ultrasound guided Ultrasound guidance used for: Real-time guidance Sterile ultrasound techniques: Sterile gel and sterile probe covers were used Number of attempts: 2 Transducer: waveform confirmed Post-procedure details: Post-procedure: Sutured and secured with tape Patient tolerance of procedure: Tolerated well, no immediate complications Comments: I was present the entire procedure, first attempt Dr. Herrera with flash blood but unable to advance catheter, second attempt Carly with restick and able to advance and sutured in place. us Emili Serra MD IN CLINIC/BEDSID E ORDERABLES Final Result * Prepare platelets: 2 Units (04/14/2025 7:47 AM CDT) Product code [id number] [facility] Unit Number [id number] J [facility] Product Blood Type APOS [facility] Dispense Status PRESUMED TRANSFUSED [facility] Product code [id number] Unit Number [id number] P [facility] Product Blood Type APOS [facility] Dispense Status PRESUMED TRANSFUSED [facility] Blood Venous blood specimen / Unknown 04/14/2025 7:47 AM CDT 04/14/2025 7:48 AM CDT [facility]ative [facility] - 04/14/2025 8:01 PM CDT Are special requirements needed? (all products are leukoreduced)->No Date required:-[id number] PLT # of Units:-2-Units Reasons:-Bleeding/pre-op with antiplatelet agent} Justino Mejia MD BLOOD BANK PRODUCT ORDER [place] Final Result Performing Organization Address City/[facility]/ZIP Co de Phone Number [facility] [place] [address] * (ABNORMAL) Benzodiazepine Confirmation by MS (04/14/2025 7:31 AM CDT) [facility] Alprazolam, ur Does Not Confirm CutOff 20 ng/ml Clonazepam, ur Does Not Confirm CutOff 20 ng/ml [facility] Flunitrazepam, ur Does Not Confirm CutOff 20 ng/ml [facility] Lorazepam, ur Does Not Confirm CutOff 20 ng/ml [facility] Midazolam, ur Confirmed Positive(A) CutOff 100 ng/mL [facility] Nordiazepam, ur Does Not Confirm CutOff 20 ng/ml [facility] Oxazepam, ur Does Not Confirm CutOff 20 ng/ml [facility] Temazepam, ur Does Not Confirm CutOff 20 ng/ml [facility] Comment: Interpretive Data This test is performed by liquid chromatography tandem mass spectrometry and detects both free and conjugated drug metabolites. Questions concerning interpretation should be directed to the laboratory. The results of this test are intended for clinical use. This test was developed and its performance characteristics determined by [facility]. It has not been cleared or approved by the U.S. Food and Drug Administration. Urine 04/14/2025 7:31 AM CDT 04/14/2025 7:48 AM CDT us Emili Serra MD LAB URINE ORDERA BLES Final Result Performing Organization Address City/[facility]/ZIP Co de Phone Number [facility] [place] [address] * (ABNORMAL) Troponin I high-sensitivity 2-hour (04/14/2025 7:31 AM CDT) Trop I hs 732(C) <=35 ng/L Comment: Previous critical value noted within 48 hours ago. Interpretive Data For further hscTnI resources including the diagnostic algorithm and an aid in interpretation, copy and paste this link: [email or web address] Current Interpretive Data last revised 2020. Trop I hs pct delta 11(C) % [facility] Comment:Previous critical va lue noted within 48 hours ago. Trop I hs interp Significa nt(C) [facility] Comment:Previous critical va lue noted within 48 hours ago. Blood 04/14/2025 7:31 AM CDT 04/14/2025 7:49 AM CDT Chris Spangler MD LAB BLOOD ORDERABLES Final Result [facility] [place] [address] * (ABNORMAL) Fentanyl Confirmation, Urine (04/14/2025 7:31 AM CDT) Fentanyl Conf, Ur Confirmed Positive(A) Cutoff 0.3ng/mL Acetylfentanyl Conf, Ur Does Not Confirm Cutoff 1 ng/mL [facility] Acrylfentanyl Conf, Ur Does Not Confirm Cutoff 1 ng/mL [facility] Furanylfentanyl Conf, Ur Does Not Confirm Cutoff 1 ng/mL [facility] Fentanyl Metabolite (Norfentanyl) Conf, Ur Confirmed Positive(A) CutOff 5 ng/mL [facility] Xylazine MS Does Not Confirm Cutoff 1 ng/mL [facility] Comment: Interpretive Data This test detects the presence or absence of drug compounds using LC Tandem mass spectrometry and is not intended to assess compliance with prescribed medications. While this test is highly specific, false positive and false negative results may occur in very rare circumstances. Contact the laboratory for consultation, if needed. Performance characteristics were determined by the [facility] in a manner consistent with CLIA requirement and has not been cleared or approved by the U.S. Food and Drug Administration. Current interpretive data was last revised 2020. Urine 04/14/2025 7:31 AM CDT 04/14/2025 7:48 AM CDT Emili Serra MD LAB URINE ORDERA BLES Final Result [facility] [place] [address] * (ABNORMAL) Drugs of Abuse Screen, Urine with Reflex Confirmation (04/14/2025 7:31 AM CDT) Amphetamine, ur Not Detected CutOff 500ng/mL Comment: Interpretive Data - Amphetamines: Samples containing greater than 500 ng/mL d-methamphetamine or other cross-reacting amphetamine compounds are reported as positive. Amphetamine immunoassays are subject to significant false positive rates due to cross-reactivity of non-amphetamine drugs. Confirmatory testing required for definitive results. Current Interpretive Data was last reviewed 2023. Barbiturates, ur Not Detected CutOff 200ng/mL [facility] Comment: Interpretive Data - Barbiturates: Samples containing greater than 200 ng/mL secobarbital or other cross-reacting barbiturate compounds are reported as positive. False positive and false negative results are possible. Confirmatory testing required for definitive results. Current Interpretive Data was last reviewed 2023. Benzodiazepines, ur Screen Positive, presumptive (A) CutOff 100ng/mL [facility] Comment: Interpretive Data - Benzodiazepines: Samples containing greater than 100 ng/mL nordiazepam or other cross-reacting compounds are reported as positive. False positive and false negative results are possible. Confirmatory testing required for definitive results. Current Interpretive Data was last reviewed 2023. Cannabinoids, ur Screen Positive, presumptive (A) CutOff 50 ng/mL [facility] Comment: Interpretive Data - Cannabinoids: Samples containing greater than 50 ng/mL delta-9 THC -COOH or other cross- reacting compounds are reported as positive. False positive and false negative results are possible. Confirmatory testing required for definitive results. Current Interpretive Data was last reviewed 2023. Cocaine, ur Not Detected CutOff 150ng/mL [facility] Comment: Interpretive Data - Cocaine: Samples containing greater than 150 ng/mL benzoylecgonine or other cross- reacting compounds are reported as positive. False positive and false negative results are possible. Confirmatory testing required for definitive results. Current Interpretive Data was last reviewed 2023. Fentanyl, Ur Screen Positive, presumptive (A) CutOff 5 ng/mL [facility] Comment: Interpretive Data - Fentanyl: Samples containing greater than 5 ng/mL norfentanyl, fentanyl, or other cross-reacting fentanyl compounds are reported as positive. False positive and false negative results are possible. Confirmatory testing required for definitive results. Current Interpretive Data was last reviewed 2023. Methadone, ur Not Detected CutOff 300ng/mL [facility] Comment: Interpretive Data - Methadone: Samples containing greater than 300 ng/mL d,l-methadone or other cross-reacting compounds are reported as positive. False positive and false negative results are possible. Confirmatory testing required for definitive results. Current Interpretive Data was last reviewed 2023. Opiates, ur Not Detected CutOff 300ng/mL [facility] Comment: Interpretive Data - Opiates: Samples containing greater than 300 ng/mL morphine or other cross-reacting compounds are reported as positive. False positive and false negative results are possible. Confirmatory testing required for definitive results. Current Interpretive Data was last reviewed 2023. Oxycodone, ur Not Detected CutOff 100ng/mL [facility] Comment: Interpretive Data - Oxycodone: Samples containing greater than 100 ng/mL oxycodone or other cross-reacting compounds are reported as positive. False positive and false negative results are possible. Confirmatory testing required for definitive results. Current Interpretive Data was last reviewed 2023. Phencyclidine, ur Not Detected CutOff 25 ng/mL [facility] Comment: Interpretive Data - Phencyclidine: Samples containing greater than 25 ng/mL phencyclidine or other cross-reacting compounds are reported as positive. False positive and false negative results are possible. Confirmatory testing required for definitive results. Current Interpretive Data was last reviewed 2023. Urine Creatinine 19 mg/dL [facility] Comment: Interpretive Data Urine Creatinine: < 10 mg/dL is extremely dilute = or > 10 but < 20 mg/dL is dilute = or > 20 mg/dL is normal Current Interpretive Data was last revised on 2017. Urine 04/14/2025 7:31 AM CDT 04/14/2025 7:48 AM CDT Narrative [facility] - 04/14/2025 8:21 AM CDT Drug Screening is performed by immunoassay for medical purposes. If positive, confirmation testing will be performed for amphetamines, benzodiazepines, cocaine, fentanyl, methadone, opiates, oxycodone, and phencyclidine. us Emili Serra MD LAB URINE ORDERA BLES Final Result Performing Organization Address City/[facility]/ZIP Co de Phone Number [facility] [place] [address] * Prepare plasma (04/14/2025 6:42 AM CDT) Product code [id number] Unit Number [id number] [facility] Product Blood Type APOS [facility] Dispense Status PRESUMED TRANSFUSED [facility] Blood 04/14/2025 6:42 AM CDT 04/14/2025 6:42 AM CDT us Kayleigh Herrera MD BLOOD BANK PRODUCT ORD ERABLES Final Result [facility] [place] [address] * Prepare RBC (04/14/2025 6:42 AM CDT) Product code [id number] Unit Number [id number] U [facility] Product Blood Type OPOS [facility] Dispense Status PRESUMED TRANSFUSED [facility] Blood 04/14/2025 6:42 AM CDT 04/14/2025 6:42 AM CDT us Kayleigh Herrera MD BLOOD BANK PRODUCT ORD ERABLES Final Result [facility] [place] [address] * CHEST TUBE INSERTION (04/14/2025 6:33 AM CDT) Anatomical Region Laterality Modality Other Narrative 04/14/2025 6:33 AM CDT Kayleigh Herrera MD 04/14/2025 7:31 AM Chest Tube Insertion Date/Time: 04/14/2025 6:33 AM Performed by: Marie Gore MD Authorized by: Marie Gore MD RN Notified of Procedure: yes Patient's stated name/ matches armband: Patient unable to verbalize - armband matched to name and within medical record Consent form signed, dated, timed; matches correct patient, intended procedure and site: No consent form due to emergent status Skin preparation: Betadine Preparation: Patient was prepped and draped in the usual sterile fashion Sedation used: no Anesthesia method: None Indications: Chest trauma Placement location: R lateral Scalpel size: 10 Tube size (Fr): 32 Dissection instrument: Stella clamp Ultrasound guidance: no Tension pneumothorax: no Tube connected to: Suction Drainage characteristics: Bloody Suture material: 0 silk Dressinx4 sterile gauze us Marie Gore MD IN CLINIC/BEDSIDE ORDERA BLES Final Result * CTA Chest Abdomen Pelvis (04/14/2025 6:30 AM CDT) Anatomical Region Laterality Modality Body N/A Computed Tomogra phy 04/14/2025 6:56 AM CDT Impressions 04/14/2025 11:59 AM CDT 1. Minimally displaced fractures of the right 5th through 11th ribs with large likely right subpleural hematoma given apparent lifting of the subpleural fat and loculated configuration of the hematoma, in addition to a right hemopneumothorax. 2 right chest tubes are in place and likely terminate within the pleural space, resulting in inadequate drainage of the subpleural hematoma; recommend correlation with chest tube function. 2. Multiple small foci of active arterial extravasation are seen within the subpleural hematoma arising from intercostal arteries. 3. Small left perinephric hemorrhage without active arterial extravasation and small volume hemoperitoneum. An enhancing left renal mass is seen, possibly representing the source of the hemorrhage. No evidence of collecting system injury. 4. Findings of aspiration in the right lower lobe with mucus plugging. The Non Critical results were discussed with Dr. Spangler by Dr. Otf Bennett MD PHD on 04/14/2025 6:52 AM. ADDENDUM - This addendum is being placed on the report for a non-time dependent finding on a patient who is admitted to the hospital (2C). Non-contrast phase shows corticomedullary phase of contrast in the renal parenchyma concerning for acute tubular necrosis. There is also an acute appearing fracture of the left 2nd rib. These findings were communicated to Dr. Mcclendon by Otf Bennett MD PHD at 04/14/2025 8:25 AM. Dictated by: Otf Bennett MD PHD The radiology attending physician has personally reviewed this study, and had reviewed and/or edited this written report and agrees with it. Electronically signed by: Aung Solomon M.D. Narrative 04/14/2025 11:59 AM CDT EXAMINATION: CT ANGIOGRAPHY OF THE CHEST, ABDOMEN AND PELVIS WITH AND WITHOUT CONTRAST HISTORY: Pneumothorax, status post cardiac arrest TECHNIQUE: Computed tomographic images of the chest, abdomen and pelvis were acquired without and with intravenous contrast using an angiographic protocol optimized for aortic dissection (aorta). The contrast enhanced transaxial images were obtained following the intravenous administration of 100 ml of nonionic contrast. Multiplanar reformatted images and three-dimensional images of the aorta and associated vasculature were obtained on the 3-D workstation and sent to the PACS archival system. An additional urographic delayed phase of contrast was obtained through the chest abdomen and pelvis. COMPARISON: 06/21/2022 FINDINGS: Chest: Lung windows demonstrate linear atelectasis adjacent to a large right subpleural hematoma. There is a small right apical pneumothorax. No left pneumothorax. Patient is intubated with mucous debris within the trachea and right lower lobe mucous plugging. Normal heart size. Calcified coronary atherosclerosis. Median sternotomy changes with coronary bypass. No pericardial effusion. Nondistended thoracic esophagus. No suspicious intrathoracic lymphadenopathy. Right internal jugular approach central venous catheter terminates in the superior vena cava. Small locules of intravenous gas are likely iatrogenic. Multiple foci of contrast extravasation are seen within the subpleural hematoma likely arising from intercostal arteries. Lifting of the subpleural fat is seen on series 5 image 107. There is a clear fat plane on series 2 image 20 delineating both pleural and extrapleural components of the hematoma. Mildly displaced fractures of the right 5th through 11th ribs. Multiple left rib fractures involving the 2nd-5th ribs of varying chronicity are also seen. The anterior left second rib fracture appears acute and is displaced. 2 right chest tubes are in place, possibly terminating within the pleural space. Limited angiographic phase views of the lower chest demonstrate small blush of contrast on series 4 image 33 arising from an intercostal artery. An additional focus of active arterial extravasation is seen on series 4 image 3. Abdomen/Pelvis: No suspicious hepatic lesion. Hepatic steatosis. Multiple hepatic cysts are seen. Cholelithiasis with edematous gallbladder wall. Normal spleen. Hyperenhancing adrenal glands. Symmetric enhancement of the kidneys. Right lower renal pole enhancing mass measuring 2.5 x 2.4 cm on series 5 image 171. No definite focus of arterial extravasation is seen within the small left perinephric hematoma. No significant mass effect on the left kidney. Normal enhancement of the right kidney. Urographic delayed phase demonstrates no leakage of contrast from the collecting systems to suggest collecting system injury. Contrast is seen in the urinary bladder with Musa catheter in place. Small amount of gas in the bladder. Irregular hyperdensity within the bladder may represent thrombus. No evidence of bowel obstruction. Small volume hemoperitoneum. No pneumoperitoneum. No suspicious lymphadenopathy in the abdomen or pelvis. Abdominal aorta is ectatic in the infrarenal segment demonstrates ulcerated plaque. Intra-abdominal vasculature is patent. Intrinsic hyperdense material is seen in the small bowel and colon. No evidence of active gastrointestinal bleed. No suspicious osseous lesion. Procedure Note Aung Solomon MD - 04/14/2025 EXAMINATION: CT ANGIOGRAPHY OF THE CHEST, ABDOMEN AND PELVIS WITH AND WITHOUT CONTRAST HISTORY: Pneumothorax, status post cardiac arrest TECHNIQUE: Computed tomographic images of the chest, abdomen and pelvis were acquired without and with intravenous contrast using an angiographic protocol optimized for aortic dissection (aorta). The contrast enhanced transaxial images were obtained following the intravenous administration of 100 ml of nonionic contrast. Multiplanar reformatted images and three-dimensional images of the aorta and associated vasculature were obtained on the 3-D workstation and sent to the PACS archival system. An additional urographic delayed phase of contrast was obtained through the chest abdomen and pelvis. COMPARISON: 06/21/2022 FINDINGS: Chest: Lung windows demonstrate linear atelectasis adjacent to a large right subpleural hematoma. There is a small right apical pneumothorax. No left pneumothorax. Patient is intubated with mucous debris within the trachea and right lower lobe mucous plugging. Normal heart size. Calcified coronary atherosclerosis. Median sternotomy changes with coronary bypass. No pericardial effusion. Nondistended thoracic esophagus. No suspicious intrathoracic lymphadenopathy. Right internal jugular approach central venous catheter terminates in the superior vena cava. Small locules of intravenous gas are likely iatrogenic. Multiple foci of contrast extravasation are seen within the subpleural hematoma likely arising from intercostal arteries. Lifting of the subpleural fat is seen on series 5 image 107. There is a clear fat plane on series 2 image 20 delineating both pleural and extrapleural components of the hematoma. Mildly displaced fractures of the right 5th through 11th ribs. Multiple left rib fractures involving the 2nd-5th ribs of varying chronicity are also seen. The anterior left second rib fracture appears acute and is displaced. 2 right chest tubes are in place, possibly terminating within the pleural space. Limited angiographic phase views of the lower chest demonstrate small blush of contrast on series 4 image 33 arising from an intercostal artery. An additional focus of active arterial extravasation is seen on series 4 image 3. Abdomen/Pelvis: No suspicious hepatic lesion. Hepatic steatosis. Multiple hepatic cysts are seen. Cholelithiasis with edematous gallbladder wall. Normal spleen. Hyperenhancing adrenal glands. Symmetric enhancement of the kidneys. Right lower renal pole enhancing mass measuring 2.5 x 2.4 cm on series 5 image 171. No definite focus of arterial extravasation is seen within the small left perinephric hematoma. No significant mass effect on the left kidney. Normal enhancement of the right kidney. Urographic delayed phase demonstrates no leakage of contrast from the collecting systems to suggest collecting system injury. Contrast is seen in the urinary bladder with Musa catheter in place. Small amount of gas in the bladder. Irregular hyperdensity within the bladder may represent thrombus. No evidence of bowel obstruction. Small volume hemoperitoneum. No pneumoperitoneum. No suspicious lymphadenopathy in the abdomen or pelvis. Abdominal aorta is ectatic in the infrarenal segment demonstrates ulcerated plaque. Intra-abdominal vasculature is patent. Intrinsic hyperdense material is seen in the small bowel and colon. No evidence of active gastrointestinal bleed. No suspicious osseous lesion. IMPRESSION: 1. Minimally displaced fractures of the right 5th through 11th ribs with large likely right subpleural hematoma given apparent lifting of the subpleural fat and loculated configuration of the hematoma, in addition to a right hemopneumothorax. 2 right chest tubes are in place and likely terminate within the pleural space, resulting in inadequate drainage of the subpleural hematoma; recommend correlation with chest tube function. 2. Multiple small foci of active arterial extravasation are seen within the subpleural hematoma arising from intercostal arteries. 3. Small left perinephric hemorrhage without active arterial extravasation and small volume hemoperitoneum. An enhancing left renal mass is seen, possibly representing the source of the hemorrhage. No evidence of collecting system injury. 4. Findings of aspiration in the right lower lobe with mucus plugging. The Non Critical results were discussed with Dr. Spangler by Dr. Otf Bennett MD PHD on 04/14/2025 6:52 AM. ADDENDUM - This addendum is being placed on the report for a non-time dependent finding on a patient who is admitted to the hospital (2C). Non-contrast phase shows corticomedullary phase of contrast in the renal parenchyma concerning for acute tubular necrosis. There is also an acute appearing fracture of the left 2nd rib. These findings were communicated to Dr. Mcclendon by Otf Bennett MD PHD at 04/14/2025 8:25 AM. Dictated by: Otf Bennett MD PHD The radiology attending physician has personally reviewed this study, and had reviewed and/or edited this written report and agrees with it. Electronically signed by: Aung Solomon M.D. us Chris Spangler MD IMG CT PROCEDURES Final Re sult * RI CRITICAL CARE ILL/INJURED PATIENT INIT 30-74 MIN (04/14/2025 6:25 AM CDT) Narrative Emili Serra MD - 04/14/2025 6:25 AM CDT Emili Serra MD 04/14/2025 6:27 AM Critical Care Performed by: Emili Serra MD Authorized by: Emili Serra MD Critical care provider statement: As reflected in the history, physical exam, orders, notes, and/or MDM, I was personally present while the patient was critically ill and provided critical care services for 60 minutes, excluding time involved in separately billable procedures. Critical care was necessary to treat or prevent imminent or life-threatening deterioration of the following condition(s): unstable vital signs undifferentiated shock, severe cardiac condition and unstable angina/acute coronary syndrome acute undifferentiated respiratory failure sepsis, bacteremia and severe infectious condition level 1 trauma, hemo/pneumothorax, severe traumatic condition and severe body temperature abnormality Critical care was time spent by me providing the following: continuous telemetry, continuous pulse oximetry, continuous capnography, interpretation of bedside monitors, imaging, and arterial/venous lab draws, serial bedside patient exams, serial laboratory checks and arterial puncture frequent neurologic exams post-cardiac arrest management Critical Care performed by me on 04/14/2025 decision regarding NPO status supplemental oxygen and invasive ventilator management, reassessment, and titration transfusion of blood products obtain appropriate cultures and empiric broad coverage antibiotics active titration of continuous sedation and prepared for emergent procedure/operating room I provided emergent necessary critical care medicine services to this patient. I ordered and reviewed test results and/or imaging studies. I spent time discussing the management of this critically ill patient with consultants and the medical staff. I spent time discussing the management and therapeutic options for this critically ill patient with the patient themselves or with the appropriate designated surrogate decision-maker. I spent time documenting in the medical record. I admitted this patient to an Intensive Care unit (ICU) and discussed management with the admitting team. us Emili Serra MD IN CLINIC/BEDSID E ORDERABLES Final Result * (ABNORMAL) Urinalysis reflex to microscopic and culture Urine (04/14/2025 6:01 AM CDT) Color, ur Rupa Yellow Clarity, ur Cloudy(A) Clear [facility] Specific gravity, ur 1.032(H) 1.003 - 1.030 LM [facility] pH, urine 7.0 [facility] Comment: Interpretive Data U rine pH is affected by diet, medications, systemic acid-base disturbances, and renal tubular function. pH may affect urinary stone formation. For example, urine pH below 6.0 may help reduce the tendency for calcium phosphate stones and pH greater than 6.0 may reduce the tendency for uric acid stone formation. Source: [facility] Current Interpretive Data was last revised on 2017 Protein, ur ql 1+(A) Negative [facility] Glucose, ur ql Negative Negative [facility] Ketones, ur Negative Negative [facility] Bilirubin, ur Negative Negative [facility] Blood, ur 3+(A) Negative [facility] Urobilinogen, ur <2.0 <2.0 mg/dL [facility] Nitrite, ur Negative Negative [facility] Leukocyte esterase, ur 1+(A) Negative [facility] UA reflex comment Reflex to microscopic UA will be performed. [facility] Urine 04/14/2025 6:01 AM CDT 04/14/2025 6:09 AM CDT Emili Serra MD LAB MICROBIOLOGY - GENERAL ORDERABLES Final Result Performing Organization Address City/[facility] Co de Phone Number [facility] [employer] [facility] [place] [address] * (ABNORMAL) Urinalysis, microscopic only (04/14/2025 6:01 AM CDT) WBC, ur 11-20(A) 0 - 5 /HPF RBC, ur >50(A) 0 - 2 /HPF [facility] Culture Reflex Comment Reflex to urine culture will be performed. [facility] Urine 04/14/2025 6:01 AM CDT 04/14/2025 6:09 AM CDT Emili Serra MD LAB URINE ORDERA BLES Final Result Performing Organization Address City/[facility]/ZIP Co de Phone Number [facility] [place] [address] * Urine culture Urine (04/14/2025 6:01 AM CDT) Report Final Report: No growth Urine 04/14/2025 6:01 AM CDT 04/15/2025 11:34 AM CDT Narrative LM BRIGHT - 04/16/2025 1:21 PM CDT Urine culture reflexed based upon urinalysis results. Testing performed by [facility] ([phone]) us Emili Serra MD LAB MICROBIOLOGY - GENERAL ORDERABLES Final Result LM PITT [facility] [place] [address] * XR Chest 1 Vw Portable (04/14/2025 5:55 AM CDT) Anatomical Region Laterality Modality Body, Chest N/A Computed Radiogr aphy 04/14/2025 6:25 AM CDT Impressions 04/14/2025 11:59 AM CDT Comparison with same day radiograph. Endotracheal tube 5 cm above the kale. Gastric tube below the diaphragm. Right internal jugular central venous catheter overlies the superior cavoatrial junction. Median sternotomy and coronary bypass changes. Right chest tube in place. Right hemopneumothorax is also characterized on same day CT. Normal heart size and mediastinal contours. Dictated by: Otf Bennett MD PHD The radiology attending physician has personally reviewed this study, and had reviewed and/or edited this written report and agrees with it. Electronically signed by: Aung Solomon M.D. Narrative 04/14/2025 11:59 AM CDT EXAMINATION: 1 view chest radiograph Procedure Note Aung Solomon MD - 04/14/2025 EXAMINATION: 1 view chest radiograph IMPRESSION: Comparison with same day radiograph. Endotracheal tube 5 cm above the kale. Gastric tube below the diaphragm. Right internal jugular central venous catheter overlies the superior cavoatrial junction. Median sternotomy and coronary bypass changes. Right chest tube in place. Right hemopneumothorax is also characterized on same day CT. Normal heart size and mediastinal contours. Dictated by: Otf Bennett MD PHD The radiology attending physician has personally reviewed this study, and had reviewed and/or edited this written report and agrees with it. Electronically signed by: Aung Solomon M.D. us Emili Serra MD IMG XR PROCEDURE S Final Result * (ABNORMAL) Troponin I high-sensitivity series (baseline, 2hr, 4hr, 6hr) (04/14/2025 5:53 AM CDT) Trop I hs 658(C) <=35 ng/L Comment: Interpretive Data For further hscTnI resources including the diagnostic algorithm and an aid in interpretation, copy and paste this link: [email or web address].testcatalog.org/show/[email or web address] Current Interpretive Data last revised 2020. Blood 04/14/2025 5:53 AM CDT 04/14/2025 6:04 AM CDT us Chris Spangler MD LAB BLOOD ORDERABLES Final Result Performing Organization Address City/[facility]/ZIP Co de Phone Number [facility] [place] [address] * Critical result callback Cardio chemistry (04/14/2025 5:53 AM CDT) Date Notified [id number] [facility] Test name Trop I hs base LM PITT Called/Read Back Chris BRIGHT Credentials MD LM BRIGHT Called By vlad BRIGHT Blood 04/14/2025 5:53 AM CDT 04/14/2025 6:04 AM CDT us Chris Spangler MD LAB BLOOD ORDERABLES Final Result Performing Organization Address City/[facility]/ZIP Co de Phone Number [facility] [place] [address] * Check Sample (04/14/2025 5:53 AM CDT) ABO Rh A Positive [facility] HCLL OTHER 04/14/2025 5:53 AM CDT 04/14/2025 6:08 AM CDT Nick Elaine MD LAB BLOOD ORDERABLES Final Resul t [facility] [place] [address] [facility] * (ABNORMAL) POC Blood Gas and Chemistries, Arterial - (04/14/2025 5:53 AM CDT) pH, Art POC 7.37 7.35 - 7.45 pCO2, Art POC 29(L) 35 - 45 mmHg [facility] pO2, Art POC >500(H) 83 - 108 mmHg [facility] Na, POC 121(L) 135 - 145 mmol/L [facility] K POC 4.2 3.3 - 4.9 mmol/L [facility] Comment: Interpretive Data Not all point of care methods assess for hemolysis. Confirm with instrument and retest K+ if not consistent with clinical signs and symptoms. Current Interpretive Data was last revised on 2023. Cl, POC 95(L) 97 - 110 mmol/L [facility] Ionized Ca, POC 3.81(L) 4.50 - 5.10 mg/dL [facility] Glucose, POC 135 70 - 199 mg/dL [facility] Lactate POC 3.8(H) 0.7 - 2.0 mmol/L [facility] SO2 (fanta) arterial 100(H) 90 - 95 % [facility] Base excess, POC -7.2 mmol/L [facility] Hct, POC 40.0(L) 41.4 - 51.6 % [facility] Total Hb, POC 13.2(L) 13.8 - 17.2 g/dL [facility] Blood 04/14/2025 5:53 AM CDT 04/14/2025 5:53 AM CDT us Emili Serra MD LAB POCT ORDERAB LES - DEVICE Final Result [facility] [place] [address] * POCUS Cardiac (04/14/2025 5:03 AM CDT) Anatomical Region Laterality Modality Other 04/14/2025 4:33 AM CDT Narrative 04/14/2025 6:25 AM CDT Performed by: Cardiac: Exam type: Diagnostic Exam Information: Indication(s) for Exam: Hypotension Exam Occurence: Initial Findings : Pericardial effusion: Absent Left ventricle: Reduced EF IVC: Dilated IVC respiratory variation: Low collapsibility (<50%) Interpretation: Reduced LVEF Other : Global reduced contractility rv/lv, IVC full getting blood products, tricuspid valve area with floppy mobility unclear if vegetation or calcified capillaries Electronically signed by EMILI SERRA on Monday, April 14, 2025 at 6:25 AM Images on file. Procedure Note Emili Serra MD - 04/16/2025 Performed by: Cardiac: Exam type: Diagnostic Exam Information: Indication(s) for Exam: Hypotension Exam Occurence: Initial Findings : Pericardial effusion: Absent Left ventricle: Reduced EF IVC: Dilated IVC respiratory variation: Low collapsibility (<50%) Interpretation: Reduced LVEF Other : Global reduced contractility rv/lv, IVC full gettingblood products, tricuspid valve area with floppy mobility unclear ifvegetation or calcified capillaries Electronically signed by EMILI SERRA on Saturday, April 14 at 6:25 AM Images on file. us Emili Serra MD POCUS ORDERABLES Edited Result - Final * POCUS Fast (04/14/2025 5:02 AM CDT) Anatomical Region Laterality Modality Other 04/14/2025 4:33 AM CDT Narrative 04/16/2025 3:38 AM CDT Performed by: FAST: Exam Information: Exam type: Diagnostic Exam Occurence: Initial Indication(s) for Exam: Blunt trauma Trauma location: Chest FAST exam components performed (select ALL that apply): Abdominal Findings: Hepatorenal free fluid: Present Suprapubic free fluid: Present Interpretation: Peritoneal free fluid: Present Electronically signed by EMILI SERRA on April at 3:38 AM Images on file. Procedure Note Emili Serra MD - 04/16/2025 Performed by: FAST: Exam Information: Exam type: Diagnostic Exam Occurence: Initial Indication(s) for Exam: Blunt trauma Trauma location: Chest FAST exam components performed (select ALL that apply): Abdominal Findings: Hepatorenal free fluid: Present Suprapubic free fluid: Present Interpretation: Peritoneal free fluid: Present Electronically signed by EMILI SERRA on , April at 3:38 AM Images on file. Emili Serra MD POCUS ORDERABLES Final Result * Chest xray, 1 view, portable (04/14/2025 5:02 AM CDT) Anatomical Region Laterality Modality Body, Chest N/A Computed Radiogr aphy 04/14/2025 5:19 AM CDT Impressions 04/14/2025 11:59 AM CDT Comparison with 06/22/2022. Multiple displaced right rib fractures are seen. Lenticular shaped opacification of the right lung with small pneumothorax compatible with hemopneumothorax. Right chest tube in place. Endotracheal tube 5 cm above the kale. Median sternotomy changes. Right internal jugular central venous catheter tip overlies the superior cavoatrial junction. Gastric tube courses below the diaphragm with distal tip not seen. Normal heart size and mediastinal contours. Dictated by: Otf Bennett MD PHD The radiology attending physician has personally reviewed this study, and had reviewed and/or edited this written report and agrees with it. Electronically signed by: Aung Solomon M.D. Narrative 04/14/2025 11:59 AM CDT EXAMINATION: 1 view chest radiograph Procedure Note Aung Solomon MD - 04/14/2025 EXAMINATION: 1 view chest radiograph IMPRESSION: Comparison with 06/22/2022. Multiple displaced right rib fractures are seen. Lenticular shaped opacification of the right lung with small pneumothorax compatible with hemopneumothorax. Right chest tube in place. Endotracheal tube 5 cm above the kale. Median sternotomy changes. Right internal jugular central venous catheter tip overlies the superior cavoatrial junction. Gastric tube courses below the diaphragm with distal tip not seen. Normal heart size and mediastinal contours. Dictated by: Otf Bennett MD PHD The radiology attending physician has personally reviewed this study, and had reviewed and/or edited this written report and agrees with it. Electronically signed by: Aung Solomon M.D. us Emili Serra MD IMG XR PROCEDURE S Final Result * (ABNORMAL) POC Blood Gas and Chemistries, Venous - (04/14/2025 4:58 AM CDT) pH, Shiv POC 7.14(C) 7.32 - 7.43 pCO2, shiv POC 54(H) 40 - 50 mmHg [facility] pO2, shiv POC 40 mmHg [facility] Na, POC 120(C) 135 - 145 mmol/L [facility] K POC 5.0(H) 3.3 - 4.9 mmol/L [facility] Comment: Interpretive Data Not all point of care methods assess for hemolysis. Confirm with instrument and retest K+ if not consistent with clinical signs and symptoms. Current Interpretive Data was last revised on 2023. Cl, POC 91(L) 97 - 110 mmol/L [facility] Ionized Ca, POC 4.10(L) 4.50 - 5.10 mg/dL [facility] Glucose, POC 180 70 - 199 mg/dL [facility] Lactate POC 6.1(C) 0.7 - 2.0 mmol/L [facility] MetHb, Shiv POC <0.1 0.0 - 1.9 % [facility] O2 Sat, Shiv POC (Fanta) 63 % [facility] Base excess, POC -10.6 mmol/L [facility] Hct, POC 35.0(L) 41.4 - 51.6 % [facility] Total Hb, POC 11.5(L) 13.8 - 17.2 g/dL [facility] Blood 04/14/2025 4:58 AM CDT 04/14/2025 4:58 AM CDT Emili Serra MD LAB POCT ORDERAB LES - DEVICE Final Result Performing Organization Address [facility] Co de Phone Number [facility] [employer] [place] [address] * Thromboelastometry Panel - Heparin (04/14/2025 4:48 AM CDT) HEPTEM-CT <122 141 - 215 sec HEPTEM-A5 36 33 - 51 mm [facility] HEPTEM-A10 47 44 - 61 mm [facility] HEPTEM-A20 55 52 - 67 mm [facility] HEPTEM-MCF 58 54 - 69 mm [facility] Blood 04/14/2025 4:48 AM CDT 04/14/2025 4:56 AM CDT Emili Serra MD LAB BLOOD ORDERA BLES Edited Result - Final [facility] [place] [address] * Thromboelastometry Panel - Intrinsic (04/14/2025 4:48 AM CDT) INTEM-CT <123 139 - 205 sec INTEM-A5 37 36 - 54 mm [facility] INTEM-A10 48 46 - 63 mm [facility] INTEM-A20 55 53 - 68 mm [facility] INTEM-MCF 58 55 - 70 mm [facility] INTEM-LI60 98 93 - 100 % LM [facility] INTEM-ML 3 0 - 7 % LM [facility] Comment: Interpretive Data Rotational Thromboelastometry (TOÑO) Sigma is a type of viscoelastic testing (VET). TOÑO can rapidly assess hemostasis and guide blood product transfusion in cardiac surgery, liver transplantation, and other bleeding situations. It is not a replacement for conventional coagulation testing (such as PT INR, aPTT and fibrinogen). While anticoagulation medications can impact TOÑO results, TOÑO should not be used to monitor or manage anticoagulation. Standard VET is insensitive to the pharmacological effects of aspirin, thienopyridines, P2Y12 inhibitors and flow-dependent platelet function defects. Literature References 1. Balbina Rinaldi, Sona Olmos. Sensitivity of Viscoelastic Tests to Platelet Function. J Clin Med. 2019Aug 15 9(7) 171. 2. Lincoln O, Luz Maria CM, Angelita N, Flavio EE, Flavio HB, Andrés HC, Margarito HALE, Vel Sevilla MD, Pankaj SS, Enrike G, Angelina HD, Ry ML, Vito AV, Vito SG, Kt L, Harlan BradleyZ, Garth M, Gerardo P, Placido D, Javier MM. Viscoelastic Hemostatic Assays A Primer on Legacy and New Generation Devices. J Clin Med. 2021Sep 12 11(4) 243. 3. TOÑO Operating Manual. Otilio Hennessy MA. Maame 13-15. D- [id number] [facility]. Blood 04/14/2025 4:48 AM CDT 04/14/2025 4:56 AM CDT us Emili Serra MD LAB BLOOD ORDERA BLES Edited Result - Final LM P[facility] Department [place] [address] * Thromboelastometry Panel - Fibrinogen (04/14/2025 4:48 AM CDT) FIBTEM-A5 9 5 - 16 mm FIBTEM-A10 10 6 - 17 mm [facility] FIBTEM-A20 11 6 - 18 mm [facility] FIBTEM-MCF 12 9 - 19 mm [facility] Blood 04/14/2025 4:48 AM CDT 04/14/2025 4:56 AM CDT Emili Serra MD LAB BLOOD ORDERA BLES Edited Result - Final Performing Organization Address City/[facility]/ZIP Co de Phone Number LM [facility] [place] [address] * (ABNORMAL) Thromboelastometry Panel - Extrinsic (04/14/2025 4:48 AM CDT) EXTEM-CT 57 51 - 73 sec EXTEM-A5 41 33 - 52 mm [facility] EXTEM-A10 51 45 - 62 mm [facility] EXTEM-A20 57 54 - 69 mm [facility] EXTEM-MCF 59 57 - 72 mm [facility] EXTEM-LI60 96 94 - 100 % [facility] EXTEM-ML 7(H) 0 - 6 % [facility] Blood 04/14/2025 4:48 AM CDT 04/14/2025 4:56 AM CDT Emili Serra MD LAB BLOOD ORDERA BLES Edited Result - Final Performing Organization Address City/[facility]/ZIP Co de Phone Number LM [facility] [place] [address] * (ABNORMAL) Differential, auto (04/14/2025 4:48 AM CDT) Neutrophil abs 16.20(H) 1.50 - 6.50 K/cumm Imm gran abs 0.40(H) 0.00 - 0.10 K/cumm [facility] Lymphocyte abs 0.76(L) 0.80 - 3.30 K/cumm [facility] Monocyte abs 1.86(H) 0.20 - 0.80 K/cumm [facility] Eosinophil abs 0.02 0.00 - 0.50 K/cumm [facility] Basophil abs 0.04 0.00 - 0.10 K/cumm [facility] Neutrophil pct 84.1 % [facility] Comment: Interpretive Data Percent cell count reference ranges are not reported, since discordance with absolute values may lead to misinterpretation of CBC data. Current Interpretive Data was last revised on 2017. Imm gran pct 2.1 % [facility] Comment: Interpretive Data Percent cell count reference ranges are not reported, since discordance with absolute values may lead to misinterpretation of CBC data. Current Interpretive Data was last revised on 2017. Lymphocyte pct 3.9 % [facility] Comment: Interpretive Data Percent cell count reference ranges are not reported, since discordance with absolute values may lead to misinterpretation of CBC data. Current Interpretive Data was last revised on 2017. Monocyte pct 9.6 % [facility] Comment: Interpretive Data Percent cell count reference ranges are not reported, since discordance with absolute values may lead to misinterpretation of CBC data. Current Interpretive Data was last revised on 2017. Eosinophil pct 0.1 % [facility] Comment: Interpretive Data Percent cell count reference ranges are not reported, since discordance with absolute values may lead to misinterpretation of CBC data. Current Interpretive Data was last revised on 2017. Basophil pct 0.2 % [facility] Comment: Interpretive Data Percent cell count reference ranges are not reported, since discordance with absolute values may lead to misinterpretation of CBC data. Current Interpretive Data was last revised on 2017. Blood 04/14/2025 4:48 AM CDT 04/14/2025 4:56 AM CDT us Emili Serra MD LAB BLOOD ORDERA BLES Final Result [facility] [place] [address] * (ABNORMAL) CBC with auto differential (04/14/2025 4:48 AM CDT) WBC 19.28(H) 3.80 - 9.90 K/cumm Comment:Code Blue Specimen C ode Blue Specimen Hgb 11.6(L) 13.0 - 17.5 g/dL [facility] Hct 35.0(L) 38.9 - 50.3 % [facility] Plt 160 150 - 400 K/cumm [facility] MPV 10.0 9.1 - 12.3 fL [facility] RBC 4.02(L) 4.30 - 5.80 M/cumm [facility] MCV 87.1 81.3 - 96.4 fL [facility] MCH 28.9 27.1 - 33.3 pg [facility] MCHC 33.1 32.3 - 35.7 g/dL [facility] RDW CV 15.1(H) 11.1 - 14.9 % [facility] RDW SD 48.1 35.7 - 48.1 fL [facility] NRBC abs 0.00 0.00 - 0.01 K/cumm [facility] Blood 04/14/2025 4:48 AM CDT 04/14/2025 4:56 AM CDT us Emili Serra MD LAB BLOOD ORDERA BLES Final Result [facility] [place] [address] * (ABNORMAL) aPTT (04/14/2025 4:48 AM CDT) aPTT 20(L) 26 - 38 sec Comment: No clot detected in sample.Code Blue Specimen Interpretive Data Heparin therapeutic range: 66.0 - 100.0 seconds. Range based on correlation with therapeutic heparin activity range of 0.3 - 0.7 Units/mL. Current interpretive data was last revised on 2023. Blood 04/14/2025 4:48 AM CDT 04/14/2025 4:56 AM CDT Emili Serra MD LAB BLOOD ORDERA BLES Final Result Performing Organization Address [facility] de Phone Number [facility] [place] [address] * (ABNORMAL) Protime-INR (04/14/2025 4:48 AM CDT) PT 13.7(H) 10.2 - 13.5 sec Comment:Code Blue Specimen INR 1.22(H) 0.90 - 1.20 [facility] Comment: Code Blue Specimen Interpretive data Oral anticoagulant therapeutic ranges: Venous thromboembolism prophylaxis or treatment: 2.0-3.0 CARDIOLOGY Standard range: 2.0-3.0 High-intensity range: 2.5-3.5 Refer to indication-specific guidelines for appropriate target ranges for prosthetic heart valve replacement. Current interpretive data was last revised on 2019. Blood 04/14/2025 4:48 AM CDT 04/14/2025 4:56 AM CDT Emili Serra MD LAB BLOOD ORDERA BLES Final Result Performing Organization Address [facility] [place] [address] * Type and screen (04/14/2025 4:48 AM CDT) ABO Rh A Positive Owen, indirect Negative [facility] Blood 04/14/2025 4:48 AM CDT 04/14/2025 4:58 AM CDT Narrative [facility] - 04/14/2025 5:41 AM CDT Has the patient had Daratumumab or Isatuximab in the past 6 months?->Unknown Emili Serra MD LAB BLOOD BANK T EST ORDERABLES Final Result Performing Organization Address [facility] Co de Phone Number LM [facility] [place] [address] * Ethanol (04/14/2025 4:48 AM CDT) Ethanol <10 <=10 mg/dL Comment: Interpretive Data Legal limit of intoxication > or = 80 mg/dL Levels > or = 400 mg/dL are potentially TOXIC. Current interpretive data was last revised on 2018. Blood 04/14/2025 4:48 AM CDT 04/14/2025 4:56 AM CDT Emili Serra MD LAB BLOOD ORDERA BLES Final Result Performing Organization Address [facility] Co de Phone Number LM [facility] [place] [address] from Last 3 Months Insurance [facility] MEDICARE ADVANTAGE [facility] MEDICARE ADVANTAGE MEDICARE ADVANTAGE [facility] HMO REF Advance Directives For more information, please contact: [phone] * Full Code (Latest Code Status on File) Date Activated Date Inactivated Comments 04/14/2025 10:55 AM 04/21/2025 7:25 PM * Full Code Date Activated Date Inactivated Comments 06/10/2022 2:25 AM 06/22/2022 9:08 PM Care Teams [employer]iconductor Equipment Technician Relationship Specialty Start Date End Date Teo Ferrera DO [address] [id number] PCP - General Family Medicine 10/26/22 Rock Matthew MD Surgeon Cardiothoracic Surgery 06/22/22 Wilber Stanley MD [address] [place] [id number] Consulting Physician Cardiology 06/22/22
[2025-05-29 10:05] LABS: Estimated Glomerular Filt Rate 50
== END 2025-05-29 09:38 | disposition home or self-care (01) ==
PROVIDERS: PCP Nurse Practitioner Family; Visit Provider Urology
DX: N28.89 Other specified disorders of kidney and ureter (principal); R31.0 Gross hematuria
CPT/HCPCS: 74178; Q9967